=== PATIENT | female | born 1975 | race Caucasian/White ===

== ENCOUNTER 2020-07-24 08:36 | Outpatient (REF) | payer OTHER, SELFPAY ==
[2020-07-24 10:17] LABS: MANUAL DIFF FLAG NO
[2020-07-24 10:33] LABS: Basophils Percent Auto 0.5 % (0-2); Eosinophils Absolute Auto 0.2 X10*3/uL (0.0-0.4); Hematocrit 32.1 % (37-47); Imm Gran Abs Auto 0.02 X10*3/uL (0.00-0.03); Imm Gran Pct Auto 0.3 % (0.0-0.4); Immature Retic Fraction 14.7 % (3.0-15.9); Lymphocytes Absolute Auto 1.5 X10*3/uL (1.2-4.9); Lymphocytes Percent Auto 24.6 % (20-40); Mean Corpuscular HGB Conc 31.2 g/dl (31.0-35.0); Mean Corpuscular Volume 80.3 fL (80-98); Mean Platelet Volume 10.7 fL (9.4-12.3); Monocytes Absolute Auto 0.5 X10*3/uL (0.1-1.2); Neutrophils Absolute Auto 3.8 X10*3/uL (2.0-8.3); Neutrophils Percent Auto 62.6 % (45-73); Platelet Count 287 X10*3/uL (160-400); Red Cell Distribution Width 15.8 % (11.0-16.0); Retic HGB Equivalent 25.1 pg (30.0-35.0); Reticulocyte Percent 1.5 % (0.5-1.8); Reticulocytes Absolute 0.062 X10*6/uL (0.026-0.095)
[2020-07-24 10:57] LABS: Iron 43 mcg/dL (30-160); Percent Iron Saturation 10 % (15-50); Total Iron Binding Capacity 427 mcg/dL (228-428); Unsaturated Iron Binding 384 ug/dL
[2020-07-24 11:10] LABS: Ferritin 4 ng/mL (10-250); T4 Thyroxine 4.9 ug/dL (4.5-12.0); Thyroid Stimulating Hormone 11.81 mIU/mL (0.32-4.0)
== END 2020-07-24 08:37 | disposition home or self-care (01) ==
LOC: HO.LAB 08:36
PROVIDERS: PCP Internal Medicine; Visit Provider Internal Medicine
DX: E03.9 Hypothyroidism, unspecified (principal); E78.00 Pure hypercholesterolemia, unspecified; E66.9 Obesity, unspecified; G43.909 Migraine, unspecified, not intractable, without status migrainosus; R73.01 Impaired fasting glucose; D64.9 Anemia, unspecified; N92.1 Excessive and frequent menstruation with irregular cycle
CPT/HCPCS: 36415; 82728; 83540; 84436; 84443; 85025; 85045

== ENCOUNTER 2020-07-25 14:04 | Outpatient (REF) | payer OTHER, SELFPAY ==
--- NOTE | 2020-07-25 14:06 | XR_ITS ---
EXAMINATION: XR CHEST CLINICAL INFORMATION: Neck and chest pain. COMPARISON: None TECHNIQUE: 2 views of the chest were obtained. FINDINGS: No significant abnormality is noted involving the heart, lungs, mediastinum, bony thorax or soft tissues. IMPRESSION: No acute cardiopulmonary process.
== END 2020-07-25 14:05 | disposition home or self-care (01) ==
LOC: HO.XRAY 14:04
PROVIDERS: PCP Internal Medicine; Visit Provider Internal Medicine
DX: M54.2 Cervicalgia (principal); R07.9 Chest pain, unspecified
CPT/HCPCS: 71046

== ENCOUNTER → 2020-08-04 09:33 | Outpatient (BNVA) | payer OTHER, SELFPAY | PROVIDERS: PCP Internal Medicine; Referring Provider Internal Medicine; Visit Provider Advanced Practice Midwife | DX: Z76.89 Persons encountering health services in other specified circumstances (principal) ==

== ENCOUNTER 2020-08-08 13:17 | Outpatient (REF) | payer OTHER, SELFPAY ==
--- NOTE | 2020-08-08 13:22 | MM_ITS ---
EXAMINATION: MM DIAGNOSTIC DIGITAL BREAST TOMOSYNTHESIS, BILATERAL US DIAGNOSTIC ULTRASOUND BREAST, RIGHT CLINICAL INFORMATION: 45-year-old with ridgelike palpable fullness inferior right breast noted for one month. Family history breast cancer paternal aunt. The lifetime risk of breast cancer based on the Tyrer-Cuzick Model is 8%. COMPARISON: Mammography: 09/14/2017, 07/07/2016 TECHNIQUE: Digital breast tomosynthesis is performed in both the craniocaudal and mediolateral oblique views along with computer-aided detection (CAD). Synthesized 2D images are generated from the tomosynthesis. Ultrasound right breast is targeted to the area of clinical concern inferior right breast. Patient is able to point to the palpable area at time of imaging. Grayscale imaging and color Doppler are performed without and with harmonics. FINDINGS: There are scattered areas of fibroglandular density (ACR BI-RADS breast composition Category b). Parenchymal pattern is similar to prior exams. There is no interval mass or architectural abnormality. There is no skin thickening or coarsening of the Kyler's ligaments. No interval duct ectasia. There are no abnormal calcifications. The axilla are unremarkable. No significant changes from prior studies. Ultrasound right breast demonstrates no cystic or solid mass, architectural abnormality, or focal duct ectasia. There is no skin thickening or edema tracking in the soft tissue planes. Results are discussed with the patient at time of visit. There is no mammographic or ultrasound correlate for patient's palpable concern. MM/MM tomosynthesis diagnostic BI IMPRESSION: 1. No mammographic evidence of malignancy. 2. Unremarkable targeted right breast ultrasound. 3. No imaging correlate for patient's palpable concern. ASSESSMENT: BI-RADS 1: Negative RECOMMENDATION: 1. Patient should be managed based on the clinical impression. If clinically indicated, further evaluation may be considered with surgical consult. Decision to proceed with biopsy should be based on clinical grounds and degree of clinical concern. 2. Otherwise, routine annual screening mammography. This patient's information was entered into a reminder system with a target due date for their next mammogram.
== END 2020-08-08 13:18 | disposition home or self-care (01) ==
LOC: HO.MAMMO 13:17
PROVIDERS: Visit Provider Advanced Practice Midwife
DX: N63.14 Unspecified lump in the right breast, lower inner quadrant (principal)
CPT/HCPCS: 76642; 77062; 77066

== ENCOUNTER 2020-08-11 10:55 | Outpatient (REF) | payer OTHER, SELFPAY ==
--- NOTE | 2020-08-11 10:59 | US_ITS ---
EXAMINATION: PELVIC ULTRASOUND CLINICAL INFORMATION: Excessive and frequent menstruation COMPARISON: Previous exam November 2017 TECHNIQUE: Transabdominal and transvaginal pelvic ultrasound was performed. Transvaginal exam was performed for better visualization of the uterus and ovaries. FINDINGS: The uterus is anteverted and anteflexed and measures 9.7 x 5.4 x 6.6 cm in dimension. There are 3 hypoechoic lesions in the uterus suggestive of fibroids. These measure 2.4 x 2.3 x 2.1 cm in the left anterior high uterine body, 1.7 x 1.5 x 1.7 cm in the right uterine fundus adjacent to the endometrium and 1.8 x 1.2 x 0.7 cm in the posterior uterine body near the endometrium. The first 2 uterine fibroids are seen on prior exam and are increased in size measuring approximately 1 cm on November 2017 exam. The third uterine fibroid was not appreciated. The endometrium does not appear thickened measuring 1.1 cm. There are nabothian cysts in the cervix. The right ovary is normal-appearing and measures 2.7 x 2.9 x 2.6 cm. Left ovary measures 3 x 2.7 x 2.3 cm and contains a 1.7 x 1.2 x 1.3 cm complex cyst. There is no fluid in the pelvis. US/US pelvic complete IMPRESSION: Three uterine fibroids, two of which abut the endometrium. Normal thickness endometrium measuring 11 mm. 1.7 x 1.2 x 1.3 cm complex left ovarian cyst.
== END 2020-08-11 10:56 | disposition home or self-care (01) ==
LOC: HO.US 10:55
PROVIDERS: Visit Provider Advanced Practice Midwife
DX: N92.0 Excessive and frequent menstruation with regular cycle (principal)
CPT/HCPCS: 76830; 76856

== ENCOUNTER → 2020-08-25 11:23 | Outpatient (BNVA) | payer OTHER, SELFPAY | PROVIDERS: PCP Internal Medicine; Visit Provider Obstetrics & Gynecology | DX: N84.1 Polyp of cervix uteri (principal) | CPT/HCPCS: 99212 ==

== ENCOUNTER → 2020-09-15 09:56 | Outpatient (BNVA) | payer SELFPAY | PROVIDERS: Visit Provider Obstetrics & Gynecology | DX: N84.1 Polyp of cervix uteri (principal); N93.9 Abnormal uterine and vaginal bleeding, unspecified | CPT/HCPCS: 99212 ==

== ENCOUNTER 2020-09-25 09:00 | Day surgery (SDC) | payer OTHER, SELFPAY ==
--- NOTE | 2020-09-24 13:56 | HO.ANESPROP2 ---
Documented by User: Vibha Carr 09/24/20 13:58 HPI - Anesthesia Eval Consult details Narrative: 45yo F for Hysteroscopy,polypectomy PMFSH Past Medical History Medical History Anemia Cervical polyp Hypercholesterolemia Hypothyroid Impaired glucose tolerance Legally blind in left eye, as defined in [place] Metrorrhagia Migraine with aura Obesity (BMI 30-39.9) Urge incontinence Family History Family History Maternal Aunt Family history of breast cancer Maternal Uncle History of brain tumor Paternal Aunt Hx of myocardial infarction Father Myocardial infarction Mother Alive and well Surgical History Surgical History History of bilateral tubal ligation Hx of cervical polypectomy Hx of tubal ligation Social History Social History Alcohol intake: never Smoking Status: Never smoker Second Hand Smoke Exposure: No Use of substances other than those prescribed or required for medical reasons: No Advance Directives: Yes Advance Directives Information Provided: No Advance Directives on File: Yes Advance Directives Date on File: 07/17/20 Gender identity: female Meds Allergies Allergy/AdvReac Type Severity Reaction Status Date / Time No Known Allergies Allergy Verified 09/15/20 10:00 Home Medications Medication Instructions Recorded Confirmed Type cyclobenzaprine 10 mg tablet 10 mg PO TID 07/08/20 History sumatriptan succinate 50 mg tablet 50 mg PO Q2-4H PRN 07/24/20 07/24/20 History Exam Exam Date and Time: September 24, 2020 1356 Pertinent Lab Results Pertinent Lab Results: Laboratory Tests 04/29/20 07/24/20 09:05 08:55 WBC 6.0 Hgb 10.0 L Hct 32.1 L Plt Count 287 Sodium 138 Potassium 4.2 Chloride 106 BUN 8 L Creatinine 0.71 Assessment and Plan Assessment Anesthesia Assessment: Chart Reviewed Documented by User: Radha Ortega 09/25/20 09:49 PMFSH Past Medical History Medical History Anemia Cervical polyp Hypercholesterolemia Hypothyroid Impaired glucose tolerance Legally blind in left eye, as defined in [place] Metrorrhagia Migraine with aura Obesity (BMI 30-39.9) Urge incontinence Family History Family History Maternal Aunt Family history of breast cancer Maternal Uncle History of brain tumor Paternal Aunt Hx of myocardial infarction Father Myocardial infarction Mother Alive and well Surgical History Surgical History History of bilateral tubal ligation Hx of cervical polypectomy Hx of tubal ligation Social History Social History Alcohol intake: never Smoking Status: Never smoker Second Hand Smoke Exposure: No Use of substances other than those prescribed or required for medical reasons: No Advance Directives: Yes Advance Directives Information Provided: No Advance Directives on File: Yes Advance Directives Date on File: 07/17/20 Gender identity: female Meds Allergies Allergy/AdvReac Type Severity Reaction Status Date / Time No Known Allergies Allergy Verified 09/15/20 10:00 Home Medications Medication Instructions Recorded Confirmed Type cyclobenzaprine 10 mg tablet 10 mg PO TID 07/08/20 History sumatriptan succinate 50 mg tablet 50 mg PO Q2-4H PRN 07/24/20 07/24/20 History Exam Airway Mallampati Class: II TM Dist: >3cm Neck ROM: Full Assessment and Plan Assessment Anesthesia Assessment: Anesthesia Plan Discussed and Chart Reviewed Final Anesthetic Review NPO: Yes ASA Class: II Final Preanesthetic Review: No Changes in Pt Med Stat, Meds/Allgs Chart Reviewed, Consent Obtained/Reviewed and Anes Risks/Benef Reviewed Patient Risk: Low Procedure Risk: Low Assessment/Block/Sedation in SS: Assess/Block/Sedation-SS Anesthetic Plan Anesthetic Plan: MAC: Disposition: Standard PACU
[2020-09-24 14:05] VITALS: BMI 34.2
[2020-09-25 09:24] VITALS: BP 130/80; PULSE 89; RESP 16; TEMP 36.4; O2SAT 98
[2020-09-25] MEDS: Lactated Ringers 1,000 ML 100 ML IVCONT (09:27)
--- NOTE | 2020-09-25 09:46 | MHC.SHP ---
Pre-Procedural Eval Section A The patient is an INPATIENT: No Changes since office visit: No Cold of Flu in the past 2 weeks, No New Medical Problems, No Changes in Medication and No Patient answered all questions The History & Physical has been completed within 30 days and I have reviewed it.: Yes Section B Chief Complaint: polyp of cervix Allergies: Allergies Allergy/AdvReac Type Severity Reaction Status Date / Time No Known Allergies Allergy Verified 09/15/20 10:00 Plan I have reviewed the history and physical and performed a pertinent physical examination on my patient. No changes have occurred unless specified.
[2020-09-25 10:18] LABS: HCG Quantitative < 2 mIU/mL
--- NOTE | 2020-09-25 10:32 | PC.NURSE ---
AT 940 MD MADE AWARE OF LAB JUST DRAWN BUT OKAYED TO GO IN TO OR WITHOUT RESULTS SINCE PT HAD TUBAL LIGATION.
--- NOTE | 2020-09-25 10:50 | P.OP_ITS ---
Operative Note Operative Note Date of Service: 09/25/20 Narrative: Ms. Cha is a 45 year old with cervical polyp noted on annual exam by CNM and abnormal uterine bleeding. She presents today for hysteroscopy d&c for polypectomy. Surgical Risks: The patient was informed of the risks and benefits of a hysteroscopy with dilation and curettage. Risks included but were not limited to bleeding, infection, injury to the vulva, vagina, or cervix, and uterine perforation with possible need for further surgery. The patient expressed understanding of the risks involved, all questions were answered, and the patient consented to the procedure. The patient was taken to the operating room where a time out was confirmed to confirm correct patient and correct procedure. Adequate IV sedation was established. The patient was then positioned on the operating table in the dorsal lithotomy position with her legs supported using stirrups. All pressure points were padded and a warm blanket was placed to maintain control of core body temperature. The patient was then prepped and draped in the usual sterile fashion. A bimanual exam was performed and the uterus was found to be approximately 8 cm size, anteverted. No adnexal masses were palpated. A straight catheter was inserted into the bladder and urine was obtained. A bivalve speculum was then inserted into the vagina. The anterior lip of the cervix was visualized and grasped using a single tooth tenaculum. The cervix was adequately dilated using Sanchez dilators for the introduction of the hysteroscope. The cervix was noted to be friable. The hysteroscope was introduced under direct visualization using normal saline solution as the distending media. The hysteroscope was advanced to the fundus and the entire uterine cavity was inspected. The uterine cavity appeared filled with polypoid tissue. The hysteroscope was then removed and a sharp curetting was performed starting at the 12 o?clock position and rotating a total of 360 degrees in order to cover all surfaces. The hysteroscope was reintroduced and polypoid tissue noted to be remaining at the fundus and left posterior aspect of the uterine lining. The myosure was advanced and directed curettage was performed to remove the remaining visible polypoid tissue. The hysterosocpe was then removed with the myosure within the sleeve. A sharp curetting was again performed starting at the 12 o?clock position and rotating a total of 360 degrees in order to cover al l surfaces. Endometrial tissue was obtained and was sent to pathology. Following the curetting, good hemostasis was noted. The single-tooth tenaculum was removed from the anterior lip of the cervix and cervical bleeding was noted, which persisted despit the application of pressure. Monsel's was applied and good hemostasis was noted. The speculum was then removed from the vagina. At the end of the procedure, all needle, sponge, and instrument counts were noted to be correct x2. The patient was transferred to the recovery room in stable condition. Fluid deficit: 100mL EBL: 20cc
[2020-09-25 10:53] VITALS: BP 121/82; PULSE 61; RESP 16; TEMP 36.4; O2SAT 98
[2020-09-25 11:08] VITALS: BP 129/86; PULSE 60; RESP 16; O2SAT 100
[2020-09-25] MEDS: Acetaminophen 325 MG TABLET 650 MG PO (11:17)
[2020-09-25 11:24] VITALS: BP 126/87; PULSE 60; RESP 16; O2SAT 100
[2020-09-25 11:36] VITALS: BP 120/81; PULSE 60; RESP 16; O2SAT 98
== END 2020-09-25 11:58 | disposition home or self-care (01) ==
PROVIDERS: PCP Internal Medicine; Visit Provider Obstetrics & Gynecology
PROC: 0UJD8ZZ Inspection of Uterus and Cervix, Via Natural or Artificial Opening Endoscopic (ICD-10-PCS; CPT 58555; principal; 2020-09-25 11:40)
DX: N84.0 Polyp of corpus uteri (principal); N93.9 Abnormal uterine and vaginal bleeding, unspecified; D64.9 Anemia, unspecified; R73.02 Impaired glucose tolerance (oral); E66.9 Obesity, unspecified; Z98.51 Tubal ligation status
CPT/HCPCS: 58558; 84702; 88305; J1885; J2250; J2405; J3010

== ENCOUNTER → 2020-10-08 11:38 | Outpatient (BNVA) | payer OTHER, SELFPAY | PROVIDERS: PCP Internal Medicine; Visit Provider Obstetrics & Gynecology | DX: Z76.89 Persons encountering health services in other specified circumstances (principal) ==

== ENCOUNTER → 2020-11-17 13:15 | Outpatient (BNVA) | payer OTHER, SELFPAY | PROVIDERS: PCP Internal Medicine; Visit Provider Advanced Practice Midwife ==

== ENCOUNTER → 2021-12-04 14:08 | Outpatient (RCR) | payer OTHER, SELFPAY ==
--- NOTE | 2020-07-25 14:11 | XR_ITS ---
EXAMINATION: XR CERVICAL SPINE CLINICAL INFORMATION: Cervicalgia COMPARISON: None TECHNIQUE: 3 views of the cervical spine were obtained. FINDINGS: There are no prevertebral soft tissue or bony abnormalities demonstrated. No compression fractures or subluxations are identified. Alignment is maintained at the atlanto-axial articulation. The disc spaces are preserved. No endplate changes are seen. The prevertebral soft tissues are normal. The lung apices are clear. IMPRESSION: Normal appearance of the cervical spine.
--- NOTE | 2020-08-12 15:32 | MHC.PT.DC ---
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 On her last attended visit, we began to review rolling/lifting/transfer techniques with proper body mechanics. She has since no showed 2 consecutive visits and will therefore be discharged from PT. She was supposed to RTW soon. Electronically signed by: Janel Leon PT, DPT Please sign and return to therapist. Thank you for your referral.
== END | disposition home or self-care (01) ==
LOC: HO.PT 07-17 11:52
PROVIDERS: PCP Internal Medicine; Visit Provider Internal Medicine
DX: M54.9 Dorsalgia, unspecified (principal)
CPT/HCPCS: 72040; 97110; 97140; 97530

== ENCOUNTER 2023-02-19 07:51 | Outpatient (REF) | payer OTHER, SELFPAY ==
[2023-02-19 08:34] LABS: MANUAL DIFF FLAG NO
[2023-02-19 09:02] LABS: Basophils Percent Auto 0.8 % (0-2); Eosinophils Absolute Auto 0.2 X10*3/uL (0.0-0.4); Eosinophils Percent Auto 5.2 % (0-4); Hematocrit 30.5 % (37.0-47.0); Imm Gran Abs Auto 0.02 X10*3/uL (0.00-0.03); Imm Gran Pct Auto 0.5 % (0.0-0.4); Immature Retic Fraction 17.1 % (3.0-15.9); Lymphocytes Absolute Auto 1.1 X10*3/uL (1.2-4.9); Lymphocytes Percent Auto 28.4 % (20-40); Mean Corpuscular HGB Conc 29.5 g/dl (31.0-35.0); Mean Corpuscular Hemoglobin 20.9 pg (27.0-33.0); Mean Corpuscular Volume 70.8 fL (80.0-98.0); Monocytes Absolute Auto 0.4 X10*3/uL (0.1-1.2); Monocytes Percent Auto 10.3 % (2-11); Neutrophils Absolute Auto 2.1 x10*3/uL (2.0-8.3); Neutrophils Percent Auto 54.8 % (45-73); Platelet Count 341 X10*3/uL (160-400); Red Blood Count 4.31 X10*6/uL (4.20-5.50); Red Cell Distribution Width 18.9 % (11.0-16.0); Retic HGB Equivalent 22.6 pg (30.0-35.0); Reticulocyte Percent 1.6 % (0.5-1.8); Reticulocytes Absolute 0.071 X10*6/uL (0.026-0.095); White Blood Count 3.9 X10*3/uL (4.8-10.8)
[2023-02-19 09:04] LABS: Appearance Urine Clear; Color Urine Yellow; Glucose Urine UA Negative (Negative); Leukocyte Esterase Urine Small (1+) (Negative); Nitrite Urine Negative (Negative); PH 6.5 (5.0-9.0); UMIC TRIGGER UA YES; Urine Blood Negative (Negative); Urine Ketones Negative (Negative); Urine Protein Trace mg/dL (Neg-Trace)
[2023-02-19 09:14] LABS: Estimated Average Glucose 108 mg/dL; Hemoglobin A1c % 5.4 %
[2023-02-19 09:17] LABS: Bacteria Urine Trace (None Seen); Hyaline Casts Urine 0-2 /LPF (0-2); RBC Urine 0-2 /HPF (0-2); WBC Urine 0-5 /HPF (0-5)
[2023-02-19 09:51] LABS: Alanine Aminotransferase 11 U/L (0-31); Albumin Level 4.1 g/dL (3.5-5.0); Alkaline Phosphatase 101 U/L (39-117); Anion Gap 10 (12-20); Aspartate Amino Transferase 14 U/L (5-31); Bilirubin Total 0.3 mg/dL (0.0-1.0); Blood Urea Nitrogen 6 mg/dL (9-16); Carbon Dioxide 26 mmol/L (22-29); Chloride 107 mmol/L (96-108); Cholesterol 201 mg/dL; Estimated Glomerular Filt Rate > 60; Glucose Random 107 mg/dL (60-115); HDL Cholesterol 44 mg/dL; Iron 13 mcg/dL (30-160); LDL Cholesterol Calculated 140 mg/dl; Percent Iron Saturation 3 % (15-50); Potassium 3.9 mmol/L (3.3-5.1); Sodium 139 mmol/L (135-145); Total Iron Binding Capacity 382 mcg/dL (228-428); Total Protein 7.4 g/dL (6.5-8.0); Triglycerides 85 mg/dL; Unsaturated Iron Binding 369 ug/dL
[2023-02-19 10:15] LABS: Ferritin 6 ng/mL (10-250); Folate 8.5 ng/mL (> or = 4.0); Free T4 (Free Thyroxine) 0.74 ng/dL (0.71-1.85); Thyroid Stimulating Hormone 16.19 uIU/mL (0.32-4.0); Vitamin B12 343 pg/mL (200-900); Vitamin D 25-OH Total 15.4 ng/mL (>30)
== END 2023-02-19 07:52 | disposition home or self-care (01) ==
LOC: HO.LAB 07:51
PROVIDERS: PCP Internal Medicine; Visit Provider Internal Medicine
DX: D50.0 Iron deficiency anemia secondary to blood loss (chronic) (principal); R73.02 Impaired glucose tolerance (oral); R35.0 Frequency of micturition; E78.00 Pure hypercholesterolemia, unspecified; E55.9 Vitamin D deficiency, unspecified
CPT/HCPCS: 36415; 80053; 80061; 81001; 82306; 82607; 82728; 82746; 83036; 83540; 84439; 84443; 85025; 85045

== ENCOUNTER 2023-02-21 10:20 | Outpatient (REF) | payer OTHER, SELFPAY ==
--- NOTE | ~2023-02-21 | XR_ITS ---
EXAMINATION: XR SINUSES CLINICAL INFORMATION: Disorder of nose and nasal sinuses. Chronic sinus pressure. COMPARISON: None available. TECHNIQUE: 3 views of the sinuses were obtained. FINDINGS: Paranasal sinuses appear clear without air-fluid levels. No fractures are identified. Oval shaped area of increased sclerosis projects over the superior left frontal sinus on one view only. This may represent something in the patient's scalp or hair. XR/XR sinus <3V IMPRESSION: Unremarkable examination.
== END 2023-02-21 10:21 | disposition home or self-care (01) ==
LOC: HO.XRAY 10:20
PROVIDERS: PCP Internal Medicine; Visit Provider Internal Medicine
DX: J34.89 Other specified disorders of nose and nasal sinuses (principal)
CPT/HCPCS: 70210

== ENCOUNTER → 2023-03-04 09:05 | Outpatient (BNVA) | payer OTHER, SELFPAY | PROVIDERS: PCP Internal Medicine; Referring Provider Internal Medicine; Visit Provider Surgery ==

== ENCOUNTER 2023-03-30 13:53 | Outpatient (REF) | payer OTHER, SELFPAY ==
[2023-03-30 18:50] LABS: CT PCR NOT DETECTED (Not Detect.); NG PCR NOT DETECTED (Not Detect.)
[2023-03-31 13:55] LABS: BV Int Neg Control Negative (Negative); BV Int Pos Control Positive (Positive)
[2023-04-02 00:59] LABS: HPV mRNA E6/E7 rflx Not Detected (Not Detected)
== END 2023-03-30 13:54 | disposition home or self-care (01) ==
LOC: HO.LNP 13:53
PROVIDERS: PCP Internal Medicine; Visit Provider Advanced Practice Midwife
DX: Z01.419 Encounter for gynecological examination (general) (routine) without abnormal findings (principal); Z11.51 Encounter for screening for human papillomavirus (HPV); Z20.2 Contact with and (suspected) exposure to infections with a predominantly sexual mode of transmission; R03.0 Elevated blood-pressure reading, without diagnosis of hypertension; E03.9 Hypothyroidism, unspecified
CPT/HCPCS: 0353U; 87480; 87510; 87624; 87660; 88142

== ENCOUNTER 2023-04-05 13:32 | Outpatient (REF) | payer OTHER, SELFPAY | END 2023-04-05 13:33 | disposition home or self-care (01) | LOC: HO.US 13:32 | PROVIDERS: PCP Internal Medicine; Visit Provider Advanced Practice Midwife | DX: Z13.89 Encounter for screening for other disorder (principal) ==

== ENCOUNTER 2023-04-07 10:39 | Outpatient (REF) | payer OTHER, SELFPAY ==
[2023-04-07 10:39] VITALS: BP 197/91; PULSE 84; RESP 18; TEMP 36.6; O2SAT 99; BMI 32.9
--- NOTE | 2023-04-07 12:53 | P.OP_ITS ---
Operative Note Operative Note Date of Service: 04/07/23 Narrative: Preoperative diagnosis: Umbilical polyp Postoperative diagnosis: Same Procedure: Excision of the umbilical polyp Surgeon: Marty Lam MD Covering Machine Tender: None Anesthesia: Local Indications for procedure: 47-year-old female with a raised polypoid lesion with brownish discoloration located in the inferior surface of the umbilicus measuring approximately 1.5 cm by 1 cm at its base. Operative findings: Polypoid lesion of the umbilicus, underlying fat containing hernia identified at umbilicus Specimen: Skin lesion umbilicus Estimated blood loss: 2 mL Complications: None Procedure details: Patient was brought to the minor surgery suite placed in a supine position. The site of surgery was confirmed by the patient at the umbilicus. After assuring informed consent the skin was prepped with Betadine and draped in a sterile fashion. Local anesthesia was then infiltrated around the lesion. Elliptical incision oriented longitudinally was then created at the midline to encompass the entire lesion. This was carried out through subcutaneous tissue and around the lesion. The umbilical hernia was noted but no attempt was made to repair. Lesion was completely excised and sent to pathology for further examination. After assuring adequate hemostasis the dermis was reapproximated using interrupted 3-0 Polysorb sutures. Skin was then closed using a running subcuticular 4-0 Polysorb suture. Steri-Strips, 2 x 2 gauze and Tegaderm were then applied. The patient tolerated the procedure well. She was discharged to home in stable condition.
== END 2023-04-07 10:40 | disposition home or self-care (01) ==
LOC: HO.MS 10:39
PROVIDERS: PCP Internal Medicine; Visit Provider Surgery
PROC: (CPT 49250; principal; 2023-04-07 11:20)
DX: L85.8 Other specified epidermal thickening (principal); L91.0 Hypertrophic scar; K42.9 Umbilical hernia without obstruction or gangrene
CPT/HCPCS: 49250; 88305

== ENCOUNTER 2023-04-13 13:28 | Outpatient (REF) | payer OTHER, SELFPAY ==
--- NOTE | ~2023-04-13 | US_ITS ---
EXAMINATION: US PELVIS CLINICAL INFORMATION: Abnormal uterine bleeding LMP 03/05/2023 COMPARISON: Pelvic ultrasound 08/11/2020 TECHNIQUE: Ultrasound of the pelvis is performed using both transabdominal and transvaginal transducers along with Doppler. Transvaginal imaging is performed due to inadequate visualization transabdominally. FINDINGS: Uterus: The uterus is anteverted and measures 11.1 x 7.3 x 7.2 cm. The myometrium is heterogeneous. The double wall endometrial thickness is 1.4 mm. There are multiple uterine fibroids. There is a new 1.1 x 0.8 x 1.0 cm fibroid is seen in the lower uterine segment has a submucosal component. There is a 1.5 x 1.4 x 1.7 cm fibroid on the right that was not previously seen. 1.3 x 1.3 x 1.2 cm intramural fibroid in the right fundus adjacent to the endometrium previously measured 1.7 x 1.5 x 1.7 cm. 2.3 x 2.9 x 2.1 cm posterior subserosal fibroid in the body of the uterus previously measured 1.8 x 1.2 x 0.9 cm. 2.3 x 2.8 x 2.4 cm fundal fibroid on the left previously measured 2.4 x 2.3 x 2.1 cm. Adnexa: Both ovaries are visualized. There is normal color flow to the adnexa. There is no ovarian torsion. There is a small amount of free fluid within the pelvis. Right ovary measures 4.2 x 2.7 x 1.9 cm. Volume 11.3 mL. Left ovary measures 3.7 x 2.0 x 2.7 cm. Volume 10.5 mL. 2.1 x 1.8 x 1.8 cm collapsing corpus luteum is seen. US/US pelvic and transvaginal IMPRESSION: 1. Multiple uterine fibroids including a new 1.1 cm fibroid in the lower segment with a submucosal component. 2. The appearance of the ovaries is within normal limits.
== END 2023-04-13 13:29 | disposition home or self-care (01) ==
LOC: HO.US 13:28
PROVIDERS: PCP Internal Medicine; Visit Provider Advanced Practice Midwife
DX: N83.209 Unspecified ovarian cyst, unspecified side (principal); N92.1 Excessive and frequent menstruation with irregular cycle; Z87.42 Personal history of other diseases of the female genital tract; Z98.890 Other specified postprocedural states
CPT/HCPCS: 76830; 76856

== ENCOUNTER → 2023-04-15 08:06 | Outpatient (BNVA) | payer OTHER, SELFPAY | PROVIDERS: Visit Provider Surgery ==

== ENCOUNTER 2023-04-18 13:50 | Outpatient (REF) | payer OTHER, SELFPAY ==
--- NOTE | ~2023-04-18 | MM_ITS ---
EXAMINATION: MM SCREENING DIGITAL BREAST TOMOSYNTHESIS, BILATERAL CLINICAL INFORMATION: Screening. Asymptomatic. The lifetime risk of breast cancer based on the Tyrer-Cuzick Model is 14.3%. COMPARISON: Mammography: This study is compared with prior exams dating back to 2017. TECHNIQUE: Digital breast tomosynthesis is performed in both the craniocaudal and mediolateral oblique views along with computer-aided detection (CAD). Synthesized 2D images are generated from the tomosynthesis. FINDINGS: There are scattered areas of fibroglandular density (ACR BI-RADS breast composition Category b). There are no significant masses, abnormal calcifications, or other abnormalities. MM/MM tomosynthesis screening BI IMPRESSION: No mammographic evidence of malignancy. ASSESSMENT: BI-RADS BI-RADS 1 - Negative RECOMMENDATION: Routine annual mammography screening. 1 year F/U This examination should not preclude the clinical evaluation of a suspicious palpable abnormality. This patient's information was entered into a reminder system with a target due date for their next mammogram.
== END 2023-04-18 13:51 | disposition home or self-care (01) ==
LOC: HO.MAMMO 13:50
PROVIDERS: PCP Internal Medicine; Visit Provider Internal Medicine
DX: Z12.31 Encounter for screening mammogram for malignant neoplasm of breast (principal)
CPT/HCPCS: 77063; 77067

== ENCOUNTER → 2023-04-18 13:52 | Outpatient (BNV) | payer OTHER, SELFPAY | PROVIDERS: PCP Internal Medicine; Visit Provider Radiology Diagnostic Radiology | DX: Z12.31 Encounter for screening mammogram for malignant neoplasm of breast (principal) | CPT/HCPCS: 77063; 77067 ==

== ENCOUNTER 2023-04-19 12:09 | Outpatient (AMB) | payer OTHER, SELFPAY ==
--- NOTE | 2023-04-19 12:25 | A.OFFVIS_ITS ---
Intake Vital Signs 04/19/23 12:31 Height 5 ft 5 in Weight 197 lb BMI 32.8 BP 142/80 H Blood Pressure Location Rt brachial Position Sitting Intake Visit Reasons: US follow up Grey Washer Required: No Accompanied by: Self / Same As Patient Allergies No Known Allergies Allergy (Verified 04/19/23 12:42) Medication List - Last Reconciled 04/19/23 by Raegan Alvarez CNM ascorbate calcium (vitamin C) 500 mg PO DAILY xtrxgyu-ogqaziidovaja-senucmdm 250-250-65 mg (Excedrin Migraine) 1 tab PO Q4-6H PRN blood pressure monitor (Blood Pressure Kit) As directed cyanocobalamin (vitamin B-12) 1,000 mcg PO DAILY ferrous sulfate (Feosol) 325 mg PO DAILY levothyroxine (Synthroid) 50 mcg PO DAILY lisinopril 5 mg PO DAILY sennosides-docusate sodium 8.6-50 mg (Senna Plus) 2 tab-caps (2 x 8.6-50 mg) PO BEDTIME 90 days tramadol 50 mg PO DAILY Is last menstrual period known: Yes Last menstrual period: 04/08/23 HPI US follow up HPI Details Patient is here to discuss her ultrasounds and her history of heavy long periods also she has been getting very bad migraines with them and she is exhausted she is anemic Dr. Velásquez has her on iron and she also recently started antihypertensive and her blood pressure was better today. She will be seeing Dr. Velásquez either tomorrow or the next day. She is tired of dealing with these heavy periods she had a polyp removed [address] Yates she has multiple fibroids --see the ultrasound, including 1 small new 1 they were all small. When I asked the patient what she was hoping to have done she says she wants it to be done with it all she is tired of it when I asked her if she was thinking surgery she said yes very quickly. She had her tubes tied so she does not need contraception she has not really considered a Mirena. Her cervix was also noted to be friable at the last visit [facility] Medical History (Updated 04/19/23 @ 13:37 by Raegan Alvarez CNM) Anemia Breast lump Cervical polyp Erythema of groin Hypercholesterolemia Hypothyroid Impaired glucose tolerance Legally blind in left eye, as defined in [place] Menometrorrhagia Menorrhagia Metrorrhagia Migraine with aura Obesity (BMI 30-39.9) Urge incontinence Surgical History History of bilateral tubal ligation History of excision of lesion (04/07/23) Hx of cervical polypectomy Hx of tubal ligation Family History Maternal Aunt Family history of breast cancer Maternal Uncle History of brain tumor Paternal Aunt Hx of myocardial infarction Skin cancer Father Myocardial infarction Mother Alive and well Social History Housing: House Alcohol intake: never Patient Tobacco Use Status: Never used Tobacco Second Hand Smoke Exposure: No Advance Directives Date on File: 07/17/20 Current occupational status: employed Gender identity: Female Cognitive needs: No Hearing needs: No Vision needs: No Female Reproductive History Menstrual Age of Menarche: 10 Date of last menstrual period: 04/08/23 Physical Exam Vital Signs: Last Vital Signs BP 142/80 H 04/19/23 12:31 BMI result Body Mass Index 32.8 Results Reviewed Results Reviewed: Name: Ileana Cha Age/Sex: 47/F : 1975 Unit#: [id number] Attend Dr: Jill Calderón MD Re02/19/23 Status: DEP [facility] Disch: SPEC : [id number] DENEEN: 02/19/23 STATUS: COMP REQ : [id number] RECD: 02/19/[address]: Jill Calderón MD COMP: 02/19/23 ENTERED: 02/19/[address]: ORDERED: CBC Auto Diff, Retic Test Result Flag Reference Site WBC 3.9 L 4.8-10.8 X10*3/uL RBC 4.31 4.20-5.50 X10*6/uL HGB 9.0 L 12.0-16.0 g/dl HCT 30.5 L 37.0-47.0 % MCV 70.8 L 80.0-98.0 fL MCH 20.9 L 27.0-33.0 pg MCHC 29.5 L 31.0-35.0 g/dl RDW 18.9 H 11.0-16.0 % PLT 341 160-400 X10*3/uL MPV 10.0 9.4-12.3 fL Neut Pct Auto 54.8 45-73 % ImGran Pct Auto 0.5 H 0.0-0.4 % Lymp Pct Auto 28.4 20-40 % Woodward Pct Auto 10.3 2-11 % Eos Pct Auto 5.2 H 0-4 % Baso Pct Auto 0.8 0-2 % NRBC Pct Auto 0.0 0.0-0.2 /100WBC ANC Neut Abs # 2.1 2.0-8.3 x10*3/uL ImGran Abs Auto 0.02 0.00-0.03 X10*3/uL Lymph Abs Auto 1.1 L 1.2-4.9 X10*3/uL Woodward Abs Auto 0.4 0.1-1.2 X10*3/uL Eos Abs Auto 0.2 0.0-0.4 X10*3/uL Baso Abs Auto 0.0 0.0-0.2 X10*3/uL NRBC Abs Auto 0.000 0.0-0.012 X10*3/uL Retic Abs 0.071 0.026-0.095 X10*6/uL IMM RETIC FRACT 17.1 H 3.0-15.9 % Retic HGB Equiv 22.6 L 30.0-35.0 pg Retic Pct 1.6 0.5-1.8 % [address] [id number] ReportSigned Patient: Simi Cha#: [id number]: 1975Acct:[id number]/Sex: 45 / FADM Date: 08/11/20Loc: [place] Dr: Myra Rapp CNM Ordering Physician: Myra Rapp CNM Date of Service: 08/11/20 Procedure(s): US transvaginal Accession Number(s): [id number] cc: Myra Rapp CNM~ EXAMINATION: PELVIC ULTRASOUND CLINICAL INFORMATION: Excessive and frequent menstruation? COMPARISON: Previous exam November 2017? TECHNIQUE: Transabdominal and transvaginal pelvic ultrasound was performed. Transvaginal exam was performed for better visualization of the uterus and ovaries.? FINDINGS: The uterus is anteverted and anteflexed and measures 9.7 x 5.4 x 6.6 cm in dimension. There are 3 hypoechoic lesions in the uterus suggestive of fibroids. These measure 2.4 x 2.3 x 2.1 cm in the left anterior high uterine body, 1.7 x 1.5 x 1.7 cm in the right uterine fundus adjacent to the endometrium and 1.8 x 1.2 x 0.7 cm in the posterior uterine body near the endometrium. The first 2 uterine fibroids are seen on prior exam and are increased in size measuring approximately 1 cm on November 2017 exam. The third uterine fibroid was not appreciated. The endometrium does not appear thickened measuring 1.1 cm. There are nabothian cysts in the cervix. The right ovary is normal-appearing and measures 2.7 x 2.9 x 2.6 cm. Left ovary measures 3 x 2.7 x 2.3 cm and contains a 1.7 x 1.2 x 1.3 cm complex cyst. There is no fluid in the pelvis.? US/US transvaginal IMPRESSION: Three uterine fibroids, two of which abut the endometrium. Normal thickness endometrium measuring 11 mm. 1.7 x 1.2 x 1.3 cm complex left ovarian cyst.? Dictated By:LEIDA GALLO MDSigned By:<Electronically signed by LEIDA GALLO MD in OV>08/11/20 1141 DD/ 1059TD/TT:?[employer] Offbearer: [address] [address] Ultrasound Report Signed Patient: Ileana Cha MR#: [id number] : 1975 Acct:[id number] Age/Sex: 47 / F ADM Date: 04/13/23 Loc: [facility].US Attending Dr: Raegan Alvarez CNM Ordering Physician: Raegan Alvarez CNM Date of Service: 04/13/23 Procedure(s): US pelvic and transvaginal Accession Number(s): [id number] cc: Raegan Alvarez CNM~ EXAMINATION:? US PELVIS CLINICAL INFORMATION:? Abnormal uterine bleeding LMP 03/05/2023 COMPARISON: Pelvic ultrasound 08/11/2020 TECHNIQUE: Ultrasound of the pelvis is performed using both transabdominal and transvaginal transducers along with Doppler. Transvaginal imaging is performed due to inadequate visualization transabdominally. FINDINGS: Uterus: The uterus is anteverted and measures 11.1 x 7.3 x 7.2 cm.? The myometrium is heterogeneous. The double wall endometrial thickness is 1.4 mm. There are multiple uterine fibroids. There is a new 1.1 x 0.8 x 1.0 cm fibroid is seen in the lower uterine segment has a submucosal component. There is a 1.5 x 1.4 x 1.7 cm fibroid on the right that was not previously seen. 1.3 x 1.3 x 1.2 cm intramural fibroid in the right fundus adjacent to the endometrium previously measured 1.7 x 1.5 x 1.7 cm. 2.3 x 2.9 x 2.1 cm posterior subserosal fibroid in the body of the uterus previously measured 1.8 x 1.2 x 0.9 cm. 2.3 x 2.8 x 2.4 cm fundal fibroid on the left previously measured 2.4 x 2.3 x 2.1 cm. Adnexa: Both ovaries are visualized. There is normal color flow to the adnexa. There is no ovarian torsion. There is a small amount of free fluid within the pelvis. Right ovary measures 4.2 x 2.7 x 1.9 cm. Volume 11.3 mL. Left ovary measures 3.7 x 2.0 x 2.7 cm. Volume 10.5 mL. 2.1 x 1.8 x 1.8 cm collapsing corpus luteum is seen. US/US pelvic and transvaginal IMPRESSION: 1.? Multiple uterine fibroids including a new 1.1 cm fibroid in the lower segment with a submucosal component. 2.? The appearance of the ovaries is within normal limits. ? Dictated By: Leida Ocampo MD Signed By: <Electronically signed by Leida Ocampo MD in OV> 04/19/23 1103 Assessment & Plan Assessment & Plan (1) Hx of cervical polypectomy: Comment: November 2016 Code(s): Z98.890 - Other specified postprocedural states; Z87.42 - Personal history of other diseases of the female genital tract (2) Abnormal uterine bleeding (AUB): Code(s): N93.9 - Abnormal uterine and vaginal bleeding, unspecified (3) Menometrorrhagia: Code(s): N92.1 - Excessive and frequent menstruation with irregular cycle (4) Fibroids: Code(s): D21.9 - Benign neoplasm of connective and other soft tissue, unspecified (5) Friable cervix: Code(s): N88.8 - Other specified noninflammatory disorders of cervix uteri (6) Cervical cancer screening: Comment: Pap of 03/30/2023 is still pending Code(s): Z12.4 - Encounter for screening for malignant neoplasm of cervix (7) Anemia: Code(s): D64.9 - Anemia, unspecified Qualifiers: Anemia type: iron deficiency Iron deficiency anemia type: chronic blood loss Qualified Code(s): D50.0 - Iron deficiency anemia secondary to blood loss (chronic) (8) Hypothyroid: Code(s): E03.9 - Hypothyroidism, unspecified Qualifiers: Hypothyroidism type: acquired Qualified Code(s): E03.9 - Hypothyroidism, unspecified (9) Hypertension: Code(s): I10 - Essential (primary) hypertension Plan Patient is here to discuss her ultrasounds and her history of heavy long periods also she has been getting very bad migraines with them and she is exhausted she is anemic Dr. Velásquez has her on iron and she also recently started antihypertensive and her blood pressure was better today. She will be seeing Dr. Velásquez either tomorrow or the next day. She is tired of dealing with these heavy periods she had a polyp removed [address] Yates she has multiple fibroids --see the ultrasound, including 1 small new 1 they were all small. When I asked the patient what she was hoping to have done she says she wants it to be done with it all she is tired of it when I asked her if she was thinking surgery she said yes very quickly. She had her tubes tied so she does not need contraception she has not really considered a Mirena. Her cervix was also noted to be friable at the last visit. I reviewed her 2 ultrasounds 1 from 2019 and now this 1 done a few days ago. Her periods aside from being heavy and long or also coming closer and closer together. Discussed the possible use of a Mirena to help thin out the lining of the uterus and therefore cream tribute to periods getting management assistant and in some cases having them go away completely. In any case she really wishes to discuss a surgical solution that might be definitive so she will have her next visit with Dr. Castillo I did give her a brochure about the Mirena and explained the rationale for why we want to inserted on the 1st day or 2nd day of her period. She will have a visit with Dr. Castillo in a for Mirena is recommended she can have the insertion done with either myself or Dr. Castillo. Coding Level of Care Code Est Pt Level 3 (48603) Diagnoses Hx of cervical polypectomy Z98.890; Z87.42 Abnormal uterine bleeding (AUB) N93.9 Menometrorrhagia N92.1 Fibroids D21.9 Friable cervix N88.8 Cervical cancer screening Z12.4 Anemia D50.0 Anemia type: iron deficiency Iron deficiency anemia type: chronic blood loss Hypothyroid E03.9 Hypothyroidism type: acquired Hypertension I10
[2023-04-19 12:31] VITALS: BP 142/80; BMI 32.8
== END 2023-04-19 13:30 | disposition home or self-care (01) ==
LOC: HO.HWSM 12:09
PROVIDERS: PCP Internal Medicine; Visit Provider Advanced Practice Midwife
DX: N93.9 Abnormal uterine and vaginal bleeding, unspecified (principal); N92.1 Excessive and frequent menstruation with irregular cycle; D25.9 Leiomyoma of uterus, unspecified; N88.8 Other specified noninflammatory disorders of cervix uteri; Z87.42 Personal history of other diseases of the female genital tract; Z98.890 Other specified postprocedural states; Z12.4 Encounter for screening for malignant neoplasm of cervix; D50.0 Iron deficiency anemia secondary to blood loss (chronic); E03.9 Hypothyroidism, unspecified; I10 Essential (primary) hypertension
CPT/HCPCS: 99213

== ENCOUNTER → 2023-04-19 12:09 | Outpatient (BNVA) | payer OTHER, SELFPAY | PROVIDERS: PCP Internal Medicine; Visit Provider Advanced Practice Midwife ==

== ENCOUNTER 2023-04-20 07:56 | Outpatient (REF) | payer OTHER, SELFPAY ==
[2023-04-20 08:15] LABS: MANUAL DIFF FLAG NO
[2023-04-20 08:51] LABS: Basophils Absolute Auto 0.1 X10*3/uL (0.0-0.2); Basophils Percent Auto 0.9 % (0-2); Eosinophils Absolute Auto 0.2 X10*3/uL (0.0-0.4); Eosinophils Percent Auto 3.3 % (0-4); Hematocrit 29.2 % (37.0-47.0); Hemoglobin 8.6 g/dl (12.0-16.0); Imm Gran Abs Auto 0.02 X10*3/uL (0.00-0.03); Imm Gran Pct Auto 0.4 % (0.0-0.4); Immature Retic Fraction 24.1 % (3.0-15.9); Lymphocytes Absolute Auto 1.6 X10*3/uL (1.2-4.9); Lymphocytes Percent Auto 28.8 % (20-40); Mean Corpuscular HGB Conc 29.5 g/dl (31.0-35.0); Mean Corpuscular Hemoglobin 21.7 pg (27.0-33.0); Mean Corpuscular Volume 73.6 fL (80.0-98.0); Mean Platelet Volume 10.4 fL (9.4-12.3); Monocytes Absolute Auto 0.6 X10*3/uL (0.1-1.2); Neutrophils Percent Auto 55.6 % (45-73); Platelet Count 323 X10*3/uL (160-400); Red Blood Count 3.97 X10*6/uL (4.20-5.50); Red Cell Distribution Width 19.2 % (11.0-16.0); Reticulocyte Percent 1.5 % (0.5-1.8); Reticulocytes Absolute 0.059 X10*6/uL (0.026-0.095); White Blood Count 5.5 X10*3/uL (4.8-10.8)
[2023-04-20 09:31] LABS: Iron 19 mcg/dL (30-160); Percent Iron Saturation 5 % (15-50); Total Iron Binding Capacity 360 mcg/dL (228-428); Unsaturated Iron Binding 341 ug/dL
[2023-04-20 09:50] LABS: Ferritin 6 ng/mL (10-250); Free T4 (Free Thyroxine) 0.73 ng/dL (0.71-1.85); Thyroid Stimulating Hormone 16.45 uIU/mL (0.32-4.0)
[2023-04-20 09:51] LABS: Folate 7.2 ng/mL (> or = 4.0); Vitamin B12 330 pg/mL (200-900)
== END 2023-04-20 07:57 | disposition home or self-care (01) ==
LOC: HO.LAB 07:56
PROVIDERS: PCP Internal Medicine; Visit Provider Internal Medicine
DX: D50.0 Iron deficiency anemia secondary to blood loss (chronic) (principal); E03.9 Hypothyroidism, unspecified
CPT/HCPCS: 36415; 82607; 82728; 82746; 83540; 84439; 84443; 85025; 85045

== ENCOUNTER 2023-04-21 14:03 | Outpatient (AMB) | payer OTHER, SELFPAY ==
[2023-04-21 14:14] VITALS: BP 152/92; PULSE 78; O2SAT 98; BMI 31.6
--- NOTE | 2023-04-21 14:14 | MHC.PC.OV ---
Vital Signs 04/21/23 14:14 Height 5 ft 5 in Weight 190 lb BMI 31.6 BP 152/92 H Blood Pressure Location Lt brachial Position Sitting Pulse 78 Pulse Source Pulse Oximeter Pulse Oximetry (%) 98 Oxygen Delivery Method Room Air Intake Visit Reasons: 2 month f/u Allergies No Known Allergies Allergy (Verified 04/21/23 14:14) Tobacco use date assessed: 02/18/23 Dental Screening Dental Screen Date: 04/21/23 Did you have a dental visit in the last 12 months?: Yes Did you have a dental problem in the last 6 months where you did not have access to dental care?: No Was dental information given to patient?: Patient has dentist HPI 2 month f/u HPI Details 47-year-old obese female with impaired glucose tolerance anemia hypercholesterolemia hypothyroidism GERD constipation last seen in February 2023 blood work was requested mammogram colon cancer screening request done. Patient is here for follow-up. Patient follows up with Gynecology due to menorrhagia noted to have fibroids on ultrasound. Patient has hope for hysterectomy but gynecology has advised her Mirena.. Patient also had an umbilical polyp that has been operated on by minor surgery. Patient also had some x-rays for the sinuses which was negative [facility] Medical History (Updated 04/21/23 @ 14:52 by Jill Calderón MD) Abnormal uterine bleeding (AUB) Anemia Blood pressure elevated without history of HTN Breast cancer screening by mammogram Breast lump Cervical cancer screening Cervical polyp Encounter for gynecological examination Erythema of groin Friable cervix Hypercholesterolemia Hypothyroid Impaired glucose tolerance Legally blind in left eye, as defined in [place] Menometrorrhagia Menorrhagia Metrorrhagia Migraine with aura Nasal pain Obesity (BMI 30-39.9) Urge incontinence Surgical History History of bilateral tubal ligation History of excision of lesion (04/07/23) Hx of cervical polypectomy Hx of tubal ligation Family History (Updated 04/21/23 @ 14:18 by Heather Reveles CMA) Maternal Aunt Family history of breast cancer Maternal Uncle History of brain tumor Paternal Aunt Hx of myocardial infarction Skin cancer Father Myocardial infarction Mother Alive and well Social History Housing: House Alcohol intake: never Patient Tobacco Use Status: Never used Tobacco Second Hand Smoke Exposure: No Advance Directives Date on File: 07/17/20 Current occupational status: employed Gender identity: Female Cognitive needs: No Hearing needs: No Vision needs: No Female Reproductive History Menstrual Age of Menarche: 10 Questionnaire PHQ-9 Over the last 2 weeks, how often have you been bothered by any of the following problems? 1. Little interest or pleasure in doing things: not at all 2. Feeling down, depressed, or hopeless: not at all 3. Trouble falling or staying asleep, or sleeping too much: not at all 4. Feeling tired or having little energy: not at all 5. Poor appetite or overeating: not at all 6. Feeling bad about yourself - or that you are a failure or have let yourself or your family down: not at all 7. Trouble concentrating on things, such as reading the newspaper or watching television: not at all 8. Moving or speaking so slowly that other people could have noticed. Or the opposite - being so fidgety or restless that you have been moving around a lot more than usual: not at all 9. Thoughts that you would be better off or of hurting yourself in some way: not at all Total score: 0 Depression Screening Interpretation: Negative Source: Developed by Drs. Raffaele Ruth, Cyn Dowling, Reddy Gómez and colleagues, with an educational qiana from [employer]. Thrive Questionnaire Date Thrive assessed: 02/18/23 AUDIT C Alcohol Use Questionnaire (AUDIT-C) 1. How often do you have a drink containing alcohol?: Never 3. How often do you have six or more drinks on one occasion?: Never Total Score: 0 NAN-7 AMB Questionnaire NAN-7 Date NAN - 7 assessed: 02/18/23 Source: Developed by Cyn Rose Kurt Kroenke and colleagues, with an educational qiana from [employer]. Physical exam (Primary Care) Vital Signs: Last Vital Signs Pulse 78 04/21/23 14:14 BP 152/92 H 04/21/23 14:14 Pulse Ox 98 04/21/23 14:14 Oxygen Delivery Method Room Air 04/21/23 14:14 BMI result Body Mass Index 31.6 Tobacco/Smoking Status: Tobacco use Status Tobacco use date assessed 02/18/23 04/21/23 14:15 Patient Tobacco Use Status Never used Tobacco 04/21/23 14:15 PHQ-9: PHQ-9 Score PHQ-9: Total score 0 04/21/23 14:21 Depression Screening Interpretation: Negative Thrive Assessment: Date of Thrive Assessment Date Thrive assessed 02/18/23 04/21/23 14:15 Const General: alert; No acute distress Eyes Conjunctivae: conjunctivae normal Resp Auscultation: clear to auscultation bilaterally Cardio Rate: regular rate Rhythm: regular rhythm GI Inspection: Yes normal to inspection Extrem General: Yes normal to inspection and No edema Assessment and Plan Assessment & Plan (1) Hypothyroid: Code(s): E03.9 - Hypothyroidism, unspecified Qualifiers: Hypothyroidism type: acquired Qualified Code(s): E03.9 - Hypothyroidism, unspecified Plan: Will need to adjust thyroid medication (2) Fibroids: Code(s): D21.9 - Benign neoplasm of connective and other soft tissue, unspecified Plan: Patient is in talks with gynecology (3) Menometrorrhagia: Code(s): N92.1 - Excessive and frequent menstruation with irregular cycle Plan: Patient is following up with Gynecology (4) Hypertension: Code(s): I10 - Essential (primary) hypertension Plan: Continue with blood pressure medication. Decrease salt intake and exercise patient is on lisinopril 5 mg once a day (5) Constipation: Code(s): K59.00 - Constipation, unspecified Plan: Three rules for constipation 1. Diet need to have a high fiber diet less of meat 2. Increase oral fluids 3. Exercise (6) GERD (gastroesophageal reflux disease): Code(s): K21.9 - Gastro-esophageal reflux disease without esophagitis Plan: Avoid the foods that causes that usually spicy foods, tomato products, juices, coffee, soda and foods that your sensitive to. After eating do not lie down, allow 3-4 hours before in lie down. And keep the head of bed above 30 degrees to avoid the acid from going up. (7) Anemia: Code(s): D64.9 - Anemia, unspecified Qualifiers: Anemia type: iron deficiency Iron deficiency anemia type: chronic blood loss Qualified Code(s): D50.0 - Iron deficiency anemia secondary to blood loss (chronic) Plan: Patient follows up with Gynecology due to menorrhagia meanwhile iron and vitamin-C sent in (8) Impaired glucose tolerance: Code(s): R73.02 - Impaired glucose tolerance (oral) Plan: Decrease the amount of carbohydrate intake, pasta, bread, rice and potatoes are all sugar and that is aside from all the sweet stuff, remember that fruits are good but they are Sweet also. (9) Obesity (BMI 30-39.9): Code(s): E66.9 - Obesity, unspecified Plan: Diet and exercise (10) Hypercholesterolemia: Code(s): E78.00 - Pure hypercholesterolemia, unspecified Plan: Avoid fried foods, chicken skin, eggs, butter margarine, pastries and meat. Be it pork or beef they have a lot of cholesterol LDL goal of less than 130 and triglyceride of less than 150 Orders: Orders Free T4 (Free Thyroxine) 6 Weeks E03.9 - Hypothyroidism, unspecified Thyroid Stimulating Hormone 6 Weeks E03.9 - Hypothyroidism, unspecified Complete Blood Count Auto Diff 6 Weeks E03.9 - Hypothyroidism, unspecified Medications: Changed From levothyroxine (Synthroid) 50 mcg PO DAILY 30 tabs 3RF E03.9 - Hypothyroidism, unspecified To levothyroxine 75 mcg PO DAILY 30 tabs 3RF 30 days E03.9 - Hypothyroidism, unspecified Coding Level of Care Code Est Pt Level 4 (01431) Diagnoses Hypothyroid E03.9 Hypothyroidism type: acquired Fibroids D21.9 Menometrorrhagia N92.1 Hypertension I10 Constipation K59.00 GERD (gastroesophageal reflux disease) K21.9 Anemia D50.0 Anemia type: iron deficiency Iron deficiency anemia type: chronic blood loss Impaired glucose tolerance R73.02 Obesity (BMI 30-39.9) E66.9 Hypercholesterolemia E78.00
== END 2023-04-21 16:43 | disposition home or self-care (01) ==
PROVIDERS: PCP Internal Medicine; Visit Provider Internal Medicine
DX: E03.9 Hypothyroidism, unspecified (principal); I10 Essential (primary) hypertension; E66.9 Obesity, unspecified; Z68.31 Body mass index [BMI] 31.0-31.9, adult; K21.9 Gastro-esophageal reflux disease without esophagitis; D21.9 Benign neoplasm of connective and other soft tissue, unspecified; N92.1 Excessive and frequent menstruation with irregular cycle; K59.00 Constipation, unspecified; D50.0 Iron deficiency anemia secondary to blood loss (chronic); R73.02 Impaired glucose tolerance (oral); E78.00 Pure hypercholesterolemia, unspecified
CPT/HCPCS: 99214

== ENCOUNTER 2023-05-12 10:11 | Outpatient (AMB) | payer OTHER, SELFPAY ==
--- NOTE | 2023-05-12 10:10 | MHC.OFFVIS ---
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 The patient has been complaining of irregular menstrual cycle associated with passage of blood clots and pelvic cramping. The following workup was done. H&H 8.6/29.2 TSH 16.45 with normal free T4 Mammogram BI-RADS 1 Co testing negative Pelvic ultrasound showed the following: Uterus: The uterus is anteverted and measures 11.1 x 7.3 x 7.2 cm.? The myometrium is heterogeneous. The double wall endometrial thickness is 1.4 mm. There are multiple uterine fibroids. There is a new 1.1 x 0.8 x 1.0 cm fibroid is seen in the lower uterine segment has a submucosal component. There is a 1.5 x 1.4 x 1.7 cm fibroid on the right that was not previously seen. 1.3 x 1.3 x 1.2 cm intramural fibroid in the right fundus adjacent to the endometrium previously measured 1.7 x 1.5 x 1.7 cm. 2.3 x 2.9 x 2.1 cm posterior subserosal fibroid in the body of the uterus previously measured 1.8 x 1.2 x 0.9 cm. 2.3 x 2.8 x 2.4 cm fundal fibroid on the left previously measured 2.4 x 2.3 x 2.1 cm. Adnexa: Both ovaries are visualized. There is normal color flow to the adnexa. There is no ovarian torsion. There is a small amount of free fluid within the pelvis. Right ovary measures 4.2 x 2.7 x 1.9 cm. Volume 11.3 mL. Left ovary measures 3.7 x 2.0 x 2.7 cm. Volume 10.5 mL. 2.1 x 1.8 x 1.8 cm collapsing corpus luteum is seen. [facility] Medical History Abnormal uterine bleeding (AUB) Anemia Blood pressure elevated without history of HTN Breast cancer screening by mammogram Breast lump Cervical cancer screening Cervical polyp Encounter for gynecological examination Erythema of groin Friable cervix Hypercholesterolemia Hypothyroid Impaired glucose tolerance Legally blind in left eye, as defined in [place] Menometrorrhagia Menorrhagia Metrorrhagia Migraine with aura Nasal pain Obesity (BMI 30-39.9) Urge incontinence Surgical History History of bilateral tubal ligation History of excision of lesion (04/07/23) Hx of cervical polypectomy Hx of tubal ligation Family History Maternal Aunt Family history of breast cancer Maternal Uncle History of brain tumor Paternal Aunt Hx of myocardial infarction Skin cancer Father Myocardial infarction Mother Alive and well Social History Housing: House Alcohol intake: never Patient Tobacco Use Status: Never used Tobacco Second Hand Smoke Exposure: No Advance Directives Date on File: 07/17/20 Current occupational status: employed Gender identity: Female Cognitive needs: No Hearing needs: No Vision needs: No Female Reproductive History Menstrual Age of Menarche: 10 Date of last menstrual period: 05/11/23 Review of Systems Const All systems reviewed & are unremarkable except as noted in HPI and below Reports as per HPI and Reports no additional complaints GI Reports no additional complaints Reports no additional complaints Assessment & Plan Assessment & Plan (1) Abnormal uterine bleeding (AUB): Comment: With anemia Code(s): N93.9 - Abnormal uterine and vaginal bleeding, unspecified Plan: Iron sulfate 325 mg p.o. t.i.d. CBC, TSH, prolactin, FSH/LH, HCG ordered. Discussed with the patient the different causes of abnormal bleeding including thyroid disorders, uterine and ovarian pathology, endometrial hyperplasia, carcinoma and other potential causes. Discussed with the patient the work up including CBC (to r/o anemia), TSH, pelvic Ultrasound, endometrial biopsy to r/o endometrial pathology. All questions answered and the patient verbalized understanding. Instructed the patient to schedule an appointment for an endometrial biopsy in 2 weeks. (2) Uterine myoma: Code(s): D25.9 - Leiomyoma of uterus, unspecified Plan: Discussed with the patient the findings on pelvic ultrasound & the risk of myosarcoma; discussed with the patient the options of treatment including expectant management versus hysterectomy; the pros and cons, risks benefits of each approach were discussed with the patient including the fact that in cases of myosarcoma, surgical treatment can lead to early diagnosis and positively affects the prognosis; after further discussion, the patient decided to think about it and get back to us with a decision regarding the management after endometrial biopsy results. All questions answered, the patient verbalized understanding and agreed with the plan . Orders: Orders Follicle Stimulating Hormone Today N93.9 - Abnormal uterine and vaginal bleeding, unspecified HCG Quantitative Today N93.9 - Abnormal uterine and vaginal bleeding, unspecified Lutenizing Hormone Today N93.9 - Abnormal uterine and vaginal bleeding, unspecified Prolactin Today N93.9 - Abnormal uterine and vaginal bleeding, unspecified Complete Blood Count no Diff Today N93.9 - Abnormal uterine and vaginal bleeding, unspecified Coding Level of Care Code Est Pt Level 3 (89534) Diagnoses Abnormal uterine bleeding (AUB) N93.9 Uterine myoma D25.9
[2023-05-12 10:12] VITALS: BP 122/74; BMI 31.5
== END 2023-05-12 14:16 | disposition home or self-care (01) ==
LOC: HO.HWS 10:11
PROVIDERS: PCP Internal Medicine; Visit Provider Obstetrics & Gynecology
DX: N93.9 Abnormal uterine and vaginal bleeding, unspecified (principal); D25.9 Leiomyoma of uterus, unspecified
CPT/HCPCS: 99213

== ENCOUNTER → 2023-05-12 10:11 | Outpatient (BNVA) | payer OTHER, SELFPAY | PROVIDERS: PCP Internal Medicine; Visit Provider Obstetrics & Gynecology ==

== ENCOUNTER 2023-06-14 07:48 | Outpatient (AMB) | payer OTHER, SELFPAY ==
--- NOTE | 2023-06-14 07:50 | A.OFFVIS_ITS ---
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 Name: Charisse MEDEIROS Information Interpreted: non-clinical & clinical Disassembler: Disassembler Present (Charisse MEDEIROS) Accompanied by: Self / Same As Patient Allergies No Known Allergies Allergy (Verified 06/14/23 07:56) [facility] Medical History Abnormal uterine bleeding (AUB) Anemia Blood pressure elevated without history of HTN Breast cancer screening by mammogram Breast lump Cervical cancer screening Cervical polyp Encounter for gynecological examination Erythema of groin Friable cervix Hypercholesterolemia Hypothyroid Impaired glucose tolerance Legally blind in left eye, as defined in [place] Menometrorrhagia Menorrhagia Metrorrhagia Migraine with aura Nasal pain Obesity (BMI 30-39.9) Urge incontinence Surgical History History of bilateral tubal ligation History of excision of lesion (04/07/23) Hx of cervical polypectomy Hx of tubal ligation Family History Maternal Aunt Family history of breast cancer Maternal Uncle History of brain tumor Paternal Aunt Hx of myocardial infarction Skin cancer Father Myocardial infarction Mother Alive and well Social History Housing: House Alcohol intake: never Patient Tobacco Use Status: Never used Tobacco Second Hand Smoke Exposure: No Advance Directives Date on File: 07/17/20 Current occupational status: employed Gender identity: Female Cognitive needs: No Hearing needs: No Vision needs: No Female Reproductive History Menstrual Age of Menarche: 10 Office Procedures Endometrial Biopsy Details: The patient was counseled regarding the indication and benefits of endometrial sampling to rule out endometrial pathology including not limited to endometrial hyperplasia or endometrial cancer and others; The alternatives (Either do nothing vs. hysteroscopy D&C) & the risks were discussed with the patient including but not limited: pain, uterine perforation, bleeding, infection, possible injury to bladder, bowel, ureter, possible need for blood transfusion with all its possible risks. The patient verbalized understanding all questions answered and signed consent. Urine test done in the office was negative The patient was placed into the dorsal lithotomy position; a speculum was inserted in the vagina. Using aseptic technique for the procedure, the cervix was cleansed with Betadine. The anterior lip of the cervix was grasped with a single tooth tenaculum. The uterus was sounded to 10 cm with a 4 mm Pipelle was used. Tissues samples w ere obtained and placed in formalin, in a patient labeled container and sent to the pathology department. At the end of the procedure, there was minimal bleeding noted The patient tolerated the procedure well and was discharged in good condition with the following instructions: Nothing in the vagina until the bleeding stops. No sex until the bleeding stops, to call if any of the following occurs: fever (>100.4), flu-like symptoms, abdominal pain, heavy bleeding, four smelling vaginal discharge. The patient was instructed to schedule a Follow up appointment in 2 weeks to discuss pathology results of the biopsy and treatment options. This note was generated with a voice recognition program. Some errors may have been overlooked during the review of this note. Sometimes these errors may af fect the content or meaning of a given sentence. [id number] Biopsy Assessment & Plan Assessment & Plan Orders: Orders AMB Endometrial Biopsy Today N93.9 - Abnormal uterine and vaginal bleeding, unspecified Coding Level of Care Code Procedure Only Diagnoses CPT Codes Endometrial Biopsy - CPT: 73443-[id number] Biopsy ([id number])
== END 2023-06-14 08:47 | disposition home or self-care (01) ==
PROVIDERS: PCP Internal Medicine; Visit Provider Obstetrics & Gynecology
DX: N93.9 Abnormal uterine and vaginal bleeding, unspecified (principal); Z32.02 Encounter for pregnancy test, result negative
CPT/HCPCS: 58100

== ENCOUNTER 2023-06-14 07:48 | Outpatient (REF) | payer OTHER, SELFPAY | END 2023-06-14 07:49 | disposition home or self-care (01) | LOC: HO.LNP 07:48 | PROVIDERS: PCP Internal Medicine; Visit Provider Obstetrics & Gynecology | DX: N93.9 Abnormal uterine and vaginal bleeding, unspecified (principal) | CPT/HCPCS: 58100; 81025; 88305 ==

== ENCOUNTER 2023-09-13 12:30 | Outpatient (AMB) | payer OTHER, SELFPAY ==
--- NOTE | 2023-09-13 12:31 | A.OFFVIS_ITS ---
Intake Vital Signs 09/13/23 12:34 Height 5 ft 5 in Weight 189 lb BMI 31.4 BP 130/80 Intake Visit Reasons: EMB Follow up/DO NOT RS [employer] Umpire Required: No Information Interpreted: non-clinical & clinical Social Work Lecturer: Social Work Lecturer Present (Aidyn) Allergies No Known Allergies Allergy (Verified 09/13/23 12:34) Is last menstrual period known: Yes Last menstrual period: 09/03/23 Post menopausal: No HPI HPI Comments History of Present Illness Details The patient is presenting for follow-up to discuss the results of her abnormal uterine bleeding workup and options of treatment. The following workup was done.: 05/01 H&H= 8.6/29.2 GC and chlamydia were negative. TSH elevated, free T4 within normal Endometrial biopsy pathology showed no evidence of hyperplasia and/or malignancy. Co testing was done was negative. Mammogram was BI-RADS 1 Pelvic ultrasound showed the following: Uterus: The uterus is anteverted and measures 11.1 x 7.3 x 7.2 cm. The myometrium is heterogeneous. The double wall endometrial thickness is 1.4 mm. There are multiple uterine fibroids. There is a new 1.1 x 0.8 x 1.0 cm fibroid is seen in the lower uterine segment has a submucosal component. There is a 1.5 x 1.4 x 1.7 cm fibroid on the right that was not previously seen. 1.3 x 1.3 x 1.2 cm intramural fibroid in the right fundus adjacent to the endometrium previously measured 1.7 x 1.5 x 1.7 cm. 2.3 x 2.9 x 2.1 cm posterior subserosal fibroid in the body of the uterus previously measured 1.8 x 1.2 x 0.9 cm. 2.3 x 2.8 x 2.4 cm fundal fibroid on the left previously measured 2.4 x 2.3 x 2.1 cm. [facility] Medical History Cervical cancer screening Abnormal uterine bleeding (AUB) Friable cervix Encounter for gynecological examination Nasal pain Blood pressure elevated without history of HTN Breast cancer screening by mammogram Erythema of groin Breast lump Migraine with aura Cervical polyp Menorrhagia Menometrorrhagia Legally blind in left eye, as defined in [place] Urge incontinence Metrorrhagia Anemia Impaired glucose tolerance Obesity (BMI 30-39.9) Hypercholesterolemia Hypothyroid Surgical History History of excision of lesion (04/07/23) History of bilateral tubal ligation Hx of tubal ligation Hx of cervical polypectomy Family History Maternal Aunt Family history of breast cancer Maternal Uncle History of brain tumor Paternal Aunt Hx of myocardial infarction Skin cancer Father Myocardial infarction Mother Alive and well Social History Housing: House Alcohol intake: never Patient Tobacco Use Status: Never used Tobacco Second Hand Smoke Exposure: No Advance Directives Date on File: 07/17/20 Current occupational status: employed Gender identity: Female Cognitive needs: No Hearing needs: No Vision needs: No Female Reproductive History Menstrual Age of Menarche: 10 Date of last menstrual period: 09/03/23 control method: permanent sterilization Date of last pap smear: 03/31/23 (negative) Review of Systems Const All systems reviewed & are unremarkable except as noted in HPI and below Reports as per HPI and Reports no additional complaints GI Reports no additional complaints Reports no additional complaints Physical Exam Vital Signs: Last Vital Signs BP 130/80 09/13/23 12:34 BMI result Body Mass Index 31.4 Assessment & Plan Assessment & Plan (1) Abnormal uterine bleeding (AUB): Comment: With anemia and multiple myomas Code(s): N93.9 - Abnormal uterine and vaginal bleeding, unspecified Plan: Repeat CBC ordered. Will check the results and treat accordingly. Discussed with the patient the results of the work up done and options of treatment including Lysteda, Mirena IUD, endometrial ablation and hysterectomy. All pros, cons, risks and benefits if each option was discussed with the patient and the patient decided to go ahead with hysterectomy. Discussed with the patient the different types of hysterectomies including, vaginal, laparoscopic assisted vaginal, robotic assisted laparoscopic,& abdominal with BSO. All pros, cons, r/b of each approach were discussed the patient including evidence that morbidity is less and recovery is shorter with minimally invasive approaches to hysterectomy. Discussed with the patient the lack of availability of the robot [email or web address] robot and/or minimally invasive television antenna installer specialist at [facility], refer to [facility] OBGYN. (2) Elevated TSH: Code(s): R79.89 - Other specified abnormal findings of blood chemistry Plan: The patient contacted her PCP is in the process of scheduling an appointment. Orders: Orders Complete Blood Count no Diff Today N93.9 - Abnormal uterine and vaginal bleeding, unspecified Coding Level of Care Code Est Pt Level 3 (13520) Diagnoses Abnormal uterine bleeding (AUB) N93.9 Elevated TSH R79.89
[2023-09-13 12:34] VITALS: BP 130/80; BMI 31.4
== END 2023-09-13 13:02 | disposition home or self-care (01) ==
LOC: HO.HWS 12:30
PROVIDERS: PCP Internal Medicine; Visit Provider Obstetrics & Gynecology
DX: N93.9 Abnormal uterine and vaginal bleeding, unspecified (principal); R79.89 Other specified abnormal findings of blood chemistry
CPT/HCPCS: 99213

== ENCOUNTER 2023-09-13 12:30 | Outpatient (REF) | payer OTHER, SELFPAY ==
[2023-09-13 13:44] LABS: Hematocrit 32.3 % (37.0-47.0); Hemoglobin 9.7 g/dl (12.0-16.0); Mean Corpuscular Hemoglobin 22.4 pg (27.0-33.0); Mean Corpuscular Volume 74.6 fL (80.0-98.0); Mean Platelet Volume 10.6 fL (9.4-12.3); Platelet Count 360 X10*3/uL (160-400); Red Blood Count 4.33 X10*6/uL (4.20-5.50); Red Cell Distribution Width 17.2 % (11.0-16.0); White Blood Count 4.9 X10*3/uL (4.8-10.8)
== END 2023-09-13 12:31 | disposition home or self-care (01) ==
LOC: HO.LAB 12:30
PROVIDERS: PCP Internal Medicine; Visit Provider Obstetrics & Gynecology
DX: N93.9 Abnormal uterine and vaginal bleeding, unspecified (principal); R79.89 Other specified abnormal findings of blood chemistry
CPT/HCPCS: 36415; 85027

== ENCOUNTER 2023-11-03 12:43 | Outpatient (AMB) | payer OTHER, SELFPAY ==
[2023-11-03 12:44] VITALS: BP 160/100; PULSE 88; TEMP 36.5; O2SAT 98; BMI 30.9
--- NOTE | 2023-11-03 12:44 | MHC.OFFWIV ---
Intake Vital Signs 11/03/23 12:44 Height 5 ft 5 in Weight 186 lb BMI 30.9 BP 160/100 H Blood Pressure Location Lt brachial Position Sitting Pulse 88 Pulse Source Pulse Oximeter Temp 97.7 F Temp Source Temporal Artery Scan Pulse Oximetry (%) 98 Oxygen Delivery Method Room Air Intake Visit Reasons: EP shortness breath dizziness shakes weakness Intake Note: pt is here today shortness breath dizziness shake weakness started 6 days ago Patient Tobacco Use Status: Never used Tobacco Allergies No Known Allergies Allergy (Verified 11/03/23 12:45) Medication List - Last Reconciled 11/03/23 by Afua Mcdaniels NP ascorbate calcium (vitamin C) 500 mg PO DAILY [id number] 250-250-65 mg (Excedrin Migraine) 1 tab PO Q4-6H PRN azithromycin 500 mg PO DAILY 3 days blood pressure monitor (Blood Pressure Kit) As directed cyanocobalamin (vitamin B-12) 1,000 mcg PO DAILY ferrous sulfate (Feosol) 325 mg PO DAILY levothyroxine 75 mcg PO DAILY 30 days lisinopril 5 mg PO DAILY sennosides-docusate sodium 8.6-50 mg (Senna Plus) 2 tab-caps (2 x 8.6-50 mg) PO BEDTIME 90 days tramadol 50 mg PO DAILY Do you need a note to return to daycare/school/sports/work: No HPI HPI Comments History of Present Illness Details 48 y/o female presents to walk in clinic with c/o SOB, Dizzyness and body chills. Reports that symptoms started ~ 6 days ago. [facility] Medical History Cervical cancer screening Abnormal uterine bleeding (AUB) Friable cervix Encounter for gynecological examination Nasal pain Blood pressure elevated without history of HTN Breast cancer screening by mammogram Erythema of groin Breast lump Migraine with aura Cervical polyp Menorrhagia Menometrorrhagia Legally blind in left eye, as defined in [place] Urge incontinence Metrorrhagia Anemia Impaired glucose tolerance Obesity (BMI 30-39.9) Hypercholesterolemia Hypothyroid Surgical History History of excision of lesion (04/07/23) History of bilateral tubal ligation Hx of tubal ligation Hx of cervical polypectomy Family History Maternal Aunt Family history of breast cancer Maternal Uncle History of brain tumor Paternal Aunt Hx of myocardial infarction Skin cancer Father Myocardial infarction Mother Alive and well Social History Housing: House Alcohol intake: never Patient Tobacco Use Status: Never used Tobacco Second Hand Smoke Exposure: No Advance Directives Date on File: 07/17/20 Current occupational status: employed Gender identity: Female Cognitive needs: No Hearing needs: No Vision needs: No Female Reproductive History Menstrual Age of Menarche: 10 Review of Systems Const All systems reviewed & are unremarkable except as noted in HPI and below Physical Exam Vital Signs: Last Vital Signs Temp 97.7 F 11/03/23 12:44 Pulse 88 11/03/23 12:44 BP 160/100 H 11/03/23 12:44 Pulse Ox 98 11/03/23 12:44 Oxygen Delivery Method Room Air 11/03/23 12:44 BMI result Body Mass Index 30.9 Const General: comfortable and no acute distress HEENT Head: Yes normocephalic and Yes atraumatic Ears: external ears normal and TM's normal bilaterally General nose exam: Normal nasal mucous membranes and turbinates present Face and sinus: Yes sinuses nontender Mouth: moist mucous membranes Throat: Yes posterior oropharynx normal and Yes postnasal drainage Resp Effort & Inspection: normal respiratory effort Auscultation: clear to auscultation bilaterally Cardio Rate: regular rate Rhythm: regular rhythm Assessment & Plan Assessment & Plan (1) Upper respiratory infection: Code(s): J06.9 - Acute upper respiratory infection, unspecified Qualifiers: URI type: unspecified viral URI Qualified Code(s): J06.9 - Acute upper respiratory infection, unspecified Plan: - SARs - Abx - Rest and plenty of warm fluids - OTC remedies (2) Generalized headaches: Code(s): R51.9 - Headache, unspecified Plan: - SARs - Abx - Rest and plenty of warm fluids - OTC remedies Orders: Orders SARS-CoV2/FLU/RSV Today J06.9 - Acute upper respiratory infection, unspecified, R51.9 - Headache, unspecified Medications: New azithromycin 500 mg PO DAILY 3 days 3 tabs 0RF Coding Level of Care Code Est Pt Level 3 (18056) Diagnoses Viral upper respiratory tract infection J06.9 URI type: unspecified viral URI Generalized headaches R51.9 Time Spent (min) 15
== END 2023-11-03 14:45 | disposition home or self-care (01) ==
PROVIDERS: PCP Internal Medicine; Visit Provider Nurse Practitioner Family
DX: J06.9 Acute upper respiratory infection, unspecified (principal); R51.9 Headache, unspecified
CPT/HCPCS: 99213

== ENCOUNTER 2023-11-03 16:47 | Outpatient (REF) | payer OTHER, SELFPAY ==
[2023-11-03 17:30] LABS: Influenza A PCR NEGATIVE (Negative); Influenza B PCR NEGATIVE (Negative); Resp Syncy Virus RNA Qual PCR NEGATIVE (Negative); SARS COV2 PCR INHOUSE NEGATIVE (Negative)
== END 2023-11-03 16:48 | disposition home or self-care (01) ==
LOC: HO.HMGCLNP 16:47
PROVIDERS: Visit Provider Nurse Practitioner Family
DX: J06.9 Acute upper respiratory infection, unspecified (principal); R51.9 Headache, unspecified; Z11.52 Encounter for screening for COVID-19
CPT/HCPCS: 0241U

== ENCOUNTER 2024-04-23 13:38 | Outpatient (REF) | payer OTHER, SELFPAY | END 2024-04-23 13:39 | disposition home or self-care (01) | LOC: HO.MAMMO 13:38 | PROVIDERS: Visit Provider Internal Medicine | DX: Z12.31 Encounter for screening mammogram for malignant neoplasm of breast (principal) | CPT/HCPCS: 77063; 77067 ==

== ENCOUNTER → 2024-04-23 14:00 | Outpatient (BNV) | payer OTHER, SELFPAY | PROVIDERS: Visit Provider Radiology Diagnostic Radiology | DX: Z12.31 Encounter for screening mammogram for malignant neoplasm of breast (principal) | CPT/HCPCS: 77063; 77067 ==

== ENCOUNTER 2024-05-25 14:03 | Emergency (ER) | payer OTHER, SELFPAY ==
--- NOTE | ~2024-05-25 | CT_ITS ---
EXAMINATION: CT HEAD WITHOUT CONTRAST CLINICAL INFORMATION: Hypertension, headache COMPARISON: CT scan of brain on 01/26/2007, MRI brain on 05/01/2011 TECHNIQUE: Contiguous axial imaging was performed from the skull base to vertex without intravenous administration of contrast. This CT examination was performed using dose optimization techniques as appropriate, variously including the following: *Automated exposure control *Adjustment of mA and/or kV according to patient size (this includes techniques or standardized protocols for targeted exams where dose is matched to indication/reason for exam; i.e. extremities or head) *Use of iterative reconstruction technique DLP: 587 mGy-cm FINDINGS: Ventricles, sulci and cisterns are normal. There is no midline shift, no abnormal intra- or extra- axial fluid accumulation. [place] and white matter differentiation is normal. Bone window images show no evidence of skull fracture. CT/CT head/brain wo IV con IMPRESSION: 1. Unchanged Normal CT scan of the brain. 2. No intracranial hemorrhage or skull fracture is seen. 3. No evidence of space occupying lesion could be found. 4. The current plain CT scan of the brain shows no diagnostic evidence of acute cerebral infarction.
[2024-05-25 14:30] VITALS: BP 185/117; PULSE 89; RESP 18; TEMP 36.6; O2SAT 100; BMI 31.5
--- NOTE | 2024-05-25 14:30 | ED.GENADULT ---
HPI - General Adult General Chief complaint: Headache Stated complaint: high bp Time Seen by Provider: 05/25/24 16:55 Source: patient Mode of arrival: ambulatory Limitations: no limitations History of Present Illness HPI narrative: This is a 48-year-old woman with a past medical history of hypertension, migraine, anemia, hypercholesterolemia, hypothyroidism who presents for evaluation of elevated blood pressure. Patient states that she had previously been taking a blood pressure medication, but states that this was stopped after her blood pressure had normalized. Patient states over the last month she has monitored her blood pressure and noted elevated blood pressure up to 170/100. She states that she has also intermittently had typical migraine headaches, which she states improves with Tylenol. She states no recent fevers, cough or congestion. She states no neck pain. She states no vision changes, eye pain or paresthesias. She states no dizziness. She states no extremity weakness. She states no chest pain or difficulty breathing. She states that she discussed following up with her primary care doctor who recommend she come to the emergency room for further evaluation. She states no syncope. She states no abdominal pain, nausea, vomiting, diarrhea or urinary symptoms. She states no rash, myalgias or arthralgias. Related Data Home Medications ?Medication ?Instructions ?Recorded ?Confirmed dpieple-pwqldnqtgeclb-hyjmgnav 250 1 tab PO Q4-6H PRN 02/18/23 11/03/23 mg-250 mg-65 mg tablet (Excedrin Migraine) Previous Rx's ?Medication ?Instructions ?Recorded ascorbate calcium (vitamin C) 500 500 mg PO DAILY #30 tabs 07/24/20 mg tablet cyanocobalamin (vitamin B-12) 1,000 mcg PO DAILY #30 caps 07/24/20 1,000 mcg capsule ferrous sulfate 325 mg (65 mg 325 mg PO DAILY #30 tabs 07/24/20 iron) tablet (Feosol) tramadol 50 mg tablet 50 mg PO DAILY #30 tabs 10/20/20 blood pressure monitor (Blood #1 ea 02/18/23 Pressure Kit) sennosides 8.6 mg-docusate sodium 2 tab-cap (2 x 8.6-50 mg) PO 02/18/23 50 mg tablet (Senna Plus) BEDTIME 90 days #180 tabs lisinopril 5 mg tablet 5 mg PO DAILY #30 tabs 02/24/23 levothyroxine 75 mcg tablet 75 mcg PO DAILY 30 days #30 tabs 04/21/23 azithromycin 500 mg tablet 500 mg PO DAILY 3 days #3 tabs 11/03/23 lisinopril 5 mg tablet 5 mg PO DAILY #30 tabs 05/25/24 Allergies Allergy/AdvReac Type Severity Reaction Status Date / Time No Known Allergies Allergy Verified 05/25/24 14:33 Review of Systems Review of Systems: ROS as per HPI [facility] Past Medical History Medical History Cervical cancer screening Abnormal uterine bleeding (AUB) Friable cervix Encounter for gynecological examination Nasal pain Blood pressure elevated without history of HTN Breast cancer screening by mammogram Erythema of groin Breast lump Migraine with aura Cervical polyp Menorrhagia Menometrorrhagia Legally blind in left eye, as defined in [place] Urge incontinence Metrorrhagia Anemia Impaired glucose tolerance Obesity (BMI 30-39.9) Hypercholesterolemia Hypothyroid Surgical History History of excision of lesion (04/07/23) History of bilateral tubal ligation Hx of tubal ligation Hx of cervical polypectomy Family History Family History Maternal Aunt Family history of breast cancer Maternal Uncle History of brain tumor Paternal Aunt Hx of myocardial infarction Skin cancer Father Myocardial infarction Mother Alive and well Social History Social History Housing: House Alcohol intake: never Patient Tobacco Use Status: Never used Tobacco Second Hand Smoke Exposure: No Advance Directives Date on File: 07/17/20 Current occupational status: employed Gender identity: Female Cognitive needs: No Hearing needs: No Vision needs: No Physical Exam ED Vital Signs: Vital Signs - 24 hr 05/25/24 14:30 Temperature 97.8 F Pulse Rate 89 Respiratory Rate 18 Blood Pressure 185/117 H Pulse Oximetry 100 Oxygen Delivery Method Room Air BMI result Body Mass Index 31.5 Gen: NAD, AOx3 HEENT: NCAT, EOMI, normal conjunctiva, neck is supple without nuchal rigidity CV: RRR Pulm: CTAB, no increased work of breathing GI: Soft, NTND, no rebound, guarding or rigidity Neuro: Grossly non focal Course Course Course Narrative: This is a Rapid Medical Exam performed in triage by Anuradha Borrego PA-C. Full HPI, ROS and PE to be performed by primary ED provider. 48 year-old F w/ PMHx migraines, GERD, anemia, HLD, hypothyroid presenting to the ED c/o high BP x 1 mos (174/115), not currently on BP meds. States was on BP meds for a few months in the beginning of the year but they ended. states struggles with migraines, RUIZ's have been typical for her migraines, taking Tylenol and migraine meds w/o relief.. Admits to SOB, neck pain and RUIZ/cheek pain. denies CP PE: no focal deficits. HTNsive 185/117 Plan: EKG, labs, Head CT ordered Medical Decision Making Medical Decision Making MDM Narrative: Differential diagnosis includes, but is not limited to hypertension, hypertensive urgency, migraine headache. Patient is provided supportive care with Tylenol. Patient is afebrile and hemodynamically stable on room air. Exam is benign and reassuring. I reviewed and interpreted labs, which are noncontributory. I reviewed and interpreted EKG, which is unremarkable for any acute findings. Diagnostic imaging studies are unremarkable for any acute findings. This is not hypertensive emergency. Of note, course narrative/triage note report neck pain and shortness of breath and that migraines are not relieved with other medications. However, per my history patient is declining any new neck pain. She denies feeling short of breath. She states that her migraines are relieved with Tylenol. On re-examination, patient is well-appearing and in no acute distress. ?There is no indication for further emergent evaluation in this otherwise well-appearing patient as above. ?Patient is provided written and verbal instructions, educational materials, prescription for lisinopril, recommendations for outpatient follow-up, strict return precautions and teach back is performed. ?Patient states understanding and agreement with plan of care. ?Patient is discharged home in stable and improved condition. Admission/Observation Consideration of admission/observation: Escalation of care including admission/observation considered Lab Data [facility] Lab Attestation statement: I reviewed the patient's lab results. I reviewed and interpreted the patient's labs which are unremarkable and noncontributory. Patient has baseline anemia with hemoglobin of 9.8 previously 9.7. 05/25/24 14:42 05/25/24 14:42 Labs: Lab Results 05/25/24 Range/Units 14:42 WBC 5.8 (4.8-10.8) X10*3/uL RBC 4.46 (4.20-5.50) X10*6/uL Hgb 9.8 L (12.0-16.0) g/dl Hct 32.4 L (37.0-47.0) % MCV 72.6 L (80.0-98.0) fL MCH 22.0 L (27.0-33.0) pg MCHC 30.2 L (31.0-35.0) g/dl RDW 18.4 H (11.0-16.0) % Plt Count 356 (160-400) X10*3/uL MPV 10.4 (9.4-12.3) fL Immature Gran % (Auto) 0.5 H (0.0-0.4) % Neut % (Auto) 64.4 (45-73) % Lymph % (Auto) 23.7 (20-40) % [place] % (Auto) 8.1 (2-11) % Eos % (Auto) 2.4 (0-4) % Baso % (Auto) 0.9 (0-2) % Lymph # (Auto) 1.4 (1.2-4.9) X10*3/uL [place] # (Auto) 0.5 (0.1-1.2) X10*3/uL Eos # (Auto) 0.1 (0.0-0.4) X10*3/uL Baso # (Auto) 0.1 (0.0-0.2) X10*3/uL Abs Immat Gran (auto) 0.03 (0.00-0.03) X10*3/uL Absolute Neuts (auto) 3.8 (2.0-8.3) x10*3/uL Absolute Nucleated RBC 0.000 (0.0-0.012) X10*3/uL Nucleated RBC % (auto) 0.0 (0.0-0.2) /100WBC PT 12.3 (11.1-13.3) SEC INR 1.0 (0.9-1.1) Sodium 140 (135-145) mmol/L Potassium 3.3 (3.3-5.1) mmol/L Chloride 109 H (96-108) mmol/L Carbon Dioxide 23 (22-29) mmol/L Anion Gap 11 L (12-20) BUN 5 L (9-16) mg/dL Creatinine 0.69 (0.5-1.4) mg/dL Estim Creat Clear Calc 109.1 Estimated GFR > 60 Random Glucose 94 (60-115) mg/dL Calcium 8.9 (8.4-10.2) mg/dL Magnesium 2.1 (1.6-2.6) mg/dL Total Bilirubin 0.2 (0.0-1.0) mg/dL Direct Bilirubin < 0.2 (0.0-0.5) mg/dL AST 10 (5-31) U/L ALT 8 (0-31) U/L Alkaline Phosphatase 93 (39-117) U/L Troponin I High Sens < 2.7 (<3.5-17.0) ng/L Total Protein 7.5 (6.5-8.0) g/dL Albumin 4.0 (3.5-5.0) g/dL Independent Interpretation I performed an independent interpretation of an: EKG and CT Scan Interpretation: I independently reviewed and interpreted the patient's EKG and CT scan of the head. EKG demonstrates sinus rhythm at 75 beats per minute, AL 118, QRS 78, QTC 415, no STEMI. CT scan of the head demonstrates no acute intracranial hemorrhage. Radiology Impression Discussion of test interpretation with radiology: I have reviewed the radiologist's reading. Radiologist Impression: CT/CT head/brain wo IV con IMPRESSION: 1. Unchanged Normal CT scan of the brain. 2. No intracranial hemorrhage or skull fracture is seen. 3. No evidence of space occupying lesion could be found. 4. The current plain CT scan of the brain shows no diagnostic evidence of acute cerebral infarction. Dictated By: Luis Alberto Dey Signed By: <Electronically signed by Luis Alberto Dey in OV> 05/25/24 9437 Discharge Plan Discharge Clinical Impression: Headache Patient Disposition: Home, Self-Care Instructions: General Headache (ED) Additional Instructions: You were seen and evaluated in the emergency room. Your blood pressure was elevated. Your blood work was normal. Your EKG and CT scan of the head were normal. A prescription is sent to your pharmacy to restart a blood pressure medication that you previously took called lisinopril. Please start taking as directed tomorrow morning. Please follow-up with your primary care doctor in the next 1-2 weeks to have your blood pressure checked again after you have started taking your blood pressure medication. Please return to the emergency room if you develop any worsening symptoms including, but not limited to chest pain or difficulty breathing. ? Prescriptions: New lisinopril 5 mg tablet 5 mg PO DAILY Qty: 30 0RF No Action lisinopril 5 mg tablet 5 mg PO DAILY Qty: 30 3RF tramadol 50 mg tablet 50 mg PO DAILY Qty: 30 1RF ferrous sulfate [Feosol] 325 mg (65 mg iron) tablet 325 mg PO DAILY Qty: 30 3RF cyanocobalamin (vitamin B-12) 1,000 mcg capsule 1,000 mcg PO DAILY Qty: 30 2RF ascorbate calcium (vitamin C) 500 mg tablet 500 mg PO DAILY Qty: 30 2RF azithromycin 500 mg tablet 500 mg PO DAILY 3 Days Qty: 3 0RF (DME) blood pressure monitor [Blood Pressure Kit] Kit See Rx Instructions .ROUTE .MEDSUPPLY Qty: 1 0RF Rx Instructions: As directed Excedrin Migraine 250-250-65 mg tablet 1 tab PO Q4-6H PRN sennosides-docusate sodium [Senna Plus] 8.6-50 mg tablet 2 tab-cap PO BEDTIME 90 Days Qty: 180 2RF levothyroxine 75 mcg tablet 75 mcg PO DAILY 30 Days Qty: 30 3RF Print Language: Pakistani
--- NOTE | 2024-05-25 14:33 | ECG_ITS ---
Test Reason : HTN Blood Pressure : / mmHG Vent. Rate : 075 BPM Atrial Rate : 075 BPM P-R Int : 118 ms QRS Dur : 078 ms QT Int : 372 ms P-R-T Axes : 047 -16 027 degrees QTc Int : 415 ms Normal sinus rhythm Minimal voltage criteria for LVH, may be normal variant ( R in aVL ) Borderline ECG When compared with ECG of 26-JAN-2007 09:22, No significant change was found Referred By: Anuradha Borrego Electronically Signed By:ROMARIO LOTT
[2024-05-25 14:48] LABS: MANUAL DIFF FLAG NO
[2024-05-25 15:04] LABS: Basophils Absolute Auto 0.1 X10*3/uL (0.0-0.2); Basophils Percent Auto 0.9 % (0-2); Eosinophils Absolute Auto 0.1 X10*3/uL (0.0-0.4); Eosinophils Percent Auto 2.4 % (0-4); Hematocrit 32.4 % (37.0-47.0); Hemoglobin 9.8 g/dl (12.0-16.0); Imm Gran Abs Auto 0.03 X10*3/uL (0.00-0.03); Imm Gran Pct Auto 0.5 % (0.0-0.4); Lymphocytes Absolute Auto 1.4 X10*3/uL (1.2-4.9); Lymphocytes Percent Auto 23.7 % (20-40); Mean Corpuscular HGB Conc 30.2 g/dl (31.0-35.0); Mean Corpuscular Volume 72.6 fL (80.0-98.0); Mean Platelet Volume 10.4 fL (9.4-12.3); Monocytes Absolute Auto 0.5 X10*3/uL (0.1-1.2); Monocytes Percent Auto 8.1 % (2-11); Neutrophils Absolute Auto 3.8 x10*3/uL (2.0-8.3); Neutrophils Percent Auto 64.4 % (45-73); Platelet Count 356 X10*3/uL (160-400); Red Blood Count 4.46 X10*6/uL (4.20-5.50); Red Cell Distribution Width 18.4 % (11.0-16.0); White Blood Count 5.8 X10*3/uL (4.8-10.8)
[2024-05-25 15:05] LABS: Prothrombin Time 12.3 SEC (11.1-13.3)
[2024-05-25 15:24] LABS: Alanine Aminotransferase 8 U/L (0-31); Alkaline Phosphatase 93 U/L (39-117); Anion Gap 11 (12-20); Aspartate Amino Transferase 10 U/L (5-31); Bilirubin Direct < 0.2 mg/dL (0.0-0.5); Bilirubin Total 0.2 mg/dL (0.0-1.0); Blood Urea Nitrogen 5 mg/dL (9-16); Calcium 8.9 mg/dL (8.4-10.2); Carbon Dioxide 23 mmol/L (22-29); Chloride 109 mmol/L (96-108); Creatinine Clr Calc Pharmacy 109.1; Estimated Glomerular Filt Rate > 60; Glucose Random 94 mg/dL (60-115); Magnesium 2.1 mg/dL (1.6-2.6); Potassium 3.3 mmol/L (3.3-5.1); Sodium 140 mmol/L (135-145); Total Protein 7.5 g/dL (6.5-8.0)
[2024-05-25 15:34] LABS: Troponin-I High Sensitivity < 2.7 ng/L (<3.5-17.0)
[2024-05-25] MEDS: Acetaminophen 325 MG TABLET 975 MG PO (17:25)
[2024-05-25 17:28] VITALS: BP 185/117; PULSE 89; RESP 18; TEMP 36.6; O2SAT 100
== END 2024-05-25 17:29 | disposition home or self-care (01) ==
PROVIDERS: Physician Assistant; Emergency Provider Emergency Medicine; PCP Internal Medicine
DX: R51.9 Headache, unspecified (principal); I10 Essential (primary) hypertension; R06.02 Shortness of breath; D64.9 Anemia, unspecified; E78.00 Pure hypercholesterolemia, unspecified; E03.9 Hypothyroidism, unspecified; Z79.899 Other long term (current) drug therapy; Z79.82 Long term (current) use of aspirin
CPT/HCPCS: 36415; 70450; 80048; 80076; 83735; 84484; 85025; 85610; 93005; 99283

== ENCOUNTER 2024-06-01 13:37 | Outpatient (AMB) | payer OTHER, SELFPAY ==
--- NOTE | 2024-06-01 13:47 | A.OFFPC_ITS ---
Vital Signs 06/01/24 13:48 Height 5 ft 5 in Weight 190 lb 4 oz BMI 31.7 BP 150/98 H Blood Pressure Location Lt brachial Position Sitting Pulse 90 Pulse Source Pulse Oximeter Pulse Oximetry (%) 100 Oxygen Delivery Method Room Air Intake Visit Reasons: [facility] 05/25 Hypertension [employer] Required: No Accompanied by: Self / Same As Patient Allergies No Known Allergies Allergy (Verified 06/01/24 14:02) Tobacco use date assessed: 06/01/24 Dental Screening Dental Screen Date: 06/01/24 Did you have a dental visit in the last 12 months?: Yes Did you have a dental problem in the last 6 months where you did not have access to dental care?: No Was dental information given to patient?: Patient has dentist HPI EDF [facility] 05/25 Hypertension HPI Details 48 year old obese female with hypothyroi d hypertension GERD anemia from menorrhagia hypercholesterolemia coming in for follow-up. Last seen in April 2023. ER visit for headache history of migraine noted elevated blood pressure patient had a CT scan done negative patient was started on. Review of the notes was seen by the [facility] for hysterectomy for abnormal uterine bleeding and fibroid uterus Dr. Tello [facility] Medical History Cervical cancer screening Abnormal uterine bleeding (AUB) Friable cervix Encounter for gynecological examination Nasal pain Blood pressure elevated without history of HTN Breast cancer screening by mammogram Erythema of groin Breast lump Migraine with aura Cervical polyp Menorrhagia Menometrorrhagia Legally blind in left eye, as defined in [place] Urge incontinence Metrorrhagia Anemia Impaired glucose tolerance Obesity (BMI 30-39.9) Hypercholesterolemia Hypothyroid Surgical History History of excision of lesion (04/07/23) History of bilateral tubal ligation Hx of tubal ligation Hx of cervical polypectomy Family History Maternal Aunt Family history of breast cancer Maternal Uncle History of brain tumor Paternal Aunt Hx of myocardial infarction Skin cancer Father Myocardial infarction Mother Alive and well Social History Housing: House Alcohol intake: never Patient Tobacco Use Status: Never used Tobacco e-Cigarette/Vaping Use: Never Used Second Hand Smoke Exposure: No Advance Directives Date on File: 07/17/20 service: No Current occupational status: employed Gender identity: Female Cognitive needs: No Hearing needs: No Vision needs: No Female Reproductive History Menstrual Age of Menarche: 10 Questionnaire Thrive Questionnaire Date Thrive assessed: 02/18/23 NAN-7 AMB Questionnaire NAN-7 Date NAN - 7 assessed: 02/18/23 Source: Developed by Drs. Raffaele Ruth, Cyn Dowling, Reddy Gómez and colleagues, with an educational qiana from [employer]. Physical exam (Primary Care) Vital Signs: Last Vital Signs Pulse 90 06/01/24 13:48 BP 150/98 H 06/01/24 13:48 Pulse Ox 100 06/01/24 13:48 Oxygen Delivery Method Room Air 06/01/24 13:48 BMI result Body Mass Index 31.7 Tobacco/Smoking Status: Tobacco use Status Tobacco use date assessed 06/01/24 06/01/24 14:03 Patient Tobacco Use Status Never used Tobacco 06/01/24 13:47 e-Cigarette/Vaping Use Never Used 06/01/24 14:03 Thrive Assessment: Date of Thrive Assessment Date Thrive assessed 02/18/23 06/01/24 13:47 Const General: alert; No acute distress Eyes Conjunctivae: conjunctivae normal Resp Auscultation: clear to auscultation bilaterally Cardio Rate: regular rate Rhythm: regular rhythm GI Inspection: Yes normal to inspection Extrem General: Yes normal to inspection and No edema Assessment and Plan Assessment & Plan (1) Hypertension: Code(s): I10 - Essential (primary) hypertension Plan: Continue with blood pressure medication. Decrease salt intake and exercise patient has been started on lisinopril 5 mg once a day (2) Anemia: Code(s): D64.9 - Anemia, unspecified Qualifiers: Anemia type: iron deficiency Iron deficiency anemia type: chronic blood loss Qualified Code(s): D50.0 - Iron deficiency anemia secondary to blood loss (chronic) Plan: Continuing to monitor. Patient has seen Gynecology and planned hysterectomy (3) Abnormal uterine bleeding (AUB): Comment: With anemia and multiple myomas Code(s): N93.9 - Abnormal uterine and vaginal bleeding, unspecified Plan: Patient has seen OB Gynecology and planned hysterectomy (4) Hypercholesterolemia: Code(s): E78.00 - Pure hypercholesterolemia, unspecified Plan: Avoid fried foods, chicken skin, eggs, butter margarine, pastries and meat. Be it pork or beef they have a lot of cholesterol LDL goal of less than 130 and triglyceride of less than 150 (5) Obesity (BMI 30-39.9): Code(s): E66.9 - Obesity, unspecified Plan: Diet and exercise (6) Migraine: Code(s): G43.909 - Migraine, unspecified, not intractable, without status migrainosus Qualifiers: Migraine type: with aura Status migrainosus presence: without status migrainosus Intractability: not intractable Qualified Code(s): G43.109 - Migraine with aura, not intractable, without status migrainosus Plan: Patient is advised to eat healthy, keep well hydrated, keep active and have adequate sleep. Orders: Orders Ferritin 4 Weeks D50.0 - Iron deficiency anemia secondary to blood loss (chronic) Reticulocyte Count 4 Weeks D50.0 - Iron deficiency anemia secondary to blood loss (chronic) Vitamin B12 and Folate 4 Weeks D50.0 - Iron deficiency anemia secondary to blood loss (chronic) IRON PROFILE 4 Weeks D50.0 - Iron deficiency anemia secondary to blood loss (chronic) Thyroid Stimulating Hormone 4 Weeks D50.0 - Iron deficiency anemia secondary to blood loss (chronic) UA w Microscopic 4 Weeks R73.02 - Impaired glucose tolerance (oral) Complete Blood Count Auto Diff 4 Weeks D50.0 - Iron deficiency anemia secondary to blood loss (chronic) Free T4 (Free Thyroxine) 4 Weeks D50.0 - Iron deficiency anemia secondary to blood loss (chronic) Hemoglobin A1c 4 Weeks R73.02 - Impaired glucose tolerance (oral) Lipid Panel 4 Weeks E78.00 - Pure hypercholesterolemia, unspecified, R73.02 - Impaired glucose tolerance (oral) Comprehensive Met. Panel 4 Weeks R73.02 - Impaired glucose tolerance (oral) Medications: New ivqpegv-pksbuzoxhnyhr-mhxinmme 250-250-65 mg (Excedrin Migraine) 1 tab PO Q4-6H PRN 30 tabs 0RF pain R03.0 - Elevated blood-pressure reading, without diagnosis of hypertension propranolol 10 mg PO BID 60 tabs 2RF G43.109 - Migraine with aura, not intractable, without status migrainosus Refilled levothyroxine 75 mcg PO DAILY 30 days 30 tabs 3RF E03.9 - Hypothyroidism, unspecified Discontinued lisinopril Discontinued Reason: Doctor's Order 5 mg PO DAILY 30 tabs 0RF tramadol Discontinued Reason: Doctor's Order 50 mg PO DAILY 30 tabs 1RF M19.90 - Unspecified osteoarthritis, unspecified site Coding Level of Care Code Est Pt Level 4 (71116) Diagnoses Hypertension I10 Iron deficiency anemia due to chronic blood loss D50.0 Anemia type: iron deficiency Iron deficiency anemia type: chronic blood loss Abnormal uterine bleeding (AUB) N93.9 Hypercholesterolemia E78.00 Obesity (BMI 30-39.9) E66.9 Migraine with aura and without status migrainosus, not intractable G43.109 Migraine type: with aura Status migrainosus presence: without status migrainosus Intractability: not intractable
[2024-06-01 13:48] VITALS: BP 150/98; PULSE 90; O2SAT 100; BMI 31.7
== END 2024-06-01 14:52 | disposition home or self-care (01) ==
PROVIDERS: PCP Internal Medicine; Visit Provider Internal Medicine
DX: I10 Essential (primary) hypertension (principal); D50.0 Iron deficiency anemia secondary to blood loss (chronic); E66.9 Obesity, unspecified; Z68.31 Body mass index [BMI] 31.0-31.9, adult; N93.9 Abnormal uterine and vaginal bleeding, unspecified; E78.00 Pure hypercholesterolemia, unspecified; G43.109 Migraine with aura, not intractable, without status migrainosus
CPT/HCPCS: 99214

== ENCOUNTER 2024-06-27 07:36 | Outpatient (REF) | payer OTHER, SELFPAY ==
[2024-06-27 07:53] LABS: MANUAL DIFF FLAG NO
[2024-06-27 08:32] LABS: Basophils Percent Auto 0.7 % (0-2); Eosinophils Absolute Auto 0.2 X10*3/uL (0.0-0.4); Eosinophils Percent Auto 2.9 % (0-4); Hematocrit 31.2 % (37.0-47.0); Hemoglobin 9.5 g/dl (12.0-16.0); Imm Gran Abs Auto 0.02 X10*3/uL (0.00-0.03); Imm Gran Pct Auto 0.4 % (0.0-0.4); Immature Retic Fraction 20.2 % (3.0-15.9); Lymphocytes Absolute Auto 1.4 X10*3/uL (1.2-4.9); Lymphocytes Percent Auto 24.9 % (20-40); Mean Corpuscular HGB Conc 30.4 g/dl (31.0-35.0); Mean Corpuscular Hemoglobin 22.3 pg (27.0-33.0); Mean Corpuscular Volume 73.2 fL (80.0-98.0); Mean Platelet Volume 10.3 fL (9.4-12.3); Monocytes Absolute Auto 0.5 X10*3/uL (0.1-1.2); Monocytes Percent Auto 9.8 % (2-11); Neutrophils Absolute Auto 3.3 x10*3/uL (2.0-8.3); Neutrophils Percent Auto 61.3 % (45-73); Platelet Count 350 X10*3/uL (160-400); Red Blood Count 4.26 X10*6/uL (4.20-5.50); Red Cell Distribution Width 18.1 % (11.0-16.0); Retic HGB Equivalent 22.7 pg (30.0-35.0); Reticulocyte Percent 1.4 % (0.5-1.8); Reticulocytes Absolute 0.061 X10*6/uL (0.026-0.095); White Blood Count 5.4 X10*3/uL (4.8-10.8)
[2024-06-27 08:35] LABS: Estimated Average Glucose 108 mg/dL; Hemoglobin A1c % 5.4 % (<6.0)
[2024-06-27 09:10] LABS: Alanine Aminotransferase 8 U/L (0-31); Alkaline Phosphatase 88 U/L (39-117); Anion Gap 8 (12-20); Aspartate Amino Transferase 11 U/L (5-31); Bilirubin Total 0.3 mg/dL (0.0-1.0); Blood Urea Nitrogen 6 mg/dL (9-16); Calcium 8.9 mg/dL (8.4-10.2); Carbon Dioxide 28 mmol/L (22-29); Chloride 106 mmol/L (96-108); Cholesterol 191 mg/dL (<200); Estimated Glomerular Filt Rate > 60; Glucose Random 112 mg/dL (60-115); HDL Cholesterol 44 mg/dL (>40); Iron 20 mcg/dL (30-160); LDL Cholesterol Calculated 133 mg/dL (<100); Percent Iron Saturation 6 % (15-50); Sodium 139 mmol/L (135-145); Total Iron Binding Capacity 346 mcg/dL (228-428); Total Protein 7.4 g/dL (6.5-8.0); Triglycerides 70 mg/dL (<150); Unsaturated Iron Binding 326 ug/dL
[2024-06-27 09:31] LABS: Ferritin 10 ng/mL (10-250); Free T4 (Free Thyroxine) 0.92 ng/dL (0.71-1.85); Thyroid Stimulating Hormone 5.58 uIU/mL (0.32-4.0)
[2024-06-27 09:39] LABS: Folate 10.9 ng/mL (> or = 4.0); Vitamin B12 321 pg/mL (200-900)
[2024-06-27 09:51] LABS: Appearance Urine Cloudy; Color Urine Yellow; Glucose Urine UA Negative (Negative); Leukocyte Esterase Urine Trace (Negative); Nitrite Urine Negative (Negative); UMIC TRIGGER UA YES; Urine Blood Negative (Negative); Urine Ketones Negative (Negative); Urine Protein Negative (Neg-Trace)
[2024-06-27 10:13] LABS: Bacteria Urine 1+ (None Seen); Calcium Oxalate Crystals Urine Present; Hyaline Casts Urine 0-2 /LPF (0-2); RBC Urine 0-2 /HPF (0-2); WBC Urine 0-5 /HPF (0-5)
== END 2024-06-27 07:37 | disposition home or self-care (01) ==
LOC: HO.LAB 07:36
PROVIDERS: PCP Internal Medicine; Visit Provider Internal Medicine
DX: D50.0 Iron deficiency anemia secondary to blood loss (chronic) (principal); E78.00 Pure hypercholesterolemia, unspecified; R73.02 Impaired glucose tolerance (oral)
CPT/HCPCS: 36415; 80053; 80061; 81001; 82607; 82728; 82746; 83036; 83540; 84439; 84443; 85025; 85045

== ENCOUNTER 2024-07-13 08:25 | Outpatient (AMB) | payer OTHER, SELFPAY ==
[2024-07-13 08:44] VITALS: BP 148/90; PULSE 84; O2SAT 98; BMI 31.3
--- NOTE | 2024-07-13 08:44 | A.OFFPC_ITS ---
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 Allergies No Known Allergies Allergy (Verified 07/13/24 08:44) Medication List - Last Reconciled 07/13/24 by Arely Fiore PA-C ascorbate calcium (vitamin C) 500 mg PO DAILY [id number] 250-250-65 mg (Excedrin Migraine) 1 tab PO Q4-6H PRN blood pressure monitor (Blood Pressure Kit) As directed cyanocobalamin (vitamin B-12) 1,000 mcg PO DAILY ferrous sulfate (Feosol) 325 mg PO DAILY levothyroxine 75 mcg PO DAILY 30 days lisinopril 5 mg PO DAILY propranolol 10 mg PO BID sennosides-docusate sodium 8.6-50 mg (Senna Plus) 2 tab-caps (2 x 8.6-50 mg) PO BEDTIME 90 days Tobacco use date assessed: 06/01/24 Dental Screening Dental Screen Date: 06/01/24 HPI 6 Week F/U HPI Details 48 year old obese female with hypothyroi d, hypertension, GERD, anemia from menorrhagia, hypercholesterolemia, coming in for follow-up last seen by Dr. Calderón May 2024. Today she tells us her blood pressures have been significantly elevated at. Systolic values do not go below 140 and diastolic not below 100. She does have a follow up scheduled with Nephrology for hypokalemia next week and appointment with Hematology next month for iron-deficiency anemia. She does also mentioned she has a headache most days. [facility] Medical History (Updated 07/02/24 @ 18:09 by Jill Calderón MD) Cervical cancer screening Abnormal uterine bleeding (AUB) Friable cervix Encounter for gynecological examination Nasal pain Blood pressure elevated without history of HTN Breast cancer screening by mammogram Erythema of groin Breast lump Migraine with aura Cervical polyp Menorrhagia Menometrorrhagia Legally blind in left eye, as defined in [place] Urge incontinence Metrorrhagia Anemia Impaired glucose tolerance Obesity (BMI 30-39.9) Hypercholesterolemia Hypothyroid Surgical History (Updated 06/01/24 @ 14:42 by Jill Calderón MD) History of total abdominal hysterectomy History of excision of lesion (04/07/23) History of bilateral tubal ligation Hx of tubal ligation Hx of cervical polypectomy Family History Maternal Aunt Family history of breast cancer Maternal Uncle History of brain tumor Paternal Aunt Hx of myocardial infarction Skin cancer Father Myocardial infarction Mother Alive and well Social History Housing: House Alcohol intake: never Patient Tobacco Use Status: Never used Tobacco e-Cigarette/Vaping Use: Never Used Second Hand Smoke Exposure: No Advance Directives Date on File: 07/17/20 service: No Current occupational status: employed Gender identity: Female Cognitive needs: No Hearing needs: No Vision needs: No Female Reproductive History Menstrual Age of Menarche: 10 Questionnaire PHQ-9 Over the last 2 weeks, how often have you been bothered by any of the following problems? 1. Little interest or pleasure in doing things: nearly every day 2. Feeling down, depressed, or hopeless: more than half the days 3. Trouble falling or staying asleep, or sleeping too much: nearly every day 4. Feeling tired or having little energy: nearly every day 5. Poor appetite or overeating: nearly every day 6. Feeling bad about yourself - or that you are a failure or have let yourself or your family down: several days 7. Trouble concentrating on things, such as reading the newspaper or watching television: more than half the days 8. Moving or speaking so slowly that other people could have noticed. Or the opposite - being so fidgety or restless that you have been moving around a lot more than usual: not at all 9. Thoughts that you would be better off or of hurting yourself in some way: not at all Total score: 17 Depression Screening Interpretation: Positive Depression Screening Done: Yes 68794 - PHQ-9 Billing: Yes Source: Developed by Drs. Raffaele Ruth, Cyn Dowling, Reddy Gómez and colleagues, with an educational qiana from [employer]. Thrive Questionnaire Date Thrive assessed: 02/18/23 Are you currently unemployed and looking for a job?: No AUDIT C Alcohol Use Questionnaire (AUDIT-C) 1. How often do you have a drink containing alcohol?: Never 3. How often do you have six or more drinks on one occasion?: Never Total Score: 0 NAN-7 AMB Questionnaire NAN-7 Date NAN - 7 assessed: 07/13/24 Feeling nervous, anxious, or on edge: 2 = More than half the days Not being able to stop or control worryin = Nearly every day Worrying too much about different things: 3 = Nearly every day Trouble relaxin = Nearly every day Being so restless that it is hard to sit still: 1 = Several days Becoming easily annoyed or irritable: 0 = Not at all Feeling afraid as if something awful might happen: 0 = Not at all Total NAN-7 score (0-4 normal; 5-9 mild; 10-14 moderate; 15-21 severe): 12 Source: Developed by Drs. Raffaele Ruth, Cyn Dowling, Reddy Gómez and colleagues, with an educational qiana from [employer]. NAN-7 Assessment Billing NAN-7 Assessment Tool: NAN-7 Assessment 11080 Review of Systems Const Denies body aches, Denies chills, Denies fever(s) and Reports headache(s) Eyes Denies change in vision ENT Reports no additional complaints and Reports headache(s) Card Denies chest pain, Denies leg edema, Denies lightheadedness and Denies dyspnea Resp Denies cough and Denies dyspnea GI Reports no additional complaints Reports no additional complaints Musc Reports no additional complaints Skin/Breast Reports system reviewed and no additional complaints, except as documented Neuro Reports headache(s) Physical exam (Primary Care) Vital Signs: Last Vital Signs Pulse 84 07/13/24 08:44 BP 148/90 H 07/13/24 08:44 Pulse Ox 98 07/13/24 08:44 Oxygen Delivery Method Room Air 07/13/24 08:44 BMI result Body Mass Index 31.3 Tobacco/Smoking Status: Tobacco use Status Tobacco use date assessed 06/01/24 07/13/24 08:44 Patient Tobacco Use Status Never used Tobacco 07/13/24 08:44 e-Cigarette/Vaping Use Never Used 07/13/24 08:44 PHQ-9: PHQ-9 Score PHQ-9: Total score 17 07/13/24 08:50 Depression Screening Interpretation: Positive Thrive Assessment: Date of Thrive Assessment Date Thrive assessed 02/18/23 07/13/24 08:44 Const General: cooperative, healthy appearing, comfortable and no acute distress Orientation/consciousness: patient oriented x3 HENMT Head: Yes normocephalic Ears: hearing grossly normal bilaterally General nose exam: Normal external nose present Eyes General: appearance normal, both eyes and all related structures Conjunctivae: conjunctivae normal Neck Neck: Yes full ROM and Yes no lymphadenopathy Resp Effort & Inspection: normal respiratory effort Auscultation: clear to auscultation bilaterally, no crackles, no rales, no rhonchi and no wheezes Cardio Rate: regular rate Rhythm: regular rhythm Skin General skin exam: no rashes or lesions noted Neuro General: patient oriented x3 Gait exam (Neuro): Normal gait present Extrem General: Yes normal to inspection, Yes full ROM and No edema Psych Affect: normal affect Attitude: cooperative Insight: Good insight present (Psych) Judgement: Good judgement present (Psych) Office Procedures Flu Questionnaire Does the patient have a severe egg allergy?: No Does the patient have severe life threatening allergies?: No Does the patient have a fever or illness today?: No Has the patient ever had Guillain-Rising Sun Syndrome?: No Has the patient ever had any past reaction to a flu shot?: No Immunizations Fluarix Triv [id number] (PF) 45 mcg (15 mcg x 3)/0.5 mL IM syringe Performing Provider: Arely Fiore PA-C Performing Location: [facility] [place] [facility] Administered by: WALDEMAR Andrade on 07/13/24 08:51 Dose Route Admin Location Dispensed Lot Number Expiration Date [facility] 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 0.5 mL IM Left Deltoid 0.5 mL [id number] 04/08/25 [id number] [employer] VIS Given Date VIS Provided VIS Publication Date 07/13/24 Single Vaccine 21 Eligibility Eligibility Date Funding Source Not [facility] Eligible 07/13/24 Private Coding Level of Care Code Est Pt Level 4 (65775) Diagnoses Hypokalemia E87.6 Iron deficiency anemia D50.9 Elevated TSH R79.89 Hypertension I10 Additional Codes NAN-7 Assessment Billing - NAN-7 Assessment Tool: NAN-7 Assessment 46200 ([id number]) Assessment & Plan Assessment & Plan (1) Hypokalemia: Code(s): E87.6 - Hypokalemia Category: Medical Plan: Potassium low unless labs following up with Nephrology next week. Ordered for repeat CMP to monitor for kidney function and electrolyte to be completed before nephrology appointment. (2) Iron deficiency anemia: Code(s): D50.9 - Iron deficiency anemia, unspecified Category: Medical Plan: Anemic on last labs currently on iron replacement and scheduled to follow with Hematology next month. (3) Elevated TSH: Code(s): R79.89 - Other specified abnormal findings of blood chemistry Category: Medical Plan: Ordered for repeat thyroid function testing. (4) Hypertension: Code(s): I10 - Essential (primary) hypertension Category: Medical Plan: Blood pressure elevated today on exam 140/90 and elevated when retaken. Blood pressures at home have been persistently elevated as well. Advised increasing lisinopril to 10 mg with repeat CMP to be completed 1 week after initiation of therapy. Continue to avoid salt and encouraged healthy diet and regular exercise. Plan This note was constructed using voice recognition software. While every effort has been made to ensure accuracy and business account leader, still areas may have been included sometimes these areas may affect the content or meeting of the given symptoms. Total time spent caring for the patient today was 30 minutes. This includes time spent before the visit reviewing the chart, time spent during the visit, and time spent after the visit and documentation. Orders: Orders TSH reflex Free T4 Today Z00.00 - Encounter for general adult medical examination without abnormal findings Comprehensive Met. Panel Today Z00.00 - Encounter for general adult medical examination without abnormal findings Influenza [id number] Immunization Today Z23 - Encounter for immunization Free T4 (Free Thyroxine) Today Z00.00 - Encounter for general adult medical examination without abnormal findings Medications: New lisinopril 10 mg PO DAILY 30 tabs 1RF Discontinued lisinopril Discontinued Reason: Patient no longer taking 5 mg PO DAILY 30 tabs 3RF I10 - Essential (primary) hypertension
== END 2024-07-13 09:23 | disposition home or self-care (01) ==
PROVIDERS: PCP Internal Medicine
DX: E87.6 Hypokalemia (principal); D50.9 Iron deficiency anemia, unspecified; R79.89 Other specified abnormal findings of blood chemistry; I10 Essential (primary) hypertension; Z23 Encounter for immunization

== ENCOUNTER → 2024-07-13 08:25 | Outpatient (BNVA) | payer OTHER, SELFPAY | PROVIDERS: PCP Internal Medicine | DX: E87.6 Hypokalemia (principal); D50.9 Iron deficiency anemia, unspecified; R94.6 Abnormal results of thyroid function studies; I10 Essential (primary) hypertension; Z79.899 Other long term (current) drug therapy; Z23 Encounter for immunization | CPT/HCPCS: 90471; 90656; 96127 ==

== ENCOUNTER 2024-07-19 15:16 | Outpatient (AMB) | payer OTHER, SELFPAY ==
[2024-07-19 15:28] VITALS: BP 162/90; PULSE 92; O2SAT 100; BMI 32.0
--- NOTE | 2024-07-19 15:28 | HO.NEPHOV ---
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 She has no H/O chronic diarrhea. She denies nausea or vomiting. She has been having labile blood pressure and her anti hypertensive medications have been adjusted. 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 She has normal renal function. She is not on diuretics. She has no hypomagnesemia, polyuria or metabolic acidosis. She has no family H/O Denice's /Bartter/Giltelman syndrome. She never had hypokalemic periodic paralysis. She does monitor her BP at home. There were no specific compliants at the time of this office visit. [facility] Medical History (Updated 07/19/24 @ 21:34 by Adam Dukes MD) Cervical cancer screening Abnormal uterine bleeding (AUB) Friable cervix Encounter for gynecological examination Nasal pain Blood pressure elevated without history of HTN Breast cancer screening by mammogram Erythema of groin Breast lump Migraine with aura Cervical polyp Menorrhagia Menometrorrhagia Legally blind in left eye, as defined in [place] Urge incontinence Metrorrhagia Anemia Impaired glucose tolerance Obesity (BMI 30-39.9) Hypercholesterolemia Hypothyroid Surgical History History of total abdominal hysterectomy History of excision of lesion (04/07/23) History of bilateral tubal ligation Hx of tubal ligation Hx of cervical polypectomy Family History Maternal Aunt Family history of breast cancer Maternal Uncle History of brain tumor Paternal Aunt Hx of myocardial infarction Skin cancer Father Myocardial infarction Mother Alive and well Social History Housing: House Alcohol intake: never Patient Tobacco Use Status: Never used Tobacco e-Cigarette/Vaping Use: Never Used Second Hand Smoke Exposure: No Advance Directives Date on File: 07/17/20 service: No Current occupational status: employed Gender identity: Female Cognitive needs: No Hearing needs: No Vision needs: No Female Reproductive History Menstrual Age of Menarche: 10 Review of Systems Const All systems reviewed & are unremarkable except as noted in HPI and below Physical Exam Vital Signs: Last Vital Signs Pulse 92 07/19/24 15:28 BP 162/90 H 07/19/24 15:28 Pulse Ox 100 07/19/24 15:28 Oxygen Delivery Method Room Air 07/19/24 15:28 BMI result Body Mass Index 32.0 Const General: comfortable and no acute distress Orientation/consciousness: patient oriented x3 HEENT Head: Yes normocephalic Mouth: Normal oral and palatal mucosa present Eyes EOM: EOMs intact bilaterally Neck Neck: Yes supple Resp Auscultation: clear to auscultation bilaterally Cardio Jugular venous distension: no JVD Rate: regular rate GI Palpation (GI): Soft to palpation Auscultation: normal bowel sounds General: Yes no CVA tenderness Back/Spine/Pelvis Back: no CVA tenderness Skin General skin exam: no rashes or lesions noted Neuro General: patient oriented x3 and moves all extremities Extrem General: Yes no pedal edema Results Reviewed Nephrology Results: Hgb 9.5 g/dl (12.0-16.0) L 06/27/24 WBC 5.4 X10*3/uL (4.8-10.8) 06/27/24 Plt Count 350 X10*3/uL (160-400) 06/27/24 Sodium 139 mmol/L (135-145) 06/27/24 Potassium 3.0 mmol/L (3.3-5.1) L 06/27/24 Chloride 106 mmol/L (96-108) 06/27/24 Carbon Dioxide 28 mmol/L (22-29) 06/27/24 BUN 6 mg/dL (9-16) L 06/27/24 Creatinine 0.73 mg/dL (0.5-1.4) 06/27/24 Calcium 8.9 mg/dL (8.4-10.2) 06/27/24 Urine Protein Negative mg/dL (Neg-Trace) 06/27/24 Assessment & Plan Assessment & Plan (1) Hypertension: Code(s): I10 - Essential (primary) hypertension Category: Medical Qualifiers: Hypertension type: primary hypertension Qualified Code(s): I10 - Essential (primary) hypertension (2) Hypokalemia: Code(s): E87.6 - Hypokalemia Category: Medical Plan Differentials are broad for hypokalemia and hypertension. She has been having labile blood pressure and her anti hypertensive medications have been adjusted. She has normal renal function. She is not on diuretics. She has no hypomagnesemia, polyuria or metabolic acidosis. She has no family H/O Denice's /Bartter/Giltelman syndrome. She never had hypokalemic periodic paralysis. She does monitor her BP at home. I have ordered detailed work up including imaging studies. She may having increased mineralocorticoid activity. I will consider switching her anti hypertensive medication based on evolving data. If her BP is still not controlled. I shall do a 24 hour BP monitor through my office. Answered all questions. Follow up given Orders: Orders Renin 4 Weeks I10 - Essential (primary) hypertension Cortisol Random 4 Weeks I10 - Essential (primary) hypertension Potassium Urine Random Today E87.6 - Hypokalemia Aldosterone 4 Weeks I10 - Essential (primary) hypertension Aldost/Renin 4 Weeks I10 - Essential (primary) hypertension US renal doppler 4 Weeks I10 - Essential (primary) hypertension US renal BI 4 Weeks I10 - Essential (primary) hypertension Magnesium Today E87.6 - Hypokalemia Coding Level of Care Code New Pt Level 4 (95467) Diagnoses Primary hypertension I10 Hypertension type: primary hypertension Hypokalemia E87.6
== END 2024-07-19 15:57 | disposition home or self-care (01) ==
PROVIDERS: PCP Internal Medicine; Referring Provider Internal Medicine; Visit Provider Internal Medicine Nephrology
DX: I10 Essential (primary) hypertension (principal); E87.6 Hypokalemia
CPT/HCPCS: 99204

== ENCOUNTER → 2024-07-19 15:16 | Outpatient (BNVA) | payer OTHER, SELFPAY | PROVIDERS: PCP Internal Medicine; Referring Provider Internal Medicine; Visit Provider Internal Medicine Nephrology ==

== ENCOUNTER 2024-08-01 07:28 | Outpatient (REF) | payer OTHER, SELFPAY ==
--- NOTE | ~2024-08-01 | US_ITS ---
EXAMINATION: US RETROPERITONEAL LIMITED (RENAL ONLY) CLINICAL INFORMATION: Essential hypertension. COMPARISON: Abdominal ultrasound 07/08/2015 TECHNIQUE: Multiple grayscale images of bilateral kidneys FINDINGS: RIGHT KIDNEY: 10.7 x 4 x 6.5 cm (SAG x AP x TRV). The kidney is normal in size, contour, and echogenicity. Renal cortical thickness is normal . No calculi or focal parenchymal lesions. No hydronephrosis. LEFT KIDNEY: 12 x 5.4 x 6 cm (SAG x AP x TRV). The kidney is normal in size, contour, and echogenicity. Renal cortical thickness is normal. No calculi or focal parenchymal lesions. No hydronephrosis. US/US renal BI IMPRESSION: No renal calculus or hydronephrosis. Unremarkable sonographic appearance of bilateral kidneys. Electronically signed by: Patricio Mata MD 08/02/2024 08:43 AM EDT
--- NOTE | ~2024-08-01 | US_ITS ---
EXAMINATION: US RENAL FOR RENAL ARTERY STENOSIS CLINICAL INFORMATION: Essential hypertension COMPARISON: Grayscale and color Doppler images from same day. TECHNIQUE: Spectral Doppler only portion of the renal ultrasound. FINDINGS: Spectral Doppler sonography: Peak systolic velocity in the abdominal aorta in the region of the main renal arteries is 85 cm/sec. RIGHT: Peak systolic velocities in the right main renal artery are as follows: At the hilum = 116 cm/sec. At the mid portion = 143 cm/sec. At the origin = 101 cm/sec. The right main renal artery/aorta peak systolic velocity ratio is 1.68, which is within normal limits. Systolic acceleration times in the arcuate arteries of the right kidney are as follows: Superior pole = 0.65 msec. Interpolar region = 0.63 msec. Inferior pole = 0.68 msec. There is no tardus-parvus morphology seen. Diastolic flow is preserved within the right renal artery. LEFT: Peak systolic velocities in the left main renal artery are as follows: At the hilum = 131 cm/sec. At the mid portion = 164 cm/sec. At the origin = 125 cm/sec. The left main renal artery/aorta peak systolic velocity ratio is 1.93, which is within normal limits. Systolic acceleration times in the arcuate arteries of the left kidney are as follows: Superior pole = 0.76 msec. Interpolar region = 0.76 msec. Inferior pole = 0.65 msec. There is no tardus-parvus morphology seen. Diastolic flow is preserved within the left renal artery. US/US renal doppler IMPRESSION: No evidence of renal artery stenosis. Electronically signed by: Mickey Mauricio DO 08/02/2024 02:39 PM EDT
== END 2024-08-01 07:29 | disposition home or self-care (01) ==
LOC: HO.US 07:28
PROVIDERS: PCP Internal Medicine; Visit Provider Internal Medicine Nephrology
DX: I10 Essential (primary) hypertension (principal)
CPT/HCPCS: 76775; 93975

== ENCOUNTER 2024-08-20 07:28 | Outpatient (REF) | payer OTHER, SELFPAY ==
[2024-08-20 09:11] LABS: Alanine Aminotransferase 8 U/L (0-31); Albumin Level 3.8 g/dL (3.5-5.0); Alkaline Phosphatase 89 U/L (39-117); Anion Gap 9 (12-20); Aspartate Amino Transferase 15 U/L (5-31); Bilirubin Total 0.2 mg/dL (0.0-1.0); Blood Urea Nitrogen 7 mg/dL (9-16); Calcium 8.2 mg/dL (8.4-10.2); Carbon Dioxide 23 mmol/L (22-29); Chloride 109 mmol/L (96-108); Estimated Glomerular Filt Rate > 60; Glucose Random 121 mg/dL (60-115); Magnesium 1.9 mg/dL (1.6-2.6); Sodium 138 mmol/L (135-145); Total Protein 7.1 g/dL (6.5-8.0)
[2024-08-20 09:37] LABS: Free T4 (Free Thyroxine) 0.69 ng/dL (0.71-1.85)
[2024-08-20 09:42] LABS: Potassium Urine Random 33.5 mmol/L
[2024-08-24 13:09] LABS: Renin 0.54 ng/mL/h (0.25-5.82)
[2024-08-25 14:28] LABS: Aldosterone/Renin Ratio 23.4 Ratio (0.9-28.9); Plasma Renin Activity 0.47 ng/mL/h (0.25-5.82)
== END 2024-08-20 07:29 | disposition home or self-care (01) ==
LOC: HO.LAB 07:28
PROVIDERS: Absent Provider Internal Medicine Nephrology; PCP Internal Medicine
DX: Z00.00 Encounter for general adult medical examination without abnormal findings (principal); I10 Essential (primary) hypertension; E87.6 Hypokalemia
CPT/HCPCS: 36415; 80053; 82088; 82533; 83735; 84133; 84244; 84439; 84443

== ENCOUNTER → 2024-08-21 13:18 | Outpatient (BNV) | payer OTHER, SELFPAY | PROVIDERS: PCP Internal Medicine; Referring Provider Internal Medicine; Visit Provider Internal Medicine | DX: D50.9 Iron deficiency anemia, unspecified (principal) | CPT/HCPCS: 99204 ==

== ENCOUNTER 2024-08-23 07:45 | Outpatient (AMB) | payer OTHER, SELFPAY ==
[2024-08-23 08:19] VITALS: BP 156/102; PULSE 67; O2SAT 98; BMI 33.6
--- NOTE | 2024-08-23 08:19 | A.OFFPC_ITS ---
Vital Signs 08/23/24 08:19 Height 5 ft 4 in Weight 196 lb BMI 33.6 BP 156/102 H Blood Pressure Location Lt brachial Position Sitting Pulse 67 Pulse Source Pulse Oximeter Pulse Oximetry (%) 98 Oxygen Delivery Method Room Air Intake Visit Reasons: f/u HTN Allergies No Known Allergies Allergy (Verified 08/23/24 08:20) Medication List - Last Reconciled 08/23/24 by Arely Fiore PA-C ascorbate calcium (vitamin C) 500 mg PO DAILY [id number] 250-250-65 mg (Excedrin Migraine) 1 tab PO Q4-6H PRN blood pressure monitor (Blood Pressure Kit) As directed cyanocobalamin (vitamin B-12) 1,000 mcg PO DAILY ferrous sulfate (Feosol) 325 mg PO DAILY levothyroxine 88 mcg PO DAILY lisinopril 10 mg PO DAILY propranolol 10 mg PO BID sennosides-docusate sodium 8.6-50 mg (Senna Plus) 2 tab-caps (2 x 8.6-50 mg) PO BEDTIME 90 days Tobacco use date assessed: 06/01/24 Dental Screening Dental Screen Date: 06/01/24 HPI f/u HTN HPI Details 48 year old obese female with hypothyroi d, hypertension, GERD, anemia from menorrhagia, hypercholesterolemia, coming in for follow-up last seen 07/2024 coming in for follow up.?In review of the notes, patient was seen by Hematology 08/20/2024 scheduled for Venofer IV treatments weekly for 4 weeks.?Patient was seen by Nephrology 07/19/2024 detailed workup ordered for investigation of hypokalemia in 24 hour blood pressure monitoring ordered. Renal ultrasound negative for acute abnormality. Patient continues to have persistent headache and fatigue. She has not yet taken the increase dose of lisinopril and is still taking the 5 mg and lisinopril. Denies any chest pains or shortness of breath. She does mentioned she has shortness of breath at night and will wake up in the middle of the night coughing, gasping for choking. This happens almost nightly. She also mentioned she has numbness and tingling in bilateral hands which has been read for several years. History of nerve conduction study in 2017. COUNTS INCLUDE 234 BEDS AT THE [facility] Medical History Cervical cancer screening Abnormal uterine bleeding (AUB) Friable cervix Encounter for gynecological examination Nasal pain Blood pressure elevated without history of HTN Breast cancer screening by mammogram Erythema of groin Breast lump Migraine with aura Cervical polyp Menorrhagia Menometrorrhagia Legally blind in left eye, as defined in [place] Urge incontinence Metrorrhagia Anemia Impaired glucose tolerance Obesity (BMI 30-39.9) Hypercholesterolemia Hypothyroid Surgical History History of total abdominal hysterectomy History of excision of lesion (04/07/23) History of bilateral tubal ligation Hx of tubal ligation Hx of cervical polypectomy Family History Maternal Aunt Family history of breast cancer Maternal Uncle History of brain tumor Paternal Aunt Hx of myocardial infarction Skin cancer Father Myocardial infarction Mother Alive and well Social History Housing: House Alcohol intake: never Patient Tobacco Use Status: Never used Tobacco e-Cigarette/Vaping Use: Never Used Second Hand Smoke Exposure: No Advance Directives Date on File: 07/17/20 service: No Current occupational status: employed Gender identity: Female Cognitive needs: No Hearing needs: No Vision needs: No Female Reproductive History Menstrual Age of Menarche: 10 Questionnaire Thrive Questionnaire Date Thrive assessed: 02/18/23 Are you currently unemployed and looking for a job?: No NAN-7 AMB Questionnaire NAN-7 Date NAN - 7 assessed: 07/13/24 Source: Developed by Drs. Raffaele Ruth, Cyn Dowling, Reddy Gómez and colleagues, with an educational qiana from [employer]. Review of Systems Const Denies body aches, Denies chills, Denies fever(s), Reports headache(s) and Denies poor appetite Eyes Reports no additional complaints ENT Denies dysphagia, Denies dizziness, Reports headache(s) and Denies odynophagia Card Denies chest pain, Denies syncope, Denies edema, Denies irregular heart rhythm, Denies lightheadedness and Denies dyspnea Resp Denies cough and Denies dyspnea GI Denies abdominal pain, Denies constipation, Denies dysphagia, Denies diarrhea, Denies nausea, Denies odynophagia and Denies vomiting Reports no additional complaints Musc Reports no additional complaints and Denies abnormal gait Skin/Breast Reports system reviewed and no additional complaints, except as documented Neuro Details: Numbness and tingling in bilateral hands Denies abnormal gait, Denies dizziness, Denies syncope and Reports headache(s) Psych Reports no additional complaints Physical exam (Primary Care) Vital Signs: Last Vital Signs Pulse 67 08/23/24 08:19 BP 156/102 H 08/23/24 08:19 Pulse Ox 98 08/23/24 08:19 Oxygen Delivery Method Room Air 08/23/24 08:19 BMI result Body Mass Index 33.6 Tobacco/Smoking Status: Tobacco use Status Tobacco use date assessed 06/01/24 08/23/24 08:25 Patient Tobacco Use Status Never used Tobacco 08/23/24 08:25 e-Cigarette/Vaping Use Never Used 08/23/24 08:25 Thrive Assessment: Date of Thrive Assessment Date Thrive assessed 02/18/23 08/23/24 08:25 Const General: cooperative, healthy appearing, comfortable and no acute distress Orientation/consciousness: patient oriented x3 HENMT Head: Yes normocephalic Ears: hearing grossly normal bilaterally General nose exam: Normal external nose present Eyes General: appearance normal, both eyes and all related structures Conjunctivae: conjunctivae normal Neck Neck: Yes full ROM and Yes no lymphadenopathy Resp Effort & Inspection: normal respiratory effort Auscultation: clear to auscultation bilaterally, no crackles, no rales, no rhonchi and no wheezes Cardio Rate: regular rate Rhythm: regular rhythm Skin General skin exam: no rashes or lesions noted Neuro General: patient oriented x3 Gait exam (Neuro): Normal gait present Extrem General: Yes normal to inspection, Yes full ROM and No edema Psych Affect: normal affect Attitude: cooperative Insight: Good insight present (Psych) Judgement: Good judgement present (Psych) Coding Level of Care Code Est Pt Level 3 (37509) Diagnoses Hypersomnolence G47.10 Numbness in both hands R20.0 Hypokalemia E87.6 Iron deficiency anemia D50.9 Migraine with aura and without status migrainosus, not intractable G43.109 Migraine type: with aura Status migrainosus presence: without status migrainosus Intractability: not intractable Primary hypertension I10 Hypertension type: primary hypertension Assessment & Plan Assessment & Plan (1) Hypersomnolence: Code(s): G47.10 - Hypersomnia, unspecified Category: Medical Plan: Patient states she has excessively tired throughout the day and does have episodes of choking and coughing in the middle of the night. Ordered for home sleep study for further evaluation. (2) Numbness in both hands: Code(s): R20.0 - Anesthesia of skin Category: Medical Plan: Ordered for repeat EMG for further evaluation. Last EMG 2017 showed possible nerve entrapment. (3) Hypokalemia: Code(s): E87.6 - Hypokalemia Category: Medical Plan: Last potassium level continued to be low currently being followed by Nephrology. Has a appointment later today with Nephrology. (4) Iron deficiency anemia: Code(s): D50.9 - Iron deficiency anemia, unspecified Category: Medical Plan: Following with Hematology and has been scheduled for IV iron infusions which have not yet begun. Continue to follow with Hematology. (5) Migraine: Code(s): G43.909 - Migraine, unspecified, not intractable, without status migrainosus Category: Medical Qualifiers: Migraine type: with aura Status migrainosus presence: without status migrainosus Intractability: not intractable Qualified Code(s): G43.109 - Migraine with aura, not intractable, without status migrainosus Plan: Likely multifactorial may be related to hypertension, anemia or possibly presence of obstructive sleep apnea. Advised patient to continue using Tylenol and ibuprofen as needed for headache and we will work on controlling comorbidities (6) Hypertension: Code(s): I10 - Essential (primary) hypertension Category: Medical Qualifiers: Hypertension type: primary hypertension Qualified Code(s): I10 - Essential (primary) hypertension Plan: Patient has not yet increased her dose of lisinopril advised to start taking lisinopril 10 mg as discussed at last visit. Avoid salt intake and encourage healthy diet and regular exercise. Blood pressure continues to be elevated today. Follow up with Nephrology for ambulatory blood pressure monitoring and follow up in 6 weeks. Plan This note was constructed using voice recognition software. While every effort has been made to ensure accuracy and tonger, still areas may have been included sometimes these areas may affect the content or meeting of the given symptoms. Total time spent caring for the patient today was 20 minutes. This includes time spent before the visit reviewing the chart, time spent during the visit, and time spent after the visit and documentation. Orders: Orders NE electromyogram (EMG) Today R20.0 - Anesthesia of skin RT home sleep study Today G47.10 - Hypersomnia, unspecified Medications: Refilled lisinopril 10 mg PO DAILY 30 tabs 1RF
== END 2024-08-23 09:00 | disposition home or self-care (01) ==
PROVIDERS: PCP Internal Medicine
DX: G47.10 Hypersomnia, unspecified (principal); R20.0 Anesthesia of skin; E87.6 Hypokalemia; D50.9 Iron deficiency anemia, unspecified; G43.109 Migraine with aura, not intractable, without status migrainosus; I10 Essential (primary) hypertension

== ENCOUNTER 2024-08-23 14:04 | Outpatient (AMB) | payer OTHER, SELFPAY ==
--- NOTE | 2024-08-23 14:46 | HO.NEPHOV_ITS ---
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 She has no H/O chronic diarrhea. She denies nausea or vomiting. She has been having labile blood pressure and her anti hypertensive medications have been adjusted. 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 She has normal renal function. She is not on diuretics. She has no hypomagnesemia, polyuria or metabolic acidosis. She has no family H/O Denice's /Bartter/Giltelman syndrome. She never had hypokalemic periodic paralysis. She does monitor her BP at home. There were no specific compliants at the time of this office visit. [facility] [place] Medical History Cervical cancer screening Abnormal uterine bleeding (AUB) Friable cervix Encounter for gynecological examination Nasal pain Blood pressure elevated without history of HTN Breast cancer screening by mammogram Erythema of groin Breast lump Migraine with aura Cervical polyp Menorrhagia Menometrorrhagia Legally blind in left eye, as defined in [place] Urge incontinence Metrorrhagia Anemia Impaired glucose tolerance Obesity (BMI 30-39.9) Hypercholesterolemia Hypothyroid Surgical History History of total abdominal hysterectomy History of excision of lesion (04/07/23) History of bilateral tubal ligation Hx of tubal ligation Hx of cervical polypectomy Family History Maternal Aunt Family history of breast cancer Maternal Uncle History of brain tumor Paternal Aunt Hx of myocardial infarction Skin cancer Father Myocardial infarction Mother Alive and well Social History Housing: House Alcohol intake: never Patient Tobacco Use Status: Never used Tobacco e-Cigarette/Vaping Use: Never Used Second Hand Smoke Exposure: No Advance Directives Date on File: 07/17/20 service: No Current occupational status: employed Gender identity: Female Cognitive needs: No Hearing needs: No Vision needs: No Female Reproductive History Menstrual Age of Menarche: 10 Review of Systems Const All systems reviewed & are unremarkable except as noted in HPI and below Physical Exam Vital Signs: Last Vital Signs Pulse 87 08/23/24 14:47 BP 170/110 H 08/23/24 14:47 Pulse Ox 99 08/23/24 14:47 Oxygen Delivery Method Room Air 08/23/24 14:47 BMI result Body Mass Index 32.8 Const General: comfortable and no acute distress Orientation/consciousness: patient oriented x3 HEENT Head: Yes normocephalic Mouth: Normal oral and palatal mucosa present Eyes EOM: EOMs intact bilaterally Neck Neck: Yes supple Resp Auscultation: clear to auscultation bilaterally Cardio Jugular venous distension: no JVD Rate: regular rate GI Palpation (GI): Soft to palpation Auscultation: normal bowel sounds General: Yes no CVA tenderness Back/Spine/Pelvis Back: no CVA tenderness Skin General skin exam: no rashes or lesions noted Neuro General: patient oriented x3 and moves all extremities Extrem General: Yes no pedal edema Results Reviewed Nephrology Results: Hgb 10.3 g/dl (12.0-16.0) L 08/21/24 WBC 5.5 X10*3/uL (4.8-10.8) 08/21/24 Plt Count 315 X10*3/uL (160-400) 08/21/24 Sodium 138 mmol/L (135-145) 08/20/24 Potassium 3.0 mmol/L (3.3-5.1) L 08/20/24 Chloride 109 mmol/L (96-108) H 08/20/24 Carbon Dioxide 23 mmol/L (22-29) 08/20/24 BUN 7 mg/dL (9-16) L 08/20/24 Creatinine 0.67 mg/dL (0.5-1.4) 08/20/24 Calcium 8.2 mg/dL (8.4-10.2) L 08/20/24 Urine Protein Negative mg/dL (Neg-Trace) 06/27/24 Renal US 08/01/24 Assessment & Plan Assessment & Plan (1) Hypokalemia: Code(s): E87.6 - Hypokalemia Category: Medical (2) Hypertension: Code(s): I10 - Essential (primary) hypertension Category: Medical Qualifiers: Hypertension type: primary hypertension Qualified Code(s): I10 - Essential (primary) hypertension Plan Differentials are broad for hypokalemia and hypertension. She has been having labile blood pressure and her anti hypertensive medications have been adjusted. She has normal renal function. She is not on diuretics. She has no hypomagnesemia, polyuria or metabolic acidosis. She has no family H/O Denice's /Bartter/Giltelman syndrome. She never had hypokalemic periodic paralysis. She does monitor her BP at home. I have ordered detailed work up including imaging studies, some of the results are pending. She may having increased mineralocorticoid activity. I started her on Spironolactone 25 mg daily. Answered all questions. Follow up given in a week Medications: New spironolactone 25 mg PO DAILY 90 tabs 3RF Coding Level of Care Code Est Pt Level 4 (26671) Diagnoses Hypokalemia E87.6 Primary hypertension I10 Hypertension type: primary hypertension
[2024-08-23 14:47] VITALS: BP 170/110; PULSE 87; O2SAT 99; BMI 32.8
== END 2024-08-23 15:11 | disposition home or self-care (01) ==
PROVIDERS: PCP Internal Medicine; Visit Provider Internal Medicine Nephrology
DX: E87.6 Hypokalemia (principal); I10 Essential (primary) hypertension
CPT/HCPCS: 99214

== ENCOUNTER 2024-08-30 15:03 | Outpatient (AMB) | payer OTHER, SELFPAY ==
--- NOTE | 2024-08-30 15:17 | HO.NEPHOV_ITS ---
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 She has no H/O chronic diarrhea. She denies nausea or vomiting. She has been having labile blood pressure and her anti hypertensive medications have been adjusted. 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 She has normal renal function. She has no hypomagnesemia, polyuria or metabolic acidosis. She has no family H/O Denice's /Bartter/Giltelman syndrome. She never had hypokalemic periodic paralysis. She does monitor her BP at home. Her BP is better but not optimally controlled. She denies any headaches, double vision, edema or orthostatic symptoms. [facility] Medical History Cervical cancer screening Abnormal uterine bleeding (AUB) Friable cervix Encounter for gynecological examination Nasal pain Blood pressure elevated without history of HTN Breast cancer screening by mammogram Erythema of groin Breast lump Migraine with aura Cervical polyp Menorrhagia Menometrorrhagia Legally blind in left eye, as defined in [place] Urge incontinence Metrorrhagia Anemia Impaired glucose tolerance Obesity (BMI 30-39.9) Hypercholesterolemia Hypothyroid Surgical History History of total abdominal hysterectomy History of excision of lesion (04/07/23) History of bilateral tubal ligation Hx of tubal ligation Hx of cervical polypectomy Family History Maternal Aunt Family history of breast cancer Maternal Uncle History of brain tumor Paternal Aunt Hx of myocardial infarction Skin cancer Father Myocardial infarction Mother Alive and well Social History Housing: House Alcohol intake: never Patient Tobacco Use Status: Never used Tobacco e-Cigarette/Vaping Use: Never Used Second Hand Smoke Exposure: No Advance Directives Date on File: 07/17/20 service: No Current occupational status: employed Gender identity: Female Cognitive needs: No Hearing needs: No Vision needs: No Female Reproductive History Menstrual Age of Menarche: 10 Review of Systems Const All systems reviewed & are unremarkable except as noted in HPI and below Physical Exam Vital Signs: Last Vital Signs Pulse 97 08/30/24 15:18 BP 154/90 H 08/30/24 15:18 Pulse Ox 100 08/30/24 15:18 Oxygen Delivery Method Room Air 08/30/24 15:18 BMI result Body Mass Index 33.2 Const General: comfortable and no acute distress Orientation/consciousness: patient oriented x3 HEENT Head: Yes normocephalic Mouth: Normal oral and palatal mucosa present Eyes EOM: EOMs intact bilaterally Neck Neck: Yes supple Resp Auscultation: clear to auscultation bilaterally Cardio Jugular venous distension: no JVD Rate: regular rate GI Palpation (GI): Soft to palpation Auscultation: normal bowel sounds General: Yes no CVA tenderness Back/Spine/Pelvis Back: no CVA tenderness Skin General skin exam: no rashes or lesions noted Neuro General: patient oriented x3 and moves all extremities Extrem General: Yes no pedal edema Results Reviewed Nephrology Results: Hgb 10.3 g/dl (12.0-16.0) L 08/21/24 WBC 5.5 X10*3/uL (4.8-10.8) 08/21/24 Plt Count 315 X10*3/uL (160-400) 08/21/24 Sodium 138 mmol/L (135-145) 08/20/24 Potassium 3.0 mmol/L (3.3-5.1) L 08/20/24 Chloride 109 mmol/L (96-108) H 08/20/24 Carbon Dioxide 23 mmol/L (22-29) 08/20/24 BUN 7 mg/dL (9-16) L 08/20/24 Creatinine 0.67 mg/dL (0.5-1.4) 08/20/24 Calcium 8.2 mg/dL (8.4-10.2) L 08/20/24 Renal US 08/01/24 Assessment & Plan Assessment & Plan (1) Hypokalemia: Code(s): E87.6 - Hypokalemia Category: Medical (2) Hypertension: Code(s): I10 - Essential (primary) hypertension Category: Medical Qualifiers: Hypertension type: primary hypertension Qualified Code(s): I10 - Essential (primary) hypertension Plan Differentials are broad for hypokalemia and hypertension. W/U is in progress. She has been having labile blood pressure and her anti hypertensive medications have been adjusted. She has normal renal function. She has no hypomagnesemia, polyuria or metabolic acidosis. She has no family H/O Denice's /Bartter/Giltelman syndrome. She never had hypokalemic periodic paralysis. She does monitor her BP at home. She may having increased mineralocorticoid activity. I increased her on Spironolactone to 50 mg daily & increased her lisinopril to 20 mg daily. Follow up labs ordered. Answered all questions. Medications: Changed From lisinopril 10 mg PO DAILY 30 tabs 1RF To lisinopril 20 mg (2 x 10 mg) PO DAILY 30 tabs 1RF From spironolactone 25 mg PO DAILY 90 tabs 3RF To spironolactone 50 mg (2 x 25 mg) PO DAILY 90 tabs 3RF Coding Level of Care Code Est Pt Level 4 (16882) Diagnoses Hypokalemia E87.6 Primary hypertension I10 Hypertension type: primary hypertension
[2024-08-30 15:18] VITALS: BP 154/90; PULSE 97; O2SAT 100; BMI 33.2
== END 2024-08-30 15:40 | disposition home or self-care (01) ==
PROVIDERS: PCP Internal Medicine; Visit Provider Internal Medicine Nephrology
DX: E87.6 Hypokalemia (principal); I10 Essential (primary) hypertension
CPT/HCPCS: 99214

== ENCOUNTER → 2024-08-30 15:03 | Outpatient (BNVA) | payer OTHER, SELFPAY | PROVIDERS: PCP Internal Medicine; Visit Provider Internal Medicine Nephrology | DX: E87.6 Hypokalemia (principal); I10 Essential (primary) hypertension ==

== ENCOUNTER 2024-09-11 09:29 | Outpatient (REF) | payer OTHER, SELFPAY ==
--- NOTE | 2024-09-11 09:32 | EMG_ITS ---
FINDINGS: Bilateral median and ulnar motor and sensory studies were performed. Bilateral radial sensory and median and lateral antecubital brachial sensory studies were performed and paraspinal muscles were tested with a needle. IMPRESSION: 1. Mild bilateral median neuropathy across carpal tunnel. 2. Mild left ulnar neuropathy across cubital tunnel. MD HEATHER Desir/JORGE L / [id number]
== END 2024-09-11 09:30 | disposition home or self-care (01) ==
LOC: HO.NEURO 09:29
PROVIDERS: PCP Internal Medicine
DX: R20.0 Anesthesia of skin (principal)
CPT/HCPCS: 95886; 95913

== ENCOUNTER 2024-09-17 07:30 | Outpatient (RCR) | payer OTHER, SELFPAY ==
[2024-08-28 08:08] VITALS: BP 175/104; PULSE 91; RESP 16; TEMP 36.1; O2SAT 98
[2024-08-28] MEDS: Iron Sucrose Complex 200 MG/10 ML VIAL IVPUSH (08:19)
[2024-09-03 07:15] VITALS: BP 149/86; PULSE 77; RESP 18; TEMP 36.4; O2SAT 98
[2024-09-03] MEDS: Iron Sucrose Complex 200 MG/10 ML VIAL IVPUSH (07:16)
[2024-09-10 07:36] VITALS: BP 150/110; PULSE 76; RESP 14; TEMP 36.6; O2SAT 97
[2024-09-10] MEDS: Iron Sucrose Complex 200 MG/10 ML VIAL IVPUSH (07:42)
[2024-09-17 07:32] VITALS: BP 152/101; PULSE 75; RESP 16; TEMP 36.2; O2SAT 98
[2024-09-17] MEDS: Iron Sucrose Complex 200 MG/10 ML VIAL IVPUSH (07:38)
== END 2024-09-17 15:27 | disposition home or self-care (01) ==
LOC: HO.INF 07:30
PROVIDERS: Visit Provider Internal Medicine
DX: D50.9 Iron deficiency anemia, unspecified (principal)
CPT/HCPCS: 96374; J1756

== ENCOUNTER 2024-09-18 10:24 | Outpatient (AMB) | payer OTHER, SELFPAY ==
--- NOTE | 2024-09-18 10:29 | HO.NEPHOV_ITS ---
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 She has no H/O chronic diarrhea. She denies nausea or vomiting. She has been having labile blood pressure and her anti hypertensive medications have been adjusted. 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 She has normal renal function. She has no hypomagnesemia, polyuria or metabolic acidosis. She has no family H/O Denice's /Bartter/Giltelman syndrome. She never had hypokalemic periodic paralysis. She does monitor her BP at home. Her BP is better but not optimally controlled. She denies any headaches, double vision, edema or orthostatic symptoms. [facility] Medical History Cervical cancer screening Abnormal uterine bleeding (AUB) Friable cervix Encounter for gynecological examination Nasal pain Blood pressure elevated without history of HTN Breast cancer screening by mammogram Erythema of groin Breast lump Migraine with aura Cervical polyp Menorrhagia Menometrorrhagia Legally blind in left eye, as defined in [place] Urge incontinence Metrorrhagia Anemia Impaired glucose tolerance Obesity (BMI 30-39.9) Hypercholesterolemia Hypothyroid Surgical History History of total abdominal hysterectomy History of excision of lesion (04/07/23) History of bilateral tubal ligation Hx of tubal ligation Hx of cervical polypectomy Family History Maternal Aunt Family history of breast cancer Maternal Uncle History of brain tumor Paternal Aunt Hx of myocardial infarction Skin cancer Father Myocardial infarction Mother Alive and well Social History Housing: House Alcohol intake: never Patient Tobacco Use Status: Never used Tobacco e-Cigarette/Vaping Use: Never Used Second Hand Smoke Exposure: No Advance Directives Date on File: 07/17/20 service: No Current occupational status: employed Gender identity: Female Cognitive needs: No Hearing needs: No Vision needs: No Female Reproductive History Menstrual Age of Menarche: 10 Review of Systems Const All systems reviewed & are unremarkable except as noted in HPI and below Physical Exam Vital Signs: Last Vital Signs Pulse 95 09/18/24 10:30 BP 160/100 H 09/18/24 10:30 Pulse Ox 95 09/18/24 10:30 Oxygen Delivery Method Room Air 09/18/24 10:30 BMI result Body Mass Index 32.8 Const General: comfortable and no acute distress Orientation/consciousness: patient oriented x3 HEENT Head: Yes normocephalic Mouth: Normal oral and palatal mucosa present Eyes EOM: EOMs intact bilaterally Neck Neck: Yes supple Resp Auscultation: clear to auscultation bilaterally Cardio Jugular venous distension: no JVD Rate: regular rate GI Palpation (GI): Soft to palpation Auscultation: normal bowel sounds General: Yes no CVA tenderness Back/Spine/Pelvis Back: no CVA tenderness Skin General skin exam: no rashes or lesions noted Neuro General: patient oriented x3 and moves all extremities Extrem General: Yes no pedal edema Results Reviewed Nephrology Results: Hgb 10.3 g/dl (12.0-16.0) L 08/21/24 WBC 5.5 X10*3/uL (4.8-10.8) 08/21/24 Plt Count 315 X10*3/uL (160-400) 08/21/24 Sodium 138 mmol/L (135-145) 08/20/24 Potassium 3.0 mmol/L (3.3-5.1) L 08/20/24 Chloride 109 mmol/L (96-108) H 08/20/24 Carbon Dioxide 23 mmol/L (22-29) 08/20/24 BUN 7 mg/dL (9-16) L 08/20/24 Creatinine 0.67 mg/dL (0.5-1.4) 08/20/24 Calcium 8.2 mg/dL (8.4-10.2) L 08/20/24 Renal US 08/01/24 Assessment & Plan Assessment & Plan (1) Hypertension: Code(s): I10 - Essential (primary) hypertension Category: Medical Qualifiers: Hypertension type: primary hypertension Qualified Code(s): I10 - Essential (primary) hypertension Plan Differentials are broad for hypokalemia and hypertension. W/U is in progress. She has been having labile blood pressure and her anti hypertensive medications have been adjusted. She has normal renal function. She has no hypomagnesemia, polyuria or metabolic acidosis. She has no family H/O Denice's /Bartter/Giltelman syndrome. She never had hypokalemic periodic paralysis. She does monitor her BP at home. She may having increased mineralocorticoid activity. I increased her on Spironolactone to 100 mg daily & increased her lisinopril to 20 mg twice daily. I shall consider doing CT adrenal next visit. Follow up labs ordered. Answered all questions. Orders: Orders Blood Urea Nitrogen 3 Weeks E87.6 - Hypokalemia, I10 - Essential (primary) hypertension Metanephrines, Plasma 3 Weeks I10 - Essential (primary) hypertension Creatinine 3 Weeks E87.6 - Hypokalemia, I10 - Essential (primary) hypertension Electrolytes 3 Weeks E87.6 - Hypokalemia, I10 - Essential (primary) hypertension Medications: Changed From lisinopril 20 mg (2 x 10 mg) PO DAILY 30 tabs 1RF To lisinopril 20 mg PO BID 90 days 180 tabs 3RF From spironolactone 50 mg (2 x 25 mg) PO DAILY 90 tabs 3RF To spironolactone 100 mg PO DAILY 90 tabs 3RF Coding Level of Care Code Est Pt Level 4 (76712) Diagnoses Primary hypertension I10 Hypertension type: primary hypertension
[2024-09-18 10:30] VITALS: BP 158/90; PULSE 95; O2SAT 95; BMI 32.8
== END 2024-09-18 11:04 | disposition home or self-care (01) ==
PROVIDERS: PCP Internal Medicine; Visit Provider Internal Medicine Nephrology
DX: I10 Essential (primary) hypertension (principal)
CPT/HCPCS: 99214

== ENCOUNTER 2024-10-05 09:19 | Outpatient (REF) | payer OTHER, SELFPAY ==
[2024-10-05 10:10] LABS: Anion Gap 11 (12-20); Blood Urea Nitrogen 7 mg/dL (9-16); Carbon Dioxide 25 mmol/L (22-29); Chloride 105 mmol/L (96-108); Estimated Glomerular Filt Rate > 60; Potassium 3.4 mmol/L (3.3-5.1); Sodium 138 mmol/L (135-145)
[2024-10-05 10:28] LABS: Free T4 (Free Thyroxine) 0.84 ng/dL (0.71-1.85); TSH reflex Free T4 8.92 uIU/mL (0.32-4.0)
[2024-10-09 19:23] LABS: Metanephrine, Free <25 pg/mL (<=57); Normetanephrines, Free 48 pg/mL (<=148); Total Metanephrine, Free 48 pg/mL (<=205)
== END 2024-10-05 09:20 | disposition home or self-care (01) ==
LOC: HO.LAB 09:19
PROVIDERS: PCP Internal Medicine; Visit Provider Internal Medicine Nephrology
DX: Z00.00 Encounter for general adult medical examination without abnormal findings (principal); E87.6 Hypokalemia; I10 Essential (primary) hypertension
CPT/HCPCS: 36415; 80051; 82565; 83835; 84439; 84443; 84520

== ENCOUNTER → 2024-10-09 12:12 | Outpatient (REF) | payer OTHER, SELFPAY | LOC: HO.SL 12:12 | PROVIDERS: PCP Internal Medicine | DX: G47.10 Hypersomnia, unspecified (principal) | CPT/HCPCS: 95806 ==

== ENCOUNTER → 2024-10-10 13:03 | Outpatient (BNV) | payer OTHER, SELFPAY | PROVIDERS: PCP Internal Medicine; Visit Provider Psychiatry & Neurology Neurology | DX: G47.10 Hypersomnia, unspecified (principal); R06.83 Snoring | CPT/HCPCS: 95806 ==

== ENCOUNTER 2024-10-11 07:55 | Outpatient (AMB) | payer OTHER, SELFPAY ==
[2024-10-11 08:02] VITALS: BP 156/100; PULSE 76; O2SAT 98; BMI 33.8
--- NOTE | 2024-10-11 08:02 | A.OFFPC_ITS ---
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 Accompanied by: Self / Same As Patient Allergies No Known Allergies Allergy (Verified 10/11/24 08:02) Medication List - Last Reconciled 10/11/24 by Arely Fiore PA-C ascorbate calcium (vitamin C) 500 mg PO DAILY [id number]-qosjlzet 250-250-65 mg (Excedrin Migraine) 1 tab PO Q4-6H PRN blood pressure monitor (Blood Pressure Kit) As directed cyanocobalamin (vitamin B-12) 1,000 mcg PO DAILY ferrous sulfate (Feosol) 325 mg PO DAILY levothyroxine 88 mcg PO DAILY levothyroxine 100 mcg PO DAILY lisinopril 20 mg PO BID 90 days propranolol 10 mg PO BID sennosides-docusate sodium 8.6-50 mg (Senna Plus) 2 tab-caps (2 x 8.6-50 mg) PO BEDTIME 90 days spironolactone 100 mg PO DAILY Tobacco use date assessed: 10/11/24 Dental Screening Dental Screen Date: 10/11/24 Did you have a dental visit in the last 12 months?: Yes Did you have a dental problem in the last 6 months where you did not have access to dental care?: No Was dental information given to patient?: Patient has dentist HPI bp f/u HPI Details 49 year old obese female with hypothyroi d, hypertension, GERD, anemia from menorrhagia, hypercholesterolemia, coming in for follow-up last seen 08/2024 coming in for follow up.? In review of the notes patient was seen by [facility] nephrology for hypokalemia and hypertension lisinopril increased to b.i.d. and spironolactone increased to 100 mg.? Patient completed nerve conduction study showed mild bilateral carpal tunnel and mild left ulnar neuropathy. Patient tells us today her blood pressures ran high at home in the 150 systolic and 110 diastolic often accompanied by headaches. Occasionally she will have lower blood pressure in the 140 over 90s. She states at work her blood pressure is typically higher and she will have blurred vision and headaches and has discussed this with Nephrology. She completed her sleep study yesterday. She states her carpal tunnel is manageable and we will occasionally have difficulty grasping heavy objects and driving for long periods of time. She recently started wearing night splints last week and has not yet seen an improvement. [facility] Medical History Cervical cancer screening Abnormal uterine bleeding (AUB) Friable cervix Encounter for gynecological examination Nasal pain Blood pressure elevated without history of HTN Breast cancer screening by mammogram Erythema of groin Breast lump Migraine with aura Cervical polyp Menorrhagia Menometrorrhagia Legally blind in left eye, as defined in [place] Urge incontinence Metrorrhagia Anemia Impaired glucose tolerance Obesity (BMI 30-39.9) Hypercholesterolemia Hypothyroid Surgical History History of total abdominal hysterectomy History of excision of lesion (04/07/23) History of bilateral tubal ligation Hx of tubal ligation Hx of cervical polypectomy Family History Maternal Aunt Family history of breast cancer Maternal Uncle History of brain tumor Paternal Aunt Hx of myocardial infarction Skin cancer Father Myocardial infarction Mother Alive and well Social History Housing: House Alcohol intake: never Patient Tobacco Use Status: Never used Tobacco e-Cigarette/Vaping Use: Never Used Second Hand Smoke Exposure: No Advance Directives Date on File: 07/17/20 service: No Current occupational status: employed Gender identity: Female Cognitive needs: No Hearing needs: No Vision needs: No Female Reproductive History Menstrual Age of Menarche: 10 Questionnaire PHQ-9 Over the last 2 weeks, how often have you been bothered by any of the following problems? 1. Little interest or pleasure in doing things: nearly every day 2. Feeling down, depressed, or hopeless: more than half the days 3. Trouble falling or staying asleep, or sleeping too much: nearly every day 4. Feeling tired or having little energy: nearly every day 5. Poor appetite or overeating: nearly every day 6. Feeling bad about yourself - or that you are a failure or have let yourself or your family down: several days 7. Trouble concentrating on things, such as reading the newspaper or watching television: more than half the days 8. Moving or speaking so slowly that other people could have noticed. Or the opposite - being so fidgety or restless that you have been moving around a lot more than usual: not at all 9. Thoughts that you would be better off or of hurting yourself in some way: not at all Total score: 17 Depression Screening Interpretation: Positive (declines tx w/ medication or counselor) Depression Screening Follow-up: Declines treatment Depression Screening Done: Yes [id number] - PHQ-9 Billing: Yes Source: Developed by Drs. Raffaele Ruth, Cyn Dowling, Reddy Gómez and colleagues, with an educational qiana from [employer]. Thrive Questionnaire Date Thrive assessed: 10/11/24 I am a: Patient What is your living situation today?: I have a steady place to live Within the past 12 months, did the food you bought not last and you didn't have the money to get more?: Never true Within the past 12 months, did you worry whether your food would run out before you got money to buy more?: Never true Do you have trouble paying for medicines?: No Do you have trouble getting transportation to medical appointments?: No Do you have trouble paying your heating and electricity bill?: No Do you have trouble taking care of your child, family member or friend?: No Do you have trouble with day-to-day activities such as bathing, preparing meals, shopping, managing finances, etc.?: No Are you currently unemployed and looking for a job?: No Are you interested in more education?: No Please select the resources that you would like help with: None Currently or been in a relationship where the following occur: No concerns reported THRIVE Score: 0 AUDIT C Alcohol Use Questionnaire (AUDIT-C) 1. How often do you have a drink containing alcohol?: Never 3. How often do you have six or more drinks on one occasion?: Never Total Score: 0 NAN-7 AMB Questionnaire NAN-7 Date NAN - 7 assessed: 10/11/24 Feeling nervous, anxious, or on edge: 0 = Not at all Not being able to stop or control worryin = Not at all Worrying too much about different things: 0 = Not at all Trouble relaxin = Not at all Being so restless that it is hard to sit still: 0 = Not at all Becoming easily annoyed or irritable: 0 = Not at all Feeling afraid as if something awful might happen: 0 = Not at all Total NAN-7 score (0-4 normal; 5-9 mild; 10-14 moderate; 15-21 severe): 0 Source: Developed by Drs. Raffaele Ruth, Cyn Dowling, Reddy Gómez and colleagues, with an educational qiana from [employer]. Review of Systems Const Denies body aches, Denies chills, Denies fever(s), Reports headache(s) and Denies poor appetite Eyes Reports blurry vision (Occasionally) ENT Denies dysphagia, Denies dizziness, Reports headache(s) and Denies odynophagia Card Denies chest pain, Denies syncope, Denies edema, Denies irregular heart rhythm, Denies lightheadedness and Denies dyspnea Resp Denies cough and Denies dyspnea GI Denies abdominal pain, Denies constipation, Denies dysphagia, Denies diarrhea, Denies nausea, Denies odynophagia and Denies vomiting Reports no additional complaints Musc Reports no additional complaints and Denies abnormal gait Skin/Breast Reports system reviewed and no additional complaints, except as documented Neuro Denies abnormal gait, Denies dizziness, Denies syncope and Reports headache(s) Psych Reports no additional complaints Physical exam (Primary Care) Vital Signs: Last Vital Signs Pulse 76 10/11/24 08:02 BP 156/100 H 10/11/24 08:02 Pulse Ox 98 10/11/24 08:02 Oxygen Delivery Method Room Air 10/11/24 08:02 BMI result Body Mass Index 33.8 Tobacco/Smoking Status: Tobacco use Status Tobacco use date assessed 10/11/24 10/11/24 08:04 Patient Tobacco Use Status Never used Tobacco 10/11/24 08:04 e-Cigarette/Vaping Use Never Used 10/11/24 08:04 PHQ-9: PHQ-9 Score PHQ-9: Total score 17 10/11/24 08:04 Depression Screening Interpretation: Positive (declines tx w/ medication or counselor) Depression Screening Follow-up: Declines treatment Thrive Assessment: Date of Thrive Assessment Date Thrive assessed 10/11/24 10/11/24 08:04 Currently or been in a relationship where the following occur: No concerns reported Const General: cooperative, healthy appearing, comfortable and no acute distress Orientation/consciousness: patient oriented x3 [facility] Head: Yes normocephalic Ears: hearing grossly normal bilaterally General nose exam: Normal external nose present Eyes General: appearance normal, both eyes and all related structures Conjunctivae: conjunctivae normal Neck Neck: Yes full ROM and Yes no lymphadenopathy Resp Effort & Inspection: normal respiratory effort Auscultation: clear to auscultation bilaterally, no crackles, no rales, no rhonchi and no wheezes Cardio Rate: regular rate Rhythm: regular rhythm Skin General skin exam: no rashes or lesions noted Neuro General: patient oriented x3 Gait exam (Neuro): Normal gait present Extrem General: Yes normal to inspection, Yes full ROM and No edema Psych Affect: normal affect Attitude: cooperative Insight: Good insight present (Psych) Judgement: Good judgement present (Psych) Coding Level of Care Code Est Pt Level 4 (74012) Diagnoses Numbness in both hands R20.0 Hypersomnolence G47.10 Hypokalemia E87.6 Primary hypertension I10 Hypertension type: primary hypertension Obesity (BMI 30-39.9) E66.9 Acquired hypothyroidism E03.9 Hypothyroidism type: acquired Impaired glucose tolerance R73.02 Additional Codes PHQ-9 - 80818 - PHQ-9 Billing: Yes ([id number]) Assessment & Plan Assessment & Plan (1) Numbness in both hands: Code(s): R20.0 - Anesthesia of skin Category: Medical Plan: Patient found to have mild bilateral carpal tunnel and ulnar neuropathy in the left side. Advised patient to continue to use night splints. Can consider orthopedics referral if symptoms worsen. (2) Hypersomnolence: Code(s): G47.10 - Hypersomnia, unspecified Category: Medical Plan: Patient completed at home sleep study and we will return the device today. Awaiting results. Depression screening positive today primarily centered around the difficulty sleeping patient would like to wait on antidepressants and sleep medication until sleep study comes back. (3) Hypokalemia: Code(s): E87.6 - Hypokalemia Category: Medical Plan: Currently following with Nephrology and undergoing workup at this time. (4) Hypertension: Code(s): I10 - Essential (primary) hypertension Category: Medical Qualifiers: Hypertension type: primary hypertension Qualified Code(s): I10 - Essential (primary) hypertension Plan: Continue on current blood pressure medication. Avoid salt intake and encourage healthy diet and regular exercise. Blood pressure elevated today 156/100 and 166/98 when retaken. Currently following with Nephrology and underwent medication adjustment last month we will continue to follow with Nephrology. Has a appointment with nephrology next week. Reviewed red flag symptoms of hypertension when to present for re-evaluation. (5) Obesity (BMI 30-39.9): Code(s): E66.9 - Obesity, unspecified Category: Medical Plan: Healthy diet and regular exercise is encouraged. (6) Hypothyroid: Code(s): E03.9 - Hypothyroidism, unspecified Category: Medical Qualifiers: Hypothyroidism type: acquired Qualified Code(s): E03.9 - Hypothyroidism, unspecified Plan: Last blood work showing elevated TSH levothyroxine 88 mcg increased to 100 mcg. We did discuss the appropriate way to take the medication and patient has been f ollowing these guidelines. We will repeat TSH in 4 weeks. (7) Impaired glucose tolerance: Code(s): R73.02 - Impaired glucose tolerance (oral) Category: Medical Plan: Decrease the amount of carbohydrates such as pasta, bread, rice, and potatoes and limit the amount of sweets. Although fruits are generally healthy they should be eaten in moderation as they are still high in sugar. Plan This note was constructed using voice recognition software. While every effort has been made to ensure accuracy and fitness instructor, still areas may have been included sometimes these areas may affect the content or meeting of the given symptoms. Total time spent caring for the patient today was 20 minutes. This includes time spent before the visit reviewing the chart, time spent during the visit, and time spent after the visit and documentation. Orders: Orders Complete Blood Count Auto Diff Today Z00.00 - Encounter for general adult medical examination without abnormal findings IRON PROFILE Today D50.9 - Iron deficiency anemia, unspecified
[2024-10-11 08:26] VITALS: BP 166/98
== END 2024-10-11 08:32 | disposition home or self-care (01) ==
PROVIDERS: PCP Internal Medicine
DX: R20.0 Anesthesia of skin (principal); G47.10 Hypersomnia, unspecified; E66.9 Obesity, unspecified; Z68.33 Body mass index [BMI] 33.0-33.9, adult; E87.6 Hypokalemia; I10 Essential (primary) hypertension; E03.9 Hypothyroidism, unspecified; R73.02 Impaired glucose tolerance (oral)

== ENCOUNTER → 2024-10-11 07:55 | Outpatient (BNVA) | payer OTHER, SELFPAY | PROVIDERS: PCP Internal Medicine | DX: G56.03 Carpal tunnel syndrome, bilateral upper limbs (principal); G56.22 Lesion of ulnar nerve, left upper limb; G47.10 Hypersomnia, unspecified; E87.6 Hypokalemia; I10 Essential (primary) hypertension; E66.9 Obesity, unspecified; E03.9 Hypothyroidism, unspecified; R73.02 Impaired glucose tolerance (oral); Z79.899 Other long term (current) drug therapy | CPT/HCPCS: 96127 ==

== ENCOUNTER 2024-10-18 10:34 | Outpatient (AMB) | payer OTHER, SELFPAY ==
--- NOTE | 2024-10-18 11:30 | HO.NEPHOV_ITS ---
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 She has no H/O chronic diarrhea. She denies nausea or vomiting. She has been having labile blood pressure and her anti hypertensive medications have been adjusted. 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 She has normal renal function. She has no hypomagnesemia, polyuria or metabolic acidosis. She has no family H/O Denice's /Bartter/Giltelman syndrome. She never had hypokalemic periodic paralysis. She does monitor her BP at home. Her BP is better but not optimally controlled. She denies any headaches, double vision, edema or orthostatic symptoms. [facility] Medical History Cervical cancer screening Abnormal uterine bleeding (AUB) Friable cervix Encounter for gynecological examination Nasal pain Blood pressure elevated without history of HTN Breast cancer screening by mammogram Erythema of groin Breast lump Migraine with aura Cervical polyp Menorrhagia Menometrorrhagia Legally blind in left eye, as defined in [place] Urge incontinence Metrorrhagia Anemia Impaired glucose tolerance Obesity (BMI 30-39.9) Hypercholesterolemia Hypothyroid Surgical History History of total abdominal hysterectomy History of excision of lesion (04/07/23) History of bilateral tubal ligation Hx of tubal ligation Hx of cervical polypectomy Family History Maternal Aunt Family history of breast cancer Maternal Uncle History of brain tumor Paternal Aunt Hx of myocardial infarction Skin cancer Father Myocardial infarction Mother Alive and well Social History Housing: House Alcohol intake: never Patient Tobacco Use Status: Never used Tobacco e-Cigarette/Vaping Use: Never Used Second Hand Smoke Exposure: No Advance Directives Date on File: 07/17/20 service: No Current occupational status: employed Gender identity: Female Cognitive needs: No Hearing needs: No Vision needs: No Female Reproductive History Menstrual Age of Menarche: 10 Review of Systems Const All systems reviewed & are unremarkable except as noted in HPI and below Physical Exam Vital Signs: Last Vital Signs Pulse 65 10/18/24 11:31 BP 140/104 H 10/18/24 11:31 Pulse Ox 98 10/18/24 11:31 Oxygen Delivery Method Room Air 10/18/24 11:31 BMI result Body Mass Index 33.0 Const General: comfortable and no acute distress Orientation/consciousness: patient oriented x3 HEENT Head: Yes normocephalic Mouth: Normal oral and palatal mucosa present Eyes EOM: EOMs intact bilaterally Neck Neck: Yes supple Resp Auscultation: clear to auscultation bilaterally Cardio Jugular venous distension: no JVD Rate: regular rate GI Palpation (GI): Soft to palpation Auscultation: normal bowel sounds General: Yes no CVA tenderness Back/Spine/Pelvis Back: no CVA tenderness Skin General skin exam: no rashes or lesions noted Neuro General: patient oriented x3 and moves all extremities Extrem General: Yes no pedal edema Results Reviewed Nephrology Results: Sodium 138 mmol/L (135-145) 10/05/24 Potassium 3.4 mmol/L (3.3-5.1) 10/05/24 Chloride 105 mmol/L (96-108) 10/05/24 Carbon Dioxide 25 mmol/L (22-29) 10/05/24 BUN 7 mg/dL (9-16) L 10/05/24 Creatinine 0.64 mg/dL (0.5-1.4) 10/05/24 Assessment & Plan Assessment & Plan (1) Hypokalemia: Code(s): E87.6 - Hypokalemia Category: Medical (2) Hypertension: Code(s): I10 - Essential (primary) hypertension Category: Medical Qualifiers: Hypertension type: primary hypertension Qualified Code(s): I10 - Essential (primary) hypertension Plan Differentials are broad for hypokalemia and hypertension. W/U is in progress. She has been having labile blood pressure and her anti hypertensive medications have been adjusted. She has normal renal function. She has no hypomagnesemia, polyuria or metabolic acidosis. She has no family H/O Denice's /Bartter/G iltelman syndrome. She never had hypokalemic periodic paralysis. She does monitor her BP at home. She may having increased mineralocorticoid activity. She can continue on Spironolactone 100 mg daily & lisinopril 20 mg twice daily. I started her on Nifedipine 30 mg daily. I shall consider doing CT adrenal next visit. Follow up labs ordered. Answered all questions. Orders: Orders Blood Urea Nitrogen 1 Month E87.6 - Hypokalemia, I10 - Essential (primary) hypertension Cortisol Random 1 Month E87.6 - Hypokalemia, I10 - Essential (primary) hypertension Creatinine 1 Month E87.6 - Hypokalemia, I10 - Essential (primary) hypertension Electrolytes 1 Month E87.6 - Hypokalemia, I10 - Essential (primary) hypertension Medications: New nifedipine ER 30 mg PO DAILY 30 tabs 3RF Coding Level of Care Code Est Pt Level 4 (53932) Diagnoses Hypokalemia E87.6 Primary hypertension I10 Hypertension type: primary hypertension
[2024-10-18 11:31] VITALS: BP 140/104; PULSE 65; O2SAT 98; BMI 33.0
== END 2024-10-18 11:50 | disposition home or self-care (01) ==
PROVIDERS: PCP Internal Medicine; Visit Provider Internal Medicine Nephrology
DX: E87.6 Hypokalemia (principal); I10 Essential (primary) hypertension
CPT/HCPCS: 99214

== ENCOUNTER → 2024-10-18 10:34 | Outpatient (BNVA) | payer OTHER, SELFPAY | PROVIDERS: PCP Internal Medicine; Visit Provider Internal Medicine Nephrology ==

== ENCOUNTER 2024-10-29 15:35 | Emergency (ER) | payer OTHER, SELFPAY ==
[2024-10-29 16:10] VITALS: BP 197/117; PULSE 87; RESP 18; TEMP 36.9; O2SAT 100; BMI 32.7
--- NOTE | 2024-10-29 16:14 | ED.GENADULT ---
HPI - General Adult General Chief complaint: Headache Stated complaint: Neck pain, dizziness Time Seen by Provider: 10/29/24 16:48 Source: patient Mode of arrival: ambulatory Limitations: no limitations History of Present Illness ED Provider: Dr. Nazario Blank HPI narrative: 49-year-old female with a hypertension, migraine, anemia, hypercholesterolemia, hypothyroidism who presents for evaluation of elevated blood pressure. Patient states she was had a constant headache for 6 days. She describes the headache as a constant, pounding sensation associated with photophobia, phonophobia and blurred vision. She also had nausea with no vomiting. She states she feels tired and fatigued. Patient does have a history of migraines and she states she took her usual medications which include Tylenol, Excedrin migraine and ibuprofen with no relief for symptoms.. Patient states that her headache was 10/10 at the time of presentation. The patient presented to the ED 05/25/2024 with headache and high blood pressure, and she had a negative CT scan of the brain at that time. Related Data Previous Rx's ?Medication ?Instructions ?Recorded ascorbate calcium (vitamin C) 500 500 mg PO DAILY #30 tabs 07/24/20 mg tablet cyanocobalamin (vitamin B-12) 1,000 mcg PO DAILY #30 caps 07/24/20 1,000 mcg capsule ferrous sulfate 325 mg (65 mg 325 mg PO DAILY #30 tabs 07/24/20 iron) tablet (Feosol) blood pressure monitor (Blood #1 ea 02/18/23 Pressure Kit) sennosides 8.6 mg-docusate sodium 2 tab-cap (2 x 8.6-50 mg) PO 02/18/23 50 mg tablet (Senna Plus) BEDTIME 90 days #180 tabs sgbniuv-qooiswbhuqskm-wwnpzsqw 250 1 tab PO Q4-6H PRN pain #30 tabs 06/01/24 mg-250 mg-65 mg tablet (Excedrin Migraine) propranolol 10 mg tablet 10 mg PO BID #60 tabs 06/01/24 levothyroxine 88 mcg tablet 88 mcg PO DAILY #90 tabs 08/21/24 lisinopril 20 mg tablet 20 mg PO BID 90 days #180 tabs 09/18/24 spironolactone 100 mg tablet 100 mg PO DAILY #90 tabs 09/18/24 levothyroxine 100 mcg tablet 100 mcg PO DAILY #90 tabs 10/11/24 nifedipine 30 mg tablet,extended 30 mg PO DAILY #30 tabs 10/18/24 release 24 hr metoclopramide HCl 10 mg tablet 10 mg PO Q6H PRN nausea and 10/29/24 (Reglan) vomiting #20 tabs Allergies Allergy/AdvReac Type Severity Reaction Status Date / Time No Known Allergies Allergy Verified 10/29/24 16:15 Review of Systems Review of Systems: Yes all other systems are reviewed and are negative [facility] Past Medical History [facility] Narrative: Social history: She denies tobacco, alcohol and drug use Medical History Cervical cancer screening Abnormal uterine bleeding (AUB) Friable cervix Encounter for gynecological examination Nasal pain Blood pressure elevated without history of HTN Breast cancer screening by mammogram Erythema of groin Breast lump Migraine with aura Cervical polyp Menorrhagia Menometrorrhagia Legally blind in left eye, as defined in [place] Urge incontinence Metrorrhagia Anemia Impaired glucose tolerance Obesity (BMI 30-39.9) Hypercholesterolemia Hypothyroid Surgical History History of total abdominal hysterectomy History of excision of lesion (04/07/23) History of bilateral tubal ligation Hx of tubal ligation Hx of cervical polypectomy Family History Family History Maternal Aunt Family history of breast cancer Maternal Uncle History of brain tumor Paternal Aunt Hx of myocardial infarction Skin cancer Father Myocardial infarction Mother Alive and well Social History Social History Housing: House Alcohol intake: never Patient Tobacco Use Status: Never used Tobacco e-Cigarette/Vaping Use: Never Used Second Hand Smoke Exposure: No Advance Directives: No Advance Directives Information Provided: No Advance Directives Date on File: 07/17/20 Do you have a plan to hurt others: No Plan service: No Current occupational status: employed Gender identity: Female Cognitive needs: No Hearing needs: No Vision needs: No Physical Exam ED Vital Signs: Vital Signs - 24 hr 10/29/24 16:10 10/29/24 18:02 10/29/24 21:24 Temperature 98.4 F 97.9 F Pulse Rate 87 108 H 91 Respiratory Rate 18 16 16 Blood Pressure 197/117 H 185/106 H 171/111 H Pulse Oximetry 100 99 98 Oxygen Delivery Method Room Air Room Air Room Air BMI result Body Mass Index 32.7 Vital signs revealed elevated blood pressures of 171/111 up to 197/117. Exam: General: Awake, alert in no distress Head: Normocephalic, atraumatic EENT: PERRL, Lids normal, sclera normal, conjunctiva normal, nose normal , ears normal, throat without erythema or exudates Neck: Supple, no adenopathy Lung: breath sounds symmetric, no wheezing, rales or rhonchi Chest: symmetric movement, nontender Heart: regular rate and rhythm, normal S1, S2 no murmurs or rubs Abdomen: soft, non-tender, nondistended, normal bowel sounds Back: no vertebral tenderness, no CVAT Extremities: no deformities, moves all extremities symmetrically Neuro: Awake, alert, oriented, normal speech, cranial nerves intact, moves all extremities symmetrically Psych: Pleasant, cooperative Course Course Course Narrative: This is an RME: Additional HPI, ROS, PE not included below will be deferred to primary provider. RME assessment and note performed by: Vianey Lopez PA-C This is [id number] who presents to the ER with a complaint of HTN, who presents to the ER with complaints of headache, nausea, abdominal pain. BP elevated at 197/117. Reporting vision changes since . Given symptomatic htn, pt to be radha back dawit for further ER. Plan: Labs, EKG Medications Administered Discontinued Medications Generic Name Dose Route Start Last Admin Trade Name Freq PRN Reason Stop Dose Admin Diphenhydramine HCl 50 mg 10/29/24 17:15 10/29/24 17:56 Diphenhydramine Hcl 50 Mg/Ml Vial IVPUSH 10/29/24 17:16 50 mg ONCE STA Administration Ketorolac Tromethamine 15 mg 10/29/24 17:15 10/29/24 17:56 Ketorolac Tromethamine 15 Mg/Ml Vial IVPUSH 10/29/24 17:16 15 mg ONCE STA Administration Metoclopramide HCl 10 mg 10/29/24 17:15 10/29/24 17:56 Metoclopramide Hcl 10 Mg/2 Ml Vial IVPUSH 10/29/24 17:16 10 mg ONCE STA Administration Medical Decision Making Medical Decision Making [facility] Narrative: 49-year-old female with a hypertension, migraine, anemia, hypercholesterolemia, hypothyroidism who presents for evaluation of elevated blood pressure and headache x6 days. Patient's headache as a constant, throbbing sensation which is 10/10 at its worse associated with photophobia, phonophobia, blurred vision, nausea and fatigue. Vital signs did reveal elevated blood pressure otherwise unremarkable. Physical examination was unremarkable. Differential diagnosis: ?Includes but is not limited to migraine headache, headache syndrome, intracranial bleed, anxiety, giant cell arteritis, anemia, electrolyte abnormalities Course: 21:35 My interpretation patient's laboratory evaluation is as follows: CBC was normal. ESR was normal.CMP was normal. CRP was normal. Troponin was detectable but not elevated at 3.2 COVID-19, influenza and RSV were negative Patient was treated with Reglan 10 mg IV, Benadryl 50 mg IV and Toradol 15 mg IV. She states that her headache went from 10/10 to 5/10 and she does feel good enough to go home. This time I suspect that the patient's headache is consistent with a migraine syndrome. She does have elevated blood pressures but I do not think that this is related to her headache and this is caused by her essential hypertension. The patient was on 3 different antihypertensive medication suggesting that she does have difficult blood pressure to control. She was advised to check her blood pressures on Mondays, Wednesdays and Tuesday mornings for 2 weeks and to follow up with her PCP to discuss these readings to see if she needs any change in her antihypertensive regimen. Admission/Observation Consideration of admission/observation: Escalation of care including admission/observation considered (Yes) Lab Data [facility] Lab Attestation statement: I reviewed the patient's lab results. 10/29/24 16:32 10/29/24 16:32 Labs: Lab Results 10/29/24 Range/Units 16:32 WBC 5.5 (4.8-10.8) X10*3/uL RBC 4.90 (4.20-5.50) X10*6/uL Hgb 13.8 D (12.0-16.0) g/dl Hct 41.1 D (37.0-47.0) % MCV 83.9 (80.0-98.0) fL MCH 28.2 (27.0-33.0) pg MCHC 33.6 (31.0-35.0) g/dl RDW 18.3 H (11.0-16.0) % Plt Count 292 (160-400) X10*3/uL MPV 9.7 (9.4-12.3) fL Immature Gran % (Auto) 0.2 (0.0-0.4) % Neut % (Auto) 64.7 (45-73) % Lymph % (Auto) 22.8 (20-40) % [place] % (Auto) 8.1 (2-11) % Eos % (Auto) 3.3 (0-4) % Baso % (Auto) 0.9 (0-2) % Lymph # (Auto) 1.3 (1.2-4.9) X10*3/uL [place] # (Auto) 0.5 (0.1-1.2) X10*3/uL Eos # (Auto) 0.2 (0.0-0.4) X10*3/uL Baso # (Auto) 0.1 (0.0-0.2) X10*3/uL Abs Immat Gran (auto) 0.01 (0.00-0.03) X10*3/uL Absolute Neuts (auto) 3.6 (2.0-8.3) x10*3/uL Absolute Nucleated RBC 0.000 (0.0-0.012) X10*3/uL Nucleated RBC % (auto) 0.0 (0.0-0.2) /100WBC ESR 11 (0-20) MM/HR Sodium 139 (135-145) mmol/L Potassium 3.5 (3.3-5.1) mmol/L Chloride 107 (96-108) mmol/L Carbon Dioxide 24 (22-29) mmol/L Anion Gap 12 (12-20) BUN 10 (9-16) mg/dL Creatinine 0.72 (0.5-1.4) mg/dL Estim Creat Clear Calc 101.6 Estimated GFR > 60 Random Glucose 98 (60-115) mg/dL Calcium 8.9 D (8.4-10.2) mg/dL Magnesium 1.9 (1.6-2.6) mg/dL Total Bilirubin 0.3 (0.0-1.0) mg/dL Direct Bilirubin 0.1 (0.0-0.5) mg/dL AST 18 (5-31) U/L ALT 10 (0-31) U/L Alkaline Phosphatase 82 (39-117) U/L Troponin I High Sens 3.2 (<3.5-17.0) ng/L C-Reactive Protein 0.19 (< or = 0.50) mg/dL Total Protein 7.5 (6.5-8.0) g/dL Albumin 3.8 (3.5-5.0) g/dL Lipase 17 (8-78) U/L Influenza Type A (PCR) NEGATIVE (Negative) Influenza Type B (PCR) NEGATIVE (Negative) RSV RNA Qual (PCR) NEGATIVE (Negative) SARS-CoV-2 RNA (RT-PCR) NEGATIVE (Negative) Independent Interpretation I performed an independent interpretation of an: EKG Interpretation: My independent interpretation patient's 12 EKG done at 16:27 hours is as follows: Normal sinus rhythm with a rate of 85, normal [place] interval, QRS duration QTC interval, no ST segment elevation, no ST segment depression, no significant T-wave abnormalities, no PACs, no PVCs Prescription Management I considered prescription management with: Other (Anti migraine/antiemetic: Reglan) Chronic Conditions Patient?s care impacted by: Hypertension and Other (Migraine syndrome) Discharge Plan Discharge Clinical Impression: Migraine, Essential hypertension Patient Disposition: Home, Self-Care Additional Instructions: Your blood work was normal including your inflammatory markers which is reassuring. Your physical examination was consistent with a migraine-like headache. I want you to take the following 3 medications together every 6 hours as needed for headache, nausea or vomiting. Reglan (metoclopramide) in 10 mg, 1 pill Benadry (diphenhydramine) l 25 mg, 2 pills Excedrin migraine (acetaminophen, aspirin, caffeine), 2 pills. After you take these medications, lie down in a dark quiet room and try to fall asleep. ?These medications will make you sleepy, do not drive or work after taking these medications. Follow-up with your doctor in 2 days. Please return to the emergency department if your symptoms get worse or if you develop any symptoms that are concerning to you. Your blood pressures were high but this is caused by your diagnosis of high blood pressure. I want you to take your blood pressures on Tuesday, Tuesday and Tuesday mornings for 2 weeks and then follow up with your doctor to show your doctor these readings. If your doctor thinks these readings are high then they can either increase your medications or change your medications to try to help control your blood pressure. Prescriptions: New metoclopramide HCl [Reglan] 10 mg tablet 10 mg PO Q6H PRN (Reason: nausea and vomiting) Qty: 20 0RF No Action levothyroxine 88 mcg tablet 88 mcg PO DAILY Qty: 90 1RF levothyroxine 100 mcg tablet 100 mcg PO DAILY Qty: 90 1RF ferrous sulfate [Feosol] 325 mg (65 mg iron) tablet 325 mg PO DAILY Qty: 30 3RF cyanocobalamin (vitamin B-12) 1,000 mcg capsule 1,000 mcg PO DAILY Qty: 30 2RF ascorbate calcium (vitamin C) 500 mg tablet 500 mg PO DAILY Qty: 30 2RF (DME) blood pressure monitor [Blood Pressure Kit] Kit See Rx Instructions .ROUTE .MEDSUPPLY Qty: 1 0RF Rx Instructions: As directed sennosides-docusate sodium [Senna Plus] 8.6-50 mg tablet 2 tab-cap PO BEDTIME 90 Days Qty: 180 2RF Excedrin Migraine 250-250-65 mg tablet 1 tab PO Q4-6H PRN (Reason: pain) Qty: 30 0RF propranolol 10 mg tablet 10 mg PO BID Qty: 60 2RF nifedipine 30 mg tablet extended release 24hr 30 mg PO DAILY Qty: 30 3RF lisinopril 20 mg tablet 20 mg PO BID 90 Days Qty: 180 3RF spironolactone 100 mg tablet 100 mg PO DAILY Qty: 90 3RF Print Language: Turkmen
--- NOTE | 2024-10-29 16:18 | ECG_ITS ---
Test Reason : epigastric pain Blood Pressure : */* mmHG Vent. Rate : 85 BPM Atrial Rate : 85 BPM P-R Int : 132 ms QRS Dur : 84 ms QT Int : 378 ms P-R-T Axes : 53 -32 27 degrees QTcB Int : 449 ms Normal sinus rhythm Left axis deviation Pulmonary disease pattern Abnormal ECG When compared with ECG of 25-May-2024 14:33, No significant change was found Referred By: Vianey Lopez Electronically Signed By: HAL ALVAREZ MD
[2024-10-29 16:37] LABS: MANUAL DIFF FLAG NO
[2024-10-29 16:39] LABS: Basophils Absolute Auto 0.1 X10*3/uL (0.0-0.2); Basophils Percent Auto 0.9 % (0-2); Eosinophils Absolute Auto 0.2 X10*3/uL (0.0-0.4); Eosinophils Percent Auto 3.3 % (0-4); Hematocrit 41.1 % (37.0-47.0); Hemoglobin 13.8 g/dl (12.0-16.0); Imm Gran Abs Auto 0.01 X10*3/uL (0.00-0.03); Imm Gran Pct Auto 0.2 % (0.0-0.4); Lymphocytes Absolute Auto 1.3 X10*3/uL (1.2-4.9); Lymphocytes Percent Auto 22.8 % (20-40); Mean Corpuscular HGB Conc 33.6 g/dl (31.0-35.0); Mean Corpuscular Hemoglobin 28.2 pg (27.0-33.0); Mean Corpuscular Volume 83.9 fL (80.0-98.0); Mean Platelet Volume 9.7 fL (9.4-12.3); Monocytes Absolute Auto 0.5 X10*3/uL (0.1-1.2); Monocytes Percent Auto 8.1 % (2-11); Neutrophils Absolute Auto 3.6 x10*3/uL (2.0-8.3); Neutrophils Percent Auto 64.7 % (45-73); Platelet Count 292 X10*3/uL (160-400); Red Cell Distribution Width 18.3 % (11.0-16.0); White Blood Count 5.5 X10*3/uL (4.8-10.8)
[2024-10-29 17:03] LABS: Troponin-I High Sensitivity 3.2 ng/L (<3.5-17.0)
[2024-10-29 17:06] LABS: Alanine Aminotransferase 10 U/L (0-31); Albumin Level 3.8 g/dL (3.5-5.0); Anion Gap 12 (12-20); Aspartate Amino Transferase 18 U/L (5-31); Bilirubin Direct 0.1 mg/dL (0.0-0.5); Bilirubin Total 0.3 mg/dL (0.0-1.0); Blood Urea Nitrogen 10 mg/dL (9-16); Calcium 8.9 mg/dL (8.4-10.2); Carbon Dioxide 24 mmol/L (22-29); Chloride 107 mmol/L (96-108); Creatinine Clr Calc Pharmacy 101.6; Estimated Glomerular Filt Rate > 60; Glucose Random 98 mg/dL (60-115); Lipase 17 U/L (8-78); Magnesium 1.9 mg/dL (1.6-2.6); Potassium 3.5 mmol/L (3.3-5.1); Sodium 139 mmol/L (135-145); Total Protein 7.5 g/dL (6.5-8.0)
[2024-10-29 17:17] LABS: Influenza A PCR NEGATIVE (Negative); Influenza B PCR NEGATIVE (Negative); Resp Syncy Virus RNA Qual PCR NEGATIVE (Negative); SARS COV2 PCR INHOUSE NEGATIVE (Negative)
[2024-10-29 17:30] LABS: Alkaline Phosphatase 82 U/L (39-117); C Reactive Protein 0.19 mg/dL (< or = 0.50)
[2024-10-29] MEDS: diphenhydrAMINE HCL 50 MG/ML VIAL IVPUSH (17:56)
[2024-10-29] MEDS: Metoclopramide HCl 10 MG/2 ML VIAL IVPUSH (17:56)
[2024-10-29] MEDS: Ketorolac Tromethamine 15 MG/ML VIAL IVPUSH (17:56)
[2024-10-29 17:59] LABS: Erythrocyte Sedimentation Rate 11 MM/HR (0-20)
[2024-10-29 18:02] VITALS: BP 185/106; PULSE 108; RESP 16; O2SAT 99
[2024-10-29 21:24] VITALS: BP 171/111; PULSE 91; RESP 16; TEMP 36.6; O2SAT 98
[2024-10-29 21:58] VITALS: BP 149/97; PULSE 97; RESP 16; TEMP 36.5; O2SAT 97
[2024-10-29 21:59] VITALS: BP 149/97; PULSE 97; RESP 16; TEMP 36.5; O2SAT 97
== END 2024-10-29 22:01 | disposition home or self-care (01) ==
PROVIDERS: Physician Assistant Medical; Emergency Provider Emergency Medicine Emergency Medical Services; PCP Internal Medicine
DX: G43.909 Migraine, unspecified, not intractable, without status migrainosus (principal); I10 Essential (primary) hypertension; E03.9 Hypothyroidism, unspecified; Z03.818 Encounter for observation for suspected exposure to other biological agents ruled out
CPT/HCPCS: 0241U; 80048; 80076; 83690; 83735; 84484; 85025; 85652; 86140; 93005; 96374; 96375; 99284; J1200; J1885; J2765

== ENCOUNTER → 2024-10-29 16:18 | Outpatient (BNV) | payer OTHER, SELFPAY | PROVIDERS: Emergency Provider Emergency Medicine Emergency Medical Services; PCP Internal Medicine; Visit Provider Internal Medicine Cardiovascular Disease | DX: J98.4 Other disorders of lung (principal) | CPT/HCPCS: 93010 ==

== ENCOUNTER 2024-11-05 11:16 | Outpatient (AMB) | payer OTHER, SELFPAY ==
--- NOTE | 2024-11-05 11:53 | A.OFFPC_ITS ---
Vital Signs 11/05/24 11:54 11/05/24 12:01 Height 5 ft 4 in Weight 188 lb 6 oz BMI 32.3 BP 150/100 H 170/80 H Blood Pressure Location Lt brachial Lt brachial Position Sitting Sitting Pulse 89 Pulse Source Pulse Oximeter Temp 97.3 F Temp Source Skin Pulse Oximetry (%) 98 Oxygen Delivery Method Room Air Intake Visit Reasons: Migranes Intake Note: Patient is here to follow up on Migraines. Complaint of dizziness, nausea. 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 per policy Accompanied by: Self / Same As Patient Allergies No Known Allergies Allergy (Verified 11/05/24 12:31) Medication List - Last Reconciled 11/05/24 by Yissel Green PA-C ascorbate calcium (vitamin C) 500 mg PO DAILY sxwnvcn-sphizlnmffisf-indiilzj 250-250-65 mg (Excedrin Migraine) 1 tab PO Q4-6H PRN blood pressure monitor (Blood Pressure Kit) As directed nrrejtsbry-cchkxuyzxitwb-xfnl 50-300-40 mg (Fioricet) 1 cap PO Q8H cyanocobalamin (vitamin B-12) 1,000 mcg PO DAILY cyclobenzaprine 10 mg PO TID ferrous sulfate (Feosol) 325 mg PO DAILY ketorolac 10 mg PO Q8H PRN levothyroxine 100 mcg PO DAILY lisinopril 20 mg PO BID 90 days metoclopramide HCl (Reglan) 10 mg PO Q6H PRN metoclopramide HCl (Reglan) 10 mg PO Q6H PRN nifedipine ER 30 mg PO DAILY propranolol 10 mg PO BID sennosides-docusate sodium 8.6-50 mg (Senna Plus) 2 tab-caps (2 x 8.6-50 mg) PO BEDTIME 90 days spironolactone 100 mg PO DAILY Tobacco use date assessed: 11/05/24 Dental Screening Dental Screen Date: 10/11/24 [facility] Medical History Cervical cancer screening Abnormal uterine bleeding (AUB) Friable cervix Encounter for gynecological examination Nasal pain Blood pressure elevated without history of HTN Breast cancer screening by mammogram Erythema of groin Breast lump Migraine with aura Cervical polyp Menorrhagia Menometrorrhagia Legally blind in left eye, as defined in [place] Urge incontinence Metrorrhagia Anemia Impaired glucose tolerance Obesity (BMI 30-39.9) Hypercholesterolemia Hypothyroid Surgical History History of total abdominal hysterectomy History of excision of lesion (04/07/23) History of bilateral tubal ligation Hx of tubal ligation Hx of cervical polypectomy Family History Maternal Aunt Family history of breast cancer Maternal Uncle History of brain tumor Paternal Aunt Hx of myocardial infarction Skin cancer Father Myocardial infarction Mother Alive and well Social History Housing: House Alcohol intake: never Patient Tobacco Use Status: Never used Tobacco e-Cigarette/Vaping Use: Never Used Second Hand Smoke Exposure: No Advance Directives Date on File: 07/17/20 service: No Current occupational status: employed Gender identity: Female Cognitive needs: No Hearing needs: No Vision needs: Yes (glasses) Female Reproductive History Menstrual Age of Menarche: 10 Questionnaire Thrive Questionnaire Date Thrive assessed: 10/11/24 AUDIT C Alcohol Use Questionnaire (AUDIT-C) 2. How many drinks containing alcohol do you have on a typical day when you are drinking?: 1 or 2 3. How often do you have six or more drinks on one occasion?: Never Total Score: 0 NAN-7 AMB Questionnaire NAN-7 Date NAN - 7 assessed: 10/11/24 Source: Developed by Drs. Raffaele Ruth, Cyn Dowling, Reddy Gómez and colleagues, with an educational qiana from [employer]. Physical exam (Primary Care) Vital Signs: Last Vital Signs Temp 97.3 F 11/05/24 11:54 Pulse 89 11/05/24 11:54 BP 170/80 H 11/05/24 12:01 Pulse Ox 98 11/05/24 11:54 Oxygen Delivery Method Room Air 11/05/24 11:54 Care Plan Goal for BP management: <130/90 pt in pain today repeat after IM medication 140/90 BMI result Body Mass Index 32.3 BMI Assessment/Plan discussion: High BMI High, discussed plan: lifestyle, weight reduction, dietary, physical activity and alcohol moderation Tobacco/Smoking Status: Tobacco use Status Tobacco use date assessed 11/05/24 11/05/24 12:02 Patient Tobacco Use Status Never used Tobacco 11/05/24 12:02 e-Cigarette/Vaping Use Never Used 11/05/24 12:02 Thrive Assessment: Date of Thrive Assessment Date Thrive assessed 10/11/24 11/05/24 12:02 Office Procedures Injection-Therapetic Patient given IM Toradol To left deltoid 30 mg 21 gauge needle Cleans skin with alcohol Patient tolerated procedure well no complications Band-Aid placed Ketorolac injection Lot number [id number] Expiration 11/2024 [facility] [place] 2] [id number] 1 Coding Level of Care Code Est Pt Level 4 (72998) Complex EM visit Add On G2211 Diagnoses Migraine with aura and without status migrainosus, not intractable G43.109 Migraine type: with aura Status migrainosus presence: without status migrainosus Intractability: not intractable Primary hypertension I10 Hypertension type: primary hypertension Assessment & Plan Assessment & Plan (1) Migraine: Code(s): G43.909 - Migraine, unspecified, not intractable, without status migrainosus Category: Medical Qualifiers: Migraine type: with aura Status migrainosus presence: without status migrainosus Intractability: not intractable Qualified Code(s): G43.109 - Migraine with aura, not intractable, without status migrainosus Plan: Patient migraine headache. No neuro deficits are noted a red flags noted. Patient given IM Toradol. Patient will be discharged with Toradol p.o., Fioricet, Flexeril and Reglan with instructions to take Benadryl as needed with a work note for 2 days. Patient instructed to go to the emergency department if symptoms persist or worsen or any new symptoms arrive. Will refer to Neurology for migraine headache management. Condition is chronic and stable will continue to monitor. (2) Hypertension: Code(s): I10 - Essential (primary) hypertension Category: Medical Qualifiers: Hypertension type: primary hypertension Qualified Code(s): I10 - Essential (primary) hypertension Plan: Patient currently on antihypertensive medication. Blood pressure is elevated today due to pain. After given IM Toradol blood pressure went down to 140/90. Condition is chronic and stable continue to monitor. Plan Plan - Continuation of antihypertensive regimen tailored to control blood pressure. - Introduction of Toradol as an injectable analgesic alternative to manage migraines, noting contraindication with concurrent Excedrin use. - Prescribing Frovatriptan as a migraine-specific medication for headache relief. - Addition of a muscle relaxant to address associated tension in the neck. - Adjunctive use of Reglan for nausea secondary to migraines. - Consideration of home management to avoid further ER visits, with patient consent. Orders: Referrals Neurology Referral G43.109 - Migraine with aura, not intractable, without status migrainosus Medications: New zgvrmqqztt-kdtmuwsibcwsj-sjio 50-300-40 mg (Fioricet) 1 cap PO Q8H 30 caps 0RF headaches metoclopramide HCl (Reglan) 10 mg PO Q6H PRN 30 tabs 0RF nausea and vomiting ketorolac First dose given in office by IM injection pt tolerated well 10 mg PO Q8H PRN 30 tabs 0RF pain cyclobenzaprine 10 mg PO TID 30 tabs 0RF muscle spasm Patient Instructions: Patient Instructions - Avoid using Excedrin while taking Toradol. - Take Toradol as prescribed during acute migraine episodes. - Use muscle relaxants during periods of headache to alleviate neck tension. - Administer Reglan for nausea as needed. - Adhere to prescribed blood pressure medication and monitor blood pressure regularly. - Follow instructions for Fioricet use at the onset of migraine symptoms. - Monitor symptoms and contact us if they worsen or do not improve. Scribe Plan - Not visible on output: History of Present Illness The patient is a 49-year-old female presenting with exacerbation of chronic migraine headaches. The patient reports that the issue started in May, following an episode where she visited the emergency room due to a high blood pressure reading associated with headache, dizziness, and chest pain. Despite medication adjustments for hypertension and the use of bqqq-zgy-szhuivz analgesics such as Tylenol and Excedrin, the headaches have persisted and worsened over time. With her migraine headaches The patient experiences blurry vision, which has required her to leave work early, as the issue impairs her ability to read from a computer screen. She also reports nausea and intermittent nasal congestion. The headache is described as diffusing throughout the head, sometimes concentrated at the neck and eyes. The patient denies recent head trauma, exposure to smoke, or fever. She notes that the headache intensity fluctuates. Despite these, she indicates the continuation of severe headache symptoms. She reports she takes her antihypertensive and thyroid medications regularly. She denies any dizziness, weakness, paresthesia, chest pain at this time. Social History - Employment: The patient works and reports needing to leave work early due to symptoms. - Lifestyle: No information on smoking, alcohol, or substance use was provided. - Family: Mentions having children but does not specify any social determinants related to family status. Review of Systems - Neurological: Reports intermittent tingling in hands. - Respiratory: Denies cough and exposure to smoke or fires. - Constitutional: Denies fever. - Ophthalmologic: Reports blurry vision. - Ears, Nose, Mouth, and Throat: Denies sore throat; notes nasal congestion but not blowing the nose. - Cardiovascular: Denies recent chest pain but has noted persistent high blood pressure. Physical Exam Appearance: Alert. Oriented X3. No acute distress. Head: Normal external exam. Normocephalic. Atraumatic. Eyes: Pupils are equal, round, and reactive to light. Extraocular movements intact. Conjunctiva and sclera normal. Eyelids normal. Ears: External auditory canal normal. Tympanic membranes normal. Throat: Pharynx normal. Uvula midline. Moist mucous membranes. Neck: Normal inspection. Neck supple. Full range of motion. No adenopathy. Thyroid Normal. No meningeal signs. No neck mass noted. Cardiovascular: Normal heart rate and rhythm. Heart sound normal. No murmurs noted. Pulses normal throughout. Respiratory: No respiratory distress. Painless inspiration. Breath sounds normal. No wheezes/rales/rhonchi noted. Chest nontender. No accessory muscle usage noted or decreased air movement noted. Abdomen: Soft and nontender. Bowel sounds normal in all 4 quadrants. No distention noted. No organomegaly noted. No visible injury noted. Back: No costovertebral angle tenderness. Full range of motion noted. Skin: Skin warm and dry. Normal skin color. Normal skin turgor. No rashes/lesions/lacerations noted. Extremities: No lower extremity edema. Extremities exhibit normal range of motion. Extremities nontender. Neuro: Oriented X 3. No motor deficit. No sensory deficit. Reflexes normal. Patient has a normal neuro exam. Normal steady gait. No weakness is noted. In Office: Patient given IM Toradol 30 mg. Patient tolerated well. Repeat blood pressure was 140/90. Plan - Continuation of antihypertensive regimen tailored to control blood pressure. - Introduction of Toradol as an injectable analgesic alternative to manage migraines, noting contraindication with concurrent Excedrin use. - Prescribing Fioricet as a migraine-specific medication for headache relief. - Addition of a muscle relaxant to address associated tension in the neck. - Adjunctive use of Reglan for nausea secondary to migraines. - Consideration of home management to avoid further ER visits, with patient consent. Patient was informed and verbally consented to the use of an ambient scribe for clinic note documentation during this visit. Discussion Notes I discussed with the patient the probable causes of persistent migraines, emphasizing the integration of a migraine-specific treatment regimen that could offer relief without ER intervention. I highlighted the risks and benefits of Toradol and Frovatriptan, specifically addressing concerns of Excedrin overlap. It was agreed to pursue a conservative management approach with administered Toradol in the clinic followed by plans for oral medication. The patient's blood pressure was reviewed, and lifestyle modifications were advised to better manage hypertension. I emphasized the importance of monitoring and controlling stress factors that may exacerbate symptoms. The patient was encouraged to follow up if headaches do not improve with the new regimen. Patient Instructions - Avoid using Excedrin while taking Toradol. - Take Toradol as prescribed during acute migraine episodes. - Use muscle relaxants during periods of headache to alleviate neck tension. - Administer Reglan for nausea as needed. - Adhere to prescribed blood pressure medication and monitor blood pressure regularly. - Follow instructions for Fioricet use at the onset of migraine symptoms. - Monitor symptoms and contact us if they worsen or do not improve.
[2024-11-05 11:54] VITALS: BP 150/100; PULSE 89; TEMP 36.3; O2SAT 98; BMI 32.3
[2024-11-05 12:01] VITALS: BP 170/80
== END 2024-11-05 12:25 | disposition home or self-care (01) ==
PROVIDERS: PCP Internal Medicine; Visit Provider Physician Assistant Medical
DX: G43.109 Migraine with aura, not intractable, without status migrainosus (principal); I10 Essential (primary) hypertension

== ENCOUNTER → 2024-11-05 11:16 | Outpatient (BNVA) | payer OTHER, SELFPAY | PROVIDERS: PCP Internal Medicine; Visit Provider Physician Assistant Medical ==

== ENCOUNTER 2024-11-19 08:32 | Outpatient (REF) | payer OTHER, SELFPAY ==
[2024-11-19 08:53] LABS: MANUAL DIFF FLAG NO
[2024-11-19 09:41] LABS: Basophils Percent Auto 0.9 % (0-2); Eosinophils Absolute Auto 0.2 X10*3/uL (0.0-0.4); Eosinophils Percent Auto 4.9 % (0-4); Hematocrit 38.8 % (37.0-47.0); Hemoglobin 13.1 g/dl (12.0-16.0); Imm Gran Abs Auto 0.02 X10*3/uL (0.00-0.03); Imm Gran Pct Auto 0.4 % (0.0-0.4); Lymphocytes Absolute Auto 1.1 X10*3/uL (1.2-4.9); Lymphocytes Percent Auto 25.3 % (20-40); Mean Corpuscular HGB Conc 33.8 g/dl (31.0-35.0); Mean Corpuscular Hemoglobin 29.2 pg (27.0-33.0); Mean Corpuscular Volume 86.4 fL (80.0-98.0); Mean Platelet Volume 10.3 fL (9.4-12.3); Monocytes Absolute Auto 0.4 X10*3/uL (0.1-1.2); Monocytes Percent Auto 8.9 % (2-11); Neutrophils Absolute Auto 2.7 x10*3/uL (2.0-8.3); Neutrophils Percent Auto 59.6 % (45-73); Platelet Count 262 X10*3/uL (160-400); Red Blood Count 4.49 X10*6/uL (4.20-5.50); Red Cell Distribution Width 15.7 % (11.0-16.0); White Blood Count 4.5 X10*3/uL (4.8-10.8)
[2024-11-19 10:14] LABS: Anion Gap 10 (12-20); Blood Urea Nitrogen 6 mg/dL (9-16); Carbon Dioxide 25 mmol/L (22-29); Chloride 108 mmol/L (96-108); Estimated Glomerular Filt Rate > 60; Iron 53 mcg/dL (30-160); Percent Iron Saturation 19 % (15-50); Potassium 3.3 mmol/L (3.3-5.1); Sodium 140 mmol/L (135-145); Total Iron Binding Capacity 280 mcg/dL (228-428); Unsaturated Iron Binding 227 ug/dL
[2024-11-19 10:39] LABS: Free T4 (Free Thyroxine) 0.77 ng/dL (0.71-1.85); TSH reflex Free T4 8.95 uIU/mL (0.32-4.0)
[2024-11-19 11:26] LABS: Cortisol Random 10.9 ug/dL
== END 2024-11-19 08:33 | disposition home or self-care (01) ==
LOC: HO.LAB 08:32
PROVIDERS: PCP Internal Medicine; Referring Provider Internal Medicine Nephrology
DX: Z00.00 Encounter for general adult medical examination without abnormal findings (principal); E87.6 Hypokalemia; I10 Essential (primary) hypertension; R79.89 Other specified abnormal findings of blood chemistry; D50.9 Iron deficiency anemia, unspecified
CPT/HCPCS: 36415; 80051; 82533; 82565; 83540; 84439; 84443; 84520; 85025

== ENCOUNTER 2024-11-20 13:25 | Outpatient (AMB) | payer OTHER, SELFPAY ==
--- NOTE | 2024-11-20 13:39 | HO.NEPHOV ---
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 She has no H/O chronic diarrhea. She denies nausea or vomiting. She has been having labile blood pressure and her anti hypertensive medications have been adjusted. 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 She has normal renal function. She has no hypomagnesemia, polyuria or metabolic acidosis. She has no family H/O Denice's /Bartter/Giltelman syndrome. She never had hypokalemic periodic paralysis. She does monitor her BP at home. Her BP is better but not optimally controlled. She denies any headaches, double vision, edema or orthostatic symptoms. [facility] Medical History Cervical cancer screening Abnormal uterine bleeding (AUB) Friable cervix Encounter for gynecological examination Nasal pain Blood pressure elevated without history of HTN Breast cancer screening by mammogram Erythema of groin Breast lump Migraine with aura Cervical polyp Menorrhagia Menometrorrhagia Legally blind in left eye, as defined in [place] Urge incontinence Metrorrhagia Anemia Impaired glucose tolerance Obesity (BMI 30-39.9) Hypercholesterolemia Hypothyroid Surgical History History of total abdominal hysterectomy History of excision of lesion (04/07/23) History of bilateral tubal ligation Hx of tubal ligation Hx of cervical polypectomy Family History Maternal Aunt Family history of breast cancer Maternal Uncle History of brain tumor Paternal Aunt Hx of myocardial infarction Skin cancer Father Myocardial infarction Mother Alive and well Social History Housing: House Alcohol intake: never Patient Tobacco Use Status: Never used Tobacco e-Cigarette/Vaping Use: Never Used Second Hand Smoke Exposure: No Advance Directives Date on File: 07/17/20 service: No Current occupational status: employed Gender identity: Female Cognitive needs: No Hearing needs: No Vision needs: Yes (glasses) Female Reproductive History Menstrual Age of Menarche: 10 Review of Systems Const All systems reviewed & are unremarkable except as noted in HPI and below Physical Exam Vital Signs: Last Vital Signs Pulse 85 11/20/24 13:40 BP 172/110 H 11/20/24 13:40 Pulse Ox 99 11/20/24 13:40 Oxygen Delivery Method Room Air 11/20/24 13:40 BMI result Body Mass Index 33.6 Const General: comfortable and no acute distress Orientation/consciousness: patient oriented x3 HEENT Head: Yes normocephalic Mouth: Normal oral and palatal mucosa present Eyes EOM: EOMs intact bilaterally Neck Neck: Yes supple Resp Auscultation: clear to auscultation bilaterally Cardio Jugular venous distension: no JVD Rate: regular rate GI Palpation (GI): Soft to palpation Auscultation: normal bowel sounds General: Yes no CVA tenderness Back/Spine/Pelvis Back: no CVA tenderness Skin General skin exam: no rashes or lesions noted Neuro General: patient oriented x3 and moves all extremities Extrem General: Yes no pedal edema Results Reviewed Nephrology Results: Hgb 13.1 g/dl (12.0-16.0) 11/19/24 WBC 4.5 X10*3/uL (4.8-10.8) L 11/19/24 Plt Count 262 X10*3/uL (160-400) 11/19/24 Sodium 140 mmol/L (135-145) 11/19/24 Potassium 3.3 mmol/L (3.3-5.1) 11/19/24 Chloride 108 mmol/L (96-108) 11/19/24 Carbon Dioxide 25 mmol/L (22-29) 11/19/24 BUN 6 mg/dL (9-16) L 11/19/24 Creatinine 0.66 mg/dL (0.5-1.4) 11/19/24 Calcium 8.9 mg/dL (8.4-10.2) 10/29/24 Assessment & Plan Assessment & Plan (1) Hypertension: Code(s): I10 - Essential (primary) hypertension Category: Medical Qualifiers: Hypertension type: primary hypertension Qualified Code(s): I10 - Essential (primary) hypertension (2) Hypokalemia: Code(s): E87.6 - Hypokalemia Category: Medical Plan Differentials are broad for hypokalemia and hypertension. W/U is in progress. She has been having labile blood pressure and her anti hypertensive medications have been adjusted. She has normal renal function. She has no hypomagnesemia, polyuria or metabolic acidosis. She has no family H/O Denice's /Bartter/Giltelman syndrome. She never had hypokalemic periodic paralysis. She does monitor her BP at home. She may having increased mineralocorticoid activity. She can continue on Spironolactone 100 mg daily & lisinopril 20 mg twice daily. I increased her Nifedipine to 60 mg daily. I ordered CT adrenals. Follow up labs ordered. Answered all questions. Orders: Orders CT adrenal wo/w IV con Today E87.6 - Hypokalemia, I10 - Essential (primary) hypertension Medications: Changed From nifedipine ER 30 mg PO DAILY 30 tabs 3RF To nifedipine ER 30 mg (1/2 x 60 mg) PO DAILY 30 tabs 5RF Coding Level of Care Code Est Pt Level 4 (49606) Diagnoses Primary hypertension I10 Hypertension type: primary hypertension Hypokalemia E87.6
[2024-11-20 13:40] VITALS: BP 150/100; PULSE 85; O2SAT 99; BMI 33.6
== END 2024-11-20 13:57 | disposition home or self-care (01) ==
PROVIDERS: PCP Internal Medicine; Visit Provider Internal Medicine Nephrology
DX: I10 Essential (primary) hypertension (principal); E87.6 Hypokalemia
CPT/HCPCS: 99214

== ENCOUNTER → 2024-11-20 13:25 | Outpatient (BNVA) | payer OTHER, SELFPAY | PROVIDERS: PCP Internal Medicine; Visit Provider Internal Medicine Nephrology ==

== ENCOUNTER 2024-11-27 08:56 | Outpatient (REF) | payer OTHER, SELFPAY ==
--- NOTE | ~2024-11-27 | CT_ITS ---
CLINICAL HISTORY: E87.6 - Hypokalemia CT abdomen with and without contrast Comparison: None Findings: No consolidation or effusion. There is a 1.4 cm nodule within the left adrenal gland. Precontrast density estimated -16 Hounsfield units. Venous phase density 17 Hounsfield units and density on delayed imaging -5 Hounsfield units. Unremarkable right adrenal gland. 3 mm nonobstructive calculus within the upper pole of the left kidney. Remaining abdominal organs unremarkable. No calcified gallstones. No bowel obstruction, pneumoperitoneum, or pneumatosis. No acute fracture. IMPRESSION: 1. There is a 1.4 cm adenoma within the left adrenal gland. 2. There is a small left-sided periumbilical hernia containing fat. 3. Small nonobstructive calculus within the left kidney. This document has been electronically signed by: Nu Mohan MD on 11/27/2024 13:07:39
[2024-11-27] MEDS: iohexoL 350 MG/ML 100 ML INFUS..BTL IV (10:25)
== END 2024-11-27 08:57 | disposition home or self-care (01) ==
LOC: HO.CT 08:56
PROVIDERS: PCP Internal Medicine; Visit Provider Internal Medicine Nephrology
DX: E87.6 Hypokalemia (principal); I10 Essential (primary) hypertension
CPT/HCPCS: 74170; Q9967

== ENCOUNTER → 2024-11-27 08:58 | Outpatient (BNV) | payer OTHER, SELFPAY | PROVIDERS: PCP Internal Medicine; Visit Provider Radiology Diagnostic Radiology | DX: E87.6 Hypokalemia (principal) | CPT/HCPCS: 74170 ==

== ENCOUNTER 2024-12-06 08:50 | Outpatient (AMB) | payer OTHER, SELFPAY ==
[2024-12-06 09:39] VITALS: BP 160/100; PULSE 81; O2SAT 97; BMI 34.2
--- NOTE | 2024-12-06 09:39 | HO.NEPHOV ---
Vital Signs 12/06/24 09:39 Height 5 ft 4 in Weight 199 lb 8 oz BMI 34.2 BP 160/100 H Blood Pressure Location Lt brachial Position Sitting Pulse 81 Pulse Source Pulse Oximeter Pulse Oximetry (%) 97 Oxygen Delivery Method Room Air Intake Visit Reasons: 2wk [id number] Attendant Coin Operated Laundry Required: No Accompanied by: Self / Same As Patient Allergies No Known Allergies Allergy (Verified 12/06/24 09:41) HPI Comments Details: Ileana was seen for follow up for hypokalemia and hypertension. She has no H/O chronic diarrhea. She denies nausea or vomiting. She has been having labile blood pressure and her anti hypertensive medications have been adjusted. 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 She has normal renal function. She has no hypomagnesemia, polyuria or metabolic acidosis. She has no family H/O Denice's /Bartter/Giltelman syndrome. She never had hypokalemic periodic paralysis. She does monitor her BP at home. Her BP is better but not optimally controlled. She denies any headaches, double vision, edema or orthostatic symptoms. She has not taken her medications today as she came here straight from work. She has a 1.4 cm adenoma within the left adrenal gland by CT scan. [facility] Medical History Cervical cancer screening Abnormal uterine bleeding (AUB) Friable cervix Encounter for gynecological examination Nasal pain Blood pressure elevated without history of HTN Breast cancer screening by mammogram Erythema of groin Breast lump Migraine with aura Cervical polyp Menorrhagia Menometrorrhagia Legally blind in left eye, as defined in [place] Urge incontinence Metrorrhagia Anemia Impaired glucose tolerance Obesity (BMI 30-39.9) Hypercholesterolemia Hypothyroid Surgical History History of total abdominal hysterectomy History of excision of lesion (04/07/23) History of bilateral tubal ligation Hx of tubal ligation Hx of cervical polypectomy Family History Maternal Aunt Family history of breast cancer Maternal Uncle History of brain tumor Paternal Aunt Hx of myocardial infarction Skin cancer Father Myocardial infarction Mother Alive and well Social History (Reviewed 12/06/24 @ 09:39 by ALFRED Alberts Housing: House Alcohol intake: never Patient Tobacco Use Status: Never used Tobacco e-Cigarette/Vaping Use: Never Used Second Hand Smoke Exposure: No Advance Directives Date on File: 07/17/20 service: No Current occupational status: employed Gender identity: Female Cognitive needs: No Hearing needs: No Vision needs: Yes (glasses) Female Reproductive History Menstrual Age of Menarche: 10 Review of Systems Const All systems reviewed & are unremarkable except as noted in HPI and below Physical Exam Const General: comfortable and no acute distress Orientation/consciousness: patient oriented x3 HEENT Head: Yes normocephalic Mouth: Normal oral and palatal mucosa present Eyes EOM: EOMs intact bilaterally Neck Neck: Yes supple Resp Auscultation: clear to auscultation bilaterally Cardio Jugular venous distension: no JVD Rate: regular rate GI Palpation (GI): Soft to palpation Auscultation: normal bowel sounds General: Yes no CVA tenderness Back/Spine/Pelvis Back: no CVA tenderness Skin General skin exam: no rashes or lesions noted Neuro General: patient oriented x3 and moves all extremities Extrem General: Yes no pedal edema Results Reviewed Nephrology Results: Hgb 13.1 g/dl (12.0-16.0) 11/19/24 WBC 4.5 X10*3/uL (4.8-10.8) L 11/19/24 Plt Count 262 X10*3/uL (160-400) 11/19/24 Sodium 140 mmol/L (135-145) 11/19/24 Potassium 3.3 mmol/L (3.3-5.1) 11/19/24 Chloride 108 mmol/L (96-108) 11/19/24 Carbon Dioxide 25 mmol/L (22-29) 11/19/24 BUN 6 mg/dL (9-16) L 11/19/24 Creatinine 0.66 mg/dL (0.5-1.4) 11/19/24 Calcium 8.9 mg/dL (8.4-10.2) 10/29/24 Assessment & Plan Assessment & Plan (1) Hypokalemia: Code(s): E87.6 - Hypokalemia Category: Medical (2) Hypertension: Code(s): I10 - Essential (primary) hypertension Category: Medical Qualifiers: Hypertension type: primary hypertension Qualified Code(s): I10 - Essential (primary) hypertension Plan Differentials are broad for hypokalemia and hypertension. W/U is in progress. She has been having labile blood pressure and her anti hypertensive medications have been adjusted. She has normal renal function. She has no hypomagnesemia, polyuria or metabolic acidosis. She has no family H/O Denice's /Bartter/Giltelman syndrome. She never had hypokalemic periodic paralysis. She does monitor her BP at home. She may having increased mineralocorticoid activity. She can continue on Spironolactone 100 mg daily & lisinopril 20 mg twice daily. I increased her Nifedipine to 60 mg twice daily at the last visit . She has a 1.4 cm adenoma within the left adrenal gland by CT scan. I referred her to Endocrine surgery( Dr Alvarez). Small nonobstructive calculus within the left kidney. Answered all questions. Coding Level of Care Code Est Pt Level 4 (37449) Diagnoses Hypokalemia E87.6 Primary hypertension I10 Hypertension type: primary hypertension
== END 2024-12-06 10:01 | disposition home or self-care (01) ==
PROVIDERS: PCP Internal Medicine; Visit Provider Internal Medicine Nephrology
DX: E87.6 Hypokalemia (principal); I10 Essential (primary) hypertension
CPT/HCPCS: 99214

== ENCOUNTER 2025-01-03 13:19 | Outpatient (REF) | payer OTHER, SELFPAY ==
[2025-01-03 18:42] LABS: Free T4 (Free Thyroxine) 0.82 ng/dL (0.71-1.85); TSH reflex Free T4 9.35 uIU/mL (0.32-4.0)
[2025-01-08 09:42] LABS: Renin 0.57 ng/mL/h (0.25-5.82)
[2025-01-10 17:28] LABS: Aldosterone/Renin Ratio 19.1 Ratio (0.9-28.9); Plasma Renin Activity 0.47 ng/mL/h (0.25-5.82)
== END 2025-01-03 13:20 | disposition home or self-care (01) ==
LOC: HO.HKASLDS 13:19
PROVIDERS: PCP Internal Medicine; Visit Provider Internal Medicine Nephrology
DX: I10 Essential (primary) hypertension (principal); E03.9 Hypothyroidism, unspecified; E87.6 Hypokalemia
CPT/HCPCS: 36415; 82088; 84244; 84439; 84443

== ENCOUNTER 2025-01-03 13:19 | Outpatient (AMB) | payer OTHER, SELFPAY ==
--- NOTE | 2025-01-03 13:44 | HO.NEPHOV_ITS ---
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 She has no H/O chronic diarrhea. She denies nausea or vomiting. She has been having labile blood pressure and her anti hypertensive medications have been adjusted. 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 She has normal renal function. She has no hypomagnesemia, polyuria or metabolic acidosis. She has no family H/O Denice's /Bartter/Giltelman syndrome. She never had hypokalemic periodic paralysis. She does monitor her BP at home. Her BP is better but not optimally controlled. She denies any headaches, double vision, edema or orthostatic symptoms. She has a 1.4 cm adenoma within the left adrenal gland by CT scan [facility] Medical History Cervical cancer screening Abnormal uterine bleeding (AUB) Friable cervix Encounter for gynecological examination Nasal pain Blood pressure elevated without history of HTN Breast cancer screening by mammogram Erythema of groin Breast lump Migraine with aura Cervical polyp Menorrhagia Menometrorrhagia Legally blind in left eye, as defined in [place] Urge incontinence Metrorrhagia Anemia Impaired glucose tolerance Obesity (BMI 30-39.9) Hypercholesterolemia Hypothyroid Surgical History History of total abdominal hysterectomy History of excision of lesion (04/07/23) History of bilateral tubal ligation Hx of tubal ligation Hx of cervical polypectomy Family History Maternal Aunt Family history of breast cancer Maternal Uncle History of brain tumor Paternal Aunt Hx of myocardial infarction Skin cancer Father Myocardial infarction Mother Alive and well Social History Housing: House Alcohol intake: never Patient Tobacco Use Status: Never used Tobacco e-Cigarette/Vaping Use: Never Used Second Hand Smoke Exposure: No Advance Directives Date on File: 07/17/20 service: No Current occupational status: employed Gender identity: Female Cognitive needs: No Hearing needs: No Vision needs: Yes (glasses) Female Reproductive History Menstrual Age of Menarche: 10 Review of Systems Const All systems reviewed & are unremarkable except as noted in HPI and below Physical Exam Vital Signs: Last Vital Signs Pulse 82 01/03/25 13:45 BP 160/110 H 01/03/25 13:45 Pulse Ox 98 01/03/25 13:45 Oxygen Delivery Method Room Air 01/03/25 13:45 BMI result Body Mass Index 33.7 Const General: comfortable and no acute distress Orientation/consciousness: patient oriented x3 HEENT Head: Yes normocephalic Mouth: Normal oral and palatal mucosa present Eyes EOM: EOMs intact bilaterally Neck Neck: Yes supple Resp Auscultation: clear to auscultation bilaterally Cardio Jugular venous distension: no JVD Rate: regular rate Heart sounds: Murmur heart sound present GI Palpation (GI): Soft to palpation Auscultation: normal bowel sounds Skin General skin exam: no rashes or lesions noted Neuro General: patient oriented x3 and moves all extremities Extrem General: Yes no pedal edema Results Reviewed Nephrology Results: Hgb 13.1 g/dl (12.0-16.0) 11/19/24 WBC 4.5 X10*3/uL (4.8-10.8) L 11/19/24 Plt Count 262 X10*3/uL (160-400) 11/19/24 Sodium 140 mmol/L (135-145) 11/19/24 Potassium 3.3 mmol/L (3.3-5.1) 11/19/24 Chloride 108 mmol/L (96-108) 11/19/24 Carbon Dioxide 25 mmol/L (22-29) 11/19/24 BUN 6 mg/dL (9-16) L 11/19/24 Creatinine 0.66 mg/dL (0.5-1.4) 11/19/24 Calcium 8.9 mg/dL (8.4-10.2) 10/29/24 Assessment & Plan Assessment & Plan (1) Adrenal adenoma: Code(s): D35.00 - Benign neoplasm of unspecified adrenal gland Category: Medical Qualifiers: Laterality: left Qualified Code(s): D35.02 - Benign neoplasm of left adrenal gland (2) Hypertension: Code(s): I10 - Essential (primary) hypertension Category: Medical Qualifiers: Hypertension type: primary hypertension Qualified Code(s): I10 - Essential (primary) hypertension Plan Differentials are broad for hypokalemia and hypertension. W/U is in progress. She has been having labile blood pressure and her anti hypertensive medications have been adjusted. She has normal renal function. She has no hypomagnesemia, polyuria or metabolic acidosis. She has no family H/O Denice's /Bartter/Giltelman syndrome. She never had hypokalemic periodic paralysis. She does monitor her BP at home. She may having increased mineralocorticoid activity. She can continue on Spironolactone 100 mg daily & lisinopril 20 mg twice daily. I increased her Nifedipine to 60 mg twice daily at the last visit . She has a 1.4 cm adenoma within the left adrenal gland by CT scan. Small nonobstructive calculus within the left kidney. Answered all questions Coding Level of Care Code Est Pt Level 4 (43690) Diagnoses Adenoma of left adrenal gland D35.02 Laterality: left Primary hypertension I10 Hypertension type: primary hypertension
[2025-01-03 13:45] VITALS: BP 140/90; PULSE 82; O2SAT 98; BMI 33.7
== END 2025-01-03 14:34 | disposition home or self-care (01) ==
LOC: HO.HKAS 13:20
PROVIDERS: PCP Internal Medicine; Visit Provider Internal Medicine Nephrology
DX: D35.02 Benign neoplasm of left adrenal gland (principal); I10 Essential (primary) hypertension
CPT/HCPCS: 99214

== ENCOUNTER 2025-01-10 08:03 | Outpatient (AMB) | payer OTHER, SELFPAY ==
--- NOTE | 2025-01-10 08:08 | A.OFFPC_ITS ---
Vital Signs 01/10/25 08:09 Height 5 ft 4 in Weight 197 lb 8 oz BMI 33.9 BP 138/74 Blood Pressure Location Lt brachial Position Sitting Pulse 78 Pulse Source Pulse Oximeter Temp 97.1 F Temp Source Temporal Artery Scan Pulse Oximetry (%) 97 Oxygen Delivery Method Room Air Intake Visit Reasons: f/u BP and thyroid Intake Note: Patient is here to follow up on BP and Thyroid. Internet E Commerce Specialist Required: No Dinkey Skinner: Not Required per policy Accompanied by: Self / Same As Patient Allergies No Known Allergies Allergy (Verified 01/10/25 08:09) Medication List - Last Reconciled 01/10/25 by Arely Fiore PA-C ascorbate calcium (vitamin C) 500 mg PO DAILY iqlxwfc-oxgsftmuwupdb-fxwuffez 250-250-65 mg (Excedrin Migraine) 1 tab PO Q4-6H PRN blood pressure monitor (Blood Pressure Kit) As directed szixolioqn-mhjbucavmrmui-fhjd 50-300-40 mg (Fioricet) 1 cap PO Q8H cyanocobalamin (vitamin B-12) 1,000 mcg PO DAILY cyclobenzaprine 10 mg PO TID ferrous sulfate (Feosol) 325 mg PO DAILY ketorolac 10 mg PO Q8H PRN levothyroxine 125 mcg PO DAILY lisinopril 20 mg PO BID 90 days metoclopramide HCl (Reglan) 10 mg PO Q6H PRN metoclopramide HCl (Reglan) 10 mg PO Q6H PRN nifedipine ER 60 mg PO BID 30 days propranolol 10 mg PO BID sennosides-docusate sodium 8.6-50 mg (Senna Plus) 2 tab-caps (2 x 8.6-50 mg) PO BEDTIME 90 days spironolactone 100 mg PO DAILY Tobacco use date assessed: 01/10/25 Dental Screening Dental Screen Date: 10/11/24 HPI f/u BP and thyroid HPI Details 49-year-old female with past medical his tory of hypothyroid, hypertension, GERD, anemia for menorrhagia, hypercholesterolemia last seen 10/2024 coming in for follow up. In review of the notes, patient was seen by [facility] [place] [facility] 01/03/2025 nifedipine was increased to 60 mg twice daily.?Has been fo llowing with Hematology last seen 11/2024 for iron-deficiency anemia previously receiving IV iron therapy but has completed treatment and we will follow up as needed. Presenting with difficulty in managing hypothyroidism and a fungal infection in the umbilicus. Recent thyroid levels have shown variability after initial improvements under adjusted levothyroxine doses, complicating hypothyroidism management. The umbilical fungal infection, starting over a week ago, presents with worsening symptoms including redness, pain, itchiness, and bleeding. Weight fluctuation was noted, complicating the management of patient-reported obesity, potentially linked with thyroid dysfunction. Patient was seen control system manager in the past without weight loss. [facility] Medical History Cervical cancer screening Abnormal uterine bleeding (AUB) Friable cervix Encounter for gynecological examination Nasal pain Blood pressure elevated without history of HTN Breast cancer screening by mammogram Erythema of groin Breast lump Migraine with aura Cervical polyp Menorrhagia Menometrorrhagia Legally blind in left eye, as defined in [place] Urge incontinence Metrorrhagia Anemia Impaired glucose tolerance Obesity (BMI 30-39.9) Hypercholesterolemia Hypothyroid Surgical History History of total abdominal hysterectomy History of excision of lesion (04/07/23) History of bilateral tubal ligation Hx of tubal ligation Hx of cervical polypectomy Family History Maternal Aunt Family history of breast cancer Maternal Uncle History of brain tumor Paternal Aunt Hx of myocardial infarction Skin cancer Father Myocardial infarction Mother Alive and well Social History Housing: House Alcohol intake: never Patient Tobacco Use Status: Never used Tobacco e-Cigarette/Vaping Use: Never Used Second Hand Smoke Exposure: No Advance Directives Date on File: 07/17/20 service: No Current occupational status: employed Gender identity: Female Cognitive needs: No Hearing needs: No Vision needs: Yes (glasses) Female Reproductive History Menstrual Age of Menarche: 10 Questionnaire Thrive Questionnaire Date Thrive assessed: 10/11/24 NAN-7 AMB Questionnaire NAN-7 Date NAN - 7 assessed: 10/11/24 Source: Developed by Drs. Raffaele Ruth, Cyn Dowling, Reddy Gómez and colleagues, with an educational qiana from [employer]. Review of Systems Const Denies body aches, Denies chills, Denies fever(s), Denies headache(s) and Denies poor appetite Eyes Reports no additional complaints ENT Denies dizziness and Denies headache(s) Card Denies chest pain, Denies lightheadedness and Denies dyspnea Resp Denies cough and Denies dyspnea GI Denies abdominal pain, Denies constipation, Denies diarrhea, Denies nausea and Denies vomiting Reports no additional complaints Musc Reports no additional complaints and Denies abnormal gait Skin/Breast Details: rash in belly button Neuro Denies abnormal gait, Denies dizziness and Denies headache(s) Psych Reports no additional complaints Physical exam (Primary Care) Vital Signs: Last Vital Signs Temp 97.1 F 01/10/25 08:09 Pulse 78 01/10/25 08:09 BP 138/74 01/10/25 08:09 Pulse Ox 97 01/10/25 08:09 Oxygen Delivery Method Room Air 01/10/25 08:09 BMI result Body Mass Index 33.9 Tobacco/Smoking Status: Tobacco use Status Tobacco use date assessed 01/10/25 01/10/25 08:15 Patient Tobacco Use Status Never used Tobacco 01/10/25 08:15 e-Cigarette/Vaping Use Never Used 01/10/25 08:15 Thrive Assessment: Date of Thrive Assessment Date Thrive assessed 10/11/24 01/10/25 08:15 Const General: cooperative, healthy appearing, comfortable and no acute distress Orientation/consciousness: patient oriented x3 HENMT Head: Yes normocephalic Ears: hearing grossly normal bilaterally General nose exam: Normal external nose present Eyes General: appearance normal, both eyes and all related structures Conjunctivae: conjunctivae normal Neck Neck: Yes full ROM and Yes no lymphadenopathy Resp Effort & Inspection: normal respiratory effort Auscultation: clear to auscultation bilaterally, no crackles, no rales, no rhonchi and no wheezes Cardio Rate: regular rate Rhythm: regular rhythm Skin Other: Beefy red rash of umbilicus with tenderness to palpation Neuro General: patient oriented x3 Gait exam (Neuro): Normal gait present Extrem General: Yes normal to inspection, Yes full ROM and No edema Psych Affect: normal affect Attitude: cooperative Insight: Good insight present (Psych) Judgement: Good judgement present (Psych) Coding Level of Care Code Est Pt Level 3 (16073) Diagnoses Iron deficiency anemia D50.9 Primary hypertension I10 Hypertension type: primary hypertension GERD (gastroesophageal reflux disease) K21.9 Impaired glucose tolerance R73.02 Obesity (BMI 30-39.9) E66.9 Acquired hypothyroidism E03.9 Hypothyroidism type: acquired Candidal dermatitis B37.2 Assessment & Plan Assessment & Plan (1) Iron deficiency anemia: Code(s): D50.9 - Iron deficiency anemia, unspecified Category: Medical Plan: Patient completed iron infusions with hematology and advised to follow up as needed. (2) Hypertension: Code(s): I10 - Essential (primary) hypertension Category: Medical Qualifiers: Hypertension type: primary hypertension Qualified Code(s): I10 - Essential (primary) hypertension Plan: Continue on current blood pressure medication. Avoid salt intake and encourage healthy diet and regular exercise. (3) GERD (gastroesophageal reflux disease): Code(s): K21.9 - Gastro-esophageal reflux disease without esophagitis Category: Medical Plan: Avoid trigger foods such as citrus, tomato products, soda, caffeine, spicy foods and other foods that may be irritating to your stomach. Avoid laying flat 3-4 hours after eating and elevate the head of the bed 30 degrees to prevent acid from moving into the esophagus. (4) Impaired glucose tolerance: Code(s): R73.02 - Impaired glucose tolerance (oral) Category: Medical Plan: Decrease the amount of carbohydrates such as pasta, bread, rice, and potatoes and limit the amount of sweets. Although fruits are generally healthy they should be eaten in moderation as they are still high in sugar. (5) Obesity (BMI 30-39.9): Code(s): E66.9 - Obesity, unspecified Category: Medical Plan: Healthy diet and regular exercise is encouraged. (6) Hypothyroid: Code(s): E03.9 - Hypothyroidism, unspecified Category: Medical Qualifiers: Hypothyroidism type: acquired Qualified Code(s): E03.9 - Hypothyroidism, unspecified (7) Candidal dermatitis: Code(s): B37.2 - Candidiasis of skin and nail Category: Medical Plan: Patient having beefy red rash of umbilicus consistent with Noreen infection. Plan to treat with topical clotrimazole twice daily for 2 weeks. Patient states she sweats often advised to use body powder to reduce risk of further infection. Plan This note was constructed using voice recognition software. While every effort has been made to ensure accuracy and vp account director, still areas may have been included sometimes these areas may affect the content or meeting of the given symptoms. Total time spent caring for the patient today was 20 minutes. This includes time spent before the visit reviewing the chart, time spent during the visit, and time spent after the visit and documentation. Patient was informed and verbally consented to the use of an ambient scribe for clinic note documentation during this visit. Medications: New clotrimazole 1% 1 appl topical BID 15 grams 1RF 2 weeks
[2025-01-10 08:09] VITALS: BP 138/74; PULSE 78; TEMP 36.2; O2SAT 97; BMI 33.9
== END 2025-01-10 09:09 | disposition home or self-care (01) ==
LOC: HO.HMCH 08:04
PROVIDERS: PCP Internal Medicine
DX: I10 Essential (primary) hypertension (principal); D50.9 Iron deficiency anemia, unspecified; E66.9 Obesity, unspecified; Z68.33 Body mass index [BMI] 33.0-33.9, adult; K21.9 Gastro-esophageal reflux disease without esophagitis; R73.02 Impaired glucose tolerance (oral); E03.9 Hypothyroidism, unspecified; B37.2 Candidiasis of skin and nail

== ENCOUNTER 2025-01-21 08:56 | Emergency (ER) | payer OTHER, SELFPAY ==
[2025-01-21 09:26] VITALS: BP 208/122; PULSE 106; RESP 18; TEMP 36.5; O2SAT 98; BMI 33.4
--- NOTE | 2025-01-21 09:27 | ED_ITS ---
HPI - General Adult General Chief complaint: Upper Respiratory Symptoms Stated complaint: L Side Throat Head Pain Time Seen by Provider: 01/21/25 10:08 Source: patient and old records reviewed Mode of arrival: ambulatory Limitations: no limitations History of Present Illness ED Provider: NICKIE HOWARD narrative: 49 yo female with uncontrolled HTN at baseline she is going for adrenal gland study tomorrow, anemia, GERD, HLD, arthritis who notes she started to have chills, sore throat yesterday and L neck/gland pain. She denies travel, sick contacts. She feels it hurts when she swallows. She did take non BP robitussin yesterday. She states she has no chest pain/trouble breathing. She took her BP medications today. I did ask her about her BP and she was not impressed and states it is always like that. No CP/SOB and no headache. MD complaint: sore throat Onset (ago): day(s) (1) Location: mouth Radiation: non-radiation Severity: moderate Quality: burning and aching Pain Consistency: intermittent Relieving factors: none Exacerbating factors: other (swallowing) Associated symptoms: fever/chills Treatments prior to arrival: other (abx) Related Data Previous Rx's ?Medication ?Instructions ?Recorded ascorbate calcium (vitamin C) 500 500 mg PO DAILY #30 tabs 07/24/20 mg tablet cyanocobalamin (vitamin B-12) 1,000 mcg PO DAILY #30 caps 07/24/20 1,000 mcg capsule ferrous sulfate 325 mg (65 mg 325 mg PO DAILY #30 tabs 07/24/20 iron) tablet (Feosol) blood pressure monitor (Blood #1 ea 02/18/23 Pressure Kit) sennosides 8.6 mg-docusate sodium 2 tab-cap (2 x 8.6-50 mg) PO 02/18/23 50 mg tablet (Senna Plus) BEDTIME 90 days #180 tabs igqpfnr-kjglksfhntwah-gwfynaoq 250 1 tab PO Q4-6H PRN pain #30 tabs 06/01/24 mg-250 mg-65 mg tablet (Excedrin Migraine) propranolol 10 mg tablet 10 mg PO BID #60 tabs 06/01/24 lisinopril 20 mg tablet 20 mg PO BID 90 days #180 tabs 09/18/24 spironolactone 100 mg tablet 100 mg PO DAILY #90 tabs 09/18/24 metoclopramide HCl 10 mg tablet 10 mg PO Q6H PRN nausea and 10/29/24 (Reglan) vomiting #20 tabs mrcdrqwnxk-asnhlzqyofovw-yiexchkc 1 cap PO Q8H headaches #30 caps 11/05/24 50 mg-300 mg-40 mg capsule (Fioricet) cyclobenzaprine 10 mg tablet 10 mg PO TID muscle spasm #30 tabs 11/05/24 ketorolac 10 mg tablet 10 mg PO Q8H PRN pain #30 tabs 11/05/24 metoclopramide HCl 10 mg tablet 10 mg PO Q6H PRN nausea and 11/05/24 (Reglan) vomiting #30 tabs nifedipine 60 mg tablet,extended 60 mg PO BID 30 days #60 tabs 12/06/24 release 24 hr levothyroxine 125 mcg tablet 125 mcg PO DAILY #30 tabs 01/04/25 clotrimazole 1 % topical cream 1 appl topical BID 2 weeks #15 01/10/25 grams amoxicillin 500 mg capsule 500 mg PO BID 10 days #19 caps 01/21/25 Allergies Allergy/AdvReac Type Severity Reaction Status Date / Time No Known Allergies Allergy Verified 01/21/25 09:31 Review of Systems 2 Review of Systems: Constitutional : No Fever, pos Chills, No Fatigue ENT/Mouth : pos sore throat, No Rhinorrhea Eyes: No Eye Pain, No Swelling, No Redness Cardiovascular : No Chest Pain, No SOB, No Dyspnea on Exertion Respiratory : No Cough, No Sputum Gastrointestinal : No Nausea, No Vomiting, No Diarrhea, No abdominal Pain Genitourinary : No Dysuria, No Urinary Frequency, No Hematuria, Musculoskeletal : No joint pain, No Myalgias, No Joint Swelling Skin : No Skin Lesions, No rash Neuro : No Weakness, No Numbness, No Dizziness, positive Headache All other systems reviewed and are negative [facility] Past Medical History Attestation statement: The following information was validated with the patient. Source: old records reviewed Medical History Cervical cancer screening Abnormal uterine bleeding (AUB) Friable cervix Encounter for gynecological examination Nasal pain Blood pressure elevated without history of HTN Breast cancer screening by mammogram Erythema of groin Breast lump Migraine with aura Cervical polyp Menorrhagia Menometrorrhagia Legally blind in left eye, as defined in [place] Urge incontinence Metrorrhagia Anemia Impaired glucose tolerance Obesity (BMI 30-39.9) Hypercholesterolemia Hypothyroid Surgical History History of total abdominal hysterectomy History of excision of lesion (04/07/23) History of bilateral tubal ligation Hx of tubal ligation Hx of cervical polypectomy Family History Family History Maternal Aunt Family history of breast cancer Maternal Uncle History of brain tumor Paternal Aunt Hx of myocardial infarction Skin cancer Father Myocardial infarction Mother Alive and well Social History Social History Housing: House Alcohol intake: never Patient Tobacco Use Status: Never used Tobacco Smoked in Last 30 Days: No e-Cigarette/Vaping Use: Never Used Second Hand Smoke Exposure: No Use of substances other than those prescribed or required for medical reasons: No Advance Directives: No Advance Directives Information Provided: Yes Advance Directives Date on File: 07/17/20 service: No Current occupational status: employed Gender identity: Female Cognitive needs: No Hearing needs: No Vision needs: Yes (glasses) Physical Exam ED Vital Signs: Vital Signs - 24 hr 01/21/25 09:26 01/21/25 09:41 01/21/25 10:46 Temperature 97.7 F 98.6 F Pulse Rate 106 H 92 Respiratory Rate 18 15 Blood Pressure 208/122 H 188/112 H Pulse Oximetry 98 97 98 Oxygen Delivery Method Room Air Room Air Room Air 01/21/25 12:16 Temperature 0 F L Pulse Rate 0 L Respiratory Rate 0 L Blood Pressure 0/0 L Pulse Oximetry 98 Oxygen Delivery Method Room Air BMI result Body Mass Index 33.4 Appearance: Alert. Oriented X3. No acute distress. Eyes: Pupils equal, round and reactive to light. ENT: Pharynx erythema and mild exudates tonsilar swelling uvula is midline, normal voice, tolerating secretions, no stridor, L cervical chain mild LAD but no mass and no ropy cord felt. Neck: Normal inspection. Neck supple. CVS: Normal heart rate and rhythm. Pulses normal. Respiratory: No respiratory distress. Breath sounds normal. Abdomen: Soft and nontender. Skin: Skin warm and dry. Normal skin color. Normal skin turgor. Extremities: No lower extremity edema. No calf ttp Neuro: Oriented X 3. No motor deficit. No sensory deficit. CN2-12 intact Course Course Course Narrative: This is an RME: Additional HPI, ROS, PE not included below will be deferred to primary provider. RME assessment and note performed by: Vianey Cabrales PA-C This is a [id number], with a past medical history of hypertension, migraine, anemia, hyper cholesterolemia, hypothyroidism, who presents to the ER with complaints of sore throat since yesterday. Oropharynx is erythematous, no tonsillar hypertrophy. She does have tender anterior cervical lymphadenopathy noted, left worse than right. No trismus, drooling, or dysphonia. She was speaking full sentences. Blood pressure elevated at 208/122. She states that she took her blood pressure medicine at 6:30 a.m. this morning. She states that recently her blood pressure medication was adjusted several weeks ago, increased in dosages. She does report that she was also having an adrenal biopsy performed tomorrow. Advised charge nurse that given blood pressure is elevated, patient should be brought back for further evaluation. Of note, previous blood pressures while in the emergency room have been elevated. Plan: labs, viral swabs, further ER eval needed Medications Administered Discontinued Medications Generic Name Dose Route Start Last Admin Trade Name Freq PRN Reason Stop Dose Admin Hydrocodone Bitart/Acetaminophen 1 tab 01/21/25 10:24 01/21/25 10:44 Hydrocodone Bit/Acetam 5/325 Tablet PO 01/21/25 10:25 1 tab ONCE ONE Administration Amoxicillin 500 mg 01/21/25 10:52 01/21/25 12:02 Amoxicillin 500 Mg Capsule PO 01/21/25 10:53 500 mg ONCE ONE Administration Potassium Chloride 40 meq 01/21/25 10:34 01/21/25 10:46 Potassium Chloride Er 20 Meq Tab.Er.Prt PO 01/21/25 10:35 Not Given ONCE ONE Potassium Chloride 40 meq 01/21/25 10:52 01/21/25 12:02 Potassium Chloride Packet 20 Meq Packet PO 01/21/25 10:53 40 meq ONCE ONE Administration Medical Decision Making Medical Decision Making MDM Narrative: 49 yo female with uncontrolled HTN at baseline she is going for adrenal gland study tomorrow, anemia, GERD, HLD, arthritis here with c/o sore throat and chills last night her BP is high but no headaches, no chest pain nos gisn of end organ damage on exam there is no sign of midline shift or PRECISION DYER/abscess. I am going to order labs and swabs - suspect strep. I think her BP is exacerbated but OTC cough and cold medications. She has no signs of deeper space infection. Differential Diagnosis Differential Diagnoses: The differential diagnosis associated with the presentation includes strep throat, med reaction and HTN, viral syndrome no concern for deeper space infection or collection Admission/Observation Consideration of admission/observation: Escalation of care including admission/observation considered BP improved she states 170/100 is normal for her able to tolerate PO start on amoxicillin Lab Data MDM Lab Attestation statement: I reviewed the patient's lab results. 01/21/25 09:58 01/21/25 09:58 Labs: Lab Results 01/21/25 Range/Units 09:58 WBC 8.3 (4.8-10.8) X10*3/uL RBC 4.34 (4.20-5.50) X10*6/uL Hgb 13.4 (12.0-16.0) g/dl Hct 38.3 (37.0-47.0) % MCV 88.2 (80.0-98.0) fL MCH 30.9 (27.0-33.0) pg MCHC 35.0 (31.0-35.0) g/dl RDW 12.9 (11.0-16.0) % Plt Count 233 (160-400) X10*3/uL MPV 10.0 (9.4-12.3) fL Immature Gran % (Auto) 0.5 H (0.0-0.4) % Neut % (Auto) 77.0 H (45-73) % Lymph % (Auto) 12.2 L (20-40) % [place] % (Auto) 8.2 (2-11) % Eos % (Auto) 1.6 (0-4) % Baso % (Auto) 0.5 (0-2) % Lymph # (Auto) 1.0 L (1.2-4.9) X10*3/uL [place] # (Auto) 0.7 (0.1-1.2) X10*3/uL Eos # (Auto) 0.1 (0.0-0.4) X10*3/uL Baso # (Auto) 0.0 (0.0-0.2) X10*3/uL Abs Immat Gran (auto) 0.04 H (0.00-0.03) X10*3/uL Absolute Neuts (auto) 6.4 (2.0-8.3) x10*3/uL Absolute Nucleated RBC 0.000 (0.0-0.012) X10*3/uL Nucleated RBC % (auto) 0.0 (0.0-0.2) /100WBC Sodium 137 (135-145) mmol/L Potassium 3.2 L (3.3-5.1) mmol/L Chloride 108 (96-108) mmol/L Carbon Dioxide 23 (22-29) mmol/L Anion Gap 9 L (12-20) BUN 6 L (9-16) mg/dL Creatinine 0.61 (0.5-1.4) mg/dL Estim Creat Clear Calc 121.3 Estimated GFR > 60 Random Glucose 96 (60-115) mg/dL Calcium 8.6 (8.4-10.2) mg/dL Magnesium 1.7 (1.6-2.6) mg/dL Total Bilirubin 0.3 (0.0-1.0) mg/dL Direct Bilirubin 0.1 (0.0-0.5) mg/dL AST 15 (5-31) U/L ALT 12 (0-31) U/L Alkaline Phosphatase 83 (39-117) U/L Troponin I High Sens 3.5 (<3.5-17.0) ng/L Total Protein 6.9 (6.5-8.0) g/dL Albumin 3.6 (3.5-5.0) g/dL Influenza Type A (PCR) NEGATIVE (Negative) Influenza Type B (PCR) NEGATIVE (Negative) RSV RNA Qual (PCR) NEGATIVE (Negative) SARS-CoV-2 RNA (RT-PCR) NEGATIVE (Negative) S. pyogenes GrpA LAURITA Positive A (Negative) Independent Interpretation I performed an independent interpretation of an: EKG Interpretation: Rate: 89 Rhythm: NSR [place]: left, LVH Normal P waves. Normal GISSELL. Normal QRS complex. ST T wave : normal no EUGENIE, inverted t wave III qTC: 440 prior studies: no acute ischemia The study has been interpreted contemporaneously by me. . External Record Review External record reviewed: Outpatient record Prescription Management I considered prescription management with: Antibiotic Discharge Plan Discharge Clinical Impression: Acute hypokalemia, Acute streptococcal pharyngitis Patient Disposition: Home, Self-Care Instructions: Pharyngitis (ED), Strep Throat (ED) Additional Instructions: return for any worsening symptoms such as severe pain, chest pain, trouble breathing, headaches, unable to swallow, increased swelling in neck finish all antibiotics On amoxicillin softer bowel movements are to be expected. Call your provider if you move your bowels more than 4 times a day, your bowel movements are almost all liquid, or you get a rash.? throw away tooth brush after 24 hours follow up tomorrow as planned - if a biopsy discuss with provider given recent infection potassium was low we repleted it recheck with your do Prescriptions: New amoxicillin 500 mg capsule 500 mg PO BID 10 Days Qty: 19 0RF No Action levothyroxine 125 mcg tablet 125 mcg PO DAILY Qty: 30 0RF metoclopramide HCl [Reglan] 10 mg tablet 10 mg PO Q6H PRN (Reason: nausea and vomiting) Qty: 20 0RF ferrous sulfate [Feosol] 325 mg (65 mg iron) tablet 325 mg PO DAILY Qty: 30 3RF cyanocobalamin (vitamin B-12) 1,000 mcg capsule 1,000 mcg PO DAILY Qty: 30 2RF ascorbate calcium (vitamin C) 500 mg tablet 500 mg PO DAILY Qty: 30 2RF (DME) blood pressure monitor [Blood Pressure Kit] Kit See Rx Instructions .ROUTE .MEDSUPPLY Qty: 1 0RF Rx Instructions: As directed sennosides-docusate sodium [Senna Plus] 8.6-50 mg tablet 2 tab-cap PO BEDTIME 90 Days Qty: 180 2RF Excedrin Migraine 250-250-65 mg tablet 1 tab PO Q4-6H PRN (Reason: pain) Qty: 30 0RF propranolol 10 mg tablet 10 mg PO BID Qty: 60 2RF lisinopril 20 mg tablet 20 mg PO BID 90 Days Qty: 180 3RF spironolactone 100 mg tablet 100 mg PO DAILY Qty: 90 3RF clotrimazole 1 % cream 1 appl topical BID 14 Days Qty: 15 1RF ketorolac 10 mg tablet 10 mg PO Q8H PRN (Reason: pain) Qty: 30 0RF Rx Instructions: First dose given in office by IM injection pt tolerated well cyclobenzaprine 10 mg tablet 10 mg PO TID Qty: 30 0RF skxturpibv-dognxiydfowpy-xljb [Fioricet] 50-300-40 mg capsule 1 cap PO Q8H Qty: 30 0RF metoclopramide HCl [Reglan] 10 mg tablet 10 mg PO Q6H PRN (Reason: nausea and vomiting) Qty: 30 0RF nifedipine 60 mg tablet extended release 24hr 60 mg PO BID 30 Days Qty: 60 5RF Interventions: ED Discharge Assessment Last Done: 01/21/25 12:16 Discharge Date/Time: 01/21/25 12:17 Print Language: Syrian
--- NOTE | 2025-01-21 09:35 | ECG_ITS ---
Test Reason : hypertensive Blood Pressure : */* mmHG Vent. Rate : 89 BPM Atrial Rate : 89 BPM P-R Int : 136 ms QRS Dur : 84 ms QT Int : 362 ms P-R-T Axes : 39 -23 23 degrees QTcB Int : 440 ms Normal sinus rhythm Possible Left atrial enlargement Minimal voltage criteria for LVH, may be normal variant ( R in aVL ) Borderline ECG When compared with ECG of 29-Oct-2024 16:27, No significant change was found Referred By: Vianey Cabrales Electronically Signed By: HAL ALVAREZ MD
[2025-01-21 09:41] VITALS: BP 188/112; PULSE 92; RESP 15; TEMP 37; O2SAT 97
[2025-01-21 10:05] LABS: MANUAL DIFF FLAG NO
[2025-01-21 10:06] LABS: Basophils Percent Auto 0.5 % (0-2); Eosinophils Absolute Auto 0.1 X10*3/uL (0.0-0.4); Eosinophils Percent Auto 1.6 % (0-4); Hematocrit 38.3 % (37.0-47.0); Hemoglobin 13.4 g/dl (12.0-16.0); Imm Gran Abs Auto 0.04 X10*3/uL (0.00-0.03); Imm Gran Pct Auto 0.5 % (0.0-0.4); Lymphocytes Percent Auto 12.2 % (20-40); Mean Corpuscular Hemoglobin 30.9 pg (27.0-33.0); Mean Corpuscular Volume 88.2 fL (80.0-98.0); Monocytes Absolute Auto 0.7 X10*3/uL (0.1-1.2); Monocytes Percent Auto 8.2 % (2-11); Neutrophils Absolute Auto 6.4 x10*3/uL (2.0-8.3); Platelet Count 233 X10*3/uL (160-400); Red Blood Count 4.34 X10*6/uL (4.20-5.50); Red Cell Distribution Width 12.9 % (11.0-16.0); White Blood Count 8.3 X10*3/uL (4.8-10.8)
[2025-01-21 10:26] LABS: Alanine Aminotransferase 12 U/L (0-31); Albumin Level 3.6 g/dL (3.5-5.0); Alkaline Phosphatase 83 U/L (39-117); Anion Gap 9 (12-20); Aspartate Amino Transferase 15 U/L (5-31); Bilirubin Direct 0.1 mg/dL (0.0-0.5); Bilirubin Total 0.3 mg/dL (0.0-1.0); Blood Urea Nitrogen 6 mg/dL (9-16); Calcium 8.6 mg/dL (8.4-10.2); Carbon Dioxide 23 mmol/L (22-29); Chloride 108 mmol/L (96-108); Creatinine Clr Calc Pharmacy 121.3; Estimated Glomerular Filt Rate > 60; Glucose Random 96 mg/dL (60-115); Magnesium 1.7 mg/dL (1.6-2.6); Potassium 3.2 mmol/L (3.3-5.1); Sodium 137 mmol/L (135-145); Total Protein 6.9 g/dL (6.5-8.0)
[2025-01-21 10:33] LABS: Troponin-I High Sensitivity 3.5 ng/L (<3.5-17.0)
[2025-01-21] MEDS: HYDROcodone Bit/Acetam 5/325 TABLET 1 TAB PO (10:44)
[2025-01-21 10:45] LABS: IDNOW Serial# 55D5AD1C; Strep A Nucleic Acid Positive (Negative)
[2025-01-21 10:46] VITALS: O2SAT 98
[2025-01-21 10:58] LABS: Influenza A PCR NEGATIVE (Negative); Influenza B PCR NEGATIVE (Negative); Resp Syncy Virus RNA Qual PCR NEGATIVE (Negative); SARS COV2 PCR INHOUSE NEGATIVE (Negative)
[2025-01-21] MEDS: Amoxicillin 500 MG CAPSULE PO (12:02)
[2025-01-21] MEDS: Potassium Chloride Packet 20 MEQ PACKET 40 MEQ PO (12:02)
[2025-01-21 12:16] VITALS: BP 0/0; PULSE 0; RESP 0; TEMP -17.7; TEMP 0; O2SAT 98
== END 2025-01-21 12:17 | disposition home or self-care (01) ==
PROVIDERS: Physician Assistant Medical; Emergency Provider Emergency Medicine; PCP Internal Medicine
DX: J02.9 Acute pharyngitis, unspecified (principal); R94.31 Abnormal electrocardiogram [ECG] [EKG]; I10 Essential (primary) hypertension; Z03.818 Encounter for observation for suspected exposure to other biological agents ruled out; Z79.899 Other long term (current) drug therapy
CPT/HCPCS: 0241U; 36415; 80048; 80076; 83735; 84484; 85025; 87651; 93005; 99283; 99285

== ENCOUNTER → 2025-01-21 09:35 | Outpatient (BNV) | payer OTHER, SELFPAY | PROVIDERS: Emergency Provider Emergency Medicine; PCP Internal Medicine; Visit Provider Internal Medicine Cardiovascular Disease | DX: I10 Essential (primary) hypertension (principal) | CPT/HCPCS: 93010 ==

== ENCOUNTER 2025-02-05 13:24 | Outpatient (AMB) | payer OTHER, SELFPAY ==
--- NOTE | 2025-02-05 13:49 | HO.NEPHOV ---
Vital Signs 02/05/25 13:51 Height 5 ft 4 in Weight 194 lb 6 oz BMI 33.4 BP 162/110 H Blood Pressure Location Lt brachial Position Sitting Pulse 79 Pulse Source Pulse Oximeter Pulse Oximetry (%) 97 Oxygen Delivery Method Room Air Intake Visit Reasons: 1 mo follow up-[facility] [employer] Required: No Accompanied by: Self / Same As Patient Allergies No Known Allergies Allergy (Verified 02/05/25 13:50) HPI Comments Details: Ileana was seen for follow up for hypokalemia and hypertension. She has no H/O chronic diarrhea. She denies nausea or vomiting. She has been having labile blood pressure and her anti hypertensive medications have been adjusted. 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 She has normal renal function. She has no hypomagnesemia, polyuria or metabolic acidosis. She has no family H/O Denice's /Bartter/Giltelman syndrome. She never had hypokalemic periodic paralysis. She does monitor her BP at home. Her BP is better but not optimally controlled. She denies any headaches, double vision, edema or orthostatic symptoms. She has a 1.4 cm adenoma within the left adrenal gland by CT scan. She is going to get adrenal vein sampling study in a few weeks. Her migraine is not controlled. [facility] Medical History (Updated 02/05/25 @ 14:12 by Adam Dukes MD) Migraine Cervical cancer screening Abnormal uterine bleeding (AUB) Friable cervix Encounter for gynecological examination Nasal pain Blood pressure elevated without history of HTN Breast cancer screening by mammogram Erythema of groin Breast lump Migraine with aura Cervical polyp Menorrhagia Menometrorrhagia Legally blind in left eye, as defined in [place] Urge incontinence Metrorrhagia Anemia Impaired glucose tolerance Obesity (BMI 30-39.9) Hypercholesterolemia Hypothyroid Surgical History History of total abdominal hysterectomy History of excision of lesion (04/07/23) History of bilateral tubal ligation Hx of tubal ligation Hx of cervical polypectomy Family History Maternal Aunt Family history of breast cancer Maternal Uncle History of brain tumor Paternal Aunt Hx of myocardial infarction Skin cancer Father Myocardial infarction Mother Alive and well Social History Housing: House Alcohol intake: never Patient Tobacco Use Status: Never used Tobacco e-Cigarette/Vaping Use: Never Used Second Hand Smoke Exposure: No Advance Directives Date on File: 07/17/20 service: No Current occupational status: employed Gender identity: Female Cognitive needs: No Hearing needs: No Vision needs: Yes (glasses) Female Reproductive History Menstrual Age of Menarche: 10 Review of Systems Const All systems reviewed & are unremarkable except as noted in HPI and below Physical Exam Vital Signs: Last Vital Signs Pulse 79 02/05/25 13:51 BP 162/110 H 02/05/25 13:51 Pulse Ox 97 02/05/25 13:51 Oxygen Delivery Method Room Air 02/05/25 13:51 BMI result Body Mass Index 33.4 Const General: comfortable and no acute distress Orientation/consciousness: patient oriented x3 HEENT Head: Yes normocephalic Mouth: Normal oral and palatal mucosa present Eyes EOM: EOMs intact bilaterally Neck Neck: Yes supple Resp Auscultation: clear to auscultation bilaterally Cardio Jugular venous distension: no JVD Rate: regular rate GI Palpation (GI): Soft to palpation Auscultation: normal bowel sounds General: Yes no CVA tenderness Back/Spine/Pelvis Back: no CVA tenderness Skin General skin exam: no rashes or lesions noted Neuro General: patient oriented x3 and moves all extremities Extrem General: Yes no pedal edema Results Reviewed Nephrology Results: Hgb 13.4 g/dl (12.0-16.0) 01/21/25 WBC 8.3 X10*3/uL (4.8-10.8) 01/21/25 Plt Count 233 X10*3/uL (160-400) 01/21/25 Sodium 137 mmol/L (135-145) 01/21/25 Potassium 3.2 mmol/L (3.3-5.1) L 01/21/25 Chloride 108 mmol/L (96-108) 01/21/25 Carbon Dioxide 23 mmol/L (22-29) 01/21/25 BUN 6 mg/dL (9-16) L 01/21/25 Creatinine 0.61 mg/dL (0.5-1.4) 01/21/25 Calcium 8.6 mg/dL (8.4-10.2) 01/21/25 Assessment & Plan Assessment & Plan (1) Adrenal adenoma: Code(s): D35.00 - Benign neoplasm of unspecified adrenal gland Category: Medical Qualifiers: Laterality: left Qualified Code(s): D35.02 - Benign neoplasm of left adrenal gland (2) Hypokalemia: Code(s): E87.6 - Hypokalemia Category: Medical (3) Hypertension: Code(s): I10 - Essential (primary) hypertension Category: Medical Qualifiers: Hypertension type: primary hypertension Qualified Code(s): I10 - Essential (primary) hypertension (4) Migraine: Code(s): G43.909 - Migraine, unspecified, not intractable, without status migrainosus Category: Medical Qualifiers: Migraine type: with aura Status migrainosus presence: without status migrainosus Intractability: not intractable Qualified Code(s): G43.109 - Migraine with aura, not intractable, without status migrainosus Plan Differentials are broad for hypokalemia and hypertension. W/U is in progress. She has been having labile blood pressure and her anti hypertensive medications have been adjusted. She has normal renal function. She has no hypomagnesemia, polyuria or metabolic acidosis. She has no family H/O Denice's /Bartter/Giltelman syndrome. She never had hypokalemic periodic paralysis. She does monitor her BP at home. She may having increased mineralocorticoid activity. I held her Spironolactone 100 mg daily for AVS.I started her on Hydralazine 50 mg tid and KCl 20 MEQ daily. She has a 1.4 cm adenoma within the left adrenal gland by CT scan. Small nonobstructive calculus within the left kidney. I referred her to Neurology for migraine and to Endocrinology for adrenal adenoma. Answered all questions Orders: Orders Creatinine 3 Weeks E87.6 - Hypokalemia, I10 - Essential (primary) hypertension Blood Urea Nitrogen 3 Weeks E87.6 - Hypokalemia, I10 - Essential (primary) hypertension Electrolytes 3 Weeks E87.6 - Hypokalemia, I10 - Essential (primary) hypertension Referrals Endocrinology Referral D35.02 - Benign neoplasm of left adrenal gland Neurology Referral G43.109 - Migraine with aura, not intractable, without status migrainosus Medications: New hydralazine 50 mg PO TID 30 days 90 tabs 5RF potassium chloride ER 20 mEq PO DAILY 90 tabs 3RF Discontinued spironolactone Discontinued Reason: Doctor's Order 100 mg PO DAILY 90 tabs 3RF Coding Level of Care Code Est Pt Level 4 (41894) Diagnoses Adenoma of left adrenal gland D35.02 Laterality: left Hypokalemia E87.6 Primary hypertension I10 Hypertension type: primary hypertension Migraine with aura and without status migrainosus, not intractable G43.109 Migraine type: with aura Status migrainosus presence: without status migrainosus Intractability: not intractable
[2025-02-05 13:51] VITALS: BP 162/110; PULSE 79; O2SAT 97; BMI 33.4
== END 2025-02-05 14:21 | disposition home or self-care (01) ==
LOC: HO.HKAS 13:24
PROVIDERS: PCP Internal Medicine; Visit Provider Internal Medicine Nephrology
DX: D35.02 Benign neoplasm of left adrenal gland (principal); E87.6 Hypokalemia; I10 Essential (primary) hypertension; G43.109 Migraine with aura, not intractable, without status migrainosus
CPT/HCPCS: 99214

== ENCOUNTER 2025-02-28 07:35 | Outpatient (AMB) | payer OTHER, SELFPAY ==
--- NOTE | 2025-02-28 07:42 | A.OFFVIS_ITS ---
Vital Signs 02/28/25 07:43 02/28/25 08:09 02/28/25 08:54 Height 5 ft 4 in Weight 199 lb 1.239 oz BMI 34.2 BP 198/118 H 190/120 H 175/110 H Blood Pressure Location Lt brachial Lt brachial Lt brachial Position Sitting Sitting Pulse 77 Pulse Source Pulse Oximeter Pulse Oximetry (%) 98 Oxygen Delivery Method Room Air Intake Visit Reasons: Benign neoplasm of left adrenal gland Intake Note: New patient present today for Benign neoplasm of left adrenal gland. Crester Required: No Accompanied by: Self / Same As Patient Allergies No Known Allergies Allergy (Verified 02/28/25 07:48) Medication List - Last Reconciled 02/28/25 by Rosalva Price MD amoxicillin 500 mg PO BID 10 days ascorbate calcium (vitamin C) 500 mg PO DAILY [id number]-[id number]-vcgpvnvl 250-250-65 mg (Excedrin Migraine) 1 tab PO Q4-6H PRN blood pressure monitor (Blood Pressure Kit) As directed vphsfstqaa-[id number]-pduy 50-300-40 mg (Fioricet) 1 cap PO Q8H clotrimazole 1% 1 appl topical BID 2 weeks cyanocobalamin (vitamin B-12) 1,000 mcg PO DAILY cyclobenzaprine 10 mg PO TID ferrous sulfate (Feosol) 325 mg PO DAILY hydralazine 50 mg PO TID 30 days ketorolac 10 mg PO Q8H PRN levothyroxine 125 mcg PO DAILY lisinopril 20 mg PO BID 90 days metoclopramide HCl (Reglan) 10 mg PO Q6H PRN metoclopramide HCl (Reglan) 10 mg PO Q6H PRN metronidazole 500 mg PO BID 7 days nifedipine ER 60 mg PO BID 30 days potassium chloride ER 20 mEq PO DAILY propranolol 10 mg PO BID sennosides-docusate sodium 8.6-50 mg (Senna Plus) 2 tab-caps (2 x 8.6-50 mg) PO BEDTIME 90 days sumatriptan succinate (Imitrex) 50 mg PO .QD prn PRN terconazole 0.8% 1 appful vaginal BEDTIME 3 days HPI Comments Details: 49-year-old female coming in today for initial evaluation of primary hyperaldosteronism, left adrenal gland adenoma. Otherwise PMHx significant for hypothyroidism, migraines. Note: BP at today's visit initially noted to be 198/118, repeated by me again noted to be 190/120. I discussed with the patient that this qualifies as hypertensive urgency and she notes to go to the emergency room as she is at high-risk of getting a stroke or heart attack and her blood pressure needs to be controlled immediately, patient said she has been to the emergency room many times over the past couple of weeks, and feels that it does not help her much and she despite me discussing the risks of heart attack, stroke, potential refused to go to the ED today. Currently reports headache but no dizziness or lightheadedness, no nausea or vomiting, no vision changes, no weakness or paresthesias CT adrenal 11/27/2024: Showed a 1.4 cm left adrenal gland nodule with-16 Hounsfield units precontrast density, with could washout, consistent with lipid rich 1.4 cm left adrenal gland adenoma. CTA adrenal was done by Nephrology, as patient has a history of resistant/labile hypertension. BP today on 02/28/2025 198/118 , BP on 02/05/2025: 198/118, 162/110, BP 01/21/25 188/112 BP repeated by me 190/120 mm Hg Current BP meds (on the days she works she takes the meds at 7 AM and 3 pm for BID) Hydralazine 50 mg t.i.d. (started 02/05/2025) Lisinopril 20 mg b.i.d. Nifedipine 60 mg b.i.d. Propranolol 10 mg b.i.d. She was on spironolactone 100 mg daily which was stopped 02/05/2025 by Nephrology 1 hydralazine was started. This was stopped as then dissipated she would need AVS for further workup of primary hyperaldosteronism. No history of stroke or CA. Father: age 62 years had CA and stroke Blood work from August 2024 showed plasma renin activity suppressed at 0.47, with a aldosterone of 11, while potassium was 3. Given that potassium was low, aldosterone could have been even much higher if the potassium was repleted. Patient was on both spironolactone as well as lisinopril at this time. Given she was on IRINA inhibitor and despite that her plasma renin activity suppressed, this is highly suspicious for primary hyperaldosteronism. No confirmatory testing done however aldosterone her blood pressure has been uncontrolled so hard to do confirmatory testing with saline suppression or 24 hour urine evaluation. Apparently she was referred for AVS by nephrology , then was cancelled due to being on spironolactone, even though her renin activity was <1, could have had the procedure.is waiting to heat about next appointment. She also has a history of hypokalemia, on potassium 20 mEq extended release daily started 02/05/25 08/01/2024: Renal ultrasound showed no evidence of renal artery stenosis. No history of ROLANDO, denies apneic episodes or snoring Evaluation for hypercortisolism No history of fragility fracture, no history of DM, Reports easy bruising , no proximal muscle weakness, no abdominal striae No skin infections No skin thinning Does have some facial plethora Physical exam General: sitting comfortably in no acute distress HEENT: normocephalic/atraumatic, EOM intact, moist oral mucosa Neck: supple, symmetrical, no thyromegaly , no dorsocervical or supraclavicular fat pads Cardiac: normal heart sounds Pulm: normal breath sounds B/L, no added breath sounds Abd: not distended, no tenderness Extremities: no edema, no signs of myxedema, no proximal muscle weakness, no abdominal striae Neuro: AAO x3, Speech: normal, no facial droop, moving all 4 extremities Laboratory Tests 04/29/20 02/19/23 05/25/24 09:05 08:33 14:42 Sodium Potassium 4.2 3.9 3.3 Creatinine Estimated GFR Renin Renin Activity Aldosterone Aldosterone/Renin Ratio Random Cortisol Plasma Free Metaneph Plasma Free Normeta Plas Total Metaneph 06/27/24 08/20/24 10/05/24 07:52 07:41 09:28 Sodium Potassium 3.0 L 3.0 L 3.4 Creatinine Estimated GFR Renin 0.54 Renin Activity 0.47 Aldosterone 11 Aldosterone/Renin Ratio Random Cortisol Plasma Free Metaneph <25 Plasma Free Normeta 48 Plas Total Metaneph 48 10/29/24 11/19/24 01/03/25 16:32 08:52 14:44 Sodium 140 Potassium 3.5 3.3 Creatinine 0.66 Estimated GFR > 60 Renin 0.57 Renin Activity 0.47 Aldosterone 9 Aldosterone/Renin Ratio 19.1 Random Cortisol 10.9 Plasma Free Metaneph Plasma Free Normeta Plas Total Metaneph 01/21/25 09:58 Sodium 137 Potassium 3.2 L Creatinine 0.61 Estimated GFR > 60 Renin Renin Activity Aldosterone Aldosterone/Renin Ratio Random Cortisol Plasma Free Metaneph Plasma Free Normeta Plas Total Metaneph CLINICAL HISTORY: E87.6 - Hypokalemia 11/27/24 CT abdomen with and without contrast Comparison: None Findings: No consolidation or effusion. There is a 1.4 cm nodule within the left adrenal gland. Precontrast density estimated -16 Hounsfield units. Venous phase density 17 Hounsfield units and density on delayed imaging -5 Hounsfield units. Unremarkable right adrenal gland. 3 mm nonobstructive calculus within the upper pole of the left kidney. Remaining abdominal organs unremarkable. No calcified gallstones. No bowel obstruction, pneumoperitoneum, or pneumatosis. No acute fracture. IMPRESSION: 1. There is a 1.4 cm adenoma within the left adrenal gland. 2. There is a small left-sided periumbilical hernia containing fat. 3. Small nonobstructive calculus within the left kidney. This document has been electronically signed by: Nu Mohan MD on 11/27/2024 13:07:39 US RETROPERITONEAL LIMITED (RENAL ONLY) 08/01/24 CLINICAL INFORMATION: Essential hypertension. COMPARISON: Abdominal ultrasound 07/08/2015 TECHNIQUE: Multiple grayscale images of bilateral kidneys FINDINGS: RIGHT KIDNEY: 10.7 x 4 x 6.5 cm (SAG x AP x TRV). The kidney is normal in size, contour, and echogenicity. Renal cortical thickness is normal . No calculi or focal parenchymal lesions. No hydronephrosis. LEFT KIDNEY: 12 x 5.4 x 6 cm (SAG x AP x TRV). The kidney is normal in size, contour, and echogenicity. Renal cortical thickness is normal. No calculi or focal parenchymal lesions. No hydronephrosis. US/US renal BI IMPRESSION: No renal calculus or hydronephrosis. Unremarkable sonographic appearance of bilateral kidneys. Electronically signed by: Patricio Mata MD 08/02/2024 08:43 AM EDT [facility] Medical History (Updated 02/28/25 @ 08:29 by Rosalva Price MD) Primary hyperaldosteronism Migraine Cervical cancer screening Abnormal uterine bleeding (AUB) Friable cervix Encounter for gynecological examination Nasal pain Blood pressure elevated without history of HTN Breast cancer screening by mammogram Erythema of groin Breast lump Migraine with aura Cervical polyp Menorrhagia Menometrorrhagia Legally blind in left eye, as defined in [place] Urge incontinence Metrorrhagia Anemia Impaired glucose tolerance Obesity (BMI 30-39.9) Hypercholesterolemia Hypothyroid Surgical History History of total abdominal hysterectomy History of excision of lesion (04/07/23) History of bilateral tubal ligation Hx of tubal ligation Hx of cervical polypectomy Family History Maternal Aunt Family history of breast cancer Maternal Uncle History of brain tumor Paternal Aunt Hx of myocardial infarction Skin cancer Father Myocardial infarction Mother Alive and well Social History Housing: House Alcohol intake: never Patient Tobacco Use Status: Never used Tobacco e-Cigarette/Vaping Use: Never Used Second Hand Smoke Exposure: No Advance Directives Date on File: 07/17/20 service: No Current occupational status: employed Gender identity: Female Cognitive needs: No Hearing needs: No Vision needs: Yes (glasses) Female Reproductive History Menstrual Age of Menarche: 10 Assessment & Plan Assessment & Plan (1) Primary hyperaldosteronism: Code(s): E26.09 - Other primary hyperaldosteronism Category: Medical Plan: 49-year-old female with past medical history significant for resistant hypertension, hypokalemia, migraine headaches, hypothyroidism coming in today for initial evaluation of primary hyperaldosteronism. She has had a history of resistant hypertension for many years, currently on Hydralazine 50 mg t.i.d. (started 02/05/2025) Lisinopril 20 mg b.i.d. Nifedipine 60 mg b.i.d. Propranolol 10 mg b.i.d. She has been managed by Nephrology. Renal ultrasound from December 2024 did not show any renal artery stenosis. She does not have any history of ROLANDO. She is noted to have hypokalemia, now on potassium supplements 20 mEq daily since 02/05/2025. Blood work done August 2024, showed suppressed plasma renin activity of 0.47 while she was on an IRINA inhibitor with high aldosterone level of 11, when potassium was 3, given potassium was low, aldosterone would have even been higher if potassium was repleted, all of this is very highly suspicious of primary hyperaldosteronism. Confirmatory testing not done, however likely it was not done because she has had such high blood pressures it would be risky to do a saline suppression test or a load her with sodium for [address] adrenal from November 2024 showed a left 1.4 cm lipid rich adenoma -16 Hounsfield units, with a an unremarkable right adrenal gland. At this point I agree that I would proceed with the adrenal vein sampling, to see if she lateralizes. She is young and requiring a lot of medications for blood pressure control and despite that has poor control, she would be an excellent candidate for surgery. She was on spironolactone 100 mg daily which was stopped 02/05/2025 by Nephrology when hydralazine was started. Spironolactone was stopped in anticipation of AVS for further workup of primary hyperaldosteronism. I explained to the patient the the utility of simultaneous bilateral adrenal vein sampling in helping determine whether there is unilateral secretion of aldosterone versus bilateral secretion ; this can help determine whether the patient would be a candidate for surgical intervention/unilateral adrenalectomy versus a choice of only medical management. ? We discussed how the adrenal vein sampling procedure is performed, reasons for performing this procedure, the alternative options?of medical management alone. We perform adrenal vein sampling prior to surgical intervention to determine which adrenal gland should be removed and whether the contralateral gland has suppression of adrenal hormones.?During?this procedure a long?thin tube called a catheter is placed into the vein draining the left adrenal gland another small thin tube is placed in the vein draining the right adrenal gland blood is drawn simultaneously from both sides,?and we compare the cortisol, aldosterone? coming from both adrenal glands. ??The adrenal vein sampling procedure should be performed by a team led by interventional radiologist who is an expert in this procedure and does this frequently. For this reason I will refer her to [facility] where this procedure is performed with much higher frequency than our institution. ?The catheters are placed in the femoral vein which is in the leg and then advanced to the adrenal veins. ??They have mild sedation for this procedure but are awake and breathing on their own all the time. ?This makes it a safe procedure.??They will need someone to drive to and from the procedure. ? They were agreeable to having this done.? ? The adrenal vein sampling will be scheduled with the Interventional Radiology, putting referral in for [facility] Dr. Moreno. Apparently patient was scheduled for this procedure end of January 2025 at our institution, however it was canceled because she was on spironolactone, firstly like I said this should be done at an institution where a physician performed this frequently to be an expert in the procedure as catheterization of the adrenal veins as a very complicated procedure requiring expertise of someone who does it frequently. Secondly they could have performed the procedure despite her being on spironolactone as her plasma renin activity from December was still suppressed and less than 1, meaning that being on spironolactone would not have interfered with the procedure. It is important prior to performing the AVS that the potassium is repleted adequately and the plasma renin activity is still suppressed for adequate results. If someone has hypokalemia prior to performing the AVS, that will suppress the secretion of aldosterone and affect the results. If someone is on spironolactone while that can interfere with the results of the AVS, the longest there plasma renin activity is less than 0.6 according to some peer reviewed literature or less than 1 according to other experts, you can still go ahead and perform the procedure. Blood work from September 2024 showed normal plasma metanephrine normetanephrine levels, ruled out pheochromocytoma. She has not had a dexamethasone suppression test, I told her her blood pressure is very high today and I do not feel safe prescribing her steroids while her blood pressure is that high, however when she goes home and takes her medications which she has not taken this morning and her blood pressure is better controlled with her systolic numbers at least below 170, to perform the 1 mg dexamethasone suppression test. 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 Plan: -increase propranolol to 20 mg twice daily -continue nifedipine 60 mg b.i.d., lisinopril 20 mg b.i.d., hydralazine 50 mg t.i.d. -continue to monitor blood pressure at home, discussed threshold for reporting to emergency room as well as signs and symptoms of hypertensive emergency -ordered repeat potassium level, plasma renin activity, aldosterone, baseline ACTH, cortisol and DHEA-S levels -ordered 1 mg dexamethasone suppression test to be done next week -ordered 24 hour urine aldosterone, sodium, cortisol, creatinine levels, while I do not feel safe performing oral sodium loading testing, we will at least have an idea of how much sodium intake she has a an what her aldosterone is doing -placed IR referral for [facility] Dr. Moreno. For AVS sampling -continue potassium 20 mEq daily (2) Adrenal adenoma: Code(s): D35.00 - Benign neoplasm of unspecified adrenal gland Category: Medical Qualifiers: Laterality: left Qualified Code(s): D35.02 - Benign neoplasm of left adrenal gland Plan: See above (3) Hypokalemia: Code(s): E87.6 - Hypokalemia Category: Medical Plan: See above (4) Hypertension: Code(s): I10 - Essential (primary) hypertension Category: Medical Qualifiers: Hypertension type: primary hypertension Qualified Code(s): I10 - Essential (primary) hypertension Plan: See above Note: BP at today's visit initially noted to be 198/118, repeated by me again noted to be 190/120. I discussed with the patient that this qualifies as hypertensive urgency and she notes to go to the emergency room as she is at high-risk of getting a stroke or heart attack and her blood pressure needs to be controlled immediately, patient said she has been to the emergency room many times over the past couple of weeks, and feels that it does not help her much and she despite me discussing the risks of heart attack, stroke, potential refused to go to the ED today. Currently reports headache but no dizziness or lightheadedness, no nausea or vomiting, no vision changes, no weakness or paresthesias Plan I spent 75 minutes in reviewing the record, seeing the patient and documenting in the medical record. Orders: Orders Renin Today E26.09 - Other primary hyperaldosteronism Aldosterone Today E26.09 - Other primary hyperaldosteronism Basic Metabolic Panel Today E26.09 - Other primary hyperaldosteronism Adrenocorticotropic Hormone Today E26.09 - Other primary hyperaldosteronism Cortisol Random Today E26.09 - Other primary hyperaldosteronism Creatinine, 24 Hr Group Today D35.02 - Benign neoplasm of left adrenal gland, E26.09 - Other primary hyperaldosteronism Sodium, 24Hr Urine Group Today D35.02 - Benign neoplasm of left adrenal gland, E26.09 - Other primary hyperaldosteronism DHEA Sulfate Today E26.09 - Other primary hyperaldosteronism Cortisol, Free 24Hr Urine Today D35.02 - Benign neoplasm of left adrenal gland, E26.09 - Other primary hyperaldosteronism Aldosterone, 24Hr Urine Today D35.02 - Benign neoplasm of left adrenal gland, E26.09 - Other primary hyperaldosteronism Referrals Interventional Radiology Referral E26.09 - Other primary hyperaldosteronism Medications: New dexamethasone Take pill at 11 pm at night and do blood work at 8 AM the next morning 1 mg PO DAILY 1 tab 0RF propranolol 20 mg PO BID 60 tabs 4RF Discontinued propranolol Discontinued Reason: Doctor's Order 10 mg PO BID 60 tabs 2RF G43.109 - Migraine with aura, not intractable, without status migrainosus Patient Instructions: Your blood pressure was very high today, we recommended you to go to the emergency room but you refused , please go to emergency room if you start having any weakness in your arms or legs, vision changes, slurring of speech, chest pain /discomfort Take your BP meds as soon as you get home Keep an eye on your blood pressure, if it remains high with number greater than 180 systolic and 100 diastolic please go to the ED Increase propranolol to 20 mg twice daily Continue rest as it is Do blood work today after this appointment Collect euipqment for 24 hr urine collection On Tuesday start the 24 hr urine collection and hand in the urine on Tuesday morning 24 hr urine collection instructions You have been asked to collect your urine for 24 hours to assess for cortisol and aldosterone excretion. You must choose a 24 hour period of time when you will be home. The morning of the first day, DISCARD the FIRST morning void and then note the time. You will collect every single void from then on for 24 hours. For example, if you wake up at 6am and urinate, flush down that void. You will then collect every drop of urine all day and all night through 6am the following day. You will urinate one last time at 6am for the collection. The jug of urine must be kept in the refrigerator until you bring it to the lab. Also on Tuesday night at 11 pm take dexamethasone 1 mg tablet and go for blood work at 8 AM the next morning on Tuesday for cortisol, ACTH , dexamethasone level to be done Dexamethasone suppression test I would like you to do a dexamethasone suppression test to rule out Cushings syndrome. You will take a 1 mg pill of dexamethasone at 11 PM and then have a blood draw for cortisol at 8AM the next morning. It is important to make sure you take the dexamethasone at 11 PM and have the blood test as close to 8AM as possible. Coding Level of Care Code New Pt Level 5 (66588) Diagnoses Primary hyperaldosteronism E26.09 Adenoma of left adrenal gland D35.02 Laterality: left Hypokalemia E87.6 Primary hypertension I10 Hypertension type: primary hypertension Time Spent (min) 75
[2025-02-28 07:43] VITALS: BP 198/118; PULSE 77; O2SAT 98; BMI 34.2
[2025-02-28 08:09] VITALS: BP 190/120
[2025-02-28 08:54] VITALS: BP 175/110
== END 2025-02-28 08:57 | disposition home or self-care (01) ==
LOC: HO.ENCR 07:36
PROVIDERS: PCP Internal Medicine; Visit Provider Student in an Organized Health Care Education/Training Program
DX: E26.09 Other primary hyperaldosteronism (principal); D35.02 Benign neoplasm of left adrenal gland; E87.6 Hypokalemia; I10 Essential (primary) hypertension
CPT/HCPCS: 99205

== ENCOUNTER 2025-02-28 07:35 | Outpatient (REF) | payer OTHER, SELFPAY ==
[2025-02-28 11:22] LABS: Cortisol Random 9.4 ug/dL
[2025-02-28 11:29] LABS: Anion Gap 13 (12-20); Blood Urea Nitrogen 7 mg/dL (9-16); Carbon Dioxide 26 mmol/L (22-29); Chloride 104 mmol/L (96-108); Estimated Glomerular Filt Rate > 60; Potassium 3.6 mmol/L (3.3-5.1); Sodium 139 mmol/L (135-145)
[2025-02-28 11:36] LABS: Anion Gap 14 (12-20); Blood Urea Nitrogen 6 mg/dL (9-16); Calcium 9.2 mg/dL (8.4-10.2); Carbon Dioxide 26 mmol/L (22-29); Chloride 104 mmol/L (96-108); Estimated Glomerular Filt Rate > 60; Glucose Random 92 mg/dL (60-115); Potassium 3.6 mmol/L (3.3-5.1); Sodium 140 mmol/L (135-145)
[2025-02-28 12:00] LABS: Free T4 (Free Thyroxine) 0.89 ng/dL (0.71-1.85); TSH reflex Free T4 7.63 uIU/mL (0.32-4.0)
[2025-03-01 04:27] LABS: DHEA Sulfate 99 mcg/dL (15-205)
[2025-03-05 08:13] LABS: Adrenocorticotropic Hormone 13 pg/mL (6-50)
[2025-03-05 10:13] LABS: Renin 0.96 ng/mL/h (0.25-5.82)
== END 2025-02-28 07:36 | disposition home or self-care (01) ==
LOC: HO.LAB 07:35
PROVIDERS: Absent Provider Internal Medicine Nephrology; PCP Internal Medicine; Visit Provider Student in an Organized Health Care Education/Training Program
DX: E26.09 Other primary hyperaldosteronism (principal); R79.89 Other specified abnormal findings of blood chemistry; I10 Essential (primary) hypertension; E87.6 Hypokalemia
CPT/HCPCS: 36415; 80048; 80051; 82024; 82088; 82533; 82565; 82627; 84244; 84439; 84443; 84520

== ENCOUNTER 2025-03-05 07:09 | Outpatient (REF) | payer OTHER, SELFPAY ==
[2025-03-05 09:14] LABS: Free T4 (Free Thyroxine) 0.74 ng/dL (0.71-1.85)
[2025-03-05 09:15] LABS: Cortisol Random 1.4 ug/dL
[2025-03-08 04:59] LABS: Adrenocorticotropic Hormone <5 pg/mL (6-50)
[2025-03-15 14:39] LABS: Dexamethasone 384 ng/dL
== END 2025-03-05 07:10 | disposition home or self-care (01) ==
LOC: HO.LAB 07:09
PROVIDERS: PCP Internal Medicine; Visit Provider Student in an Organized Health Care Education/Training Program
DX: Z00.00 Encounter for general adult medical examination without abnormal findings (principal); R79.89 Other specified abnormal findings of blood chemistry; D35.02 Benign neoplasm of left adrenal gland; E26.09 Other primary hyperaldosteronism; E87.6 Hypokalemia; I10 Essential (primary) hypertension
CPT/HCPCS: 36415; 80299; 82024; 82533; 84439; 84443

== ENCOUNTER 2025-03-05 13:41 | Outpatient (AMB) | payer OTHER, SELFPAY ==
--- NOTE | 2025-03-05 13:49 | HO.NEPHOV_ITS ---
Vital Signs 03/05/25 13:51 Height 5 ft 4 in Weight 197 lb 2 oz BMI 33.8 BP 184/104 H Blood Pressure Location Lt brachial Position Sitting Pulse 82 Pulse Source Pulse Oximeter Pulse Oximetry (%) 98 Oxygen Delivery Method Room Air Intake Visit Reasons: 1 mo follow up-[facility] Site Controller Required: No Accompanied by: Self / Same As Patient Allergies No Known Allergies Allergy (Verified 03/05/25 13:51) HPI Comments Details: Ileana was seen for follow up for hypokalemia and hypertension. She has no H/O chronic diarrhea. She denies nausea or vomiting. She has been having labile blood pressure and her anti hypertensive medications have been adjusted. 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 She has normal renal function. She has no hypomagnesemia, polyuria or metabolic acidosis. She has no family H/O Denice's /Bartter/Giltelman syndrome. She never had hypokalemic periodic paralysis. She does monitor her BP at home. Her BP is better but not optimally controlled. She denies any headaches, double vision, edema or orthostatic symptoms. She has a 1.4 cm adenoma within the left adrenal gland by CT scan. She has seen in Endocrinology. She is going to get adrenal vein sampling study. Her migraine is not controlled. [facility] Medical History (Updated 02/28/25 @ 08:29 by Rosalva Price MD) Primary hyperaldosteronism Migraine Cervical cancer screening Abnormal uterine bleeding (AUB) Friable cervix Encounter for gynecological examination Nasal pain Blood pressure elevated without history of HTN Breast cancer screening by mammogram Erythema of groin Breast lump Migraine with aura Cervical polyp Menorrhagia Menometrorrhagia Legally blind in left eye, as defined in [place] Urge incontinence Metrorrhagia Anemia Impaired glucose tolerance Obesity (BMI 30-39.9) Hypercholesterolemia Hypothyroid Surgical History History of total abdominal hysterectomy History of excision of lesion (04/07/23) History of bilateral tubal ligation Hx of tubal ligation Hx of cervical polypectomy Family History Maternal Aunt Family history of breast cancer Maternal Uncle History of brain tumor Paternal Aunt Hx of myocardial infarction Skin cancer Father Myocardial infarction Mother Alive and well Social History Housing: House Alcohol intake: never Patient Tobacco Use Status: Never used Tobacco e-Cigarette/Vaping Use: Never Used Second Hand Smoke Exposure: No Advance Directives Date on File: 07/17/20 service: No Current occupational status: employed Gender identity: Female Cognitive needs: No Hearing needs: No Vision needs: Yes (glasses) Female Reproductive History Menstrual Age of Menarche: 10 Review of Systems Const All systems reviewed & are unremarkable except as noted in HPI and below Physical Exam Vital Signs: Last Vital Signs Pulse 82 03/05/25 13:51 BP 184/104 H 03/05/25 13:51 Pulse Ox 98 03/05/25 13:51 Oxygen Delivery Method Room Air 03/05/25 13:51 BMI result Body Mass Index 33.8 Const General: comfortable and no acute distress Orientation/consciousness: patient oriented x3 HEENT Head: Yes normocephalic Mouth: Normal oral and palatal mucosa present Eyes EOM: EOMs intact bilaterally Neck Neck: Yes supple Resp Auscultation: clear to auscultation bilaterally Cardio Jugular venous distension: no JVD Rate: regular rate GI Palpation (GI): Soft to palpation Auscultation: normal bowel sounds General: Yes no CVA tenderness Back/Spine/Pelvis Back: no CVA tenderness Skin General skin exam: no rashes or lesions noted Neuro General: patient oriented x3 and moves all extremities Extrem General: Yes no pedal edema Results Reviewed Nephrology Results: Hgb 13.4 g/dl (12.0-16.0) 01/21/25 WBC 8.3 X10*3/uL (4.8-10.8) 01/21/25 Plt Count 233 X10*3/uL (160-400) 01/21/25 Sodium 140 mmol/L (135-145) 02/28/25 Potassium 3.6 mmol/L (3.3-5.1) 02/28/25 Chloride 104 mmol/L (96-108) 02/28/25 Carbon Dioxide 26 mmol/L (22-29) 02/28/25 BUN 6 mg/dL (9-16) L 02/28/25 Creatinine 0.59 mg/dL (0.5-1.4) 02/28/25 Calcium 9.2 mg/dL (8.4-10.2) 02/28/25 Assessment & Plan Assessment & Plan (1) Primary hyperaldosteronism: Code(s): E26.09 - Other primary hyperaldosteronism Category: Medical (2) Adrenal adenoma: Code(s): D35.00 - Benign neoplasm of unspecified adrenal gland Category: Medical Qualifiers: Laterality: left Qualified Code(s): D35.02 - Benign neoplasm of left adrenal gland (3) Hypokalemia: Code(s): E87.6 - Hypokalemia Category: Medical (4) Hypertension: Code(s): I10 - Essential (primary) hypertension Category: Medical Qualifiers: Hypertension type: primary hypertension Qualified Code(s): I10 - Essential (primary) hypertension Plan Differentials are broad for hypokalemia and hypertension. W/U is in progress. She has been having labile blood pressure and her anti hypertensive medications have been adjusted. She has normal renal function. She has no hypomagnesemia, polyuria or metabolic acidosis. She has no family H/O Denice's /Anjum ter/Giltelman syndrome. She never had hypokalemic periodic paralysis. She does monitor her BP at home. She may having increased mineralocorticoid activity. I held her Spironolactone 100 mg daily for AVS.I increased her Hydralazine to 100 mg tid and started her on Clonidine 0.1 mg bid . She has a 1.4 cm adenoma within the left adrenal gland by CT scan. Small nonobstructive calculus within the left kidney. I referred her to Neurology for migraine. Endocrinology has seen for adrenal adenoma. Answered all questions Medications: New clonidine HCl 0.1 mg PO BID 30 tabs 1RF Changed From hydralazine 50 mg PO TID 30 days 90 tabs 5RF To hydralazine 100 mg PO TID 30 days 90 tabs 5RF Coding Level of Care Code Est Pt Level 4 (87614) Diagnoses Primary hyperaldosteronism E26.09 Adenoma of left adrenal gland D35.02 Laterality: left Hypokalemia E87.6 Primary hypertension I10 Hypertension type: primary hypertension
[2025-03-05 13:51] VITALS: BP 184/104; PULSE 82; O2SAT 98; BMI 33.8
== END 2025-03-05 14:18 | disposition home or self-care (01) ==
LOC: HO.HKAS 13:42
PROVIDERS: PCP Internal Medicine; Visit Provider Internal Medicine Nephrology
DX: E26.09 Other primary hyperaldosteronism (principal); D35.02 Benign neoplasm of left adrenal gland; E87.6 Hypokalemia; I10 Essential (primary) hypertension
CPT/HCPCS: 99214

== ENCOUNTER 2025-03-06 07:52 | Outpatient (REF) | payer OTHER, SELFPAY ==
[2025-03-06 09:09] LABS: Creatinine, mg/dL 135.26
[2025-03-06 09:37] LABS: Creatinine, 24Hr Urine 1.3 G/Day (1.0-2.0); Sodium 24 Hr Urine 134.6 mmol/Day (40-220); Total Volume 24 Hour Urine 975 mL
[2025-03-12 15:03] LABS: Creatinine, 24 Hr Urine 1.33 g/24 h (0.50-2.15); Total Volume, 24 Hr Urine 975 mL
[2025-03-15 07:28] LABS: Aldosterone, 24Hr Urine 14.7 mcg/24 h; Creatinine 24Hr Urine 1.31 g/24 h (0.50-2.15); Total Volume 975 mL
== END 2025-03-06 07:53 | disposition home or self-care (01) ==
LOC: HO.LNP 07:52
PROVIDERS: Visit Provider Student in an Organized Health Care Education/Training Program
DX: D35.02 Benign neoplasm of left adrenal gland (principal); E26.09 Other primary hyperaldosteronism
CPT/HCPCS: 82088; 82530; 84300

== ENCOUNTER 2025-03-14 13:28 | Outpatient (AMB) | payer OTHER, SELFPAY ==
--- NOTE | 2025-03-14 13:30 | MHC.OFFVIS ---
Vital Signs 03/14/25 13:31 03/14/25 13:55 Height 5 ft 4 in Weight 196 lb 13.965 oz BMI 33.8 BP 154/104 H 160/100 H Blood Pressure Location Lt brachial Lt brachial Position Sitting Sitting Pulse 90 Pulse Source Pulse Oximeter Pulse Oximetry (%) 97 Oxygen Delivery Method Room Air Intake Visit Reasons: Primary hyperaldosteronism Intake Note: Patient present today for Primary hyperaldosteronism office visit. 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 Required: No Accompanied by: Self / Same As Patient Allergies No Known Allergies Allergy (Verified 03/14/25 13:34) Medication List - Last Reconciled 03/14/25 by Rosalva Price MD amoxicillin 500 mg PO BID 10 days ascorbate calcium (vitamin C) 500 mg PO DAILY [id number]-[id number] 250-250-65 mg (Excedrin Migraine) 1 tab PO Q4-6H PRN blood pressure monitor (Blood Pressure Kit) As directed [id number]-cwct 50-300-40 mg (Fioricet) 1 cap PO Q8H clonidine HCl 0.1 mg PO BID clotrimazole 1% 1 appl topical BID 2 weeks cyanocobalamin (vitamin B-12) 1,000 mcg PO DAILY cyclobenzaprine 10 mg PO TID dexamethasone 1 mg PO DAILY ferrous sulfate (Feosol) 325 mg PO DAILY hydralazine 100 mg PO TID 30 days ketorolac 10 mg PO Q8H PRN levothyroxine 137 mcg PO DAILY lisinopril 20 mg PO BID 90 days metoclopramide HCl (Reglan) 10 mg PO Q6H PRN metoclopramide HCl (Reglan) 10 mg PO Q6H PRN metronidazole 500 mg PO BID 7 days nifedipine ER 60 mg PO BID 30 days potassium chloride ER 20 mEq PO DAILY propranolol 20 mg PO BID sennosides-docusate sodium 8.6-50 mg (Senna Plus) 2 tab-caps (2 x 8.6-50 mg) PO BEDTIME 90 days sumatriptan succinate (Imitrex) 50 mg PO .QD prn PRN terconazole 0.8% 1 appful vaginal BEDTIME 3 days HPI Comments Details: 49-year-old female coming in today for follow up of primary hyperaldosteronism, left adrenal gland adenoma. Otherwise PMHx significant for hypothyroidism, migraines. HPI from prior visit CT adrenal 11/27/2024: Showed a 1.4 cm left adrenal gland nodule with-16 Hounsfield units precontrast density, with could washout, consistent with lipid rich 1.4 cm left adrenal gland adenoma. CTA adrenal was done by Nephrology, as patient has a history of resistant/labile hypertension. BP today on 02/28/2025 198/118 , BP on 02/05/2025: 198/118, 162/110, BP 01/21/25 188/112 BP repeated by me 190/120 mm Hg Current BP meds (on the days she works she takes the meds at 7 AM and 3 pm for BID) Hydralazine 50 mg t.i.d. (started 02/05/2025) Lisinopril 20 mg b.i.d. Nifedipine 60 mg b.i.d. Propranolol 10 mg b.i.d. She was on spironolactone 100 mg daily which was stopped 02/05/2025 by Nephrology 1 hydralazine was started. This was stopped as then dissipated she would need AVS for further workup of primary hyperaldosteronism. No history of stroke or OR. Father: age 62 years had OR and stroke Blood work from August 2024 showed plasma renin activity suppressed at 0.47, with a aldosterone of 11, while potassium was 3. Given that potassium was low, aldosterone could have been even much higher if the potassium was repleted. Patient was on both spironolactone as well as lisinopril at this time. Given she was on IRINA inhibitor and despite that her plasma renin activity suppressed, this is highly suspicious for primary hyperaldosteronism. No confirmatory testing done however aldosterone her blood pressure has been uncontrolled so hard to do confirmatory testing with saline suppression or 24 hour urine evaluation. Apparently she was referred for AVS by nephrology , then was cancelled due to being on spironolactone, even though her renin activity was <1, could have had the procedure.is waiting to heat about next appointment. She also has a history of hypokalemia, on potassium 20 mEq extended release daily started 02/05/25 08/01/2024: Renal ultrasound showed no evidence of renal artery stenosis. No history of ROLANDO, denies apneic episodes or snoring Evaluation for hypercortisolism No history of fragility fracture, no history of DM, Reports easy bruising , no proximal muscle weakness, no abdominal striae No skin infections No skin thinning Does have some facial plethora Interval history 03/14/2025 Current BP meds Hydralazine 100 mg t.i.d. (started 02/05/2025, uptitrated to 100 03/05/25) Lisinopril 20 mg b.i.d. Nifedipine 60 mg b.i.d. Propranolol 20 mg b.i.d. Clonidine 0.1 mg b.i.d. (started 03/05/2025) Has appointment with vascular 03/15/25 to consult for AVS at [facility] Continues on potassium 20 mEq daily. Blood pressure today 160/100, improved from before. She complains of headache, took Excedrin with some improvement 02/28/2025: Potassium 3.6, normal kidney function, renin 0.96, aldosterone 10, DHEA-S 99, acth 13, random cortisol 9.4 03/05/2025: Dexamethasone suppression test with cortisol of 1.4, acth less than 5, normal cortisol for dexamethasone suppression test 03/06/2025:24 hour urine collection showed normal cortisol, 24 hour urine sodium of 134, 24 hour urine aldosterone level pending Physical exam General: sitting comfortably in no acute distress HEENT: normocephalic/atraumatic, Neck: supple, symmetrical Cardiac: normal heart sounds Pulm: normal breath sounds B/L, no added breath sounds Abd: not distended, no tenderness Extremities: no edema, no signs of myxedema, no proximal muscle weakness, no abdominal striae Neuro: AAO x3, Speech: normal, no facial droop, moving all 4 extremities Laboratory Tests 04/29/20 02/19/23 05/25/24 09:05 08:33 14:42 Sodium Potassium 4.2 3.9 3.3 Creatinine Estimated GFR Renin Renin Activity Aldosterone Aldosterone/Renin Ratio Random Cortisol Plasma Free Metaneph Plasma Free Normeta Plas Total Metaneph 06/27/24 08/20/24 10/05/24 07:52 07:41 09:28 Sodium Potassium 3.0 L 3.0 L 3.4 Creatinine Estimated GFR Renin 0.54 Renin Activity 0.47 Aldosterone 11 Aldosterone/Renin Ratio Random Cortisol Plasma Free Metaneph <25 Plasma Free Normeta 48 Plas Total Metaneph 48 10/29/24 11/19/24 01/03/25 16:32 08:52 14:44 Sodium 140 Potassium 3.5 3.3 Creatinine 0.66 Estimated GFR > 60 Renin 0.57 Renin Activity 0.47 Aldosterone 9 Aldosterone/Renin Ratio 19.1 Random Cortisol 10.9 Plasma Free Metaneph Plasma Free Normeta Plas Total Metaneph 01/21/25 09:58 Sodium 137 Potassium 3.2 L Creatinine 0.61 Estimated GFR > 60 Renin Renin Activity Aldosterone Aldosterone/Renin Ratio Random Cortisol Plasma Free Metaneph Plasma Free Normeta Plas Total Metaneph Laboratory Tests 02/28/25 03/05/25 03/06/25 09:48 07:32 07:00 Sodium 140 Potassium 3.6 Creatinine 0.59 Estimated GFR > 60 Renin 0.96 Aldosterone 10 DHEA Sulfate 99 Random Cortisol 9.4 1.4 ACTH 13 <5 L Urine Total Volume 975 Ur 24 Hour Volume 975 Ur Creatinine mg/dL 135.26 Ur Creatinine 24 Hour 1.33 Ur Sodium 24 Hour 134.6 Ur Free Cortisol 24 Hr 8.0 CLINICAL HISTORY: E87.6 - Hypokalemia 11/27/24 CT abdomen with and without contrast Comparison: None Findings: No consolidation or effusion. There is a 1.4 cm nodule within the left adrenal gland. Precontrast density estimated -16 Hounsfield units. Venous phase density 17 Hounsfield units and density on delayed imaging -5 Hounsfield units. Unremarkable right adrenal gland. 3 mm nonobstructive calculus within the upper pole of the left kidney. Remaining abdominal organs unremarkable. No calcified gallstones. No bowel obstruction, pneumoperitoneum, or pneumatosis. No acute fracture. IMPRESSION: 1. There is a 1.4 cm adenoma within the left adrenal gland. 2. There is a small left-sided periumbilical hernia containing fat. 3. Small nonobstructive calculus within the left kidney. This document has been electronically signed by: Nu Mohan MD on 11/27/2024 13:07:39 US RETROPERITONEAL LIMITED (RENAL ONLY) 08/01/24 CLINICAL INFORMATION: Essential hypertension. COMPARISON: Abdominal ultrasound 07/08/2015 TECHNIQUE: Multiple grayscale images of bilateral kidneys FINDINGS: RIGHT KIDNEY: 10.7 x 4 x 6.5 cm (SAG x AP x TRV). The kidney is normal in size, contour, and echogenicity. Renal cortical thickness is normal . No calculi or focal parenchymal lesions. No hydronephrosis. LEFT KIDNEY: 12 x 5.4 x 6 cm (SAG x AP x TRV). The kidney is normal in size, contour, and echogenicity. Renal cortical thickness is normal. No calculi or focal parenchymal lesions. No hydronephrosis. US/US renal BI IMPRESSION: No renal calculus or hydronephrosis. Unremarkable sonographic appearance of bilateral kidneys. Electronically signed by: Patricio Mata MD 08/02/2024 08:[address] [facility] Medical History (Updated 02/28/25 @ 08:29 by Rosavla Price MD) Primary hyperaldosteronism Migraine Cervical cancer screening Abnormal uterine bleeding (AUB) Friable cervix Encounter for gynecological examination Nasal pain Blood pressure elevated without history of HTN Breast cancer screening by mammogram Erythema of groin Breast lump Migraine with aura Cervical polyp Menorrhagia Menometrorrhagia Legally blind in left eye, as defined in [place] Urge incontinence Metrorrhagia Anemia Impaired glucose tolerance Obesity (BMI 30-39.9) Hypercholesterolemia Hypothyroid Surgical History History of total abdominal hysterectomy History of excision of lesion (04/07/23) History of bilateral tubal ligation Hx of tubal ligation Hx of cervical polypectomy Family History Maternal Aunt Family history of breast cancer Maternal Uncle History of brain tumor Paternal Aunt Hx of myocardial infarction Skin cancer Father Myocardial infarction Mother Alive and well Social History Housing: House Alcohol intake: never Patient Tobacco Use Status: Never used Tobacco e-Cigarette/Vaping Use: Never Used Second Hand Smoke Exposure: No Advance Directives Date on File: 07/17/20 service: No Current occupational status: employed Gender identity: Female Cognitive needs: No Hearing needs: No Vision needs: Yes (glasses) Female Reproductive History Menstrual Age of Menarche: 10 Physical Exam Vital Signs: Last Vital Signs Pulse 90 03/14/25 13:31 BP 154/104 H 03/14/25 13:31 Pulse Ox 97 03/14/25 13:31 Oxygen Delivery Method Room Air 03/14/25 13:31 BMI result Body Mass Index 33.8 Assessment & Plan Assessment & Plan (1) Primary hyperaldosteronism: Code(s): E26.09 - Other primary hyperaldosteronism Category: Medical Plan: 49-year-old female with past medical history significant for resistant hypertension, hypokalemia, migraine headaches, hypothyroidism coming in today for follow up of primary hyperaldosteronism. She has had a history of resistant hypertension for many years, She has been managed by Nephrology. Renal ultrasound from December 2024 did not show any renal artery stenosis. She does not have any history of ROLANDO. She is noted to have hypokalemia, now on potassium supplements 20 mEq daily since 02/05/2025. Blood work done August 2024, showed suppressed plasma renin activity of 0.47 while she was on an IRINA inhibitor with high aldosterone level of 11, when potassium was 3, given potassium was low, aldosterone would have even been higher if potassium was repleted, all of this is very highly suspicious of primary hyperaldosteronism. Confirmatory testing not done, however likely it was not done because she has had such high blood pressures it would be risky to do a saline suppression test or a load her with sodium for [address] adrenal from November 2024 showed a left 1.4 cm lipid rich adenoma -16 Hounsfield units, with a an unremarkable right adrenal gland. At this point I agree that I would proceed with the adrenal vein sampling, to see if she lateralizes. She is young and requiring a lot of medications for blood pressure control and despite that has poor control, she would be an excellent candidate for surgery. She was on spironolactone 100 mg daily which was stopped 02/05/2025 by Nephrology when hydralazine was started. Spironolactone was stopped in anticipation of AVS for further workup of primary hyperaldosteronism. Patient has an appointment with [facility] IR 03/15/2025 for further evaluation Blood work from September 2024 showed normal plasma metanephrine normetanephrine levels, ruled out pheochromocytoma. 02/28/2025: Potassium 3.6, normal kidney function, renin 0.96, aldosterone 10, DHEA-S 99, acth 13, random cortisol 9.4 03/05/2025: Dexamethasone suppression test with cortisol of 1.4, acth less than 5, normal cortisol for dexamethasone suppression test 03/06/2025:24 hour urine collection showed normal cortisol, 24 hour urine sodium of 134, 24 hour urine aldosterone level pending Plan: -continue current blood pressure regimen -keep an eye on blood pressure at home, if numbers improved to 150 systolic and less than 100 diastolic, please let us know so we can assess whether we can perform salt loading test. -Follow up 24 hour urine aldosterone level -follow up with IR referral for [facility] For AVS sampling -continue potassium 20 mEq daily -follow up in 4 weeks (2) Adrenal adenoma: Code(s): D35.00 - Benign neoplasm of unspecified adrenal gland Category: Medical Qualifiers: Laterality: left Qualified Code(s): D35.02 - Benign neoplasm of left adrenal gland Plan: See above (3) Hypokalemia: Code(s): E87.6 - Hypokalemia Category: Medical Plan: See above Plan I spent 30 minutes in reviewing the record, seeing the patient and documenting in the medical record. Coding Level of Care Code Est Pt Level 4 (42435) Diagnoses Primary hyperaldosteronism E26.09 Adenoma of left adrenal gland D35.02 Laterality: left Hypokalemia E87.6 Time Spent (min) 30
[2025-03-14 13:31] VITALS: BP 154/104; PULSE 90; O2SAT 97; BMI 33.8
[2025-03-14 13:55] VITALS: BP 160/100
== END 2025-03-14 13:58 | disposition home or self-care (01) ==
LOC: HO.ENCR 13:29
PROVIDERS: PCP Internal Medicine; Visit Provider Student in an Organized Health Care Education/Training Program
DX: E26.09 Other primary hyperaldosteronism (principal); D35.02 Benign neoplasm of left adrenal gland; E87.6 Hypokalemia
CPT/HCPCS: 99214

== ENCOUNTER → 2025-03-14 13:28 | Outpatient (BNVA) | payer OTHER, SELFPAY | PROVIDERS: PCP Internal Medicine; Visit Provider Student in an Organized Health Care Education/Training Program ==

== ENCOUNTER 2025-04-01 07:59 | Outpatient (AMB) | payer OTHER, SELFPAY ==
[2025-04-01 08:38] VITALS: BP 190/110; PULSE 76; O2SAT 99; BMI 33.6
--- NOTE | 2025-04-01 08:38 | A.OFFVIS_ITS ---
Vital Signs 04/01/25 08:38 Height 5 ft 4 in Weight 196 lb BMI 33.6 BP 190/110 H Blood Pressure Location Lt brachial Position Sitting Pulse 76 Pulse Source Pulse Oximeter Pulse Oximetry (%) 99 Oxygen Delivery Method Room Air Intake Visit Reasons: INP-Migraine Intake Note: New patient for migraines sleep difficulties. Currently has a migraine and says she experiences them every day. Inspector Electromechanical Required: No Accompanied by: Self / Same As Patient Allergies No Known Allergies Allergy (Verified 04/08/25 12:40) HPI Comments Details: The patient is a 49-year-old female presenting with migraine headaches. The migraines began at the age of 13 and have progressively worsened over time, becoming more severe and frequent. The patient experiences migraines twice a week, lasting three to four days, with symptoms including nausea, dizziness, and light sensitivity. She previously saw neurology for a short time, but this was years ago. The patient has a history of labile blood pressure, which has been challenging to control despite medication adjustments. She has also recently been diagnosed with primary hyperaldosteronism with a left adrenal adenoma. She is now being followed closely by both nephrology and endocrinology, and patient is being considered for surgical intervention for her primary hyperaldosteronism. She is currently on lisinopril, propranolol, clonidine and hydralazine, with recent increases in clonidine and hydralazine dosage due to persistent hypertension. Today, patient's blood pressure is 190/110, for which patient states this is an improvement as her blood pressure prior was over 200/110s. She denies any chest pain, shortness of breath dizziness at this time. Though she does endorse having the start of a typical migraine at this time. The patient has a left adrenal adenoma, which is being monitored by endocrinology, and a procedure is planned to assess its contribution to her hypertension. The patient reports anxiety and depression, which she manages without therapy, a nd has a history of thyroid disorder for which she takes supplements. She also has a history of kidney stones and acid reflux, with constipation being a frequent issue. 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 She experiences leg cramps and numbness in her hands and feet, which are persistent issues. Past Medical History - Labile blood pressure - Left adrenal adenoma - Hypertension - Anemia- secondary to menorrhagia, and thus underwent hysterectomy - Anxiety - Depression - Thyroid disorder - Kidney stones - Acid reflux - Constipation - Menorrhagia - Visual impairment- left eye blindness, right eye legally blind- congenital. 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 Denies history of seizures or head injuries. - Cardiovascular: Reports labile blood pressure. Denies chest pain or palpitations. - Gastrointestinal: Reports acid reflux and constipation. Denies loose stools. - Endocrine: Reports thyroid disorder. Denies other endocrine issues. - Musculoskeletal: Reports leg cramps and back pain. Denies joint pain. - Psychiatric: Reports anxiety and depression. Denies seeing a therapist. - Genitourinary: Reports history of kidney stones. Denies current urinary symptoms. - Ophthalmologic: Reports visual impairment and blurry vision. Denies recent changes in vision. Family History - No family history of migraine or headache disorders Results - Imaging: Head CT in 2023 was unremarkable. Lifestyle considerations: Sleep routine: Usual bedtime: 9am and wake-up time: 11am Sleep difficulties: Denies: Snoring, bruxism. Endorses: snoring, restlessness/leg pain/back pain, Fatigue, leg Cramps- at rest and in calves when walking. Caffeine use: 1-2 12oz can of pepsi Substance use: denies Exercise:?active at work, but no structured exercise Employment:?7pm-7am- difficulty falling asleep upon returning home. 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 Headache questionnaire:? Age/time of onset: 13 year old- started as a constant migraine- notes she did not use glasses as a student despite her vision deficits, and this worsened in high school when she could no longer choose to sit in the front of the classroom. Then worsened at age 15-16 years old when her menstrual cycle became irregular and heavy- and then the migraines further worsened. Preceding causes: none Previous work-up: [address]- unremarkable. 2024 HST- inconclusive Types of headache disorders: 1 Typical headache characteristics: Prodrome symptoms: blurry vision, squinting Aura: blurry vision, w/ moving black dots. Pain intensity: mild-severe Location, quality, characteristics: pressure pain under bilateral eyes, and expands into frontal and temporal region, and into the top of her head through her neck and whole face. Associated symptoms: watery eyes, red eyes, photophobia, phonophobia, allodynia, nausea, sometimes vomiting, spinning dizziness, lightheadedness, fatigue- but cannot sleep, cognitive difficulties, activity intolerance. Postdrome: Persistent mild headache Triggers: lights, stress Aggravating factors: Everything (light, sound, etc.) Time of day: No specific time of day Frequency: constant, w/ severe migraine twice a week Duration: 3-4 days How does headache impact your life? has to leave work Current acute medication use/interventions: Tylenol 1000mg every 4 hours alternating w/ OTC Excedrin migraine every 4 hours. Has metoclopramide- uses prn for nausea. Current preventative medication use: Propranolol 20mg bid- used for blood pressure control Current non-pharmacological interventions: rest, ice PFSH Medical History (Updated 04/15/25 @ 09:21 by LISA Barney) Migraine with aura Primary hyperaldosteronism Migraine Cervical cancer screening Abnormal uterine bleeding (AUB) Friable cervix Encounter for gynecological examination Nasal pain Blood pressure elevated without history of HTN Breast cancer screening by mammogram Erythema of groin Breast lump Cervical polyp Menorrhagia Menometrorrhagia Legally blind in left eye, as defined in [place] Urge incontinence Metrorrhagia Anemia Impaired glucose tolerance Obesity (BMI 30-39.9) Hypercholesterolemia Hypothyroid Surgical History History of total abdominal hysterectomy History of excision of lesion (04/07/23) History of bilateral tubal ligation Hx of tubal ligation Hx of cervical polypectomy Family History Maternal Aunt Family history of breast cancer Maternal Uncle History of brain tumor Paternal Aunt Hx of myocardial infarction Skin cancer Father Myocardial infarction Mother Alive and well Social History Housing: House Alcohol intake: never Patient Tobacco Use Status: Never used Tobacco e-Cigarette/Vaping Use: Never Used Second Hand Smoke Exposure: No Advance Directives Date on File: 07/17/20 service: No Current occupational status: employed Gender identity: Female Cognitive needs: No Hearing needs: No Vision needs: Yes (glasses) Female Reproductive History Menstrual Age of Menarche: 10 Review of Systems ENT Reports Normal hearing present Neuro Reports Normal hearing present Physical Exam Vital Signs: Last Vital Signs Pulse 76 04/01/25 08:38 BP 190/110 H 04/01/25 08:38 Pulse Ox 99 04/01/25 08:38 Oxygen Delivery Method Room Air 04/01/25 08:38 BMI result Body Mass Index 33.6 Const Orientation/consciousness: patient oriented x3 Resp Effort & Inspection: normal respiratory effort and able to speak in complete sentences Auscultation: clear to auscultation bilaterally Cardio Rate: regular rate Rhythm: regular rhythm Neuro Other: Mild diffuse palpable tenderness across bilateral forehead and maxillary sinus region General: patient oriented x3 Cranial nerves: Yes Facial sensation intact/muscles of mastication intact, Yes Bilaterally intact EOM present, Yes Nystagmus not present, Yes Midline tongue present, Yes Symmetric palate elevation present, Yes Normal hearing present, Yes Ability to bilaterally rotate head present, Yes Ability to bilaterally elevate shoulders present and Yes Other cranial nerve findings present (Legally blind. Mild right lower facial weakness.) Cognition (Neuro): normal cognition Gait exam (Neuro): Normal gait present Motor exam (neuro): 5/5 motor strength present throughout Deep tendon reflexes (DTR's): Right triceps reflex intensity grade: 2+, Left triceps reflex intensity grade: 2+, Rt Biceps (C5, C6): 2+, Left biceps reflex intensity grade: 2+, Right brachioradialis reflex intensity grade: 2+, Left brachioradialis reflex intensity grade: 2+, Right patellar reflex intensity grade: 2+ and Left patellar reflex intensity grade: 2+ Coordination: [id number] test normal, tandem gait normal and Romberg test negative Pupils: Normal pupillary reactivity/response: bilateral Psych Appearance: grossly normal Mental Status: mental status grossly normal Speech and movement: Normal speech and movement present Affect: normal affect Attitude: cooperative Thought process: Normal thought process present Assessment & Plan Assessment & Plan (1) Worsening headaches: Code(s): R51.9 - Headache, unspecified Category: Medical (2) Chronic migraine without aura: Code(s): G43.709 - Chronic migraine without aura, not intractable, without status migrainosus Category: Medical Qualifiers: Status migrainosus presence: without status migrainosus Intractability: not intractable Qualified Code(s): G43.709 - Chronic migraine without aura, not intractable, without status migrainosus (3) Migraine with aura: Comment: Sees moving black dots Code(s): G43.109 - Migraine with aura, not intractable, without status migrainosus Category: Medical Qualifiers: Status migrainosus presence: without status migrainosus Intractability: not intractable Qualified Code(s): G43.109 - Migraine with aura, not intractable, without status migrainosus (4) Snoring: Code(s): R06.83 - Snoring Category: Medical (5) Hypersomnolence: Code(s): G47.10 - Hypersomnia, unspecified Category: Medical Plan Discussion Notes I discussed with the patient the management of her chronic migraines, including the potential use of newer injectable migraine treatments such as Ajovy, pending insurance approval. We also considered the use of Ubrelvy as an as-needed medication for acute migraine attacks. I recommended a brain MRI to rule out any underlying issues due to her poorly controlled blood pressure. Additionally, we discussed lifestyle modifications, including sleep hygiene and dietary adjust ments, to help manage her migraines and blood pressure. I provided information on light sensitivity management and suggested an in-lab PSG sleep study to further evaluate her sleep patterns, as her previous October 2024 HST was inconclusive. Patient was informed and verbally consented to the use an Ambien scribe for clinic note documentation during this visit. Plan Pt advised to undergo: * Brain MRI with and without contrast to assess for secondary etiologies of worsening headaches * In-lab PSG sleep study to assess for sleep apnea and Periodic limb movement of sleep (PLMS) in setting uncontrolled hypertension For overall headache management: * Optimize good self-care, including but not limited to maintaining a healthy diet, adequate fluid intake, adequate sleep, and engaging in regular physical activity. * Track headaches, especially after any treatment regimen changes. Migraine [employer] is one of many headache tracking apps. * Information shared on non-pharmacological interventions which may help to alleviate headache attack burden. For light sensitivity: Patient may benefit from trying blue light filtering glasses, green glasses, green light therapy. For acute headache treatment: Discussed importance of taking acute medications at the first sign of headache, however stressed importance of avoiding acute medication overuse (especially with combined headache medications). Trial Ubrogepant (Ubrelvy) 100mg tab, 1/2 - 1 tab (50-100mg) at onset of headache, may repeat in 2 hours. Max of 2 tabs (200mg) per 24 hours. May adjunct with OTC Tylenol 650mg q 4 hours, Ibuprofen 600mg q 6 hours, or Naproxen 440mg q 12 hrs prn. Do not take w/ Butalbital (Fioricet or Fiorinal). Potential adverse effects, include but are not limited to fatigue, nausea, dry mouth, constipation Previous acute migraine medication trials: Fioricet and sumatriptan- ineffective. Acute migraine medication contraindications: All triptans and DHE due to uncontrolled hypertension. For headache prevention medication: Preventative medications should be taken routinely as prescribed for best effect, it may take several weeks for full effect to take effect. Start Riboflavin 400mg qam Start Magnesium 400mg qhs- may help leg movements as well. Start Ajovy 225mg/1.5ml autoinjector- injection 225mg subcutaneously once a month. Potential adverse effects of Ajovy include but are not limited to injection site reactions. Pt advised Ajovy will likely require insurance prior authorization. Ajovy should be refrigerated until 1 hr prior use. Once approved and available patient would like in office injection training. Continue propranolol 20 mg b.i.d. Continue lisinopril, nifedipine, drowsy, clonidine- per nephrology, endocrinology. Previous migraine prevention medication trials: Migraine prevention medication contraindications: Topiramate due to h/o kidney stones. All TCAs due to uncontrolled hypertension. Aimovig/Qulipta due to constipation. Case discussed with Dr Abril Sheth. Will follow-up upon review of above and patient to follow-up in clinic in 3-4 months or sooner prn. Orders: Orders RT home sleep study 04/01/25 R06.83 - Snoring, I10 - Essential (primary) hypertension, G47.10 - Hypersomnia, unspecified MR head/brain wo/w con 04/01/25 R51.9 - Headache, unspecified, I10 - Essential (primary) hypertension, E26.09 - Other primary hyperaldosteronism Medications: New ubrogepant (Ubrelvy) take at onset of migraine, may repeat in 2hrs (may take w/ Tylenol) 50 - 100 mg (0.5 - 1 x 100 mg) PO ONCE PRN 16 tabs 3RF migraine headache 30 days magnesium oxide may hold for loose stools 400 mg PO BEDTIME 30 tabs 6RF 30 days riboflavin (vitamin B2) 400 mg PO DAILY 30 tabs 6RF 30 days fremanezumab-vfrm (Ajovy) administer 225mg sc q month 225 mg (1.5 mL) subcut ONCE 1.5 mL 6RF 30 days Discontinued sumatriptan succinate do not exceed 4 doses per 24 hrs Discontinued Reason: Doctor's Order 50 mg PO .QD prn PRN 10 tabs 12RF migraine headache Coding Level of Care Code New Pt Level 4 (18673) Diagnoses Worsening headaches R51.9 Chronic migraine without aura without status migrainosus, not intractable G43.709 Status migrainosus presence: without status migrainosus Intractability: not intractable Migraine with aura and without status migrainosus, not intractable G43.109 Status migrainosus presence: without status migrainosus Intractability: not intractable Snoring R06.83 Hypersomnolence G47.10
== END 2025-04-01 10:06 | disposition home or self-care (01) ==
LOC: HO.HSMS 08:00
PROVIDERS: PCP Internal Medicine; Visit Provider Nurse Practitioner Family
DX: R51.9 Headache, unspecified (principal); G43.709 Chronic migraine without aura, not intractable, without status migrainosus; G43.109 Migraine with aura, not intractable, without status migrainosus; R06.83 Snoring; G47.10 Hypersomnia, unspecified
CPT/HCPCS: 99204

== ENCOUNTER 2025-04-04 13:41 | Outpatient (AMB) | payer OTHER, SELFPAY ==
[2025-04-04 14:35] VITALS: BP 140/90; PULSE 79; O2SAT 99; BMI 33.9
--- NOTE | 2025-04-04 14:35 | HO.NEPHOV_ITS ---
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 She has no H/O chronic diarrhea. She denies nausea or vomiting. She has been having labile blood pressure and her anti hypertensive medications have been adjusted. 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 She has normal renal function. She has no hypomagnesemia, polyuria or metabolic acidosis. She has no family H/O Denice's /Bartter/Giltelman syndrome. She never had hypokalemic periodic paralysis. She does monitor her BP at home. Her BP is better but not optimally controlled. She denies any headaches, double vision, edema or orthostatic symptoms. She has a 1.4 cm adenoma within the left adrenal gland by CT scan. She has seen in Endocrinology. She is going to get adrenal vein sampling study. Her migraine is not controlled and is going to see Neurology. ON LICENSE OF [facility] Medical History Primary hyperaldosteronism Migraine Cervical cancer screening Abnormal uterine bleeding (AUB) Friable cervix Encounter for gynecological examination Nasal pain Blood pressure elevated without history of HTN Breast cancer screening by mammogram Erythema of groin Breast lump Migraine with aura Cervical polyp Menorrhagia Menometrorrhagia Legally blind in left eye, as defined in [place] Urge incontinence Metrorrhagia Anemia Impaired glucose tolerance Obesity (BMI 30-39.9) Hypercholesterolemia Hypothyroid Surgical History History of total abdominal hysterectomy History of excision of lesion (04/07/23) History of bilateral tubal ligation Hx of tubal ligation Hx of cervical polypectomy Family History Maternal Aunt Family history of breast cancer Maternal Uncle History of brain tumor Paternal Aunt Hx of myocardial infarction Skin cancer Father Myocardial infarction Mother Alive and well Social History Housing: House Alcohol intake: never Patient Tobacco Use Status: Never used Tobacco e-Cigarette/Vaping Use: Never Used Second Hand Smoke Exposure: No Advance Directives Date on File: 07/17/20 service: No Current occupational status: employed Gender identity: Female Cognitive needs: No Hearing needs: No Vision needs: Yes (glasses) Female Reproductive History Menstrual Age of Menarche: 10 Review of Systems Const All systems reviewed & are unremarkable except as noted in HPI and below Physical Exam Vital Signs: Last Vital Signs Pulse 79 04/04/25 14:35 BP 140/90 H 04/04/25 14:35 Pulse Ox 99 04/04/25 14:35 Oxygen Delivery Method Room Air 04/04/25 14:35 BMI result Body Mass Index 33.9 Const General: comfortable and no acute distress Orientation/consciousness: patient oriented x3 HEENT Head: Yes normocephalic Mouth: Normal oral and palatal mucosa present Eyes EOM: EOMs intact bilaterally Neck Neck: Yes supple Resp Auscultation: clear to auscultation bilaterally Cardio Jugular venous distension: no JVD Rate: regular rate GI Palpation (GI): Soft to palpation Auscultation: normal bowel sounds General: Yes no CVA tenderness Back/Spine/Pelvis Back: no CVA tenderness Skin General skin exam: no rashes or lesions noted Neuro General: patient oriented x3 and moves all extremities Extrem General: Yes no pedal edema Results Reviewed Nephrology Results: Sodium, (135-145) 140 mmol/L 02/28/25 Potassium, (3.3-5.1) 3.6 mmol/L 02/28/25 Chloride, (96-108) 104 mmol/L 02/28/25 Carbon Dioxide, (22-29) 26 mmol/L 02/28/25 BUN, (9-16) 6 mg/dL L 02/28/25 Creatinine, (0.5-1.4) 0.59 mg/dL 02/28/25 Calcium, (8.4-10.2) 9.2 mg/dL Δ 02/28/25 Renal US 08/01/24 Assessment & Plan Assessment & Plan (1) Hypertension: Code(s): I10 - Essential (primary) hypertension Category: Medical Qualifiers: Hypertension type: primary hypertension Qualified Code(s): I10 - Essential (primary) hypertension (2) Primary hyperaldosteronism: Code(s): E26.09 - Other primary hyperaldosteronism Category: Medical (3) Hypokalemia: Code(s): E87.6 - Hypokalemia Category: Medical (4) Adrenal adenoma: Code(s): D35.00 - Benign neoplasm of unspecified adrenal gland Category: Medical Qualifiers: Laterality: left Qualified Code(s): D35.02 - Benign neoplasm of left adrenal gland Plan Differentials are broad for hypokalemia and hypertension. W/U is in progress. She has been having labile blood pressure and her anti hypertensive medications have been adjusted. She has normal renal function. She has no hypomagnesemia, polyuria or metabolic acidosis. She has no family H/O Denice's /Bartter/Giltelma n syndrome. She never had hypokalemic periodic paralysis. She does monitor her BP at home. She may having increased mineralocorticoid activity. She has a 1.4 cm adenoma within the left adrenal gland by CT scan. Small nonobstructive calculus within the left kidney. She can continue current medication regimen for now. I referred her to Neurology for migraine. Endocrinology has seen for adrenal adenoma. Answered all questions Coding Level of Care Code Est Pt Level 4 (82290) Diagnoses Primary hypertension I10 Hypertension type: primary hypertension Primary hyperaldosteronism E26.09 Hypokalemia E87.6 Adenoma of left adrenal gland D35.02 Laterality: left
== END 2025-04-04 14:53 | disposition home or self-care (01) ==
LOC: HO.HKAS 13:42
PROVIDERS: PCP Internal Medicine; Visit Provider Internal Medicine Nephrology
DX: I10 Essential (primary) hypertension (principal); E26.09 Other primary hyperaldosteronism; E87.6 Hypokalemia; D35.02 Benign neoplasm of left adrenal gland
CPT/HCPCS: 99214

== ENCOUNTER 2025-04-08 12:18 | Outpatient (AMB) | payer OTHER, SELFPAY ==
[2025-04-08 12:34] VITALS: BP 170/108; PULSE 77; O2SAT 99; BMI 34.1
--- NOTE | 2025-04-08 12:34 | A.OFFVIS_ITS ---
Vital Signs 04/08/25 12:34 04/08/25 13:03 Height 5 ft 4 in Weight 198 lb 10.184 oz BMI 34.1 BP 170/108 H 172/100 H Blood Pressure Location Lt brachial Lt brachial Position Sitting Pulse 77 Pulse Source Pulse Oximeter Pulse Oximetry (%) 99 Oxygen Delivery Method Room Air Intake Visit Reasons: Primary hyperaldosteronism Intake Note: Patient present today for Primary hyperaldosteronism. Photo Intern Required: No Accompanied by: Self / Same As Patient Allergies No Known Allergies Allergy (Verified 04/08/25 12:40) Medication List - Last Reconciled 04/08/25 by Rosalva Price MD amoxicillin 500 mg PO BID 10 days ascorbate calcium (vitamin C) 500 mg PO DAILY mbxvcky-npqmhlttcsvco-viunojaq 250-250-65 mg (Excedrin Migraine) 1 tab PO Q4-6H PRN blood pressure monitor (Blood Pressure Kit) As directed nxposnewpb-rhollvozugydx-rcnh 50-300-40 mg (Fioricet) 1 cap PO Q8H clonidine HCl 0.1 mg PO BID clotrimazole 1% 1 appl topical BID 2 weeks cyanocobalamin (vitamin B-12) 1,000 mcg PO DAILY cyclobenzaprine 10 mg PO TID dexamethasone 1 mg PO DAILY ferrous sulfate (Feosol) 325 mg PO DAILY fremanezumab-vfrm (Ajovy) 225 mg (1.5 mL) subcut ONCE 30 days hydralazine 100 mg PO TID 30 days ketorolac 10 mg PO Q8H PRN levothyroxine 137 mcg PO DAILY lisinopril 20 mg PO BID 90 days magnesium oxide 400 mg PO BEDTIME 30 days metoclopramide HCl (Reglan) 10 mg PO Q6H PRN metoclopramide HCl (Reglan) 10 mg PO Q6H PRN metronidazole 500 mg PO BID 7 days nifedipine ER 60 mg PO BID 30 days potassium chloride ER 20 mEq PO DAILY propranolol 20 mg PO BID riboflavin (vitamin B2) 400 mg PO DAILY 30 days sennosides-docusate sodium 8.6-50 mg (Senna Plus) 2 tab-caps (2 x 8.6-50 mg) PO BEDTIME 90 days terconazole 0.8% 1 appful vaginal BEDTIME 3 days ubrogepant (Ubrelvy) 50 - 100 mg (0.5 - 1 x 100 mg) PO ONCE PRN 30 days HPI Comments Details: 49-year-old female coming in today for follow up of primary hyperaldosteronism, left adrenal gland adenoma. Otherwise PMHx significant for hypothyroidism, migraines. HPI from prior visit CT adrenal 11/27/2024: Showed a 1.4 cm left adrenal gland nodule with-16 Hounsfield units precontrast density, with could washout, consistent with lipid rich 1.4 cm left adrenal gland adenoma. CTA adrenal was done by Nephrology, as patient has a history of resistant/labile hypertension. BP today on 02/28/2025 198/118 , BP on 02/05/2025: 198/118, 162/110, BP 01/21/25 188/112 BP repeated by me 190/120 mm Hg Current BP meds (on the days she works she takes the meds at 7 AM and 3 pm for BID) Hydralazine 50 mg t.i.d. (started 02/05/2025) Lisinopril 20 mg b.i.d. Nifedipine 60 mg b.i.d. Propranolol 10 mg b.i.d. She was on spironolactone 100 mg daily which was stopped 02/05/2025 by Nephrology 1 hydralazine was started. This was stopped as then dissipated she would need AVS for further workup of primary hyperaldosteronism. No history of stroke or MN. Father: age 62 years had MN and stroke Blood work from August 2024 showed plasma renin activity suppressed at 0.47, with a aldosterone of 11, while potassium was 3. Given that potassium was low, aldosterone could have been even much higher if the potassium was repleted. Patient was on both spironolactone as well as lisinopril at this time. Given she was on IRINA inhibitor and despite that her plasma renin activity suppressed, this is highly suspicious for primary hyperaldosteronism. No confirmatory testing done however aldosterone her blood pressure has been uncontrolled so hard to do confirmatory testing with saline suppression or 24 hour urine evaluation. Apparently she was referred for AVS by nephrology , then was cancelled due to being on spironolactone, even though her renin activity was <1, could have had the procedure.is waiting to heat about next appointment. She also has a history of hypokalemia, on potassium 20 mEq extended release daily started 02/05/25 08/01/2024: Renal ultrasound showed no evidence of renal artery stenosis. No history of ROLANDO, denies apneic episodes or snoring Evaluation for hypercortisolism No history of fragility fracture, no history of DM, Reports easy bruising , no proximal muscle weakness, no abdominal striae No skin infections No skin thinning Does have some facial plethora Interval history 04/08/2025 Current BP meds Hydralazine 100 mg t.i.d. (started 02/05/2025, uptitrated to 100 03/05/25) Lisinopril 20 mg b.i.d. Nifedipine 60 mg b.i.d. Propranolol 20 mg b.i.d. Clonidine 0.1 mg b.i.d. (started 03/05/2025) Met with with vascular 03/15/25 Dr. Moreno to consult for AVS at [facility] , procedure scheduled for 04/24/2025 Continues on potassium 20 mEq daily. Blood pressure today 172/100, again elevated today but she is actively having a migraine episode. Says blood pressures were better at home. 02/28/2025: Potassium 3.6, normal kidney function, renin 0.96, aldosterone 10, DHEA-S 99, acth 13, random cortisol 9.4 03/05/2025: Dexamethasone suppression test with cortisol of 1.4, acth less than 5, normal cortisol for dexamethasone suppression test 03/06/2025:24 hour urine collection showed normal cortisol, 24 hour urine sodium of 134, 24 hour urine aldosterone level 14.7 Physical exam General: sitting comfortably in no acute distress HEENT: normocephalic/atraumatic, Neck: supple, symmetrical Cardiac: normal heart sounds Pulm: normal breath sounds B/L, no added breath sounds Abd: not distended, no tenderness Extremities: no edema, no signs of myxedema, no proximal muscle weakness, no abdominal striae Neuro: AAO x3, Speech: normal, no facial droop, moving all 4 extremities Laboratory Tests 04/29/20 02/19/23 05/25/24 09:05 08:33 14:42 Sodium Potassium 4.2 3.9 3.3 Creatinine Estimated GFR Renin Renin Activity Aldosterone Aldosterone/Renin Ratio Random Cortisol Plasma Free Metaneph Plasma Free Normeta Plas Total Metaneph 06/27/24 08/20/24 10/05/24 07:52 07:41 09:28 Sodium Potassium 3.0 L 3.0 L 3.4 Creatinine Estimated GFR Renin 0.54 Renin Activity 0.47 Aldosterone 11 Aldosterone/Renin Ratio Random Cortisol Plasma Free Metaneph <25 Plasma Free Normeta 48 Plas Total Metaneph 48 10/29/24 11/19/24 01/03/25 16:32 08:52 14:44 Sodium 140 Potassium 3.5 3.3 Creatinine 0.66 Estimated GFR > 60 Renin 0.57 Renin Activity 0.47 Aldosterone 9 Aldosterone/Renin Ratio 19.1 Random Cortisol 10.9 Plasma Free Metaneph Plasma Free Normeta Plas Total Metaneph 01/21/25 09:58 Sodium 137 Potassium 3.2 L Creatinine 0.61 Estimated GFR > 60 Renin Renin Activity Aldosterone Aldosterone/Renin Ratio Random Cortisol Plasma Free Metaneph Plasma Free Normeta Plas Total Metaneph Laboratory Tests 02/28/25 03/05/25 03/06/25 09:48 07:32 07:00 Sodium 140 Potassium 3.6 Creatinine 0.59 Estimated GFR > 60 Renin 0.96 Aldosterone 10 DHEA Sulfate 99 Random Cortisol 9.4 1.4 ACTH 13 <5 L Urine Total Volume 975 Ur 24 Hour Volume 975 Ur Creatinine mg/dL 135.26 Ur Creatinine 24 Hour 1.33 Ur Sodium 24 Hour 134.6 Ur Free Cortisol 24 Hr 8.0 Laboratory Tests 03/06/25 07:00 Ur Total Volume 975 Ur Aldosterone 24 Hr 14.7 Urine Creatinine 1.31 CLINICAL HISTORY: E87.6 - Hypokalemia 11/27/24 CT abdomen with and without contrast Comparison: None Findings: No consolidation or effusion. There is a 1.4 cm nodule within the left adrenal gland. Precontrast density estimated -16 Hounsfield units. Venous phase density 17 Hounsfield units and density on delayed imaging -5 Hounsfield units. Unremarkable right adrenal gland. 3 mm nonobstructive calculus within the upper pole of the left kidney. Remaining abdominal organs unremarkable. No calcified gallstones. No bowel obstruction, pneumoperitoneum, or pneumatosis. No acute fracture. IMPRESSION: 1. There is a 1.4 cm adenoma within the left adrenal gland. 2. There is a small left-sided periumbilical hernia containing fat. 3. Small nonobstructive calculus within the left kidney. This document has been electronically signed by: Nu Mohan MD on 11/27/2024 13:07:39 US RETROPERITONEAL LIMITED (RENAL ONLY) 08/01/24 CLINICAL INFORMATION: Essential hypertension. COMPARISON: Abdominal ultrasound 07/08/2015 TECHNIQUE: Multiple grayscale images of bilateral kidneys FINDINGS: RIGHT KIDNEY: 10.7 x 4 x 6.5 cm (SAG x AP x TRV). The kidney is normal in size, contour, and echogenicity. Renal cortical thickness is normal . No calculi or focal parenchymal lesions. No hydronephrosis. LEFT KIDNEY: 12 x 5.4 x 6 cm (SAG x AP x TRV). The kidney is normal in size, contour, and echogenicity. Renal cortical thickness is normal. No calculi or focal parenchymal lesions. No hydronephrosis. US/US renal BI IMPRESSION: No renal calculus or hydronephrosis. Unremarkable sonographic appearance of bilateral kidneys. Electronically signed by: Patricio Mata MD 08/02/2024 08:43 AM EDT [facility] Medical History Primary hyperaldosteronism Migraine Cervical cancer screening Abnormal uterine bleeding (AUB) Friable cervix Encounter for gynecological examination Nasal pain Blood pressure elevated without history of HTN Breast cancer screening by mammogram Erythema of groin Breast lump Migraine with aura Cervical polyp Menorrhagia Menometrorrhagia Legally blind in left eye, as defined in [place] Urge incontinence Metrorrhagia Anemia Impaired glucose tolerance Obesity (BMI 30-39.9) Hypercholesterolemia Hypothyroid Surgical History History of total abdominal hysterectomy History of excision of lesion (04/07/23) History of bilateral tubal ligation Hx of tubal ligation Hx of cervical polypectomy Family History Maternal Aunt Family history of breast cancer Maternal Uncle History of brain tumor Paternal Aunt Hx of myocardial infarction Skin cancer Father Myocardial infarction Mother Alive and well Social History Housing: House Alcohol intake: never Patient Tobacco Use Status: Never used Tobacco e-Cigarette/Vaping Use: Never Used Second Hand Smoke Exposure: No Advance Directives Date on File: 07/17/20 service: No Current occupational status: employed Gender identity: Female Cognitive needs: No Hearing needs: No Vision needs: Yes (glasses) Female Reproductive History Menstrual Age of Menarche: 10 Physical Exam Vital Signs: Last Vital Signs Pulse 77 04/08/25 12:34 BP 170/108 H 04/08/25 12:34 Pulse Ox 99 04/08/25 12:34 Oxygen Delivery Method Room Air 04/08/25 12:34 BMI result Body Mass Index 34.1 Assessment & Plan Assessment & Plan (1) Primary hyperaldosteronism: Code(s): E26.09 - Other primary hyperaldosteronism Category: Medical Plan: 49-year-old female with past medical history significant for resistant hypertension, hypokalemia, migraine headaches, hypothyroidism coming in today for follow up of primary hyperaldosteronism. She has had a history of resistant hypertension for many years, She has been managed by Nephrology. Renal ultrasound from December 2024 did not show any renal artery stenosis. She does not have any history of ROLANDO. She is noted to have hypokalemia, now on potassium supplements 20 mEq daily since 02/05/2025. Blood work done August 2024, showed suppressed plasma renin activity of 0.47 while she was on an IRINA inhibitor with high aldosterone level of 11, when potassium was 3, given potassium was low, aldosterone would have even been higher if potassium was repleted, all of this is very highly suspicious of primary hyperaldosteronism. Confirmatory testing not done, however she has had such high blood pressures it would be risky to do a saline suppression test or a load her with sodium for 24 hour urine evaluation. However in February 2025 24 hour urine collection while her sodium level was not elevated at 134 her urine aldosterone was elevated at 14.7. This is again highly suspicious for primary hyperaldosteronism. CT adrenal from November 2024 showed a left 1.4 cm lipid rich adenoma -16 Hounsfield units, with a an unremarkable right adrenal gland. She is scheduled for adrenal vein sampling, at on 04/24/2025 [facility] to see if she lateralizes. She is young and requiring a lot of medications for blood pressure control and despite that has poor control, she would be an excellent candidate for surgery. She was on spironolactone 100 mg daily which was stopped 02/05/2025 by Nephrology when hydralazine was started. Spironolactone was stopped in anticipation of AVS for further workup of primary hyperaldosteronism. Blood work from September 2024 showed normal plasma metanephrine normetanephrine levels, ruled out pheochromocytoma. 02/28/2025: Potassium 3.6, normal kidney function, renin 0.96, aldosterone 10, DHEA-S 99, acth 13, random cortisol 9.4 03/05/2025: Dexamethasone suppression test with cortisol of 1.4, acth less than 5, normal cortisol for dexamethasone suppression test 03/06/2025:24 hour urine collection showed normal cortisol, 24 hour urine sodium of 134, 24 hour urine aldosterone 14.7 Plan: -continue current blood pressure regimen -keep an eye on blood pressure at home, maintain a log and bring to next appointment -follow up with IR referral for [facility] For AVS sampling -continue potassium 20 mEq daily -do blood work on the 22 of April 2 days before your procedure, we will make sure potassium levels are good. -follow up in 2 weeks after AVS procedure (2) Adrenal adenoma: Code(s): D35.00 - Benign neoplasm of unspecified adrenal gland Category: Medical Qualifiers: Laterality: left Qualified Code(s): D35.02 - Benign neoplasm of left adrenal gland Plan: See above (3) Hypokalemia: Code(s): E87.6 - Hypokalemia Category: Medical Plan: See above Plan I spent 30 minutes in reviewing the record, seeing the patient and documenting in the medical record. Orders: Orders Basic Metabolic Panel 04/22/25 E26.09 - Other primary hyperaldosteronism Renin 04/22/25 E26.09 - Other primary hyperaldosteronism Aldosterone 04/22/25 E26.09 - Other primary hyperaldosteronism Patient Instructions: Continue to monitor bPs at home, please try to take at least every other day , please maintain a lot and bring it to appointments Do blood work on April morning Then procedure on April with Dr. Moreno Please make sure they fax results to me and 2-3 days prior to my appointment call the office to ensure we have the results of the procedure Follow up with me 02 of May Coding Level of Care Code Est Pt Level 4 (39137) Diagnoses Primary hyperaldosteronism E26.09 Adenoma of left adrenal gland D35.02 Laterality: left Hypokalemia E87.6 Time Spent (min) 30
[2025-04-08 13:03] VITALS: BP 172/100
== END 2025-04-08 13:04 | disposition home or self-care (01) ==
LOC: HO.ENCR 12:18
PROVIDERS: PCP Internal Medicine; Visit Provider Student in an Organized Health Care Education/Training Program
DX: E26.09 Other primary hyperaldosteronism (principal); D35.02 Benign neoplasm of left adrenal gland; E87.6 Hypokalemia
CPT/HCPCS: 99214

== ENCOUNTER 2025-04-22 07:47 | Outpatient (REF) | payer OTHER, SELFPAY ==
[2025-04-22 08:12] LABS: MANUAL DIFF FLAG NO
[2025-04-22 08:44] LABS: Hematocrit 39.8 % (37.0-47.0); Hemoglobin 13.3 g/dl (12.0-16.0); Imm Gran Abs Auto 0.02 X10*3/uL (0.00-0.03); Imm Gran Pct Auto 0.3 % (0.0-0.4); Lymphocytes Absolute Auto 1.4 X10*3/uL (1.2-4.9); Mean Corpuscular HGB Conc 33.4 g/dl (31.0-35.0); Mean Corpuscular Hemoglobin 30.0 pg (27.0-33.0); Mean Corpuscular Volume 89.6 fL (80.0-98.0); NRBC Abs Auto 0.000 X10*3/uL (0.0-0.012); NRBC Pct Auto 0.0 /100WBC (0.0-0.2); Platelet Count 287 X10*3/uL (160-400); Red Blood Count 4.44 X10*6/uL (4.20-5.50); White Blood Count 6.4 X10*3/uL (4.8-10.8)
[2025-04-22 09:24] LABS: Alanine Aminotransferase 16 U/L (0-31); Albumin Level 4.3 g/dL (3.5-5.0); Alkaline Phosphatase 86 U/L (39-117); Anion Gap 9 (12-20); Aspartate Amino Transferase 18 U/L (5-31); Blood Urea Nitrogen 9 mg/dL (9-16); Calcium 9.0 mg/dL (8.4-10.2); Carbon Dioxide 27 mmol/L (22-29); Chloride 108 mmol/L (96-108); Estimated Glomerular Filt Rate > 60; Iron 45 mcg/dL (30-160); Percent Iron Saturation 15 % (15-50); Potassium 3.6 mmol/L (3.3-5.1); Sodium 140 mmol/L (135-145); Total Iron Binding Capacity 309 mcg/dL (228-428); Total Protein 7.6 g/dL (6.5-8.0); Unsaturated Iron Binding 264 ug/dL
[2025-04-22 09:35] LABS: Free T4 (Free Thyroxine) 0.82 ng/dL (0.71-1.85)
[2025-04-22 09:43] LABS: Ferritin 32 ng/mL (10-250)
[2025-04-22 09:45] LABS: Folate 10.9 ng/mL (> or = 4.0); Vitamin B12 292 pg/mL (200-900)
== END 2025-04-22 07:48 | disposition home or self-care (01) ==
LOC: HO.LAB 07:47
PROVIDERS: Nurse Practitioner Family; PCP Internal Medicine; Visit Provider Student in an Organized Health Care Education/Training Program
DX: Z00.00 Encounter for general adult medical examination without abnormal findings (principal); D64.9 Anemia, unspecified; D50.9 Iron deficiency anemia, unspecified; R51.9 Headache, unspecified; D50.0 Iron deficiency anemia secondary to blood loss (chronic); R06.83 Snoring; G47.10 Hypersomnia, unspecified; G25.81 Restless legs syndrome; R79.89 Other specified abnormal findings of blood chemistry; E26.09 Other primary hyperaldosteronism
CPT/HCPCS: 36415; 80053; 82088; 82607; 82728; 82746; 83090; 83540; 83921; 84244; 84439; 84443; 85025

== ENCOUNTER 2025-04-29 13:41 | Outpatient (REF) | payer OTHER, SELFPAY ==
--- OUTSIDE RECORDS SUMMARY | 2025-04-24 14:35 | XMS_ITS | Continuity of Care Document ---
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 Role Phone Jill Calderón MD Primary Care Physician [phone] Encounter [facility] Date(s): 04/24/25 - 04/24/[address] [id number] Discharge Disposition: A-D/C Home Attending Physician: Earlene Moreno MD Admitting Physician: Earlene Moreno MD Referring Physician: Earlene Moreno MD Encounter Type: Disch Daystay Allergies, Adverse Reactions, Alerts No Known Allergies Medications cloNIDine 0.1 mg oral tablet 0.1 mg, 1, tablet, By Mouth, 2 times a day, # 60 tablet, Refills 0, Maintenance, 04/24/25 7:25:00 AMEDT, Partial fill upon patient request if the prescription is for a schedule II opioid drug. Start Date: 04/24/25 Status: Ordered Quantity: 60.0 Unit: tablet Repeat number: 1 Colace sodium 100 mg oral capsule 100 mg, 1, capsule, By Mouth, 2 times a day, PRN, # 30 capsule, Refills 0, Tot. Refills 0, Maintenance, for constipation, 03/27/24 5:00:00 PM EDT, Route to Pharmacy Electronically, [facility]/pharmacy #[id number],Partial fill upon patient request if the prescription is for a schedule II opioid drug., 03/17/24 Start Date: 03/27/24 Status: Ordered Quantity: 30.0 Unit: capsule Repeat number: 1 Cyanocobalamin = 1,000 mcg, By Mouth, Daily, 0 Refills, Maintenance, 04/24/25 7:26:00 AM EDT, Partial fill upon patient request if the prescription is for a schedule II opioid drug. Start Date: 04/24/25 Status: Ordered Repeat number: 1 cyclobenzaprine 10 mg oral tablet 10 mg, 1, tablet, By Mouth, 3 times a day, PRN, # 90 tablet, Refills 0, Maintenance, Spasm, :27:00 AM EDT, Partial fill upon patient request if the prescription is for a schedule II opioid drug. Start Date: 04/24/25 Status: Ordered Quantity: 90.0 Unit: tablet Repeat number: 1 dexamethasone 1 mg oral tablet 1 tablet = 1 mg, By Mouth, Daily, 0 Refills, Maintenance, 04/24/25 7:26:00 AM EDT, Partial fill uponpatient request if the prescription is for a schedule II opioid drug. Start Date: 04/24/25 Status: Ordered Repeat number: 1 ferrous sulfate 325 mg oral tablet 1 tablet = 325 mg, By Mouth, Daily, # 30 tablet, 3 Refills, Maintenance, 11/18/23 9:37:00 AM EST, Tablet, [facility] #[id number], Partial fill upon patient request if the prescription is for a schedule II opioid drug. Start Date: 11/18/23 Status: Ordered Quantity: 30.0 Unit: tablet Repeat number: 4 Fioricet with Codeine 50 mg-300 mg-40 mg-30 mg oral capsule 1 capsule, By Mouth, Every 8 hours, PRN as needed for headache, 0 Refills, Maintenance, 04/24/25 7:32:00 AM EDT, Capsule, Partial fill upon patient request if the prescription is for a schedule II opioid drug. Start Date: 04/24/25 Status: Ordered Repeat number: 1 fluconazole 150 mg oral tablet 1 tablet = 150 mg, By Mouth, Once, # 1 tablet, 0 Refills, Soft Stop, 04/09/24 11:52:00 AM EDT, Tablet, [facility]/pharmacy #[id number], Partial fill upon patient request if the prescription is for a schedule II opioid drug., 162, cm, 04/09/24 11:38:00 EDT, Height, 85.1, kg, 04/09/24 11:38:00 EDT, Dry Weight Start Date: 04/09/24 Status: Ordered Quantity: 1.0 Unit: tablet Repeat number: 1 fluconazole 150 mg oral tablet 1 tablet = 150 mg, By Mouth, Once, # 1 tablet, 0 Refills, Soft Stop, 05/07/24 12:18:00 PM EDT, Tablet, [facility]/pharmacy #[id number], Partial fill upon patient request if the prescription is for a schedule II opioid drug., 162, cm, 04/09/24 11:38:00 EDT, Height, 85.1, kg, 04/09/24 11:38:00 EDT, Dry Weight Start Date: 05/07/24 Status: Ordered Quantity: 1.0 Unit: tablet Repeat number: 1 hydrALAZINE 100 mg oral tablet 1 tablet = 100 mg, By Mouth, 3 times a day, # 60 tablet, 0 Refills, Maintenance, 04/24/25 7:28:00 AMEDT, Tablet, Partial fill upon patient request if the prescription is for a schedule II opioid drug. Start Date: 04/24/25 Status: Ordered Quantity: 60.0 Unit: tablet Repeat number: 1 Hydrochlorothiazide = 50 mg, By Mouth, Daily in AM, 0 Refills, Maintenance, 03/12/24 10:11:00 AM EDT, Partial fill upon patient request if the prescription is for a schedule II opioid drug. Start Date: 03/12/24 Status: Ordered Repeat number: 1 ibuprofen 800 mg oral tablet 800 mg, 1, tablet, By Mouth, Every 8 hours, # 30 tablet, Refills 0, Tot. Refills 0, Maintenance, 03/27/24 5:00:00 PM EDT, Route to Pharmacy Electronically, [facility]/pharmacy #[id number], Partial fill upon patient request if the prescription is for a schedule II opioid drug., 03/17/24 Start Date: 03/27/24 Status: Ordered Quantity: 30.0 Unit: tablet Repeat number: 1 ketorolac 10 mg oral tablet 1 tablet = 10 mg, By Mouth, Every 8 hours, PRN Pain , Moderate, 0 Refills, Maintenance, 04/24/25 7:32:00 AM EDT, Partial fill upon patient request if the prescription is for a schedule II opioid drug. Start Date: 04/24/25 Status: Ordered Repeat number: 1 levothyroxine 0.025 mg oral tablet 1 tablet = 25 mcg, By Mouth, Daily at bedtime, 0 Refills, Maintenance, 03/12/24 10:11:00 AM EDT, Partial fill upon patient request if the prescription is for a schedule II opioid drug. Start Date: 03/12/24 Status: Ordered Repeat number: 1 lisinopril 20 mg oral tablet 20 mg, 1, tablet, By Mouth, 2 times a day, Refills 0, Maintenance, 04/24/25 7:28:00 AM EDT, Partial fill upon patient request if the prescription is for a schedule II opioid drug. Start Date: 04/24/25 Status: Ordered Repeat number: 1 magnesium oxide 400 mg oral capsule 1 capsule = 400 mg, By Mouth, Daily at bedtime, # 75 capsule, 0 Refills, Maintenance, 04/24/25 7:33:00 AM EDT, Capsule, Partial fill upon patient request if the prescription is for a schedule II opioid drug. Start Date: 04/24/25 Status: Ordered Quantity: 75.0 Unit: capsule Repeat number: 1 metoclopramide 10 mg oral tablet 1 tablet = 10 mg, By Mouth, 4 times a day, PRN Nausea & Vomiting, # 120 tablet, 0 Refills, Maintenance, 04/24/25 7:31:00 AM EDT, Tablet, Partial fill upon patient request if the prescription is for a schedule II opioid drug. Start Date: 04/24/25 Status: Ordered Quantity: 120.0 Unit: tablet Repeat number: 1 MiraLax oral powder for reconstitution = 17 Gm, By Mouth, Daily, # 510 Gm, 0 Refills, Maintenance, 03/27/24 5:00:00 PM EDT, REC Powder, [facility]/pharmacy #[id number], Partial fill upon patient request if the prescription is for a schedule II opioid drug., 17 Gm By Mouth Daily, 03/17/24 Start Date: 03/27/24 Status: Ordered Quantity: 510.0 Unit: g Repeat number: 1 NIFEdipine 60 mg oral tablet, extended release 60 mg, 1, tablet, By Mouth, 2 times a day, Refills 0, Maintenance, 04/24/25 7:29:00 AM EDT, Partial fill upon patient request if the prescription is for a schedule II opioid drug. Start Date: 04/24/25 Status: Ordered Repeat number: 1 NyQuil Cold & Flu (Alcohol Free) By Mouth, Every 6 hours, PRN as needed for cough and congestion, 0 Refills, Maintenance, 03/23/24 11:57:00 AM EDT, Partial fill upon patient request if the prescription is for a schedule II opioid drug. Start Date: 03/23/24 Status: Ordered Repeat number: 1 ondansetron 4 mg oral tablet, disintegrating 1 tablet = 4 mg, By Mouth, Every 8 hours, PRN Nausea & Vomiting, # 10 tablet, 0 Refills, Maintenance, 04/13/21 11:53:00 AM EDT, Tablet, [facility] #[id number], Partial fill upon patient request if the prescription is for a schedule II opioid drug. Start Date: 04/13/21 Status: Ordered Quantity: 10.0 Unit: tablet Repeat number: 1 potassium chloride 20 mEq oral tablet, extended release 1 tablet = 20 mEq, By Mouth, Daily, # 30 tablet, 0 Refills, Maintenance, 04/24/25 7:29:00 AM EDT, ERTablet, Partial fill upon patient request if the prescription is for a schedule II opioid drug. Start Date: 04/24/25 Status: Ordered Quantity: 30.0 Unit: tablet Repeat number: 1 propranolol 20 mg oral tablet 20 mg, 1, tablet, By Mouth, 2 times a day, Refills 0, Maintenance, 04/24/25 7:30:00 AM EDT, Partial fill upon patient request if the prescription is for a schedule II opioid drug. Start Date: 04/24/25 Status: Ordered Repeat number: 1 riboflavin 400 mg oral capsule 1 capsule = 400 mg, By Mouth, Daily, # 30 capsule, 5 Refills, Maintenance, 04/24/25 7:30:00 AM EDT, Partial fill upon patient request if the prescription is for a schedule II opioid drug. Start Date: 04/24/25 Status: Ordered Quantity: 30.0 Unit: capsule Repeat number: 1 Senokot 187 mg oral tablet 2 tablet = 17.2 mg, By Mouth, Daily at bedtime, PRN for constipation, # 50 tablet, 0 Refills, Maintenance, 04/09/24 11:48:00 AM EDT, Tablet, [facility]/pharmacy #[id number], Partial fill upon patient request if theprescription is for a schedule II opioid drug., 162, cm, 04/09/24 11:38:00 EDT, Height, 85.1, kg, 04/09/24 11:38:00 EDT, Dry Weight Start Date: 04/09/24 Status: Ordered Quantity: 50.0 Unit: tablet Repeat number: 1 simethicone 80 mg oral tablet, chewable 80 mg, 1, tablet, Chew, 4 times a day, # 36 tablet, Refills 0, Tot. Refills 0, Maintenance, :00:00 PM EDT, Route to Pharmacy Electronically, [facility]/pharmacy #[id number], Partial fill upon patient request if the prescription is for a schedule II opioid drug., 03/17/24 Start Date: 03/27/24 Status: Ordered Quantity: 36.0 Unit: tablet Repeat number: 1 SUMAtriptan 50 mg oral tablet 0 Refills, Maintenance, 03/15/25 12:59:00 PM EDT, Partial fill upon patient request if the prescription is for a schedule II opioid drug. Start Date: 03/15/25 Status: Ordered Repeat number: 1 Tylenol Extra Strength 500 mg oral tablet 2 tablet = 1,000 mg, By Mouth, Every 6 hours, PRN as needed for pain, # 50 tablet, 0 Refills, Maintenance, 03/27/24 5:00:00 PM EDT, Tablet, [facility]/pharmacy #[id number], Partial fill upon patient request if theprescription is for a schedule II opioid drug., 03/17/24 Start Date: 03/27/24 Status: Ordered Quantity: 50.0 Unit: tablet Repeat number: 1 Vitamin C 500 mg oral tablet 1 tablet = 500 mg, By Mouth, Daily, # 30 tablet, 0 Refills, Maintenance, 04/24/25 7:25:00 AM EDT, Tablet, Partial fill upon patient request if the prescription is for a schedule II opioid drug. Start Date: 04/24/25 Status: Ordered Quantity: 30.0 Unit: tablet Repeat number: 1 Problem List Condition Confirmation Course Effective Dates Status Health St atus Informant Anemia Confirmed Active Anxiety Confirmed Active Thyroid disease Confirmed Active HTN (hypertension) Confirmed Active Migraines Confirmed Active Obese class I Confirmed Active Results Radiology Reports * Exam Date Time Procedure Performing Provider Status 04/24/25 8:39 AM IR Venogram Adrenal Bilat Auth (Verified) Notes: (IR Venogram Adrenal Bilat) Reason For Exam: adrenal vein sampling;Other: IR Venogram Adrenal Bilat Patient: WALLER,DAVID Study Date: 04/24/2025 Performing: Earlene Moreno MD Referring: Rosalva Price MD : 1975 Age: 49 Gender: FEMALE Indication: Hypertension, hyperlipidemia hypokalemia, hyperaldosteronism. Technique: The groin was prepped and draped in standard sterile fashion. Lidocaine was administered for local anesthesia. Using ultrasound guidance with acquisition of permanent images, the common femoral vein was cannulated with a micropuncture needle. A 6 Serbian sheath was placed. Using ultrasound guidance with acquisition of permanent images, the great saphenous vein was cannulated with a micropuncture needle. A 6 Serbian sheath was placed. Through the fast sheath, a SIM 2 catheter was advanced into the IVC over a Glidewire. The Barkley 2 catheter was used to select the left adrenal vein. Through the second sheath, C1 catheter was advanced over a Glidewire into the IVC. The C1 catheter was used to select the right adrenal vein. Cannulation of each vein was confirmed using contrast injection. A Transcend guidewire was advanced coaxially through the C1 catheter into the vein. DynaCT was performed to confirm cannulation of the right adrenal vein with axial, sagittal, and coronal reformatted images rendered and reviewed on an independent workstation and permanent images saved to PACS. Systemic anticoagulation performed with 50 units/kg of IV heparin. Samples were drawn from the right adrenal, left adrenal, and iliac veins simultaneously but timed in 1 minute offsets to ensure against potential result mixup. The samples were labeled at 9:40 AM, 9:41 AM, 9:42 AM and again at 9:48 AM, 9:49 AM, and 9:50 AM. Once preliminary stat cortisol results were obtained from the lab confirming satisfactory adrenal vein cannulation, 250 mcg of cosyntropin were administered by IV push. Post stimulation samples were obtained 10 and 20 minutes after cosyntropin administration. The sheaths were removed and hemostasis obtained using manual compression. Skin glue was applied to both dermatotomies. Findings: Patent, compressible right common and great saphenous veins.. Normal-appearing right adrenal vein and communication of the retroperitoneal vein. Normal left adrenal vein. Apparent satisfactory cannulation of the right adrenal vein. Stat cortisol results: Right adrenal vein 9:40 AM: 21.7 Left adrenal vein 9:41 AM: 18.6 Iliac vein 9:42 AM: 9.1 Right adrenal vein 9:48 AM: 20.7 Left adrenal vein 9:49 AM: 16.1 Iliac vein 9:50 AM: 8.0 This confirms the access for catheterization of the adrenal veins. Aldosterone results are a send out and usually take 2 to 3 weeks to result. Once these results are back, an addendum will be made to this report. Fluoroscopy time and dose Total Fluoro Time: 4.7 mins Total dose 146 mGy Total DAP 4094.15 - ?Gy/m2 Contrast used Contrast used: IsoVue_300 50 ml's Local Anesthetic Lidocaine 1% 10 ml's SQ Lidocaine 1% 10 ml's SQ Moderate sedation was provided From 09:04:17 to 11:22:59 Moderate Sedation Agent Dose Route Time By Fentanyl 50 mcg IV 09:04:17 LD Versed 2 mg IV 09:04:20 LD Fentanyl 50 mcg IV 10:49:34 LD Versed 1 mg IV 10:49:37 LD Signed By Earlene Moreno MD On 04/24/2025 11:37:17 AM Earlene Moreno MD Dictated By: Earlene Moreno MD Dictated Date/Time: 04/24/25 8:39 am Reviewed By: Earlene Moreno MD Signed By: Earlene Moreno MD Signed Date/Time: 04/24/25 8:39 am Transcribed By: SHENA Transcribed Date/Time: 04/24/25 8:39 am * Exam Date Time Procedure Performing Provider Status 04/24/25 8:39 AM IR End of Case Report Aut h (Verified) IR End of Case Report Social History Social History Type Response Smoking Status Never (less than 100 in lifetime) entered on: 11/14/23 Sex Sex Representation Female (finding) Hospital Progress note * Rody Dao RN: SIGN, MODIFY, SIGN, MODIFY, SIGN, MODIFY, PERFORM, SIGN, VERIFY Event Display: Progress Note Hospital Authored Date: [id number] Patient: DAVID WALLER Age: 49 years Sex: Female : 1975 Associated Diagnoses: None Author: Rody Dao RN Findings Narrative/Incidental patient arrived to unit for adrenal vein sampling, A&Ox4, BP elevated, other vs stable. IV started to the R hand and labs drawn, IVF as ordered. home med review and MDS assessment completed. off unit to [facility] at 0750. * Rody Dao RN: PERFORM Event Display: Progress Note Hospital Authored Date: [id number] patient returned from procedure, A&Ox4, bp is 189/97 (baseline) other VS stable. denies any pain at site of procedure, R groin dressing is CDI, surrounding area is soft with palpation. patient needing to void urgently when returning to unit. Bedpan was used and voided large clear yellow urine. call cruz in reach and being monitored. currently on strict bedrest with keeping R leg straight and p atient is aware of this. * Rody Dao RN: PERFORM Event Display: Progress Note Hospital Authored Date: R PP is + with palpation and + CMS to the R foot and toes. * Rody Dao RN: PERFORM Event Display: Progress Note Hospital Authored Date: [id number] OOB after the 2 hours bedrest and amb to and from the bathroom, voided again. dressing remains CDI to the R groin. tylenol was given for headache with some effect. patient ready for d/c and post procedure d/c instructions reviewed with patient and verbalizes understanding. IV was removed. patient left the unit ambulatory with all belongings and in stable condition accompanied by a responsible adult. declined w/c. Patient was met in the lobby for paperwork about returning to work with weight lifting restrictions. Note * Rody Dao RN: PERFORM Event Display: Discharge/Transfer Note Hospital Authored Date: [id number] Nursing Discharge Note Entered On: 04/24/2025 15:03 EDT Performed On: 04/24/2025 14:35 EDT by Rody Dao RN Nursing Discharge Note 2 Discharge Time : 04/24/2025 14:35 EDT Discharge Level of Care at Discharge : Home/Nursing Home/Foster Care Patient Left Unit Via : Ambulatory Patient Accompanied Off Unit with : Responsible adult DC Instructions Provided & Signed by Pt : Yes Patient Understands D/C Instructions : Yes Patient Instructions Discharge Signed : Yes Did Pt have Specialty Bed or Wound Vac : No Rody Dao RN 04/24/2025 15:02 EDT Patient Care team information Care Team Personnel Name: Jill Calderón MD Position: Reference Physician Member Role: PCP Address: [address] [place] [address] Telecom: Care Team Related Persons Name: RED ADAMSON Insurance Providers Guarantor name: [employer] Health Plan Information #: 1 [facility] Payer Identifier: [employer] Member Number: [id number] Group Number: [id number] Subscriber Identifier: [id number] Relationship to Subscriber: self Coverage Type: Other Private Insurance Coverage Verification Date: [employer] Telecom: [employer] Address:
== END 2025-04-29 13:42 | disposition home or self-care (01) ==
LOC: HO.MAMMO 13:41
PROVIDERS: PCP Internal Medicine; Visit Provider Internal Medicine
DX: Z12.31 Encounter for screening mammogram for malignant neoplasm of breast (principal)
CPT/HCPCS: 77063; 77067

== ENCOUNTER → 2025-04-29 14:00 | Outpatient (BNV) | payer OTHER, SELFPAY | PROVIDERS: PCP Internal Medicine; Visit Provider Internal Medicine | DX: Z12.31 Encounter for screening mammogram for malignant neoplasm of breast (principal) | CPT/HCPCS: 77063; 77067 ==

== ENCOUNTER → 2025-05-12 19:30 | Outpatient (REF) | payer OTHER, SELFPAY | LOC: HO.SL 19:30 | PROVIDERS: PCP Internal Medicine; Visit Provider Nurse Practitioner Family | DX: R06.83 Snoring (principal); G47.10 Hypersomnia, unspecified; G25.81 Restless legs syndrome | CPT/HCPCS: 95810 ==

== ENCOUNTER → 2025-05-12 22:13 | Outpatient (BNV) | payer OTHER, SELFPAY | PROVIDERS: PCP Internal Medicine; Visit Provider Psychiatry & Neurology Neurology | DX: R06.83 Snoring (principal); G47.10 Hypersomnia, unspecified | CPT/HCPCS: 95810 ==

== ENCOUNTER 2025-05-23 09:19 | Outpatient (AMB) | payer OTHER, SELFPAY ==
[2025-05-23 09:21] VITALS: BP 140/88; PULSE 65; O2SAT 96; BMI 34.1
--- NOTE | 2025-05-23 09:21 | MHC.OFFVIS ---
Vital Signs 05/23/25 09:21 Height 5 ft 4 in Weight 198 lb 6.656 oz BMI 34.1 BP 140/88 H Blood Pressure Location Rt brachial Position Sitting Pulse 65 Pulse Source Pulse Oximeter Pulse Oximetry (%) 96 Oxygen Delivery Method Room Air Intake Visit Reasons: Primary hyperaldosteronism Intake Note: Patient present today for Primary hyperaldosteronism office visit. Special Crimes Investigator Required: No Accompanied by: Self / Same As Patient Allergies No Known Allergies Allergy (Verified 05/23/25 09:22) Medication List - Last Reconciled 05/23/25 by Rosalva Price MD ascorbate calcium (vitamin C) 500 mg PO DAILY 30 days zsyeyyb-ldirdvfebglnr-vlowqjbc 250-250-65 mg (Excedrin Migraine) 1 tab PO Q4-6H PRN blood pressure monitor (Blood Pressure Kit) As directed awzlevembi-incyqgwhwmjkv-wwwg 50-300-40 mg (Fioricet) 1 cap PO Q8H clonidine HCl 0.1 mg PO BID clotrimazole 1% 1 appl topical BID 2 weeks cyanocobalamin (vitamin B-12) 1,000 mcg PO DAILY 30 days cyclobenzaprine 10 mg PO TID dexamethasone 1 mg PO DAILY ferrous sulfate (Feosol) 325 mg PO DAILY 30 days hydralazine 100 mg PO TID 30 days ketorolac 10 mg PO Q8H PRN levothyroxine 137 mcg PO DAILY lisinopril 10 mg PO DAILY magnesium oxide 400 mg PO BEDTIME 30 days memantine 7 mg PO DAILY 14 days metoclopramide HCl (Reglan) 10 mg PO Q6H PRN metoclopramide HCl (Reglan) 10 mg PO Q6H PRN metronidazole 500 mg PO BID 7 days nifedipine ER 60 mg PO BID 30 days potassium chloride ER 20 mEq PO DAILY propranolol 20 mg PO BID riboflavin (vitamin B2) 400 mg PO DAILY 30 days sennosides-docusate sodium 8.6-50 mg (Senna Plus) 2 tab-caps (2 x 8.6-50 mg) PO BEDTIME 90 days terconazole 0.8% 1 appful vaginal BEDTIME 3 days ubrogepant (Ubrelvy) 50 - 100 mg (0.5 - 1 x 100 mg) PO ONCE PRN 30 days HPI Comments Details: 49-year-old female coming in today for follow up of primary hyperaldosteronism, left adrenal gland adenoma. Otherwise PMHx significant for hypothyroidism, migraines. HPI from prior visit CT adrenal 11/27/2024: Showed a 1.4 cm left adrenal gland nodule with-16 Hounsfield units precontrast density, with could washout, consistent with lipid rich 1.4 cm left adrenal gland adenoma. CTA adrenal was done by Nephrology, as patient has a history of resistant/labile hypertension. BP today on 02/28/2025 198/118 , BP on 02/05/2025: 198/118, 162/110, BP 01/21/25 188/112 BP repeated by me 190/120 mm Hg Current BP meds (on the days she works she takes the meds at 7 AM and 3 pm for BID) Hydralazine 50 mg t.i.d. (started 02/05/2025) Lisinopril 20 mg b.i.d. Nifedipine 60 mg b.i.d. Propranolol 10 mg b.i.d. She was on spironolactone 100 mg daily which was stopped 02/05/2025 by Nephrology 1 hydralazine was started. This was stopped as then dissipated she would need AVS for further workup of primary hyperaldosteronism. No history of stroke or ND. Father: age 62 years had ND and stroke Blood work from August 2024 showed plasma renin activity suppressed at 0.47, with a aldosterone of 11, while potassium was 3. Given that potassium was low, aldosterone could have been even much higher if the potassium was repleted. Patient was on both spironolactone as well as lisinopril at this time. Given she was on IRINA inhibitor and despite that her plasma renin activity suppressed, this is highly suspicious for primary hyperaldosteronism. No confirmatory testing done however aldosterone her blood pressure has been uncontrolled so hard to do confirmatory testing with saline suppression or 24 hour urine evaluation. Apparently she was referred for AVS by nephrology , then was cancelled due to being on spironolactone, even though her renin activity was <1, could have had the procedure.is waiting to heat about next appointment. She also has a history of hypokalemia, on potassium 20 mEq extended release daily started 02/05/25 08/01/2024: Renal ultrasound showed no evidence of renal artery stenosis. No history of ROLANDO, denies apneic episodes or snoring Evaluation for hypercortisolism No history of fragility fracture, no history of DM, Reports easy bruising , no proximal muscle weakness, no abdominal striae No skin infections No skin thinning Does have some facial plethora 02/28/2025: Potassium 3.6, normal kidney function, renin 0.96, aldosterone 10, DHEA-S 99, acth 13, random cortisol 9.4 03/05/2025: Dexamethasone suppression test with cortisol of 1.4, acth less than 5, normal cortisol for dexamethasone suppression test 03/06/2025:24 hour urine collection showed normal cortisol, 24 hour urine sodium of 134, 24 hour urine aldosterone level 14.7 Interval history 05/23/2025: Current BP meds Hydralazine 100 mg t.i.d. (started 02/05/2025, uptitrated to 100 03/05/25) Lisinopril 20 mg b.i.d. Nifedipine 60 mg b.i.d. Propranolol 20 mg b.i.d. Clonidine 0.1 mg b.i.d. (started 03/05/2025) 04/22/25: Potassium 3.6 , renin 0.99 prior to preocedure on 04/24/25 Status post AVS with Dr. Moreno at [facility] , on 04/24/2025 with lateralization of aldosterone production to the right adrenal gland. see calcultations below Continues on potassium 20 mEq daily. Blood pressure today 140/88, migraines also improved. Physical exam General: sitting comfortably in no acute distress HEENT: normocephalic/atraumatic, Neck: supple, symmetrical Cardiac: normal heart sounds Pulm: normal breath sounds B/L, no added breath sounds Abd: not distended, no tenderness Extremities: no edema, no signs of myxedema, no proximal muscle weakness, no abdominal striae Neuro: AAO x3, Speech: normal, no facial droop, moving all 4 extremities Laboratory Tests 04/29/20 02/19/23 05/25/24 09:05 08:33 14:42 Sodium Potassium 4.2 3.9 3.3 Creatinine Estimated GFR Renin Renin Activity Aldosterone Aldosterone/Renin Ratio Random Cortisol Plasma Free Metaneph Plasma Free Normeta Plas Total Metaneph 06/27/24 08/20/24 10/05/24 07:52 07:41 09:28 Sodium Potassium 3.0 L 3.0 L 3.4 Creatinine Estimated GFR Renin 0.54 Renin Activity 0.47 Aldosterone 11 Aldosterone/Renin Ratio Random Cortisol Plasma Free Metaneph <25 Plasma Free Normeta 48 Plas Total Metaneph 48 10/29/24 11/19/24 01/03/25 16:32 08:52 14:44 Sodium 140 Potassium 3.5 3.3 Creatinine 0.66 Estimated GFR > 60 Renin 0.57 Renin Activity 0.47 Aldosterone 9 Aldosterone/Renin Ratio 19.1 Random Cortisol 10.9 Plasma Free Metaneph Plasma Free Normeta Plas Total Metaneph 01/21/25 09:58 Sodium 137 Potassium 3.2 L Creatinine 0.61 Estimated GFR > 60 Renin Renin Activity Aldosterone Aldosterone/Renin Ratio Random Cortisol Plasma Free Metaneph Plasma Free Normeta Plas Total Metaneph Laboratory Tests 02/28/25 03/05/25 03/06/25 09:48 07:32 07:00 Sodium 140 Potassium 3.6 Creatinine 0.59 Estimated GFR > 60 Renin 0.96 Aldosterone 10 DHEA Sulfate 99 Random Cortisol 9.4 1.4 ACTH 13 <5 L Urine Total Volume 975 Ur 24 Hour Volume 975 Ur Creatinine mg/dL 135.26 Ur Creatinine 24 Hour 1.33 Ur Sodium 24 Hour 134.6 Ur Free Cortisol 24 Hr 8.0 Laboratory Tests 03/06/25 07:00 Ur Total Volume 975 Ur Aldosterone 24 Hr 14.7 Urine Creatinine 1.31 Laboratory Tests 04/22/25 08:10 Sodium 140 Potassium 3.6 Renin 0.99 Aldosterone 13 CLINICAL HISTORY: E87.6 - Hypokalemia 11/27/24 CT abdomen with and without contrast Comparison: None Findings: No consolidation or effusion. There is a 1.4 cm nodule within the left adrenal gland. Precontrast density estimated -16 Hounsfield units. Venous phase density 17 Hounsfield units and density on delayed imaging -5 Hounsfield units. Unremarkable right adrenal gland. 3 mm nonobstructive calculus within the upper pole of the left kidney. Remaining abdominal organs unremarkable. No calcified gallstones. No bowel obstruction, pneumoperitoneum, or pneumatosis. No acute fracture. IMPRESSION: 1. There is a 1.4 cm adenoma within the left adrenal gland. 2. There is a small left-sided periumbilical hernia containing fat. 3. Small nonobstructive calculus within the left kidney. This document has been electronically signed by: Nu Mohan MD on 11/27/2024 13:07:39 US RETROPERITONEAL LIMITED (RENAL ONLY) 08/01/24 CLINICAL INFORMATION: Essential hypertension. COMPARISON: Abdominal ultrasound 07/08/2015 TECHNIQUE: Multiple grayscale images of bilateral kidneys FINDINGS: RIGHT KIDNEY: 10.7 x 4 x 6.5 cm (SAG x AP x TRV). The kidney is normal in size, contour, and echogenicity. Renal cortical thickness is normal . No calculi or focal parenchymal lesions. No hydronephrosis. LEFT KIDNEY: 12 x 5.4 x 6 cm (SAG x AP x TRV). The kidney is normal in size, contour, and echogenicity. Renal cortical thickness is normal. No calculi or focal parenchymal lesions. No hydronephrosis. US/US renal BI IMPRESSION: No renal calculus or hydronephrosis. Unremarkable sonographic appearance of bilateral kidneys. Electronically signed by: Patricio Mata MD 08/02/2024 08:43 AM EDT [facility] Medical History Migraine with aura Primary hyperaldosteronism Migraine Cervical cancer screening Abnormal uterine bleeding (AUB) Friable cervix Encounter for gynecological examination Nasal pain Blood pressure elevated without history of HTN Breast cancer screening by mammogram Erythema of groin Breast lump Cervical polyp Menorrhagia Menometrorrhagia Legally blind in left eye, as defined in [place] Urge incontinence Metrorrhagia Anemia Impaired glucose tolerance Obesity (BMI 30-39.9) Hypercholesterolemia Hypothyroid Surgical History (Updated 05/23/25 @ 09:26 by WALDEMAR Valdovinos) Hx of exploratory laparotomy History of total abdominal hysterectomy History of excision of lesion (04/07/23) History of bilateral tubal ligation Hx of tubal ligation Hx of cervical polypectomy Family History Maternal Aunt Family history of breast cancer Maternal Uncle History of brain tumor Paternal Aunt Hx of myocardial infarction Skin cancer Father Myocardial infarction Mother Alive and well Social History (Reviewed 05/23/25 @ 09:22 by SWAPNA Valdovinos Housing: House Alcohol intake: never Patient Tobacco Use Status: Never used Tobacco e-Cigarette/Vaping Use: Never Used Second Hand Smoke Exposure: No Advance Directives Date on File: 07/17/20 service: No Current occupational status: employed Gender identity: Female Cognitive needs: No Hearing needs: No Vision needs: Yes (glasses) Female Reproductive History Menstrual Age of Menarche: 10 Physical Exam Vital Signs: Last Vital Signs Pulse 65 05/23/25 09:21 BP 140/88 H 05/23/25 09:21 Pulse Ox 96 05/23/25 09:21 Oxygen Delivery Method Room Air 05/23/25 09:21 BMI result Body Mass Index 34.1 Assessment & Plan Assessment & Plan (1) Primary hyperaldosteronism: Code(s): E26.09 - Other primary hyperaldosteronism Category: Medical Plan: 49-year-old female with past medical history significant for resistant hypertension, hypokalemia, migraine headaches, hypothyroidism coming in today for follow up of primary hyperaldosteronism. She has had a history of resistant hypertension for many years, She has been managed by Nephrology. Renal ultrasound from December 2024 did not show any renal artery stenosis. She does not have any history of ROLANDO. She is noted to have hypokalemia, now on potassium supplements 20 mEq daily since 02/05/2025. Blood work done August 2024, showed suppressed plasma renin activity of 0.47 while she was on an IRINA inhibitor with high aldosterone level of 11, when potassium was 3, given potassium was low, aldosterone would have even been higher if potassium was repleted, all of this is very highly suspicious of primary hyperaldosteronism. Confirmatory testing not done, however she has had such high blood pressures it would be risky to do a saline suppression test or a load her with sodium for 24 hour urine evaluation. However in February 2025 24 hour urine collection while her sodium level was not elevated at 134 her urine aldosterone was elevated at 14.7. This is again highly suspicious for primary hyperaldosteronism. CT adrenal from November 2024 showed a left 1.4 cm lipid rich adenoma -16 Hounsfield units, with a an unremarkable right adrenal gland. She is young and requiring a lot of medications for blood pressure control and despite that has poor control, she would be an excellent candidate for surgery. She was on spironolactone 100 mg daily which was stopped 02/05/2025 by Nephrology when hydralazine was started. Spironolactone was stopped in anticipation of AVS for further workup of primary hyperaldosteronism. Blood work from September 2024 showed normal plasma metanephrine normetanephrine levels, ruled out pheochromocytoma. 02/28/2025: Potassium 3.6, normal kidney function, renin 0.96, aldosterone 10, DHEA-S 99, acth 13, random cortisol 9.4 03/05/2025: Dexamethasone suppression test with cortisol of 1.4, acth less than 5, normal cortisol for dexamethasone suppression test 03/06/2025:24 hour urine collection showed normal cortisol, 24 hour urine sodium of 134, 24 hour urine aldosterone 14.7 Status post AVS at [facility] 04/24/2025 with results showing lateralization of aldosterone production to the right adrenal gland. Good selectivity index for all samples. I do not see a contralateral suppression on the left side, but still it seems like she has good selectivity index and lateralization ratios are strong. Lackof contralateral suppression could indicate bilateral disease or incomplete feed back inhibition due to other factors. While her adrenal gland adenoma was on the left side, it is not unusual to see that the overproduction of aldosterone is coming from the contralateral gland that did not show any mass or nodule. I explained to her that I would recommend right adrenalectomy at this time. This would help with controlling her blood pressure, reducing mortality, her being able to come off some of her blood pressure medications and potassium in the near future. While there is also the option of medical management with spironolactone, surgery would be our 1st recommendation. She is agreeable to surgery. Blood pressures for now are much improved. Though we can consider putting her on spironolactone now that all the investigation is done. However I will keep an eye on her blood pressures. Plan: -continue current blood pressure regimen -keep an eye on blood pressure at home, maintain a log and bring to next appointment -referral placed to Dr. Bertha Alvarez at [facility] for right adrenalectomy -continue potassium 20 mEq daily -follow up with me in July 2025 (2) Adrenal adenoma: Code(s): D35.00 - Benign neoplasm of unspecified adrenal gland Category: Medical Qualifiers: Laterality: left Qualified Code(s): D35.02 - Benign neoplasm of left adrenal gland Plan: See above (3) Hypokalemia: Code(s): E87.6 - Hypokalemia Category: Medical Plan: See above Plan I spent 30 minutes in reviewing the record, seeing the patient and documenting in the medical record. Orders: Referrals General Surgery Referral E26.09 - Other primary hyperaldosteronism Patient Instructions: Continue current BP regimen We have referred you to Dr. Bertha Alvarez at [facility], someone from their office should be giving you a call soon, if you dont hear from anyone in the next 2 -3 weeks , please either call our office to check on the status of your referral or call their office at [phone] to schedule an appointment Continue monitoring BPs at home Follow up with me in July Coding Level of Care Code Est Pt Level 4 (63136) Diagnoses Primary hyperaldosteronism E26.09 Adenoma of left adrenal gland D35.02 Laterality: left Hypokalemia E87.6 Time Spent (min) 30
== END 2025-05-23 09:56 | disposition home or self-care (01) ==
LOC: HO.ENCR 09:20
PROVIDERS: PCP Internal Medicine; Visit Provider Student in an Organized Health Care Education/Training Program
DX: E26.09 Other primary hyperaldosteronism (principal); D35.02 Benign neoplasm of left adrenal gland; E87.6 Hypokalemia
CPT/HCPCS: 99214

== ENCOUNTER 2025-06-13 07:27 | Outpatient (AMB) | payer OTHER, SELFPAY ==
--- NOTE | 2025-06-13 07:35 | A.OFFVIS_ITS ---
Vital Signs 06/13/25 07:36 Height 5 ft 4 in Weight 196 lb BMI 33.6 BP 128/70 Blood Pressure Location Rt brachial Position Sitting Pulse 74 Pulse Source Pulse Oximeter Pulse Oximetry (%) 98 Oxygen Delivery Method Room Air Intake Visit Reasons: 2m OK per KH Intake Note: Patient presents 2 month follow up for migraines Pediatric Psychologist Required: No Accompanied by: Self / Same As Patient Allergies No Known Allergies Allergy (Verified 06/13/25 07:35) HPI Comments Details: A 50-year-old female presents for follow-up for chronic migraine. The patient denies any significant changes in medical history over the past interval, except for plans to meet with a surgeon at [facility] to discuss adrenal gland excision. She underwent sleep study on 05/12/2025, however results are not available yet. Patient states that regarding her migraines, she is still having a daily migraine. She was not able to start Ajovy, as her insurance company has a flawed policy that does not allow coverage for concomitant anti-CGRP therapies. Thus, instead, we started the patient on memantine titration, starting 7 mg daily x2 weeks. She states she has started this and has about 5 days left to go. She did start B2 and magnesium and appears to be tolerating this well. She just received Ubrelvy last week and has tried it once. ?Ubrelvy 100mg 1/2 tab caused a strange feeling and tiredness. She states she always has vision difficulties, which are slightly increased when her migraine is worse, and especially when she is on a computer.? She does have dry eye and has teardrops, but is not using them consistently. 04/01/2025, Initial HPI: The patient is a 49-year-old female presenting with migraine headaches. The migraines began at the age of 13 and have progressively worsened over time, becoming more severe and frequent. The patient experiences migraines twice a week, lasting three to four days, with symptoms including nausea, dizziness, and light sensitivity. She previously saw neurology for a short time, but this was years ago. The patient has a history of labile blood pressure, which has been challenging to control despite medication adjustments. She has also recently been diagnosed with primary hyperaldosteronism with a left adrenal adenoma. She is now being followed closely by both nephrology and endocrinology, and patient is being considered for surgical intervention for her primary hyperaldosteronism. She is currently on lisinopril, propranolol, clonidine and hydralazine, with recent increases in clonidine and hydralazine dosage due to persistent hypertension. Today, patient's blood pressure is 190/110, for which patient states this is an improvement as her blood pressure prior was over 200/110s. She denies any chest pain, shortness of breath dizziness at this time. Though she does endorse jim ving the start of a typical migraine at this time. The patient has a left adrenal adenoma, which is being monitored by endocrinology, and a procedure is planned to assess its contribution to her hype rtension. The patient reports anxiety and depression, which she manages without therapy, and has a history of thyroid disorder for which she takes supplements. She also has a history of kidney stones and acid reflux, with constipation being a frequent issue. 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 She experiences leg cramps and numbness in her hands and feet, which are persistent issues. Past Medical History - Labile blood pressure - Left adrenal adenoma - Hypertension - Anemia- secondary to menorrhagia, and thus underwent hysterectomy - Anxiety - Depression - Thyroid disorder - Kidney stones - Acid reflux - Constipation - Menorrhagia - Visual impairment- left eye blindness, right eye legally blind- congenital. 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 Denies history of seizures or head injuries. - Cardiovascular: Reports labile blood pressure. Denies chest pain or palpitations. - Gastrointestinal: Reports acid reflux and constipation. Denies loose stools. - Endocrine: Reports thyroid disorder. Denies other endocrine issues. - Musculoskeletal: Reports leg cramps and back pain. Denies joint pain. - Psychiatric: Reports anxiety and depression. Denies seeing a therapist. - Genitourinary: Reports history of kidney stones. Denies current urinary symptoms. - Ophthalmologic: Reports visual impairment and blurry vision. Denies recent changes in vision. Family History - No family history of migraine or headache disorders Results - Imaging: Head CT in 2023 was unremarkable. Lifestyle considerations: Sleep routine: Usual bedtime: 9am and wake-up time: 11am Sleep difficulties: Denies: Snoring, bruxism. Endorses: snoring, restlessness/leg pain/back pain, Fatigue, leg Cramps- at rest and in calves when walking. Caffeine use: 1-2 12oz can of pepsi Substance use: denies Exercise:?active at work, but no structured exercise Employment:?7pm-7am- difficulty falling asleep upon returning home. 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 Headache questionnaire:? Age/time of onset: 13 year old- started as a constant migraine- notes she did not use glasses as a student despite her vision deficits, and this worsened in high school when she could no longer choose to sit in the front of the classroom. Then worsened at age 15-16 years old when her menstrual cycle became irregular and heavy- and then the migraines further worsened. Preceding causes: none Previous work-up: [address]- unremarkable. 2024 HST- inconclusive Types of headache disorders: 1 Typical headache characteristics: Prodrome symptoms: blurry vision, squinting Aura: blurry vision, w/ moving black dots. Pain intensity: mild-severe Location, quality, characteristics: pressure pain under bilateral eyes, and expands into frontal and temporal region, and into the top of her head through her neck and whole face. Associated symptoms: watery eyes, red eyes, photophobia, phonophobia, allodynia, nausea, sometimes vomiting, spinning dizziness, lightheadedness, fatigue- but cannot sleep, cognitive difficulties, activity intolerance. Postdrome: Persistent mild headache Triggers: lights, stress Aggravating factors: Everything (light, sound, etc.) Time of day: No specific time of day Frequency: constant, w/ severe migraine twice a week Duration: 3-4 days How does headache impact your life? has to leave work Current acute medication use/interventions: Tylenol 1000mg every 4 hours alternating w/ OTC Excedrin migraine every 4 hours. Has metoclopramide- uses prn for nausea. Current preventative medication use: Propranolol 20mg bid- used for blood pressure control Current non-pharmacological interventions: rest, ice [facility] Medical History Migraine with aura Primary hyperaldosteronism Migraine Cervical cancer screening Abnormal uterine bleeding (AUB) Friable cervix Encounter for gynecological examination Nasal pain Blood pressure elevated without history of HTN Breast cancer screening by mammogram Erythema of groin Breast lump Cervical polyp Menorrhagia Menometrorrhagia Legally blind in left eye, as defined in [place] Urge incontinence Metrorrhagia Anemia Impaired glucose tolerance Obesity (BMI 30-39.9) Hypercholesterolemia Hypothyroid Surgical History Hx of exploratory laparotomy History of total abdominal hysterectomy History of excision of lesion (04/07/23) History of bilateral tubal ligation Hx of tubal ligation Hx of cervical polypectomy Family History Maternal Aunt Family history of breast cancer Maternal Uncle History of brain tumor Paternal Aunt Hx of myocardial infarction Skin cancer Father Myocardial infarction Mother Alive and well Social History Housing: House Alcohol intake: never Patient Tobacco Use Status: Never used Tobacco e-Cigarette/Vaping Use: Never Used Second Hand Smoke Exposure: No Advance Directives Date on File: 07/17/20 service: No Current occupational status: employed Gender identity: Female Cognitive needs: No Hearing needs: No Vision needs: Yes (glasses) Female Reproductive History Menstrual Age of Menarche: 10 Review of Systems ENT Reports Normal hearing present Neuro Reports Normal hearing present Physical Exam Vital Signs: Last Vital Signs Pulse 74 06/13/25 07:36 BP 128/70 06/13/25 07:36 Pulse Ox 98 06/13/25 07:36 Oxygen Delivery Method Room Air 06/13/25 07:36 BMI result Body Mass Index 33.6 Const Orientation/consciousness: patient oriented x3 Resp Effort & Inspection: normal respiratory effort and able to speak in complete sentences Auscultation: clear to auscultation bilaterally Cardio Rate: regular rate Rhythm: regular rhythm Neuro General: patient oriented x3 and moves all extremities Cranial nerves: Yes Normal hearing present, Yes Ability to bilaterally rotate head present, Yes Ability to bilaterally elevate shoulders present and Yes Other cranial nerve findings present (Legally blind. Mild right lower facial weakness.) Cognition (Neuro): normal cognition Gait exam (Neuro): Normal gait present Pupils: Normal pupillary reactivity/response: bilateral Psych Appearance: grossly normal Mental Status: mental status grossly normal Speech and movement: Normal speech and movement present Affect: normal affect Attitude: cooperative Thought process: Normal thought process present Assessment & Plan Assessment & Plan (1) Chronic migraine without aura: Code(s): G43.709 - Chronic migraine without aura, not intractable, without status migrainosus Category: Medical Qualifiers: Status migrainosus presence: without status migrainosus Intractability: not intractable Qualified Code(s): G43.709 - Chronic migraine without aura, not intractable, without status migrainosus (2) Migraine with aura: Comment: Sees moving black dots Code(s): G43.109 - Migraine with aura, not intractable, without status migrainosus Category: Medical Qualifiers: Status migrainosus presence: without status migrainosus Intractability: not intractable Qualified Code(s): G43.109 - Migraine with aura, not intractable, without status migrainosus (3) Snoring: Code(s): R06.83 - Snoring Category: Medical (4) Hypersomnolence: Code(s): G47.10 - Hypersomnia, unspecified Category: Medical Plan * Will f/u on status of Brain MRI with and without contrast to assess for secondary etiologies of worsening headaches * Will request results of In-lab PSG sleep study to assess for sleep apnea and Periodic limb movement of sleep (PLMS) in setting uncontrolled hypertension For overall headache management: * Optimize good self-care, including but not limited to maintaining a healthy diet, adequate fluid intake, adequate sleep, and engaging in regular physical activity. * Track headaches, especially after any treatment regimen changes. Migraine [employer] is one of many headache tracking apps. * Information shared on non-pharmacological interventions which may help to alleviate headache attack burden. For light sensitivity: Patient may benefit from trying blue light filtering glasses, green glasses, green light therapy. For acute headache treatment: Discussed importance of taking acute medications at the first sign of headache, however stressed importance of avoiding acute medication overuse (especially with combined headache medications). * Continue to trial Ubrogepant (Ubrelvy) 100mg tab, 1/2 - 1 tab (50-100mg) at onset of headache, may repeat in 2 hours. Max of 2 tabs (200mg) per 24 hours. May adjunct with OTC Tylenol 650mg q 4 hours, Ibuprofen 600mg q 6 hours, or Naproxen 440mg q 12 hrs prn. Do not take w/ Butalbital (Fioricet or Fiorinal). Potential adverse effects, include but are not limited to fatigue, nausea, dry mouth, constipation Previous acute migraine medication trials: Fioricet and sumatriptan- ineffective. Acute migraine medication contraindications: All triptans and DHE due to uncontrolled hypertension. For headache prevention medication: Preventative medications should be taken routinely as prescribed for best effect, it may take several weeks for full effect to take effect. Continue Riboflavin 400mg qam Continue Magnesium 400mg qhs- may help leg movements as well. Discontinue Ajovy 225mg/1.5ml- denied by insurance Continue propranolol 20 mg b.i.d. Continue lisinopril, nifedipine, drowsy, clonidine- per nephrology, endocrinology. * Continue taper of memantine ER. Patient advised this medication is usually prescribed for cognitive difficulties; however, we are starting this specifically for migraine prevention. * Potential side effects of memantine include, but are not limited to: ?Dizziness, nausea, mood changes, and headaches. * Namenda ER taper instructions: * Weeks 1?2: Take 7 mg once daily * Weeks 3?4: Take 14 mg once daily * Weeks 5?6: Take 21 mg once daily * Week 7 onward: Take 28 mg once daily Previous migraine prevention medication trials: Migraine prevention medication contraindications: Topiramate due to h/o kidney stones. All TCAs due to uncontrolled hypertension. Aimovig/Qulipta due to constipation. Will follow-up upon review of above and patient to follow-up in clinic in 3-4 months or sooner prn. Medications: New memantine then stop and increase to 21mg qd 14 mg PO DAILY 14 ea 0RF 14 days Discontinued memantine then stop and increase to 14mg qd Discontinued Reason: Doctor's Order 7 mg PO DAILY 14 days 14 ea 0RF Coding Level of Care Code Est Pt Level 4 (25229) Diagnoses Chronic migraine without aura without status migrainosus, not intractable G43.709 Status migrainosus presence: without status migrainosus Intractability: not intractable Migraine with aura and without status migrainosus, not intractable G43.109 Status migrainosus presence: without status migrainosus Intractability: not intractable Snoring R06.83 Hypersomnolence G47.10
[2025-06-13 07:36] VITALS: BP 128/70; PULSE 74; O2SAT 98; BMI 33.6
== END 2025-06-13 08:21 | disposition home or self-care (01) ==
LOC: HO.HSMS 07:27
PROVIDERS: PCP Internal Medicine; Visit Provider Nurse Practitioner Family
DX: G43.709 Chronic migraine without aura, not intractable, without status migrainosus (principal); G43.109 Migraine with aura, not intractable, without status migrainosus; R06.83 Snoring; G47.10 Hypersomnia, unspecified
CPT/HCPCS: 99214

== ENCOUNTER 2025-06-28 11:12 | Outpatient (REF) | payer OTHER, SELFPAY ==
--- NOTE | ~2025-06-28 | MR_ITS ---
EXAMINATION: MR BRAIN WITHOUT THEN WITH IV CONTRAST HISTORY: R51.9 - Headache, unspecified TECHNIQUE: Sagittal T1 and FLAIR, and axial T1, FLAIR, T2, gradient echo, and diffusion weighted MR images of the brain were obtained. Subsequently, axial and coronal T1-weighted images were obtained after the administration of intravenous gadolinium. 8.5 mL Gadavist was administered. COMPARISON: Correlation is made with an unenhanced head CT dated 05/25/2024. FINDINGS: The pituitary is normal in size. The cerebellar tonsils are normally located. There are widespread periventricular and subcortical white matter hyperintensities on the FLAIR and T2-weighted images which are greater than expected for a patient of this age. Many of these are oriented perpendicular to the long axis of the corpus callosum, highly suspicious for demyelinating disease. There is no mass effect or midline shift. No intra or extra-axial fluid collections are identified. There is a small focus of restricted diffusion in the anteromedial left temporal lobe which likely represents an active MS plaque, less likely an acute infarct. There is no abnormal contrast enhancement. Normal vascular flow voids are noted in the basilar and carotid arteries. The visualized paranasal sinuses are clear. MR/MR head/brain wo/w con IMPRESSION: Findings highly suspicious for demyelinating disease as described. Small focus of restricted diffusion in the left anteromedial temporal lobe, likely representing an active MS plaque. A small acute infarct appears less likely. Findings were sent to Antoinette Hunt NP by secure text message on 06/28/2025 at 1:02 PM. Electronically signed by: Raffaele Isaac MD 06/28/2025 01:05 PM EDT
== END 2025-06-28 11:13 | disposition home or self-care (01) ==
LOC: HO.MRI 11:12
PROVIDERS: PCP Internal Medicine; Visit Provider Nurse Practitioner Family
DX: R51.9 Headache, unspecified (principal); I10 Essential (primary) hypertension; E26.09 Other primary hyperaldosteronism
CPT/HCPCS: 70553; A9585

== ENCOUNTER → 2025-06-28 11:12 | Outpatient (BNV) | payer OTHER, SELFPAY | PROVIDERS: PCP Internal Medicine; Visit Provider Radiology Diagnostic Radiology | DX: R51.9 Headache, unspecified (principal); G35 Multiple sclerosis | CPT/HCPCS: 70553 ==

== ENCOUNTER 2025-07-09 10:01 | Outpatient (REF) | payer OTHER, SELFPAY ==
[2025-07-09 14:01] LABS: Anion Gap 10 (12-20); Blood Urea Nitrogen 5 mg/dL (9-16); Carbon Dioxide 26 mmol/L (22-29); Chloride 108 mmol/L (96-108); Estimated Glomerular Filt Rate > 60; Potassium 3.7 mmol/L (3.3-5.1); Sodium 140 mmol/L (135-145)
== END 2025-07-09 10:02 | disposition home or self-care (01) ==
LOC: HO.HKASLDS 10:01
PROVIDERS: PCP Internal Medicine; Visit Provider Internal Medicine Nephrology
DX: I10 Essential (primary) hypertension (principal); E26.09 Other primary hyperaldosteronism; G93.9 Disorder of brain, unspecified; G43.109 Migraine with aura, not intractable, without status migrainosus; E78.00 Pure hypercholesterolemia, unspecified; R73.02 Impaired glucose tolerance (oral); E03.9 Hypothyroidism, unspecified; E66.9 Obesity, unspecified; K21.9 Gastro-esophageal reflux disease without esophagitis; D35.02 Benign neoplasm of left adrenal gland
CPT/HCPCS: 36415; 80051; 82565; 83036; 84520

== ENCOUNTER 2025-07-09 10:01 | Outpatient (AMB) | payer OTHER, SELFPAY ==
--- NOTE | 2025-07-09 10:17 | HO.NEPHOV ---
Vital Signs 07/09/25 10:19 Height 5 ft 4 in Weight 196 lb 2 oz BMI 33.7 BP 158/100 H Blood Pressure Location Lt brachial Position Sitting Pulse 93 Pulse Source Pulse Oximeter Pulse Oximetry (%) 98 Oxygen Delivery Method Room Air Intake Visit Reasons: 3 mo follow up- Conf Special Equipment Technician Required: No Accompanied by: Self / Same As Patient Allergies No Known Allergies Allergy (Verified 07/09/25 10:18) HPI Comments Details: Ileana was seen for follow up for hypokalemia and hypertension. She has no H/O chronic diarrhea. She denies nausea or vomiting. She has been having labile blood pressure and her anti hypertensive medications have been adjusted. 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 She has normal renal function. She has no hypomagnesemia, polyuria or metabolic acidosis. She has no family H/O Denice's /Bartter/Giltelman syndrome. She never had hypokalemic periodic paralysis. She does monitor her BP at home. Her BP is better but not optimally controlled. She denies any headaches, double vision, edema or orthostatic symptoms. She has a 1.4 cm adenoma within the left adrenal gland by CT scan. She has seen in Endocrinology. She had adrenal vein sampling study and is seeing a surgeon on Aug 08. [facility] Medical History (Updated 07/07/25 @ 15:52 by LISA Barney) Migraine with aura Primary hyperaldosteronism Migraine Cervical cancer screening Abnormal uterine bleeding (AUB) Friable cervix Encounter for gynecological examination Nasal pain Blood pressure elevated without history of HTN Breast cancer screening by mammogram Erythema of groin Breast lump Cervical polyp Menorrhagia Menometrorrhagia Legally blind in left eye, as defined in [place] Urge incontinence Metrorrhagia Anemia Impaired glucose tolerance Obesity (BMI 30-39.9) Hypercholesterolemia Hypothyroid Surgical History Hx of exploratory laparotomy History of total abdominal hysterectomy History of excision of lesion (04/07/23) History of bilateral tubal ligation Hx of tubal ligation Hx of cervical polypectomy Family History Maternal Aunt Family history of breast cancer Maternal Uncle History of brain tumor Paternal Aunt Hx of myocardial infarction Skin cancer Father Myocardial infarction Mother Alive and well Social History Housing: House Alcohol intake: never Patient Tobacco Use Status: Never used Tobacco e-Cigarette/Vaping Use: Never Used Second Hand Smoke Exposure: No Advance Directives Date on File: 07/17/20 service: No Current occupational status: employed Gender identity: Female Cognitive needs: No Hearing needs: No Vision needs: Yes (glasses) Female Reproductive History Menstrual Age of Menarche: 10 Review of Systems Const All systems reviewed & are unremarkable except as noted in HPI and below Physical Exam Vital Signs: Last Vital Signs Pulse 93 07/09/25 10:19 BP 158/100 H 07/09/25 10:19 Pulse Ox 98 07/09/25 10:19 Oxygen Delivery Method Room Air 07/09/25 10:19 BMI result Body Mass Index 33.7 Const General: comfortable and no acute distress Orientation/consciousness: patient oriented x3 HEENT Head: Yes normocephalic Mouth: Normal oral and palatal mucosa present Eyes EOM: EOMs intact bilaterally Neck Neck: Yes supple Resp Auscultation: clear to auscultation bilaterally Cardio Jugular venous distension: no JVD Rate: regular rate GI Palpation (GI): Soft to palpation Auscultation: normal bowel sounds General: Yes no CVA tenderness Back/Spine/Pelvis Back: no CVA tenderness Skin General skin exam: no rashes or lesions noted Neuro General: patient oriented x3 and moves all extremities Extrem General: Yes no pedal edema Results Reviewed Nephrology Results: Renal US 08/01/24 Assessment & Plan Assessment & Plan (1) Hypertension: Code(s): I10 - Essential (primary) hypertension Category: Medical Qualifiers: Hypertension type: primary hypertension Qualified Code(s): I10 - Essential (primary) hypertension (2) Primary hyperaldosteronism: Code(s): E26.09 - Other primary hyperaldosteronism Category: Medical Plan She has been having labile blood pressure and her anti hypertensive medications have been adjusted. She has normal renal function. She has no hypomagnesemia, polyuria or metabolic acidosis. She has no family H/O Denice's /Bartter/Giltelman syndrome. She never had hypokalemic periodic paralysis. She does monitor her BP at home. She may having increased mineralocorticoid activity. She has a 1.4 cm adenoma within the left adrenal gland by CT scan and had AVS & is going to see Endocrine surgeon. I restarted her Spironolactone 50 mg today. Small nonobstructive calculus within the left kidney. Answered all questions Orders: Orders Blood Urea Nitrogen 2 Months E26.09 - Other primary hyperaldosteronism, I10 - Essential (primary) hypertension Electrolytes Today E26.09 - Other primary hyperaldosteronism, I10 - Essential (primary) hypertension Blood Urea Nitrogen Today E26.09 - Other primary hyperaldosteronism, I10 - Essential (primary) hypertension Electrolytes 2 Months E26.09 - Other primary hyperaldosteronism, I10 - Essential (primary) hypertension Creatinine 2 Months E26.09 - Other primary hyperaldosteronism, I10 - Essential (primary) hypertension Creatinine Today E26.09 - Other primary hyperaldosteronism, I10 - Essential (primary) hypertension Medications: New spironolactone 50 mg PO DAILY 90 tabs 3RF Discontinued potassium chloride ER Discontinued Reason: Doctor's Order 20 mEq PO DAILY 90 tabs 3RF Coding Level of Care Code Est Pt Level 4 (40335) Diagnoses Primary hypertension I10 Hypertension type: primary hypertension Primary hyperaldosteronism E26.09
[2025-07-09 10:19] VITALS: BP 158/100; PULSE 93; O2SAT 98; BMI 33.7
== END 2025-07-09 10:41 | disposition home or self-care (01) ==
LOC: HO.HKAS 10:02
PROVIDERS: PCP Internal Medicine; Visit Provider Internal Medicine Nephrology
DX: I10 Essential (primary) hypertension (principal); E26.09 Other primary hyperaldosteronism
CPT/HCPCS: 99214

== ENCOUNTER 2025-07-09 12:02 | Outpatient (AMB) | payer OTHER, SELFPAY ==
--- NOTE | 2025-07-09 12:32 | MHC.PC.OV ---
Vital Signs 07/09/25 12:33 Height 5 ft 4 in Weight 195 lb 2 oz BMI 33.5 BP 118/76 Blood Pressure Location Lt brachial Position Sitting Pulse 81 Pulse Source Pulse Oximeter Temp 97.1 F Temp Source Temporal Artery Scan Pulse Oximetry (%) 98 Oxygen Delivery Method Room Air Intake Visit Reasons: DM, cardiomyopathy Allergies No Known Allergies Allergy (Verified 07/09/25 12:36) Tobacco use date assessed: 07/09/25 Dental Screening Dental Screen Date: 07/09/25 Did you have a dental visit in the last 12 months?: Yes Did you have a dental problem in the last 6 months where you did not have access to dental care?: No Was dental information given to patient?: Patient has dentist [facility] [place] Medical History Migraine with aura Primary hyperaldosteronism Migraine Cervical cancer screening Abnormal uterine bleeding (AUB) Friable cervix Encounter for gynecological examination Nasal pain Blood pressure elevated without history of HTN Breast cancer screening by mammogram Erythema of groin Breast lump Cervical polyp Menorrhagia Menometrorrhagia Legally blind in left eye, as defined in [place] Urge incontinence Metrorrhagia Anemia Impaired glucose tolerance Obesity (BMI 30-39.9) Hypercholesterolemia Hypothyroid Surgical History Hx of exploratory laparotomy History of total abdominal hysterectomy History of excision of lesion (04/07/23) History of bilateral tubal ligation Hx of tubal ligation Hx of cervical polypectomy Family History Maternal Aunt Family history of breast cancer Maternal Uncle History of brain tumor Paternal Aunt Hx of myocardial infarction Skin cancer Father Myocardial infarction Mother Alive and well Social History Housing: House Alcohol intake: never Patient Tobacco Use Status: Never used Tobacco e-Cigarette/Vaping Use: Never Used Second Hand Smoke Exposure: No Advance Directives Date on File: 07/17/20 service: No Current occupational status: employed Gender identity: Female Cognitive needs: No Hearing needs: No Vision needs: Yes (glasses) Female Reproductive History Menstrual Age of Menarche: 10 Questionnaire PHQ-9 Over the last 2 weeks, how often have you been bothered by any of the following problems? 1. Little interest or pleasure in doing things: not at all 2. Feeling down, depressed, or hopeless: several days 3. Trouble falling or staying asleep, or sleeping too much: several days 4. Feeling tired or having little energy: several days 5. Poor appetite or overeating: not at all 6. Feeling bad about yourself - or that you are a failure or have let yourself or your family down: not at all 7. Trouble concentrating on things, such as reading the newspaper or watching television: not at all 8. Moving or speaking so slowly that other people could have noticed. Or the opposite - being so fidgety or restless that you have been moving around a lot more than usual: not at all 9. Thoughts that you would be better off or of hurting yourself in some way: not at all Total score: 3 Source: Developed by Drs. Raffaele Ruth, Cyn Dowling, Reddy Gómez and colleagues, with an educational qiana from [employer]. Thrive Questionnaire Date Thrive assessed: 05/20/25 I am a: Patient What is your living situation today?: I have a steady place to live Within the past 12 months, did the food you bought not last and you didn't have the money to get more?: Sometimes True Within the past 12 months, did you worry whether your food would run out before you got money to buy more?: Sometimes True Do you have trouble paying for medicines?: Yes Do you have trouble getting transportation to medical appointments?: No Do you have trouble paying your heating and electricity bill?: Yes Do you have trouble taking care of your child, family member or friend?: No Do you have trouble with day-to-day activities such as bathing, preparing meals, shopping, managing finances, etc.?: No Are you currently unemployed and looking for a job?: No Are you interested in more education?: No Please select the resources that you would like help with: None Currently or been in a relationship where the following occur: No concerns reported THRIVE Score: 3 AUDIT C Alcohol Use Questionnaire (AUDIT-C) 1. How often do you have a drink containing alcohol?: Never 3. How often do you have six or more drinks on one occasion?: Never Total Score: 0 NAN-7 AMB Questionnaire NAN-7 Date NAN - 7 assessed: 10/11/24 Feeling nervous, anxious, or on edge: 0 = Not at all Not being able to stop or control worryin = Not at all Worrying too much about different things: 0 = Not at all Trouble relaxin = Not at all Being so restless that it is hard to sit still: 0 = Not at all Becoming easily annoyed or irritable: 0 = Not at all Feeling afraid as if something awful might happen: 0 = Not at all Total NAN-7 score (0-4 normal; 5-9 mild; 10-14 moderate; 15-21 severe): 0 Source: Developed by Drs. Raffaele Ruth, Cyn Dowling, Reddy Gómez and colleagues, with an educational qiana from [employer]. Physical exam (Primary Care) Vital Signs: Last Vital Signs Temp 97.1 F 07/09/25 12:33 Pulse 81 07/09/25 12:33 BP 118/76 07/09/25 12:33 Pulse Ox 98 07/09/25 12:33 Oxygen Delivery Method Room Air 07/09/25 12:33 BMI result Body Mass Index 33.5 Tobacco/Smoking Status: Tobacco use Status Tobacco use date assessed 07/09/25 07/09/25 12:38 Patient Tobacco Use Status Never used Tobacco 07/09/25 12:38 e-Cigarette/Vaping Use Never Used 07/09/25 12:38 PHQ-9: PHQ-9 Score PHQ-9: Total score 3 07/09/25 12:56 Thrive Assessment: Date of Thrive Assessment Date Thrive assessed 05/20/25 07/09/25 12:38 Currently or been in a relationship where the following occur: No concerns reported Const General: alert; No acute distress Eyes Conjunctivae: conjunctivae normal Resp Auscultation: clear to auscultation bilaterally Cardio Rate: regular rate Rhythm: regular rhythm GI Inspection: Yes normal to inspection Extrem General: Yes normal to inspection and No edema Results AMB Hemoglobin A1c AMB Hemoglobin A1c 5.6 % Last Edit by Scarlet Bob CMA on 07/09/25 12:41 Results Reviewed Results Reviewed: Laboratory Last Values Hgb A1c (Clinic) 5.6 % (4.0-6.0) 07/09/25 12:38 Coding Level of Care Code Est Pt Level 4 (72741) Complex EM visit Add On G2211 Diagnoses White matter lesion of central nervous system G93.9 Migraine with aura and without status migrainosus, not intractable G43.109 Intractability: not intractable Migraine type: with aura Status migrainosus presence: without status migrainosus Primary hypertension I10 Hypertension type: primary hypertension Hypercholesterolemia E78.00 Impaired glucose tolerance R73.02 Acquired hypothyroidism E03.9 Hypothyroidism type: acquired Primary hyperaldosteronism E26.09 Obesity (BMI 30-39.9) E66.9 GERD (gastroesophageal reflux disease) K21.9 Adenoma of left adrenal gland D35.02 Laterality: left Assessment & Plan Assessment & Plan (1) White matter lesion of central nervous system: Comment: intracerebral concerning for demyelinating process Code(s): G93.9 - Disorder of brain, unspecified Category: Medical Plan: Patient is being followed up by Neurology (2) Migraine: Code(s): G43.909 - Migraine, unspecified, not intractable, without status migrainosus Category: Medical Qualifiers: Intractability: not intractable Migraine type: with aura Status migrainosus presence: without status migrainosus Qualified Code(s): G43.109 - Migraine with aura, not intractable, without status migrainosus Plan: Placed on Ubrelvy. Patient is advised to eat healthy, keep well hydrated, keep active and have adequate sleep. (3) Hypertension: Code(s): I10 - Essential (primary) hypertension Category: Medical Qualifiers: Hypertension type: primary hypertension Qualified Code(s): I10 - Essential (primary) hypertension Plan: Patient is being followed up by Nephrology patient is on hydralazine clonidine lisinopril nifedipine, spironolactone and propranolol (4) Hypercholesterolemia: Code(s): E78.00 - Pure hypercholesterolemia, unspecified Category: Medical Plan: Avoid fried foods, chicken skin, eggs, butter margarine, pastries and meat. Be it pork or beef they have a lot of cholesterol continuing to monitor presently (5) Impaired glucose tolerance: Code(s): R73.02 - Impaired glucose tolerance (oral) Category: Medical Plan: Decrease the amount of carbohydrate intake, pasta, bread, rice and potatoes are all sugar and that is aside from all the sweet stuff, remember that fruits are good but they are Sweet also. (6) Hypothyroid: Code(s): E03.9 - Hypothyroidism, unspecified Category: Medical Qualifiers: Hypothyroidism type: acquired Qualified Code(s): E03.9 - Hypothyroidism, unspecified Plan: Continue (7) Primary hyperaldosteronism: Code(s): E26.09 - Other primary hyperaldosteronism Category: Medical Plan: With thyroid medication. Patient follows up with endocrinology and will be seeing the surgeon soon. (8) Obesity (BMI 30-39.9): Code(s): E66.9 - Obesity, unspecified Category: Medical Plan: Diet and exercise (9) GERD (gastroesophageal reflux disease): Code(s): K21.9 - Gastro-esophageal reflux disease without esophagitis Category: Medical Plan: Avoid the foods that causes that usually spicy foods, tomato products, juices, coffee, soda and foods that your sensitive to. After eating do not lie down, allow 3-4 hours before in lie down. And keep the head of bed above 30 degrees to avoid the acid from going up. (10) Adrenal adenoma: Code(s): D35.00 - Benign neoplasm of unspecified adrenal gland Category: Medical Qualifiers: Laterality: left Qualified Code(s): D35.02 - Benign neoplasm of left adrenal gland Plan: Awaiting for the surgeon Plan History of Present Illness The patient is a 50-year-old female presenting for a follow-up visit. She has a history of hypothyroidism, hypercholesterolemia, migraine, and impaired glucose tolerance. Her last blood work in April showed normal blood count, electrolytes, and renal function, with a blood sugar of 102 mg/dL and a normal hemoglobin A1c. However, her vitamin B12 was low at 292 pg/mL, and her thyroid levels were mildly elevated. The patient is being followed by nephrology for hypertension and primary hyperaldosteronism, with a noted 1.4 cm left adrenal adenoma on CT. She was started on spironolactone 50 mg daily, and potassium supplementation was discontinued. Additionally, she has left renal calculi and is advised to maintain adequate hydration. Neurology follow-up revealed a brain MRI suspicious for demyelinating disease, with findings suggestive of multiple sclerosis. She was prescribed memantine, and a sleep study conducted in May was normal. The patient reports experiencing vaginal itching and odor, for which a urinalysis was ordered. Her mammogram is up to date, and her tetanus vaccination is current. Health Maintenance - Mammogram is up to date - Sleep study conducted in May was normal - Tetanus vaccination is current - Advised to maintain adequate hydration due to renal calculi Social History - Reports adequate water intake and attempts to stay active Review of Systems - Neurological: Reports feeling strange with Ubrelvy, tightness - Genitourinary: Reports vaginal itching and odor Physical Exam Results - Labs: Blood sugar 102 mg/dL, low vitamin B12 at 292 pg/mL, mildly elevated thyroid levels - Imaging: Brain MRI suspicious for demyelinating disease, suggestive of multiple sclerosis - Imaging: CT showing 1.4 cm left adrenal adenoma - Imaging: Left renal calculi noted - Screening: Sleep study normal Plan Patient was informed and verbally consented to the use of an ambient scribe for clinic note documentation during this visit. 1. Hypothyroidism The patient will continue with her current thyroid medication, and thyroid levels will be monitored regularly. 2. Hypercholesterolemia The patient is advised to continue monitoring cholesterol levels and maintain a healthy diet and exercise regimen. 3. Migraine The patient was prescribed memantine and advised to avoid triggers. Ubrelvy was tried but caused adverse effects, so its use was discontinued. 4. Impaired Glucose Tolerance The patient is advised to maintain a healthy diet and exercise to manage glucose levels. 5. Hypertension The patient is on multiple antihypertensive medications including hydralazine, clonidine, lisinopril, nifedipine, propranolol, and spironolactone. 6. Primary Hyperaldosteronism The patient is being followed by nephrology and is on spironolactone 50 mg daily. 7. Adrenal Adenoma The patient will be seeing an endocrinology surgeon for further evaluation and management. 8. Renal Calculi The patient is advised to maintain adequate hydration to prevent further stone formation. 9. Demyelinating Disease The patient is being followed by neurology for management of suspected multiple sclerosis. 10. Multiple Sclerosis The patient is being followed by neurology and will discuss further management options during her upcoming appointment. 11. Preventative Care The patient is up to date with her mammogram and tetanus vaccination. A referral for a colonoscopy was discussed for colon cancer screening. Discussion Notes During the visit, we discussed the patient's current management for her various conditions, including hypothyroidism, hypercholesterolemia, and hypertension. We reviewed her recent lab results and imaging findings, and I advised her to continue with her current medications and lifestyle modifications. We also discussed the importance of preventative care, including maintaining up-to-date vaccinations and screenings. Patient Instructions - Continue taking prescribed medications as directed. - Maintain a healthy diet and regular exercise routine. - Stay hydrated to prevent kidney stones. - Follow up with neurology and endocrinology as scheduled. - Schedule a colonoscopy for colon cancer screening. - Consider getting a flu shot in July. Orders: Orders AMB Hemoglobin A1c Today Z13.9 - Encounter for screening, unspecified Referrals Gastroenterology Referral Z12.11 - Encounter for screening for malignant neoplasm of colon
[2025-07-09 12:33] VITALS: BP 118/76; PULSE 81; TEMP 36.2; O2SAT 98; BMI 33.5
== END 2025-07-09 13:05 | disposition home or self-care (01) ==
LOC: HO.HMCH 12:03
PROVIDERS: PCP Internal Medicine; Visit Provider Internal Medicine
DX: G93.9 Disorder of brain, unspecified (principal); G43.109 Migraine with aura, not intractable, without status migrainosus; R73.02 Impaired glucose tolerance (oral); Z68.33 Body mass index [BMI] 33.0-33.9, adult; I10 Essential (primary) hypertension; E78.00 Pure hypercholesterolemia, unspecified; E66.9 Obesity, unspecified; E03.9 Hypothyroidism, unspecified; E26.09 Other primary hyperaldosteronism; K21.9 Gastro-esophageal reflux disease without esophagitis; D35.02 Benign neoplasm of left adrenal gland; Z13.9 Encounter for screening, unspecified

== ENCOUNTER 2025-07-11 09:40 | Outpatient (AMB) | payer OTHER, SELFPAY ==
--- NOTE | 2025-07-11 10:04 | A.OFFVIS_ITS ---
Vital Signs 07/11/25 10:07 Weight 196 lb BP 170/110 H Blood Pressure Location Lt brachial Position Sitting Pulse 80 Pulse Source Pulse Oximeter Pulse Oximetry (%) 98 Oxygen Delivery Method Room Air Intake Visit Reasons: MRI Results Intake Note: Patient presents 2 month follow up for migraines Wholesale Agronomist Required: No Accompanied by: Self / Same As Patient Allergies No Known Allergies Allergy (Verified 07/11/25 10:09) HPI Comments Details: A 50-year-old female presents for follow-up to discuss interval brain imaging results. 06/28/2025, brain MRI with and without contrast: MR/MR head/brain wo/w con IMPRESSION: Findings highly suspicious for demyelinating disease as described. Small focus of restricted diffusion in the left anteromedial temporal lobe, likely representing an active MS plaque. A small acute infarct appears less likely. She is still prone to labile HTN. She states that recently, her blood pressure was so high that her cuff could not read it, but as she was not feeling well and her tongue started to feel numb, she doubled her dose of her blood pressure medication, which symptomatically was helpful. She had a follow-up with her graduate civil engineer, who started her on spironolactone and arranged for her to have a consultation with a surgeon for possible adrenal gland excision. Patient reports she has a history of pins and needles in her hands, which have been attributed to carpal tunnel syndrome. 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 Otherwise, she denies any other history of significant episodes of transient focal paresthesias or weakness. 06/13/2025, HPI The patient denies any significant changes in medical history over the past interval, except for plans to meet with a surgeon at [facility] to discuss adrenal gland excision. She underwent sleep study on 05/12/2025, however results are not available yet. Patient states that regarding her migraines, she is still having a daily migraine. She was not able to start Ajovy, as her insurance company has a flawed policy that does not allow coverage for concomitant anti-CGRP therapies. Thus, instead, we started the patient on memantine titration, starting 7 mg daily x2 weeks. She states she has started this and has about 5 days left to go. She did start B2 and magnesium and appears to be tolerating this well. She just received Ubrelvy last week and has tried it once. ?Ubrelvy 100mg 1/2 tab caused a strange feeling and tiredness. She states she always has vision difficulties, which are slightly increased when her migraine is worse, and especially when she is on a computer.? She does have dry eye and has teardrops, but is not using them consistently. 04/01/2025, Initial HPI: The patient is a 49-year-old female presenting with migraine headaches. The migraines began at the age of 13 and have progressively worsened over time, becoming more severe and frequent. The patient experiences migraines twice a week, lasting three to four days, with symptoms including nausea, dizziness, and light sensitivity. She previously saw neurology for a short time, but this was years ago. The patient has a history of labile blood pressure, which has been challenging to control despite medication adjustments. She has also recently been diagnosed with primary hyperaldosteronism with a left adrenal adenoma. She is now being followed closely by both nephrology and endocrinology, and patient is being considered for surgical intervention for her primary hyperaldosteronism. She is currently on lisinopril, propranolol, clonidine and hydralazine, with recent increases in clonidine and hydralazine dosage due to persistent hypertension. Today, patient's blood pressure is 190/110, for which patient states this is an improvement as her blood pressure prior was over 200/110s. She denies any chest pain, shortness of breath dizziness at this time. Though she does endorse having the start of a typical migraine at this time. The patient has a left adrenal adenoma, which is being monitored by endocrinology, and a procedure is planned to assess its contribution to her hypertension. The patient reports anxiety and depression, which she manages without therapy, and has a history of thyroid disorder for which she takes supplements. She also has a history of kidney stones and acid reflux, with constipation being a frequent issue. 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 She experiences leg cramps and numbness in her hands and feet, which are persistent issues. Past Medical History - Labile blood pressure - Left adrenal adenoma - Hypertension - Anemia- secondary to menorrhagia, and thus underwent hysterectomy - Anxiety - Depression - Thyroid disorder - Kidney stones - Acid reflux - Constipation - Menorrhagia - Visual impairment- left eye blindness, right eye legally blind- congenital. 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 Denies history of seizures or head injuries. - Cardiovascular: Reports labile blood pressure. Denies chest pain or palpitations. - Gastrointestinal: Reports acid reflux and constipation. Denies loose stools. - Endocrine: Reports thyroid disorder. Denies other endocrine issues. - Musculoskeletal: Reports leg cramps and back pain. Denies joint pain. - Psychiatric: Reports anxiety and depression. Denies seeing a therapist. - Genitourinary: Reports history of kidney stones. Denies current urinary symptoms. - Ophthalmologic: Reports visual impairment and blurry vision. Denies recent changes in vision. Family History - No family history of migraine or headache disorders Results - Imaging: Head CT in 2023 was unremarkable. Lifestyle considerations: Sleep routine: Usual bedtime: 9am and wake-up time: 11am Sleep difficulties: Denies: Snoring, bruxism. Endorses: snoring, restlessness/leg pain/back pain, Fatigue, leg Cramps- at rest and in calves when walking. Caffeine use: 1-2 12oz can of pepsi Substance use: denies Exercise:?active at work, but no structured exercise Employment:?7pm-7am- difficulty falling asleep upon returning home. 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 Headache questionnaire:? Age/time of onset: 13 year old- started as a constant migraine- notes she did not use glasses as a student despite her vision deficits, and this worsened in high school when she could no longer choose to sit in the front of the classroom. Then worsened at age 15-16 years old when her menstrual cycle became irregular and heavy- and then the migraines further worsened. Preceding causes: none Previous work-up: [address]- unremarkable. 2024 HST- inconclusive Types of headache disorders: 1 Typical headache characteristics: Prodrome symptoms: blurry vision, squinting Aura: blurry vision, w/ moving black dots. Pain intensity: mild-severe Location, quality, characteristics: pressure pain under bilateral eyes, and expands into frontal and temporal region, and into the top of her head through her neck and whole face. Associated symptoms: watery eyes, red eyes, photophobia, phonophobia, allodynia, nausea, sometimes vomiting, spinning dizziness, lightheadedness, fa tigue- but cannot sleep, cognitive difficulties, activity intolerance. Postdrome: Persistent mild headache Triggers: lights, stress Aggravating factors: Everything (light, sound, etc.) Time of day: No specific time of day Frequency: constant, w/ severe migraine twice a week Duration: 3-4 days How does headache impact your life? has to leave work Current acute medication use/interventions: Tylenol 1000mg every 4 hours alternating w/ OTC Excedrin migraine every 4 hours. Has metoclopramide- uses prn for nausea. Current preventative medication use: Propranolol 20mg bid- used for blood pre ssure control Current non-pharmacological interventions: rest, ice [facility] Medical History (Updated 07/14/25 @ 22:26 by LISA Barney) Migraine with aura Primary hyperaldosteronism Migraine Cervical cancer screening Abnormal uterine bleeding (AUB) Friable cervix Encounter for gynecological examination Nasal pain Blood pressure elevated without history of HTN Breast cancer screening by mammogram Erythema of groin Breast lump Cervical polyp Menorrhagia Menometrorrhagia Legally blind in left eye, as defined in [place] Urge incontinence Metrorrhagia Anemia Impaired glucose tolerance Obesity (BMI 30-39.9) Hypercholesterolemia Hypothyroid Surgical History Hx of exploratory laparotomy History of total abdominal hysterectomy History of excision of lesion (04/07/23) History of bilateral tubal ligation Hx of tubal ligation Hx of cervical polypectomy Family History Maternal Aunt Family history of breast cancer Maternal Uncle History of brain tumor Paternal Aunt Hx of myocardial infarction Skin cancer Father Myocardial infarction Mother Alive and well Social History Housing: House Alcohol intake: never Patient Tobacco Use Status: Never used Tobacco e-Cigarette/Vaping Use: Never Used Second Hand Smoke Exposure: No Advance Directives Date on File: 07/17/20 service: No Current occupational status: employed Gender identity: Female Cognitive needs: No Hearing needs: No Vision needs: Yes (glasses) Female Reproductive History Menstrual Age of Menarche: 10 Review of Systems ENT Reports Normal hearing present Neuro Reports Normal hearing present Physical Exam Vital Signs: Last Vital Signs Pulse 80 07/11/25 10:07 BP 170/110 H 07/11/25 10:07 Pulse Ox 98 07/11/25 10:07 Oxygen Delivery Method Room Air 07/11/25 10:07 Const Orientation/consciousness: patient oriented x3 Resp Effort & Inspection: normal respiratory effort and able to speak in complete sentences Neuro General: patient oriented x3 and moves all extremities Cranial nerves: Yes Normal hearing present, Yes Ability to bilaterally rotate head present, Yes Ability to bilaterally elevate shoulders present and Yes Other cranial nerve findings present (Legally blind. Mild right lower facial weakness.) Cognition (Neuro): normal cognition Gait exam (Neuro): Normal gait present Deep tendon reflexes (DTR's): Right triceps reflex intensity grade: 2+, Left triceps reflex intensity grade: 2+, Rt Biceps (C5, C6): 2+, Left biceps reflex intensity grade: 2+, Right brachioradialis reflex intensity grade: 2+, Left brachioradialis reflex intensity grade: 2+, Right patellar reflex intensity grade: 2+ and Left patellar reflex intensity grade: 2+ Pupils: Normal pupillary reactivity/response: bilateral Psych Appearance: grossly normal Mental Status: mental status grossly normal Speech and movement: Normal speech and movement present Affect: normal affect Attitude: cooperative Thought process: Normal thought process present Assessment & Plan Assessment & Plan (1) Chronic migraine without aura: Code(s): G43.709 - Chronic migraine without aura, not intractable, without status migrainosus Category: Medical Qualifiers: Status migrainosus presence: without status migrainosus Intractability: not intractable Qualified Code(s): G43.709 - Chronic migraine without aura, not intractable, without status migrainosus (2) Migraine with aura: Comment: Sees moving black dots Code(s): G43.109 - Migraine with aura, not intractable, without status migrainosus Category: Medical Qualifiers: Status migrainosus presence: without status migrainosus Intractability: not intractable Qualified Code(s): G43.109 - Migraine with aura, not intractable, without status migrainosus (3) Snoring: Code(s): R06.83 - Snoring Category: Medical (4) Hypersomnolence: Code(s): G47.10 - Hypersomnia, unspecified Category: Medical (5) White matter lesion of central nervous system: Comment: intracerebral concerning for demyelinating process Code(s): G93.9 - Disorder of brain, unspecified Category: Medical (6) Legally blind in left eye, as defined in [place]: Code(s): H54.8 - Legal blindness, as defined in [place] Category: Medical Plan Reviewed brain MRI with and without contrast report and images with the patient, discussed that there are multiple white matter lesions, which are concerning for a demyelinating process. * Thus, the patient is advised to undergo further workup to assess for PULMONARY NURSE PRACTITIONER demyelination: * C-spine MRI with and without contrast * T-spine MRI with and without contrast * Visual evoked potential * Lumbar puncture for opening pressure in left lateral decubitus position and serum/CSF studies for underlying inflammatory/infectious processes. * Reviewed risks and benefits related to LP * Reviewed post LP care, including the importance of rest, taking increased fluids including caffeine, and may use Fioricet as needed. * Patient is also advised to follow up with Nephrology, Endocrinology, and the surgeon to optimize BP control. Regarding sleep study results: * 05/12/2025, in-lab sleep study did not show any evidence for sleep apnea or nocturnal hypoxemia, however there was periodic limb movement of sleep 43 per hour with PLMS arousal index of 7 per hour. * Follow-up with Hematology as scheduled. * Would hold on medication trial until her BP is better managed. For overall headache management: * Optimize good self-care, including but not limited to maintaining a healthy diet, adequate fluid intake, adequate sleep, and engaging in regular physical activity. * Track headaches, especially after any treatment regimen changes. [employer] is one of many headache tracking apps. * Information shared on non-pharmacological interventions which may help to alleviate headache attack burden. For light sensitivity: Patient may benefit from trying blue light filtering glasses, green glasses, green light therapy. For acute headache treatment: Discussed importance of taking acute medications at the first sign of headache, however stressed importance of avoiding acute medication overuse (especially with combined headache medications). * Continue to trial Ubrogepant (Ubrelvy) 100mg tab, 1/2 - 1 tab (50-100mg) at onset of headache, may repeat in 2 hours. Max of 2 tabs (200mg) per 24 hours. May adjunct with OTC Tylenol 650-1000mg q 4-6 hours as needed. Previous acute migraine medication trials: Fioricet and sumatriptan- ineffective. Acute migraine medication contraindications: All triptans and DHE due to uncontrolled hypertension. Avoid NSAIDs due to uncontrolled hypertension. For headache prevention medication: Preventative medications should be taken routinely as prescribed for best effect, it may take several weeks for full effect to take effect. Continue Riboflavin 400mg qam Continue Magnesium 400mg qhs- may help leg movements as well. Continue propranolol 20 mg b.i.d. Continue lisinopril, nifedipine, spironolactone, clonidine, and have surgical consult per nephrology, endocrinology. Continue taper of memantine ER. Patient advised this medication is usually prescribed for cognitive difficulties; however, we are starting this sp ecifically for migraine prevention. * Potential side effects of memantine include, but are not limited to: ?Dizziness, nausea, mood changes, and headaches. * Namenda ER taper instructions: * Weeks 1?2: Take 7 mg once daily * Weeks 3?4: Take 14 mg once daily * Weeks 5?6: Take 21 mg once daily * Week 7 onward: Take 28 mg once daily Previous migraine prevention medication trials: Migraine prevention medication contraindications: Topiramate due to h/o kidney stones. All TCAs due to uncontrolled hypertension. Aimovig/Qulipta due to constipation. Will follow-up upon review of above and patient to follow-up in clinic in 3-4 months or sooner prn. Orders: Orders CSF Glucose Today G93.9 - Disorder of brain, unspecified, H54.8 - Legal blindness, as defined in [place] CSF Total Protein Today G93.9 - Disorder of brain, unspecified, H54.8 - Legal blindness, as defined in [place] Immunofixation, CSF Today G93.9 - Disorder of brain, unspecified, H54.8 - Legal blindness, as defined in [place] C Reactive Protein Today E26.09 - Other primary hyperaldosteronism, G93.9 - Disorder of brain, unspecified Rheumatoid Factor Today E26.09 - Other primary hyperaldosteronism, G93.9 - Disorder of brain, unspecified, I10 - Essential (primary) hypertension Anti DNA DS Antibody Today G93.9 - Disorder of brain, unspecified, H54.8 - Legal blindness, as defined in [place] Visual evoked potential Today G93.9 - Disorder of brain, unspecified, H54.8 - Legal blindness, as defined in [place] FL myelogram spine thoracic Today G93.9 - Disorder of brain, unspecified, H54.8 - Legal blindness, as defined in [place] CSF Cell Ct w Diff X2 Today G93.9 - Disorder of brain, unspecified, H54.8 - Legal blindness, as defined in [place] CSF Culture + Gram stain Today G93.9 - Disorder of brain, unspecified, H54.8 - Legal blindness, as defined in [place] IgG Index CSF Today G93.9 - Disorder of brain, unspecified, H54.8 - Legal blindness, as defined in [place] Oligoclonal Banding Today E26.09 - Other primary hyperaldosteronism, G93.9 - Disorder of brain, unspecified, H54.62 - Unqualified visual loss, left eye, normal vision right eye, H54.8 - Legal blindness, as defined in [place], I10 - Essential (primary) hypertension Erythrocyte Sedimentation Rate Today E26.09 - Other primary hyperaldosteronism, G93.9 - Disorder of brain, unspecified SUREKHA Reflex Titer and Pattern Today E26.09 - Other primary hyperaldosteronism, G93.9 - Disorder of brain, unspecified, I10 - Essential (primary) hypertension Complement C3 Today E26.09 - Other primary hyperaldosteronism, G93.9 - Disorder of brain, unspecified, H54.8 - Legal blindness, as defined in [place], I10 - Essential (primary) hypertension Complement C4 Today E26.09 - Other primary hyperaldosteronism, G93.9 - Disorder of brain, unspecified, H54.8 - Legal blindness, as defined in [place], I10 - Essential (primary) hypertension Coding Level of Care Code Est Pt Level 4 (13029) Diagnoses Chronic migraine without aura without status migrainosus, not intractable G43.709 Status migrainosus presence: without status migrainosus Intractability: not intractable Migraine with aura and without status migrainosus, not intractable G43.109 Status migrainosus presence: without status migrainosus Intractability: not intractable Snoring R06.83 Hypersomnolence G47.10 White matter lesion of central nervous system G93.9 Legally blind in left eye, as defined in [place] H54.8
[2025-07-11 10:07] VITALS: BP 170/110; PULSE 80; O2SAT 98
== END 2025-07-11 11:17 | disposition home or self-care (01) ==
LOC: HO.HSMS 09:41
PROVIDERS: PCP Internal Medicine; Visit Provider Nurse Practitioner Family
DX: G43.709 Chronic migraine without aura, not intractable, without status migrainosus (principal); G43.109 Migraine with aura, not intractable, without status migrainosus; R06.83 Snoring; G47.10 Hypersomnia, unspecified; G93.9 Disorder of brain, unspecified; H54.8 Legal blindness, as defined in USA
CPT/HCPCS: 99214

== ENCOUNTER 2025-07-25 08:00 | Outpatient (REF) | payer OTHER, SELFPAY ==
[2025-07-25 10:47] LABS: Anion Gap 11 (12-20); Blood Urea Nitrogen 8 mg/dL (9-16); Calcium 8.9 mg/dL (8.4-10.2); Carbon Dioxide 26 mmol/L (22-29); Chloride 107 mmol/L (96-108); Estimated Glomerular Filt Rate > 60; Potassium 3.8 mmol/L (3.3-5.1); Sodium 140 mmol/L (135-145)
== END 2025-07-25 08:01 | disposition home or self-care (01) ==
LOC: HO.LAB 08:00
PROVIDERS: PCP Internal Medicine; Visit Provider Student in an Organized Health Care Education/Training Program
DX: E26.09 Other primary hyperaldosteronism (principal); D35.02 Benign neoplasm of left adrenal gland; Z79.899 Other long term (current) drug therapy
CPT/HCPCS: 36415; 80048; 84244

== ENCOUNTER 2025-07-25 08:00 | Outpatient (AMB) | payer OTHER, SELFPAY ==
[2025-07-25 08:20] VITALS: BP 122/76; PULSE 74; O2SAT 98; BMI 34.4
--- NOTE | 2025-07-25 08:20 | MHC.OFFVIS ---
Vital Signs 07/25/25 08:20 Height 5 ft 4 in Weight 200 lb 9.93 oz BMI 34.4 BP 122/76 Blood Pressure Location Rt brachial Position Sitting Pulse 74 Pulse Source Pulse Oximeter Pulse Oximetry (%) 98 Oxygen Delivery Method Room Air Intake Visit Reasons: Primary hyperaldosteronism Intake Note: Patient present today for Primary Hyperaldosteronism office visit. [employer] Required: No Accompanied by: Self / Same As Patient Allergies No Known Allergies Allergy (Verified 07/11/25 10:09) Medication List - Last Reconciled 07/25/25 by Rosalva Price MD ascorbate calcium (vitamin C) 500 mg PO DAILY 30 days wakmhjv-mjqwxsaterowa-nkgztesx 250-250-65 mg (Excedrin Migraine) 1 tab PO Q4-6H PRN blood pressure monitor (Blood Pressure Kit) As directed ibzaqekbbd-wogwkumqwbdpz-elxb 50-300-40 mg (Fioricet) 1 cap PO Q8H clonidine HCl 0.1 mg PO BID clotrimazole 1% 1 appl topical BID 2 weeks cyanocobalamin (vitamin B-12) 1,000 mcg PO DAILY 30 days cyclobenzaprine 10 mg PO TID ferrous sulfate (Feosol) 325 mg PO DAILY 30 days hydralazine 100 mg PO TID 30 days ketorolac 10 mg PO Q8H PRN levothyroxine 137 mcg PO DAILY lisinopril 10 mg PO DAILY magnesium oxide 400 mg PO BEDTIME 30 days metoclopramide HCl (Reglan) 10 mg PO Q6H PRN nifedipine ER 60 mg PO BID 30 days propranolol 20 mg PO BID riboflavin (vitamin B2) 400 mg PO DAILY 30 days sennosides-docusate sodium 8.6-50 mg (Senna Plus) 2 tab-caps (2 x 8.6-50 mg) PO BEDTIME 90 days spironolactone 50 mg PO DAILY terconazole 0.8% 1 appful vaginal BEDTIME 3 days ubrogepant (Ubrelvy) 50 - 100 mg (0.5 - 1 x 100 mg) PO ONCE PRN 30 days HPI Comments Details: 49-year-old female coming in today for follow up of primary hyperaldosteronism, left adrenal gland adenoma. Otherwise PMHx significant for hypothyroidism, migraines. HPI from prior visit CT adrenal 11/27/2024: Showed a 1.4 cm left adrenal gland nodule with-16 Hounsfield units precontrast density, with could washout, consistent with lipid rich 1.4 cm left adrenal gland adenoma. CTA adrenal was done by Nephrology, as patient has a history of resistant/labile hypertension. BP today on 02/28/2025 198/118 , BP on 02/05/2025: 198/118, 162/110, BP 01/21/25 188/112 BP repeated by me 190/120 mm Hg Current BP meds (on the days she works she takes the meds at 7 AM and 3 pm for BID) Hydralazine 50 mg t.i.d. (started 02/05/2025) Lisinopril 20 mg b.i.d. Nifedipine 60 mg b.i.d. Propranolol 10 mg b.i.d. She was on spironolactone 100 mg daily which was stopped 02/05/2025 by Nephrology 1 hydralazine was started. This was stopped as then dissipated she would need AVS for further workup of primary hyperaldosteronism. No history of stroke or UT. Father: age 62 years had UT and stroke Blood work from August 2024 showed plasma renin activity suppressed at 0.47, with a aldosterone of 11, while potassium was 3. Given that potassium was low, aldosterone could have been even much higher if the potassium was repleted. Patient was on both spironolactone as well as lisinopril at this time. Given she was on IRINA inhibitor and despite that her plasma renin activity suppressed, this is highly suspicious for primary hyperaldosteronism. No confirmatory testing done however aldosterone her blood pressure has been uncontrolled so hard to do confirmatory testing with saline suppression or 24 hour urine evaluation. Apparently she was referred for AVS by nephrology , then was cancelled due to being on spironolactone, even though her renin activity was <1, could have had the procedure.is waiting to heat about next appointment. She also has a history of hypokalemia, on potassium 20 mEq extended release daily started 02/05/25 08/01/2024: Renal ultrasound showed no evidence of renal artery stenosis. No history of ROLANDO, denies apneic episodes or snoring Evaluation for hypercortisolism No history of fragility fracture, no history of DM, Reports easy bruising , no proximal muscle weakness, no abdominal striae No skin infections No skin thinning Does have some facial plethora 02/28/2025: Potassium 3.6, normal kidney function, renin 0.96, aldosterone 10, DHEA-S 99, acth 13, random cortisol 9.4 03/05/2025: Dexamethasone suppression test with cortisol of 1.4, acth less than 5, normal cortisol for dexamethasone suppression test 03/06/2025:24 hour urine collection showed normal cortisol, 24 hour urine sodium of 134, 24 hour urine aldosterone level 14.7 04/22/25: Potassium 3.6 , renin 0.99 prior to preocedure on 04/24/25 Status post AVS with Dr. Moreno at [facility] , on 04/24/2025 with lateralization of aldosterone production to the right adrenal gland. see calcultations below Continues on potassium 20 mEq daily. Interval history 07/25/2025 Saw Nephrology 07/09/2025, restarted on spironolactone, potassium supplements stopped. Saw Dr. Bertha Alvarez July 2025, plan is to proceed with a right adrenalectomy Current BP meds Hydralazine 100 mg t.i.d. (started 02/05/2025, uptitrated to 100 03/05/25) Lisinopril 10 mg once a day ( unclear when this was decreased from 20 BID , sometime between March and May 2025, maybe by nephro but i dont see it in the notes) Nifedipine 60 mg b.i.d. Propranolol 20 mg b.i.d. Clonidine 0.1 mg b.i.d. (started 03/05/2025) Spironolactone 50 mg daily (restarted 07/09/2025 by nephro) Blood pressure today 122/76, she is following with Neurology for the migraines, recent imaging was concerning for some demyelinating lesion on her brain. Possible diagnosis of MS? Physical exam General: sitting comfortably in no acute distress HEENT: normocephalic/atraumatic, Neck: supple, symmetrical Cardiac: normal heart sounds Pulm: normal breath sounds B/L, no added breath sounds Abd: not distended, no tenderness Extremities: no edema, no signs of myxedema, no proximal muscle weakness, no abdominal striae Neuro: AAO x3, Speech: normal, no facial droop, moving all 4 extremities Laboratory Tests 04/29/20 02/19/23 05/25/24 09:05 08:33 14:42 Sodium Potassium 4.2 3.9 3.3 Creatinine Estimated GFR Renin Renin Activity Aldosterone Aldosterone/Renin Ratio Random Cortisol Plasma Free Metaneph Plasma Free Normeta Plas Total Metaneph 06/27/24 08/20/24 10/05/24 07:52 07:41 09:28 Sodium Potassium 3.0 L 3.0 L 3.4 Creatinine Estimated GFR Renin 0.54 Renin Activity 0.47 Aldosterone 11 Aldosterone/Renin Ratio Random Cortisol Plasma Free Metaneph <25 Plasma Free Normeta 48 Plas Total Metaneph 48 10/29/24 11/19/24 01/03/25 16:32 08:52 14:44 Sodium 140 Potassium 3.5 3.3 Creatinine 0.66 Estimated GFR > 60 Renin 0.57 Renin Activity 0.47 Aldosterone 9 Aldosterone/Renin Ratio 19.1 Random Cortisol 10.9 Plasma Free Metaneph Plasma Free Normeta Plas Total Metaneph 01/21/25 09:58 Sodium 137 Potassium 3.2 L Creatinine 0.61 Estimated GFR > 60 Renin Renin Activity Aldosterone Aldosterone/Renin Ratio Random Cortisol Plasma Free Metaneph Plasma Free Normeta Plas Total Metaneph Laboratory Tests 02/28/25 03/05/25 03/06/25 09:48 07:32 07:00 Sodium 140 Potassium 3.6 Creatinine 0.59 Estimated GFR > 60 Renin 0.96 Aldosterone 10 DHEA Sulfate 99 Random Cortisol 9.4 1.4 ACTH 13 <5 L Urine Total Volume 975 Ur 24 Hour Volume 975 Ur Creatinine mg/dL 135.26 Ur Creatinine 24 Hour 1.33 Ur Sodium 24 Hour 134.6 Ur Free Cortisol 24 Hr 8.0 Laboratory Tests 03/06/25 07:00 Ur Total Volume 975 Ur Aldosterone 24 Hr 14.7 Urine Creatinine 1.31 Laboratory Tests 04/22/25 08:10 Sodium 140 Potassium 3.6 Renin 0.99 Aldosterone 13 Laboratory Tests 07/09/25 11:06 Potassium 3.7 Creatinine 0.66 Estimated GFR > 60 CLINICAL HISTORY: E87.6 - Hypokalemia 11/27/24 CT abdomen with and without contrast Comparison: None Findings: No consolidation or effusion. There is a 1.4 cm nodule within the left adrenal gland. Precontrast density estimated -16 Hounsfield units. Venous phase density 17 Hounsfield units and density on delayed imaging -5 Hounsfield units. Unremarkable right adrenal gland. 3 mm nonobstructive calculus within the upper pole of the left kidney. Remaining abdominal organs unremarkable. No calcified gallstones. No bowel obstruction, pneumoperitoneum, or pneumatosis. No acute fracture. IMPRESSION: 1. There is a 1.4 cm adenoma within the left adrenal gland. 2. There is a small left-sided periumbilical hernia containing fat. 3. Small nonobstructive calculus within the left kidney. This document has been electronically signed by: Nu Mohan MD on 11/27/2024 13:07:39 US RETROPERITONEAL LIMITED (RENAL ONLY) 08/01/24 CLINICAL INFORMATION: Essential hypertension. COMPARISON: Abdominal ultrasound 07/08/2015 TECHNIQUE: Multiple grayscale images of bilateral kidneys FINDINGS: RIGHT KIDNEY: 10.7 x 4 x 6.5 cm (SAG x AP x TRV). The kidney is normal in size, contour, and echogenicity. Renal cortical thickness is normal . No calculi or focal parenchymal lesions. No hydronephrosis. LEFT KIDNEY: 12 x 5.4 x 6 cm (SAG x AP x TRV). The kidney is normal in size, contour, and echogenicity. Renal cortical thickness is normal. No calculi or focal parenchymal lesions. No hydronephrosis. US/US renal BI IMPRESSION: No renal calculus or hydronephrosis. Unremarkable sonographic appearance of bilateral kidneys. Electronically signed by: Patricio Mata MD 08/02/2024 08:43 AM EDT [facility] Medical History (Updated 07/14/25 @ 22:26 by LISA Barney) Migraine with aura Primary hyperaldosteronism Migraine Cervical cancer screening Abnormal uterine bleeding (AUB) Friable cervix Encounter for gynecological examination Nasal pain Blood pressure elevated without history of HTN Breast cancer screening by mammogram Erythema of groin Breast lump Cervical polyp Menorrhagia Menometrorrhagia Legally blind in left eye, as defined in [place] Urge incontinence Metrorrhagia Anemia Impaired glucose tolerance Obesity (BMI 30-39.9) Hypercholesterolemia Hypothyroid Surgical History Hx of exploratory laparotomy History of total abdominal hysterectomy History of excision of lesion (04/07/23) History of bilateral tubal ligation Hx of tubal ligation Hx of cervical polypectomy Family History Maternal Aunt Family history of breast cancer Maternal Uncle History of brain tumor Paternal Aunt Hx of myocardial infarction Skin cancer Father Myocardial infarction Mother Alive and well Social History Housing: House Alcohol intake: never Patient Tobacco Use Status: Never used Tobacco e-Cigarette/Vaping Use: Never Used Second Hand Smoke Exposure: No Advance Directives Date on File: 07/17/20 service: No Current occupational status: employed Gender identity: Female Cognitive needs: No Hearing needs: No Vision needs: Yes (glasses) Female Reproductive History Menstrual Age of Menarche: 10 Physical Exam Vital Signs: Last Vital Signs Pulse 74 07/25/25 08:20 BP 122/76 07/25/25 08:20 Pulse Ox 98 07/25/25 08:20 Oxygen Delivery Method Room Air 07/25/25 08:20 BMI result Body Mass Index 34.4 Assessment & Plan Assessment & Plan (1) Primary hyperaldosteronism: Code(s): E26.09 - Other primary hyperaldosteronism Category: Medical Plan: 49-year-old female with past medical history significant for resistant hypertension, hypokalemia, migraine headaches, hypothyroidism coming in today for follow up of primary hyperaldosteronism. She has had a history of resistant hypertension for many years, She has been managed by Nephrology. Renal ultrasound from December 2024 did not show any renal artery stenosis. She does not have any history of ROLANDO. She is noted to have hypokalemia, was on potassium supplements 20 mEq daily since 02/05/2025. Blood work done August 2024, showed suppressed plasma renin activity of 0.47 while she was on an IRINA inhibitor with high aldosterone level of 11, when potassium was 3, given potassium was low, aldosterone would have even been higher if potassium was repleted, all of this is very highly suspicious of primary hyperaldosteronism. Confirmatory testing not done, however she has had such high blood pressures it would be risky to do a saline suppression test or a load her with sodium for 24 hour urine evaluation. However in February 2025 24 hour urine collection while her sodium level was not elevated at 134 her urine aldosterone was elevated at 14.7. This is again highly suspicious for primary hyperaldosteronism. CT adrenal from November 2024 showed a left 1.4 cm lipid rich adenoma -16 Hounsfield units, with a an unremarkable right adrenal gland. She is young and requiring a lot of medications for blood pressure control plus potassium supplementation for hypokalemia and despite that has poor control, she would be an excellent candidate for surgery. She was on spironolactone 100 mg daily which was stopped 02/05/2025 by Nephrology when hydralazine was started. Spironolactone was stopped in anticipation of AVS for further workup of primary hyperaldosteronism. Blood work from September 2024 showed normal plasma metanephrine normetanephrine levels, ruled out pheochromocytoma. 02/28/2025: Potassium 3.6, normal kidney function, renin 0.96, aldosterone 10, DHEA-S 99, acth 13, random cortisol 9.4 03/05/2025: Dexamethasone suppression test with cortisol of 1.4, acth less than 5, normal cortisol for dexamethasone suppression test 03/06/2025:24 hour urine collection showed normal cortisol, 24 hour urine sodium of 134, 24 hour urine aldosterone 14.7 Status post AVS at [facility] 04/24/2025 with results showing lateralization of aldosterone production to the right adrenal gland. Good selectivity index for all samples. I do not see a contralateral suppression on the left side, but still it seems like she has good selectivity index and lateralization ratios are strong. Lackof contralateral suppression could indicate bilateral disease or incomplete feed back inhibition due to other factors. While her adrenal gland adenoma was on the left side, it is not unusual to see that the overproduction of aldosterone is coming from the contralateral gland that did not show any mass or nodule. We recommend right adrenalectomy at this time. This would help with controlling her blood pressure, reducing mortality, her being able to come off some of her blood pressure medications and potassium in the near future. While there is also the option of medical management with spironolactone, surgery would be our 1st recommendation. She is agreeable to surgery. Met with Endocrine surgery July 2025 with plan to proceed with a right adrenalectomy. Spironolactone 50 mg restarted by Nephrology 07/09/2025 Blood pressures for now are much improved. She is also currently off the potassium supplementation. Plan: -repeat BMP and renin levels -continue current blood pressure regimen -keep an eye on blood pressure at home, maintain a log and bring to next appointment -follow up with me in November 2025 Preoperative management: Blood pressure should be well managed and hypokalemia should be corrected pre surgery. Postoperative considerations : -BP meds to stop postoperatively Hydralazine Lisinopril Spironolactone -BP meds to continue Nifedipine can be started at lower dose Propranolol can be started at lower dose Clonidine can either stop or continue at lower dose -No potassium supplements postoperatively -serum potassium should be monitored once weekly for 4 weeks -serum creatinine should be monitored for at least 3-6 months -Plasma aldosterone should be measured day after surgery to assess for cure. if the postoperative plasma aldosterone concentration is >5 ng/dL, the patient should be followed closely by monitoring daily home blood pressure measurements and weekly serum potassium concentrations. Re-evaluation for persistent hyperaldosteronism is indicated in those patients with either persistent hypokalemia or lack of blood pressure improvement postoperatively. -the preferred intravenous fluid after surgeries isotonic saline without potassium unless patient is still hypokalemic and a sodium rich diet should be considered before and after discharge. (2) Adrenal adenoma: Code(s): D35.00 - Benign neoplasm of unspecified adrenal gland Category: Medical Qualifiers: Laterality: left Qualified Code(s): D35.02 - Benign neoplasm of left adrenal gland Plan: See above Plan I spent 30 minutes in reviewing the record, seeing the patient and documenting in the medical record. Orders: Orders Basic Metabolic Panel Today E26.09 - Other primary hyperaldosteronism Renin Today E26.09 - Other primary hyperaldosteronism Patient Instructions: Do blood work today Continue current blood pressure regimen Continue to monitor blood pressures at home As soon as you find out the date of your surgery, please call our office during office hours and let us know so we can decide when you need to be seen postoperatively. For now we will put you in on the schedule in November as a tentative date. Coding Level of Care Code Est Pt Level 4 (83365) Diagnoses Primary hyperaldosteronism E26.09 Adenoma of left adrenal gland D35.02 Laterality: left Time Spent (min) 30
== END 2025-07-25 08:59 | disposition home or self-care (01) ==
LOC: HO.ENCR 08:01
PROVIDERS: PCP Internal Medicine; Visit Provider Student in an Organized Health Care Education/Training Program
DX: E26.09 Other primary hyperaldosteronism (principal); D35.02 Benign neoplasm of left adrenal gland
CPT/HCPCS: 99214

== ENCOUNTER 2025-08-23 09:17 | Day surgery (SDC) | payer OTHER, SELFPAY ==
[2025-08-23] VITALS (7 sets, daily range): BP systolic 138–155; BP diastolic 86–94; PULSE 75–109; RESP 14–18; TEMP 35.9–36.2; O2SAT 96–98; BMI 31.9
--- NOTE | ~2025-08-23 | FL_ITS ---
EXAMINATION: XR LUMBAR PUNCTURE CLINICAL INFORMATION: G93.9 - Disorder of brain, unspecified . Headache and weakness. COMPARISON: MRI brain 06/28/2025 TECHNIQUE: Following explaining fluoroscopy-guided lumbar puncture procedure, benefits and risk, a written consent was obtained. Patient was placed prone on fluoroscopy table and marker was placed overlying the L3-4 disc level along the posterior back. The marked site was cleaned and draped in usual sterile manner. 1% lidocaine was injected at puncture site. A 20-gauge spinal needle was introduced from the marked site at the skin intrathecally at the L3-4 disc level. After removing stylet and observing CSF return, patient was quickly placed in left lateral pelvic viscera and opening CSF pressure was obtained. Subsequently clear CSF fluid was aspirated in 4 test tubes. Postprocedure stylet was reintroduced and needle withdrawn. Complete hemostasis achieved at puncture site. Sterile dressing applied post procedure. Patient tolerated procedure extremely well. FINDINGS: On fluoroscopy images obtained there is minimal levoscoliosis which could be positional. The vertebral heights, alignment and disc heights are normal. Opening CSF pressure measured 15 cm of water. Approximately 11 mL of clear CSF fluid was collected in 4 test tubes and sent to lab. FLUOROSCOPY TIME: 19 seconds DOSE AREA PRODUCT: 66.8 uGy-m2 (microgray-meter squared) FL/FL guided lumbar puncture LP IMPRESSION: Successful fluoroscopy-guided lumbar puncture performed without immediate complications. Electronically signed by: Andriy Narayan MD 08/23/2025 04:00 PM [facility] [place]
[2025-08-23 10:17] LABS: INTERNATIONAL NORM RATIO 1.0 (0.9-1.1); Prothrombin Time 12.4 SEC (11.2-13.5)
[2025-08-23 10:19] LABS: Partial Thromboplastin Time 30.7 SEC (26.7-34.1)
[2025-08-23 10:21] LABS: Anion Gap 12 (12-20); Blood Urea Nitrogen 17 mg/dL (9-16); Calcium 9.3 mg/dL (8.4-10.2); Carbon Dioxide 23 mmol/L (22-29); Chloride 106 mmol/L (96-108); Creatinine Clr Calc Pharmacy 98.8; Estimated Glomerular Filt Rate > 60; Potassium 4.9 mmol/L (3.3-5.1); Sodium 136 mmol/L (135-145)
[2025-08-23 10:22] LABS: Hematocrit 44.0 % (37.0-47.0); Hemoglobin 14.9 g/dl (12.0-16.0); Imm Gran Abs Auto 0.05 X10*3/uL (0.00-0.03); Imm Gran Pct Auto 0.7 % (0.0-0.4); Lymphocytes Absolute Auto 1.7 X10*3/uL (1.2-4.9); MANUAL DIFF FLAG SCAN; Mean Corpuscular HGB Conc 33.9 g/dl (31.0-35.0); Mean Corpuscular Hemoglobin 30.2 pg (27.0-33.0); Mean Corpuscular Volume 89.1 fL (80.0-98.0); NRBC Abs Auto 0.000 X10*3/uL (0.0-0.012); NRBC Pct Auto 0.0 /100WBC (0.0-0.2); PLT CLUMP 1; Red Blood Count 4.94 X10*6/uL (4.20-5.50); SCAN SMEAR FLAG 1
[2025-08-23 11:15] LABS: Platelet Count 293 X10*3/uL (160-400); White Blood Count 7.7 X10*3/uL (4.8-10.8)
[2025-08-23 13:55] LABS: Lymphocytes CSF 65 %; Red Blood Cell CSF 1 MM*3; White Blood Cell CSF 3 MM*3
[2025-08-23 13:58] LABS: Lymphocytes CSF 75 %; Red Blood Cell CSF 0 MM*3; White Blood Cell CSF 3 MM*3
[2025-08-26 08:16] LABS: Oligoclonal Serum Yes
[2025-08-27 08:14] LABS: Albumin 4.5 g/dL (3.6-5.1); Albumin, CSF 34.6 mg/dL (8.0-42.0); IgG, CSF 4.4 mg/dL (0.8-7.7)
== END 2025-08-23 14:30 | disposition home or self-care (01) ==
PROVIDERS: Radiology Diagnostic Radiology; PCP Internal Medicine; Visit Provider Nurse Practitioner Family
PROC: 009U3ZZ Drainage of Spinal Canal, Percutaneous Approach (ICD-10-PCS; CPT 62270; principal; 2025-08-23 11:00)
DX: G93.9 Disorder of brain, unspecified (principal); H54.8 Legal blindness, as defined in USA; G43.909 Migraine, unspecified, not intractable, without status migrainosus; R53.1 Weakness; R09.89 Other specified symptoms and signs involving the circulatory and respiratory systems; I10 Essential (primary) hypertension; D35.00 Benign neoplasm of unspecified adrenal gland; E26.9 Hyperaldosteronism, unspecified
CPT/HCPCS: 36415; 62328; 80048; 82042; 82945; 83916; 84157; 85025; 85610; 85730; 86335; 86850; 86900; 86901; 87015; 87070; 87205; 89051; J2003

== ENCOUNTER → 2025-08-23 10:58 | Outpatient (BNV) | payer OTHER, SELFPAY | PROVIDERS: PCP Internal Medicine; Visit Provider Radiology Diagnostic Radiology | DX: G93.9 Disorder of brain, unspecified (principal) | CPT/HCPCS: 62328 ==

== ENCOUNTER 2025-08-30 09:43 | Outpatient (AMB) | payer OTHER, SELFPAY ==
--- NOTE | 2025-08-30 09:53 | MHC.PC.OV ---
Vital Signs 08/30/25 09:54 Height 5 ft 5 in Weight 196 lb 2 oz BMI 32.6 BP 150/80 H Blood Pressure Location Lt brachial Position Sitting Pulse 105 H Pulse Source Pulse Oximeter Temp 97.1 F Temp Source Temporal Artery Scan Pulse Oximetry (%) 97 Oxygen Delivery Method Room Air Intake Visit Reasons: [facility] [place] 08/23 High BP/Migraines Intake Note: Patient is here for hospital discharge follow up. Patient was discharged from [facility] [place] on 08/22/25. 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 Significant PMH includes resistant hypertension secondary to primary hyperaldosteronism due to a right adrenal adenoma (pending Adrenalectomy with endocrine surgery on 11/19/2025), obesity, anxiety, hypothyroidism, and migraine headaches. She was admitted at [facility] [place] from 08/17?08/22 for hypertensive emergency related to her adrenal adenoma. Since discharge, she reports episodic low blood pressures at home with systolic readings 100?112 and diastolic 70?80, associated with headaches, dizziness, drowsiness, and generalized weakness. 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 She believes the night dose of Nifedipine contributes to fatigue/sedation but also notes that her BP has been fluctuating due to the adenoma. Current antihypertensive regimen per discharge: Nifedipine 20 mg BID Propranolol (patient has not been taking it since discharge; uses for migraine prophylaxis per Neurology; requesting refill) Spironolactone 150 mg daily No chest pain, SOB, syncope, or palpitations. Patient brought disability paperwork for completion. [facility] Medical History (Updated 08/30/25 @ 11:07 by Afua Mcdaniels NP) Hypertensive emergency Migraine with aura Primary hyperaldosteronism Migraine Cervical cancer screening Abnormal uterine bleeding (AUB) Friable cervix Encounter for gynecological examination Nasal pain Blood pressure elevated without history of HTN Breast cancer screening by mammogram Erythema of groin Breast lump Cervical polyp Menorrhagia Menometrorrhagia Legally blind in left eye, as defined in [place] Urge incontinence Metrorrhagia Anemia Impaired glucose tolerance Obesity (BMI 30-39.9) Hypercholesterolemia Hypothyroid Surgical History Hx of exploratory laparotomy History of total abdominal hysterectomy History of excision of lesion (04/07/23) History of bilateral tubal ligation Hx of tubal ligation Hx of cervical polypectomy Family History Maternal Aunt Family history of breast cancer Maternal Uncle History of brain tumor Paternal Aunt Hx of myocardial infarction Skin cancer Father Myocardial infarction Mother Alive and well Social History Housing: House Alcohol intake: never Patient Tobacco Use Status: Never used Tobacco e-Cigarette/Vaping Use: Never Used Second Hand Smoke Exposure: No Advance Directives Date on File: 07/17/20 service: No Current occupational status: employed Gender identity: Female Cognitive needs: No Hearing needs: No Vision needs: Yes (glasses) Female Reproductive History Menstrual Age of Menarche: 10 Questionnaire Thrive Questionnaire Date Thrive assessed: 05/20/25 I am a: Patient What is your living situation today?: I have a steady place to live Within the past 12 months, did the food you bought not last and you didn't have the money to get more?: Sometimes True Within the past 12 months, did you worry whether your food would run out before you got money to buy more?: Sometimes True Do you have trouble paying for medicines?: Yes Do you have trouble getting transportation to medical appointments?: No Do you have trouble paying your heating and electricity bill?: Yes Do you have trouble taking care of your child, family member or friend?: No Do you have trouble with day-to-day activities such as bathing, preparing meals, shopping, managing finances, etc.?: No Are you currently unemployed and looking for a job?: No Are you interested in more education?: No Please select the resources that you would like help with: None Currently or been in a relationship where the following occur: No concerns reported THRIVE Score: 3 NAN-7 AMB Questionnaire NAN-7 Date NAN - 7 assessed: 10/11/24 Source: Developed by Drs. Raffaele Ruth, Cyn B.Reddy Hassan and colleagues, with an educational qiana from [employer]. Review of Systems Const All systems reviewed & are unremarkable except as noted in HPI and below Physical exam (Primary Care) Vital Signs: Last Vital Signs Temp 97.1 F 08/30/25 09:54 Pulse 105 H 08/30/25 09:54 BP 150/80 H 08/30/25 09:54 Pulse Ox 97 08/30/25 09:54 Oxygen Delivery Method Room Air 08/30/25 09:54 BMI result Body Mass Index 32.6 Tobacco/Smoking Status: Tobacco use Status Tobacco use date assessed 08/30/25 08/30/25 10:04 Patient Tobacco Use Status Never used Tobacco 08/30/25 09:53 e-Cigarette/Vaping Use Never Used 08/30/25 09:53 Thrive Assessment: Date of Thrive Assessment Date Thrive assessed 05/20/25 08/30/25 09:53 Currently or been in a relationship where the following occur: No concerns reported Const General: no acute distress Nutritional Appearance: obese Orientation/consciousness: patient oriented x3 Resp Effort & Inspection: normal respiratory effort Auscultation: clear to auscultation bilaterally Cardio Heart sounds: S1 normal heart sound present and S2 normal heart sound present Neuro General: patient oriented x3, gait normal and moves all extremities Psych Speech and movement: Normal speech and movement present Coding Level of Care Code Est Pt Level 4 (58018) Diagnoses Primary hyperaldosteronism E26.09 Hypertensive emergency I16.1 Time Spent (min) 20 Assessment & Plan Assessment & Plan (1) Primary hyperaldosteronism: Code(s): E26.09 - Other primary hyperaldosteronism Category: Medical Plan: Primary hyperaldosteronism due to right adrenal adenoma ? BP fluctuations expected; pending adrenalectomy 11/19/2025. Resistant hypertension ? experiencing episodes of hypotension with associated symptoms; may be related to medication dosing and variable aldosterone output. Medication side effect (possible nifedipine-related drowsiness). Adjusted BP regimen: Consider holding night dose of Nifedipine if symptomatic hypotension persists. Continue Spironolactone 150 mg daily as directed. Hold Proponalol for now - advise to call Neurology for another Migraine prevention medication. Propranolol can contribute to lowering BPs. Encouraged home BP monitoring twice daily with log; review with PCP at the next Appointment. Proceed with adrenalectomy as scheduled; continue follow-up with endocrine surgery. Completed disability paperwork today. (2) Hypertensive emergency: Code(s): I16.1 - Hypertensive emergency Category: Medical Plan: Primary hyperaldosteronism due to right adrenal adenoma ? BP fluctuations expected; pending adrenalectomy 11/19/2025. Resistant hypertension ? experiencing episodes of hypotension with associated symptoms; may be related to medication dosing and variable aldosterone output. Medication side effect (possible nifedipine-related drowsiness). Adjusted BP regimen: Consider holding night dose of Nifedipine if symptomatic hypotension persists. Continue Spironolactone 150 mg daily as directed. Hold Proponalol for now - advise to call Neurology for another Migraine prevention medication. Propranolol can contribute to lowering BPs. Encouraged home BP monitoring twice daily with log; review with PCP at the next Appointment. Proceed with adrenalectomy as scheduled; continue follow-up with endocrine surgery. Completed disability paperwork today.
[2025-08-30 09:54] VITALS: BP 150/80; PULSE 105; TEMP 36.2; O2SAT 97; BMI 32.6
== END 2025-08-30 10:48 | disposition home or self-care (01) ==
LOC: HO.HMCH 09:43
PROVIDERS: PCP Internal Medicine; Visit Provider Nurse Practitioner Family
DX: E26.09 Other primary hyperaldosteronism (principal); I16.1 Hypertensive emergency

== ENCOUNTER → 2025-09-06 10:18 | Outpatient (BNV) | payer OTHER, SELFPAY | PROVIDERS: PCP Internal Medicine; Visit Provider Radiology Diagnostic Radiology | DX: R20.0 Anesthesia of skin (principal) | CPT/HCPCS: 72156; 72157 ==

== ENCOUNTER 2025-09-06 10:19 | Outpatient (REF) | payer OTHER, SELFPAY ==
--- NOTE | ~2025-09-06 | MR_ITS ---
EXAMINATION: MR THORACIC SPINE WITHOUT AND WITH CONTRAST CLINICAL INFORMATION: MR brain shows white matter lesions most suggestive of inflammatory demyelinating disease. Evaluate for thoracic spine abnormalities. COMPARISON: None available. TECHNIQUE: MRI of the thoracic spine was was done prior to and without the administration 9 mL IV Gadavist. Examination was performed on a 1.5 Fanny Siemens unit, using standard sequences. FINDINGS: CORONAL ALIGNMENT: -There is a minimal levoconvex scoliosis. SAGITTAL ALIGNMENT: -Normal thoracic kyphosis. -There is no subluxation identified. VERTEBRAL BODIES/BONE MARROW: -There is now bone marrow edema, or abnormal infiltrating bone marrow signal identified. No suspicious bone lesions. No abnormal enhancement. -No compression deformities. No acute fractures. DISCS: -Normal and disc height and signal throughout. THORACIC CORD: -Normal in caliber and signal throughout. There is no expansion or intrinsic cord signal abnormality. -There is no abnormal intra-axial or extra medullary enhancement. PARAVERTEBRAL SOFT TISSUES: -There is no paraspinous or paravertebral edema or abnormal fluid collection. -The aorta is normal in caliber. -There are no pleural effusions. AXIAL DISC SPACE LEVELS: C7-T12: No focal disc herniation, central canal or neural foraminal narrowing. MR/MR thoracic spine wo/w con IMPRESSION: 1. Normal enhanced MRI of the thoracic spine. There is no evidence of demyelinating disease involvement of the thoracic spinal cord . There is no abnormal cord enhancement. Electronically signed by: Gama Araujo MD 09/06/2025 11:45 AM [facility]
--- NOTE | ~2025-09-06 | MR_ITS ---
EXAMINATION: MR CERVICAL SPINE WITHOUT AND WITH CONTRAST CLINICAL INFORMATION: MR brain shows white matter lesions most suggestive of inflammatory demyelinating disease. Evaluate for cervical spine abnormalities. COMPARISON: No prior MRI of the cervical spine. TECHNIQUE: Multiplanar multisequence MR imaging of the cervical spine was done prior to and without the administration 9 mL IV Gadavist. Examination was performed on a 1.5 Fanny Siemens unit, using standard sequences. FINDINGS: CORONAL ALIGNMENT: -Normal. SAGITTAL ALIGNMENT: -Minimal straightening of the normal lordosis. -There is a 2 mm degenerative appearing retrolisthesis of C5 on C6. Sagittal alignment is otherwise anatomic. CRANIOCERVICAL JUNCTION/C1-2 ARTICULATIONS: -Intact and normally aligned. VERTEBRAL BODIES/BONE MARROW: -There is now bone marrow edema, or abnormal infiltrating bone marrow signal identified. No suspicious bone lesions. -No compression deformities. No acute fractures. DISCS: -There is mild diffuse loss of disc signal, with sparing of C7-T1. -Moderate loss of disc signal with mild loss of disc height at C5-6. CERVICAL CORD: -Normal in caliber and signal throughout. There is no expansion or intrinsic cord signal abnormality. -There is no abnormal intra-axial or extra medullary enhancement. PARAVERTEBRAL SOFT TISSUES: -There is no paraspinous or paravertebral edema or abnormal fluid collection. -The thyroid gland is obscured by a saturation band. VISUALIZED INTRACRANIAL STRUCTURES: -Imaged contents of the posterior fossa appear normal. AXIAL DISC SPACE IMAGING: C2-C3: No central canal or neural foraminal narrowing. C3-C4: No central canal or neural foraminal narrowing. C4-C5: Minimal disc bulge present without mass effect. Mild right facet degenerative hypertrophy. There is no central canal narrowing. There is minimal right foraminal narrowing. C5-C6: There is a diffuse disc bulge with a superimposed right paracentral and lateral disc protrusion. This indents upon the ventral thecal sac, contact, minimally flattens the ventral cord (series 20, image 17). There is preserved CSF space posterior and lateral to the cord. There is no cord signal abnormality. Mild bilateral uncinate spurring contributes to mild right greater than left neural foraminal narrowing. C6-C7: No significant disc pathology. Very mild bilateral uncinate spurring. No central canal narrowing present. Mild bilateral neural foraminal narrowing. There is a nerve root sleeve cyst in the left neural foramen. C7-T1: No central canal or neural foraminal narrowing. MR/MR cervical spine wo/w con IMPRESSION: 1. There is no evidence of demyelinating disease involvement of the cervical spinal cord . There is no abnormal cord enhancement. 2. There is very mild spondylosis. There is a focal right paracentral and lateral disc protrusion at C5-6, indenting upon the right ventral aspect of the cord without evidence of cord impingement or signal abnormality. Electronically signed by: Gama Araujo MD 09/06/2025 11:34 AM [facility]
== END 2025-09-06 10:20 | disposition home or self-care (01) ==
LOC: HO.MRI 10:19
PROVIDERS: PCP Internal Medicine; Visit Provider Nurse Practitioner Family
DX: R20.0 Anesthesia of skin (principal); G93.9 Disorder of brain, unspecified; N39.41 Urge incontinence; K59.00 Constipation, unspecified
CPT/HCPCS: 72156; 72157; A9585

== ENCOUNTER 2025-09-19 09:41 | Outpatient (AMB) | payer OTHER, SELFPAY ==
--- NOTE | 2025-09-19 09:45 | HO.NEPHOV_ITS ---
Vital Signs 09/19/25 09:48 Height 5 ft 5 in Weight 199 lb BMI 33.1 BP 142/90 H Blood Pressure Location Lt brachial Position Sitting Pulse 75 Pulse Source Pulse Oximeter Pulse Oximetry (%) 98 Oxygen Delivery Method Room Air Intake Visit Reasons: 2 mo follow up-[facility] Composite Laminator Required: No Accompanied by: Self / Same As Patient Allergies No Known Allergies Allergy (Verified 09/19/25 09:48) HPI Comments Details: Ileana was seen for follow up for hypokalemia and hypertension. She had a hypertensive urgency needing hospital admission needing nicardipine drip. She has H/O labile blood pressure and her anti hypertensive medications have been adjusted. She has functioning adrenal adenoma awaiting surgery by endocrine surgeon. 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 She has normal renal function. She has no hypomagnesemia, polyuria or metabolic acidosis. She has no family H/O Denice's /Bartter/Giltelman syndrome. She never had hypokalemic periodic paralysis. She denies any headaches, double vision, edema or orthostatic symptoms. [facility] Medical History (Updated 08/30/25 @ 11:07 by Afua Mcdaniels NP) Hypertensive emergency Migraine with aura Primary hyperaldosteronism Migraine Cervical cancer screening Abnormal uterine bleeding (AUB) Friable cervix Encounter for gynecological examination Nasal pain Blood pressure elevated without history of HTN Breast cancer screening by mammogram Erythema of groin Breast lump Cervical polyp Menorrhagia Menometrorrhagia Legally blind in left eye, as defined in [place] Urge incontinence Metrorrhagia Anemia Impaired glucose tolerance Obesity (BMI 30-39.9) Hypercholesterolemia Hypothyroid Surgical History Hx of exploratory laparotomy History of total abdominal hysterectomy History of excision of lesion (04/07/23) History of bilateral tubal ligation Hx of tubal ligation Hx of cervical polypectomy Family History Maternal Aunt Family history of breast cancer Maternal Uncle History of brain tumor Paternal Aunt Hx of myocardial infarction Skin cancer Father Myocardial infarction Mother Alive and well Social History Housing: House Alcohol intake: never Patient Tobacco Use Status: Never used Tobacco e-Cigarette/Vaping Use: Never Used Second Hand Smoke Exposure: No Advance Directives Date on File: 07/17/20 service: No Current occupational status: employed Gender identity: Female Cognitive needs: No Hearing needs: No Vision needs: Yes (glasses) Female Reproductive History Menstrual Age of Menarche: 10 Review of Systems Const All systems reviewed & are unremarkable except as noted in HPI and below Physical Exam Vital Signs: Last Vital Signs Pulse 75 09/19/25 09:48 BP 142/110 H 09/19/25 09:48 Pulse Ox 98 09/19/25 09:48 Oxygen Delivery Method Room Air 09/19/25 09:48 BMI result Body Mass Index 33.1 Const General: comfortable and no acute distress Orientation/consciousness: patient oriented x3 HEENT Head: Yes normocephalic Mouth: Normal oral and palatal mucosa present Eyes EOM: EOMs intact bilaterally Neck Neck: Yes supple Resp Auscultation: clear to auscultation bilaterally Cardio Jugular venous distension: no JVD Rate: regular rate GI Palpation (GI): Soft to palpation Auscultation: normal bowel sounds General: Yes no CVA tenderness Back/Spine/Pelvis Back: no CVA tenderness Skin General skin exam: no rashes or lesions noted Neuro General: patient oriented x3 and moves all extremities Extrem General: Yes no pedal edema Results Reviewed Nephrology Results: Hgb, (12.0-16.0) 14.9 g/dl 08/23/25 WBC, (4.8-10.8) 7.7 X10*3/uL 08/23/25 Plt Count, (160-400) 293 X10*3/uL 08/23/25 Sodium, (135-145) 136 mmol/L 08/23/25 Potassium, (3.3-5.1) 4.9 mmol/L Δ 08/23/25 Chloride, (96-108) 106 mmol/L 08/23/25 Carbon Dioxide, (22-29) 23 mmol/L 08/23/25 BUN, (9-16) 17 mg/dL H 08/23/25 Creatinine, (0.5-1.4) 0.75 mg/dL 08/23/25 Calcium, (8.4-10.2) 9.3 mg/dL 08/23/25 Renal US 08/01/24 Assessment & Plan Assessment & Plan (1) Hypertension: Code(s): I10 - Essential (primary) hypertension Category: Medical Qualifiers: Hypertension type: primary hypertension Qualified Code(s): I10 - Essential (primary) hypertension (2) Primary hyperaldosteronism: Code(s): E26.09 - Other primary hyperaldosteronism Category: Medical Plan She has been having labile blood pressure and was found to have functioning adrenal adenoma. Her anti hypertensive medications have been adjusted. She could take Spironolactone 100 mg AM along with Nifedipine in the morning & I started another 50 mg spironolactone 50 mg PM. She has normal renal function. She has no hypomagnesemia, polyuria or metabolic acidosis. She has no family H/O Denice's /Bartter/Giltelman syndrome. She never had hypokalemic periodic paralysis. She does monitor her BP at home. She has increased mineralocorticoid activity. (She has a 1.4 cm adenoma within the left adrenal gland by CT scan and had AVS & has seen Endocrine surgeon). She also has small nonobstructive calculus within the left kidney. Answered all questions Medications: Discontinued propranolol Discontinued Reason: Doctor's Order 20 mg PO BID 60 tabs 4RF Coding Level of Care Code Est Pt Level 4 (54172) Diagnoses Primary hypertension I10 Hypertension type: primary hypertension Primary hyperaldosteronism E26.09
[2025-09-19 09:48] VITALS: BP 142/90; PULSE 75; O2SAT 98; BMI 33.1
== END 2025-09-19 10:19 | disposition home or self-care (01) ==
LOC: HO.HKAS 09:42
PROVIDERS: PCP Internal Medicine; Visit Provider Internal Medicine Nephrology
DX: I10 Essential (primary) hypertension (principal); E26.09 Other primary hyperaldosteronism
CPT/HCPCS: 99214